=== PATIENT | female | born 1980 | race Two or more races ===

== ENCOUNTER 2020-05-06 14:38 | Outpatient (REF) | payer BC, SELFPAY ==
[2020-05-07 02:16] LABS: CT PCR NOT DETECTED (Not Detect.); NG PCR NOT DETECTED (Not Detect.)
[2020-05-07 09:32] LABS: BV Int Neg Control Negative (Negative); BV Int Pos Control Positive (Positive)
== END 2020-05-06 14:39 | disposition home or self-care (01) ==
LOC: HO.LAB 14:38
PROVIDERS: PCP Internal Medicine Medical Oncology; Visit Provider Obstetrics & Gynecology
DX: B37.3 Candidiasis of vulva and vagina (principal)
CPT/HCPCS: 87480; 87491; 87510; 87591; 87660

== ENCOUNTER 2020-08-22 09:22 | Outpatient (REF) | payer BC, SELFPAY ==
[2020-08-22 10:30] LABS: MANUAL DIFF FLAG NO
[2020-08-22 10:39] LABS: Basophils Percent Auto 0.5 % (0-2); Eosinophils Absolute Auto 0.1 X10*3/uL (0.0-0.4); Eosinophils Percent Auto 0.9 % (0-4); Hematocrit 36.7 % (37-47); Hemoglobin 11.6 g/dl (12.0-16.0); Imm Gran Abs Auto 0.02 X10*3/uL (0.00-0.03); Imm Gran Pct Auto 0.3 % (0.0-0.4); Lymphocytes Absolute Auto 1.8 X10*3/uL (1.2-4.9); Lymphocytes Percent Auto 23.2 % (20-40); Mean Corpuscular HGB Conc 31.6 g/dl (31.0-35.0); Mean Corpuscular Hemoglobin 24.4 pg (27.0-33.0); Mean Corpuscular Volume 77.1 fL (80-98); Mean Platelet Volume 9.9 fL (9.4-12.3); Monocytes Absolute Auto 0.3 X10*3/uL (0.1-1.2); Monocytes Percent Auto 4.3 % (2-11); Neutrophils Absolute Auto 5.4 X10*3/uL (2.0-8.3); Neutrophils Percent Auto 70.8 % (45-73); Platelet Count 376 X10*3/uL (160-400); Red Blood Count 4.76 X10*6/uL (4.20-5.50); Red Cell Distribution Width 14.9 % (11.0-16.0); White Blood Count 7.7 X10*3/uL (4.8-10.8)
[2020-08-22 11:03] LABS: Alanine Aminotransferase 16 U/L (0-31); Albumin Level 4.4 g/dL (3.5-5.0); Alkaline Phosphatase 92 U/L (39-117); Aspartate Amino Transferase 13 U/L (5-31); Bilirubin Direct < 0.2 mg/dL (0.0-0.5); Bilirubin Total 0.5 mg/dL (0.0-1.0); Total Protein 7.3 g/dL (6.5-8.0)
[2020-08-22 11:16] LABS: Ferritin 11 ng/mL (10-122)
== END 2020-08-22 09:23 | disposition home or self-care (01) ==
LOC: HO.LAB 09:22
PROVIDERS: PCP Internal Medicine Medical Oncology; Visit Provider Obstetrics & Gynecology
DX: G44.029 Chronic cluster headache, not intractable (principal); E66.9 Obesity, unspecified
CPT/HCPCS: 36415; 80076; 82728; 85025

== ENCOUNTER 2020-08-28 11:09 | Outpatient (REF) | payer BC, SELFPAY ==
[2020-08-28 13:48] LABS: Alanine Aminotransferase 15 U/L (0-31); Albumin Level 4.5 g/dL (3.5-5.0); Alkaline Phosphatase 92 U/L (39-117); Aspartate Amino Transferase 14 U/L (5-31); Bilirubin Direct < 0.2 mg/dL (0.0-0.5); Bilirubin Total 0.4 mg/dL (0.0-1.0); Total Protein 7.3 g/dL (6.5-8.0)
[2020-08-28 14:11] LABS: HCG Quantitative < 2 mIU/mL; Thyroid Stimulating Hormone 5.89 uIU/mL (0.32-4.0)
[2020-08-29 15:36] LABS: C. trachomatis RNA TMA NOT DETECTED (NOT DETECTED); N. gonorrhoeae RNA TMA NOT DETECTED (NOT DETECTED)
== END 2020-08-28 11:10 | disposition home or self-care (01) ==
LOC: HO.LAB 11:09
PROVIDERS: PCP Internal Medicine Medical Oncology; Visit Provider Obstetrics & Gynecology
DX: N92.0 Excessive and frequent menstruation with regular cycle (principal); B37.3 Candidiasis of vulva and vagina
CPT/HCPCS: 36415; 80076; 84443; 84702; 87491; 87591

== ENCOUNTER 2020-08-29 15:38 | Outpatient (REF) | payer BC, SELFPAY ==
--- NOTE | ~2020-08-29 | US_ITS ---
EXAMINATION: US PELVIS COMPLETE US TRANSVAGINAL CLINICAL INFORMATION: Frequent menstruation with regular cycle. COMPARISON: None TECHNIQUE: Transabdominal and transvaginal ultrasound of the pelvis was performed. FINDINGS: The uterus is anteverted and anteflexed measuring 12.3 cm in length, 4.1 cm in AP and 4.4 cm in transverse dimension. Endometrial thickness is 0.78 cm. The uterus is homogeneous in echotexture. There are small nabothian cysts seen in the cervix. Some of the cysts have central echogenicity and are complex. The right ovary measures 2.0 x 1.8 x 2.1 cm and a volume of 4.0 mL. It appears unremarkable. The left ovary measures 2.6 x 2.2 x 1.9 cm and a volume of 5.7 mL. It appears unremarkable. There is no free fluid in the cul-de-sac. US/US pelvic complete IMPRESSION: Unremarkable uterus. Small nabothian cysts, some of which are complex. The ovaries are unremarkable.
--- NOTE | ~2020-08-29 | US_ITS ---
EXAMINATION: US PELVIS COMPLETE US TRANSVAGINAL CLINICAL INFORMATION: Frequent menstruation with regular cycle. COMPARISON: None TECHNIQUE: Transabdominal and transvaginal ultrasound of the pelvis was performed. FINDINGS: The uterus is anteverted and anteflexed measuring 12.3 cm in length, 4.1 cm in AP and 4.4 cm in transverse dimension. Endometrial thickness is 0.78 cm. The uterus is homogeneous in echotexture. There are small nabothian cysts seen in the cervix. Some of the cysts have central echogenicity and are complex. The right ovary measures 2.0 x 1.8 x 2.1 cm and a volume of 4.0 mL. It appears unremarkable. The left ovary measures 2.6 x 2.2 x 1.9 cm and a volume of 5.7 mL. It appears unremarkable. There is no free fluid in the cul-de-sac. US/US transvaginal IMPRESSION: Unremarkable uterus. Small nabothian cysts, some of which are complex. The ovaries are unremarkable.
== END 2020-08-29 15:39 | disposition home or self-care (01) ==
LOC: HO.US 15:38
PROVIDERS: PCP Internal Medicine Medical Oncology; Visit Provider Obstetrics & Gynecology
DX: N92.0 Excessive and frequent menstruation with regular cycle (principal)
CPT/HCPCS: 76830; 76856

== ENCOUNTER 2020-08-30 10:43 | Outpatient (REF) | payer BC, SELFPAY ==
[2020-08-30 12:38] LABS: Free T4 (Free Thyroxine) 0.68 ng/dL (0.71-1.85)
== END 2020-08-30 10:44 | disposition home or self-care (01) ==
LOC: HO.LAB 10:43
PROVIDERS: Visit Provider Obstetrics & Gynecology
DX: R79.89 Other specified abnormal findings of blood chemistry (principal)
CPT/HCPCS: 84439; 84481

== ENCOUNTER 2020-09-06 09:19 | Outpatient (REF) | payer BC, SELFPAY ==
[2020-09-06 10:03] LABS: MANUAL DIFF FLAG NO
[2020-09-06 10:13] LABS: Basophils Percent Auto 0.3 % (0-2); Eosinophils Absolute Auto 0.1 X10*3/uL (0.0-0.4); Eosinophils Percent Auto 0.8 % (0-4); Hematocrit 38.1 % (37-47); Hemoglobin 11.9 g/dl (12.0-16.0); Imm Gran Abs Auto 0.03 X10*3/uL (0.00-0.03); Imm Gran Pct Auto 0.3 % (0.0-0.4); Lymphocytes Absolute Auto 1.6 X10*3/uL (1.2-4.9); Lymphocytes Percent Auto 17.8 % (20-40); Mean Corpuscular HGB Conc 31.2 g/dl (31.0-35.0); Mean Corpuscular Hemoglobin 23.8 pg (27.0-33.0); Mean Platelet Volume 9.5 fL (9.4-12.3); Monocytes Absolute Auto 0.4 X10*3/uL (0.1-1.2); Monocytes Percent Auto 4.2 % (2-11); Neutrophils Absolute Auto 6.7 X10*3/uL (2.0-8.3); Neutrophils Percent Auto 76.6 % (45-73); Platelet Count 424 X10*3/uL (160-400); Red Blood Count 5.01 X10*6/uL (4.20-5.50); White Blood Count 8.7 X10*3/uL (4.8-10.8)
[2020-09-06 10:23] LABS: Alanine Aminotransferase 14 U/L (0-31); Albumin Level 4.5 g/dL (3.5-5.0); Alkaline Phosphatase 91 U/L (39-117); Anion Gap 12 (12-20); Aspartate Amino Transferase 14 U/L (5-31); Bilirubin Total 0.6 mg/dL (0.0-1.0); Blood Urea Nitrogen 12 mg/dL (9-16); Calcium 8.9 mg/dL (8.4-10.2); Carbon Dioxide 26 mmol/L (22-29); Chloride 105 mmol/L (96-108); Cholesterol 180 mg/dL; Estimated Glomerular Filt Rate > 60; Glucose Fasting 109 mg/dL (60-99); HDL Cholesterol 39 mg/dL; LDL Cholesterol Calculated 125 mg/dl; Potassium 4.2 mmol/L (3.3-5.1); Sodium 139 mmol/L (135-145); Total Protein 7.6 g/dL (6.5-8.0); Triglycerides 80 mg/dL
[2020-09-06 10:31] LABS: Estimated Average Glucose 117 mg/dL; Hemoglobin A1c % 5.7 %
[2020-09-06 10:43] LABS: Ferritin 14 ng/mL (10-122)
== END 2020-09-06 09:20 | disposition home or self-care (01) ==
LOC: HO.LAB 09:19
PROVIDERS: PCP Internal Medicine Medical Oncology; Visit Provider Internal Medicine Medical Oncology
DX: R73.9 Hyperglycemia, unspecified (principal); E66.9 Obesity, unspecified; D50.9 Iron deficiency anemia, unspecified
CPT/HCPCS: 36415; 80053; 80061; 82728; 83036; 85025

== ENCOUNTER 2020-09-18 12:06 | Outpatient (REF) | payer BC, SELFPAY | END 2020-09-18 12:07 | disposition home or self-care (01) | LOC: HO.LAB 12:06 | PROVIDERS: PCP Internal Medicine Medical Oncology; Visit Provider Internal Medicine | DX: Z20.822 Contact with and (suspected) exposure to COVID-19 (principal) | CPT/HCPCS: 36415; C9803; U0003; U0005 ==

== ENCOUNTER 2020-09-24 13:45 | Outpatient (REF) | payer BC, SELFPAY | END 2020-09-24 13:46 | disposition home or self-care (01) | LOC: HO.LAB 13:45 | PROVIDERS: Visit Provider Obstetrics & Gynecology | DX: N92.0 Excessive and frequent menstruation with regular cycle (principal) | CPT/HCPCS: 58100; 88305 ==

== ENCOUNTER → 2020-10-15 14:36 | Outpatient (BNVA) | payer BC, SELFPAY | PROVIDERS: Visit Provider Obstetrics & Gynecology ==

== ENCOUNTER 2020-11-08 14:17 | Outpatient (REF) | payer BC, SELFPAY ==
[2020-11-08 17:09] LABS: Free T4 (Free Thyroxine) 0.87 ng/dL (0.71-1.85); Thyroid Stimulating Hormone 2.95 uIU/mL (0.32-4.0)
[2020-11-09 10:07] LABS: Thyroglobulin Antibodies 1 IU/mL (< or = 1); Thyroid Peroxidase Antibodies >900 IU/mL (<9)
== END 2020-11-08 14:18 | disposition home or self-care (01) ==
LOC: HO.LAB 14:17
PROVIDERS: Visit Provider Nurse Practitioner Gerontology
DX: R79.89 Other specified abnormal findings of blood chemistry (principal); E66.09 Other obesity due to excess calories; R73.03 Prediabetes
CPT/HCPCS: 36415; 84439; 84443; 86376; 86800

== ENCOUNTER → 2020-11-12 09:29 | Outpatient (BNVA) | payer BC, SELFPAY | PROVIDERS: Visit Provider Obstetrics & Gynecology ==

== ENCOUNTER 2020-11-15 08:02 | Day surgery (SDC) | payer BC, SELFPAY ==
--- NOTE | 2020-11-13 12:22 | HO.ANESPROP2 ---
HPI - Anesthesia Eval Consult details Narrative: 40yo F for D&C Hysteroscopy, Poss Polypectomy, Poss Myomectomy PMFSH Active Problems Active Problems: All Active Problems (Updated 11/11/20 @ 11:45 by EMILY Lin) Barb's disease (Acute) Prediabetes (Acute) Elevated TSH (Acute) Obesity due to excess calories (Acute) Menorrhagia (Acute) Recurrent candidiasis of vagina (Acute) Past Medical History Medical History Barb's disease Obesity due to excess calories Prediabetes Surgical History Surgical History H/O tubal ligation Social History Social History Household Members: Spouse and Children Alcohol intake: never Smoking Status: Never smoker Second Hand Smoke Exposure: No Sexual 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/Heterosexual Gender identity: female Meds Allergies Allergy/AdvReac Type Severity Reaction Status Date / Time No Known Allergies Allergy Verified 11/12/20 09:55 Home Medications Medication Instructions Recorded Confirmed Last Taken Type clotrimazole-betamethasone 1 1 applic TOPICAL BID 05/06/20 11/08/20 Unknown History %-0.05 % topical cream Exam Exam Date and Time: November 13, 2020 1222 Pertinent Lab Results Pertinent Lab Results: Laboratory Tests 09/06/20 09/06/20 09:38 09:38 WBC 8.7 Hgb 11.9 L Hct 38.1 Plt Count 424 H Sodium 139 Potassium 4.2 Chloride 105 Carbon Dioxide 26 BUN 12 Creatinine 0.77 Assessment and Plan Assessment Anesthesia Assessment: Chart Reviewed
[2020-11-15] VITALS (7 sets, daily range): BP systolic 103–119; BP diastolic 63–77; PULSE 66–90; RESP 16–20; TEMP 36.1–36.7; O2SAT 96–100; BMI 31.2
[2020-11-15 08:32] LABS: UPreg QC Valid YES; Urine Pregnancy NEGATIVE (NEGATIVE)
[2020-11-15] MEDS: Lactated Ringers 1,000 ML 100 ML IVCONT (09:18)
--- NOTE | 2020-11-15 09:44 | MHC.SHP ---
Pre-Procedural Eval Section A The patient is an INPATIENT: No Changes since office visit: No Cold of Flu in the past 2 weeks, No New Medical Problems, No Changes in Medication and No Patient answered all questions The History & Physical has been completed within 30 days and I have reviewed it.: Yes Section B Chief Complaint: Menorrhagia Allergies: Allergies Allergy/AdvReac Type Severity Reaction Status Date / Time No Known Allergies Allergy Verified 11/12/20 09:55 Plan Diagnosis/Plan: Unchanged I have reviewed the history and physical and performed a pertinent physical examination on my patient. No changes have occurred unless specified.
--- NOTE | 2020-11-15 10:27 | P.BOP_ITS ---
Brief Operative Note Date of Service: 11/15/20 Pre-op diagnosis: Menorrhagia Post-op diagnosis: same (Normal endometrial/endocervical cavity) Procedure: Hysteroscopy D&C Surgeon: Baldemar Pineda MD Anesthesia: MAC Was an Retail Pricing Coordinator used for this Procedure?: No Estimated blood loss (mL): 0 Pathology: other (Endometrial Scrapping.) Condition: stable Disposition: PACU
--- NOTE | 2020-11-15 10:29 | P.OP_ITS ---
Operative Note Operative Note Date of Service: 11/15/20 Narrative: Preop Diagnosis: Menorrhagia Operation: Diagnostic Hysteroscopy, Dilataion & Curettage Post Op Diagnosis: Normal endometrial /endocervical cavity QBL: Minimal Anesthesia: MAC Surgeon: Baldemar Pineda MD Investigative Research Specialist: None Complication: None Pathology: Endometrial Scrapings Complication: None Pathology: Endometrial Scrapings Procedure: The patient was put in the dorsal lithotomy position, scrubbed, and draped in the usual manner. A sterile speculum was inserted in the patient's vagina. The anterior lip of the cervix was grasped with a single tooth tenaculum. The cervix was dilated up to 5 mm, then the scope was inserted in the patient's uterus. Inspection revealed normal endometrial/endocervical cavity. Sharp curetting was carried on and moderate amount of endometrial tissues were retrieved. At the end of the procedure, all instruments were taken out of the patient uterine and vaginal cavity. The single tooth tenaculum was removed and homeostasis was assured using pressure,. The patient tolerated the procedure well and was transferred to the PACU in a stable condition.
[2020-11-15] MEDS: Acetaminophen 325 MG TABLET 650 MG PO (11:03)
[2020-11-15] MEDS: oxyCODONE HCl Immed Release 5 MG TABLET PO (11:04)
--- NOTE | 2020-11-15 11:10 | HO.POSTANES ---
Post Anesthesia Evaluation Post Anesthesia Evaluation Vital Signs: Vital Signs Temp Pulse Resp BP Pulse Ox 11/15/20 10:55 79 20 109/63 98 11/15/20 10:50 86 16 113/69 97 11/15/20 10:45 84 18 109/64 96 11/15/20 10:40 97.0 F 90 16 110/64 96 11/15/20 08:46 97.5 F 86 16 103/63 100 Anesthesia: General Endotracheal-GETA Mental Status: Awake Pain Control: Satisfactory Nausea/Vomiting: None Hydration: Adequate Anesthesia-Related Issues: No Anes. Related Issues
--- NOTE | 2020-11-15 11:33 | HO.POSTANES ---
Post Anesthesia Evaluation Post Anesthesia Evaluation Vital Signs: Vital Signs Temp Pulse Resp BP Pulse Ox 11/15/20 11:25 98.0 F 66 17 119/74 98 11/15/20 11:10 70 18 115/77 98 11/15/20 10:55 79 20 109/63 98 11/15/20 10:50 86 16 113/69 97 11/15/20 10:45 84 18 109/64 96 11/15/20 10:40 97.0 F 90 16 110/64 96 11/15/20 08:46 97.5 F 86 16 103/63 100 Anesthesia: General Mental Status: Awake Pain Control: Satisfactory Nausea/Vomiting: None Hydration: Adequate Anesthesia-Related Issues: No Anes. Related Issues
== END 2020-11-15 12:17 | disposition home or self-care (01) ==
LOC: HO.SSS 08:03
PROVIDERS: Nurse Practitioner; Visit Provider Obstetrics & Gynecology
PROC: 0UDB8ZZ Extraction of Endometrium, Via Natural or Artificial Opening Endoscopic (ICD-10-PCS; CPT 58558; principal; 2020-11-15 09:00)
DX: N92.0 Excessive and frequent menstruation with regular cycle (principal); E06.3 Autoimmune thyroiditis; R73.03 Prediabetes; E66.09 Other obesity due to excess calories; Z68.31 Body mass index [BMI] 31.0-31.9, adult; Z79.84 Long term (current) use of oral hypoglycemic drugs
CPT/HCPCS: 58558; 81025; 88305; J1100; J2250; J2405; J3010

== ENCOUNTER 2020-11-21 10:10 | Outpatient (REF) | payer BC, SELFPAY ==
--- NOTE | ~2020-11-21 | US_ITS ---
EXAMINATION: US THYROID CLINICAL INFORMATION: Autoimmune thyroiditis. COMPARISON: None TECHNIQUE: Linear transducer grayscale and color Doppler examination with attention to the region of the thyroid. FINDINGS: SIZE: Measurements of the thyroid lobes and nodules are given in sagittal, anteroposterior and transverse dimensions respectively. Right Thyroid Lobe: 5.4 x 1.1 x 1.9 cm, volume 5.7 mL. Parenchyma: The gland echotexture is heterogeneous. Thyroid vascularity is normal. Left Thyroid Lobe: 4.2 x 1.1 x 1.6 cm, volume 3.8 mL. Parenchyma: The gland echotexture is heterogeneous. Thyroid vascularity is normal. Isthmus: 0.2 cm in maximum AP dimension. No focal thyroid nodule is seen. NODES: No lymphadenopathy is seen in the tissue surrounding the thyroid gland. US/US thyroid IMPRESSION: Normal-size slightly heterogeneous thyroid gland. No nodule seen.
== END 2020-11-21 10:11 | disposition home or self-care (01) ==
LOC: HO.US 10:10
PROVIDERS: Visit Provider Nurse Practitioner Gerontology
DX: E06.3 Autoimmune thyroiditis (principal)
CPT/HCPCS: 76536

== ENCOUNTER → 2020-11-28 11:36 | Outpatient (BNVA) | payer BC, SELFPAY | PROVIDERS: Visit Provider Obstetrics & Gynecology ==

== ENCOUNTER 2020-12-09 09:28 | Outpatient (REF) | payer BC, SELFPAY ==
[2020-12-09 09:57] LABS: MANUAL DIFF FLAG NO
[2020-12-09 10:00] LABS: Basophils Percent Auto 0.3 % (0-2); Eosinophils Absolute Auto 0.1 X10*3/uL (0.0-0.4); Eosinophils Percent Auto 1.5 % (0-4); Hematocrit 35.8 % (37-47); Hemoglobin 10.9 g/dl (12.0-16.0); Imm Gran Abs Auto 0.03 X10*3/uL (0.00-0.03); Imm Gran Pct Auto 0.4 % (0.0-0.4); Lymphocytes Absolute Auto 1.9 X10*3/uL (1.2-4.9); Lymphocytes Percent Auto 25.8 % (20-40); Mean Corpuscular HGB Conc 30.4 g/dl (31.0-35.0); Mean Corpuscular Hemoglobin 23.4 pg (27.0-33.0); Mean Platelet Volume 9.2 fL (9.4-12.3); Monocytes Absolute Auto 0.3 X10*3/uL (0.1-1.2); Monocytes Percent Auto 4.7 % (2-11); Neutrophils Absolute Auto 4.8 X10*3/uL (2.0-8.3); Neutrophils Percent Auto 67.3 % (45-73); Platelet Count 384 X10*3/uL (160-400); Red Blood Count 4.65 X10*6/uL (4.20-5.50); Red Cell Distribution Width 15.1 % (11.0-16.0); White Blood Count 7.2 X10*3/uL (4.8-10.8)
[2020-12-09 10:25] LABS: Alanine Aminotransferase 13 U/L (0-31); Albumin Level 4.2 g/dL (3.5-5.0); Alkaline Phosphatase 81 U/L (39-117); Anion Gap 11 (12-20); Aspartate Amino Transferase 12 U/L (5-31); Bilirubin Total 0.3 mg/dL (0.0-1.0); Blood Urea Nitrogen 9 mg/dL (9-16); Carbon Dioxide 25 mmol/L (22-29); Chloride 108 mmol/L (96-108); Cholesterol 164 mg/dL; Estimated Glomerular Filt Rate > 60; Glucose Fasting 107 mg/dL (60-99); HDL Cholesterol 37 mg/dL; LDL Cholesterol Calculated 105 mg/dl; Potassium 4.4 mmol/L (3.3-5.1); Sodium 140 mmol/L (135-145); Total Protein 6.8 g/dL (6.5-8.0); Triglycerides 112 mg/dL
[2020-12-09 10:46] LABS: Free T4 (Free Thyroxine) 0.83 ng/dL (0.71-1.85); Thyroid Stimulating Hormone 1.42 uIU/mL (0.32-4.0)
== END 2020-12-09 09:29 | disposition home or self-care (01) ==
LOC: HO.LAB 09:28
PROVIDERS: PCP Internal Medicine Medical Oncology; Visit Provider Internal Medicine Medical Oncology
DX: E66.9 Obesity, unspecified (principal); D50.9 Iron deficiency anemia, unspecified; E03.9 Hypothyroidism, unspecified
CPT/HCPCS: 36415; 80053; 80061; 84439; 84443; 85025

== ENCOUNTER → 2020-12-16 10:01 | Outpatient (BNVA) | payer BC, SELFPAY | PROVIDERS: PCP Internal Medicine Medical Oncology; Visit Provider Dietitian, Registered | DX: E66.09 Other obesity due to excess calories (principal); R73.03 Prediabetes | CPT/HCPCS: 97802 ==

== ENCOUNTER 2021-03-07 10:22 | Outpatient (REF) | payer BC, SELFPAY ==
[2021-03-07 13:26] LABS: Estimated Average Glucose 111 mg/dL; Hemoglobin A1c % 5.5 %
[2021-03-07 13:27] LABS: Free T4 (Free Thyroxine) 0.89 ng/dL (0.71-1.85); Thyroid Stimulating Hormone 1.31 uIU/mL (0.32-4.0)
== END 2021-03-07 10:23 | disposition home or self-care (01) ==
LOC: HO.LAB 10:22
PROVIDERS: PCP Internal Medicine Medical Oncology; Visit Provider Nurse Practitioner Gerontology
DX: E06.3 Autoimmune thyroiditis (principal); R73.03 Prediabetes; E66.09 Other obesity due to excess calories
CPT/HCPCS: 36415; 83036; 84439; 84443

== ENCOUNTER 2021-03-17 08:59 | Outpatient (REF) | payer BC, SELFPAY ==
[2021-03-17 10:34] LABS: MANUAL DIFF FLAG NO
[2021-03-17 10:40] LABS: Basophils Percent Auto 0.3 % (0-2); Eosinophils Absolute Auto 0.1 X10*3/uL (0.0-0.4); Hematocrit 37.4 % (37-47); Hemoglobin 11.6 g/dl (12.0-16.0); Imm Gran Abs Auto 0.03 X10*3/uL (0.00-0.03); Imm Gran Pct Auto 0.3 % (0.0-0.4); Lymphocytes Percent Auto 22.3 % (20-40); Mean Corpuscular Hemoglobin 23.6 pg (27.0-33.0); Mean Corpuscular Volume 76.2 fL (80-98); Mean Platelet Volume 9.6 fL (9.4-12.3); Monocytes Absolute Auto 0.5 X10*3/uL (0.1-1.2); Monocytes Percent Auto 5.2 % (2-11); Neutrophils Absolute Auto 6.2 X10*3/uL (2.0-8.3); Neutrophils Percent Auto 70.9 % (45-73); Platelet Count 363 X10*3/uL (160-400); Red Blood Count 4.91 X10*6/uL (4.20-5.50); Red Cell Distribution Width 15.1 % (11.0-16.0); White Blood Count 8.8 X10*3/uL (4.8-10.8)
[2021-03-17 11:00] LABS: Estimated Average Glucose 111 mg/dL; Hemoglobin A1c % 5.5 %
[2021-03-17 11:17] LABS: Alanine Aminotransferase 20 U/L (0-31); Albumin Level 4.2 g/dL (3.5-5.0); Alkaline Phosphatase 81 U/L (39-117); Anion Gap 12 (12-20); Aspartate Amino Transferase 14 U/L (5-31); Bilirubin Total 0.4 mg/dL (0.0-1.0); Blood Urea Nitrogen 8 mg/dL (9-16); Calcium 8.9 mg/dL (8.4-10.2); Carbon Dioxide 25 mmol/L (22-29); Chloride 105 mmol/L (96-108); Cholesterol 157 mg/dL; Estimated Glomerular Filt Rate > 60; Glucose Fasting 100 mg/dL (60-99); HDL Cholesterol 36 mg/dL; LDL Cholesterol Calculated 89 mg/dl; Potassium 3.8 mmol/L (3.3-5.1); Sodium 138 mmol/L (135-145); Total Protein 6.7 g/dL (6.5-8.0); Triglycerides 163 mg/dL
[2021-03-17 11:21] LABS: Thyroid Stimulating Hormone 1.31 uIU/mL (0.32-4.0)
== END 2021-03-17 09:00 | disposition home or self-care (01) ==
LOC: HO.LAB 08:59
PROVIDERS: PCP Internal Medicine Medical Oncology; Visit Provider Obstetrics & Gynecology
DX: Z01.419 Encounter for gynecological examination (general) (routine) without abnormal findings (principal); E03.9 Hypothyroidism, unspecified; D50.9 Iron deficiency anemia, unspecified; E66.9 Obesity, unspecified; R87.610 Atypical squamous cells of undetermined significance on cytologic smear of cervix (ASC-US); R87.811 Vaginal high risk human papillomavirus (HPV) DNA test positive
CPT/HCPCS: 36415; 80053; 80061; 83036; 84439; 84443; 85025

== ENCOUNTER → 2021-03-24 11:38 | Outpatient (BNVA) | payer BC, SELFPAY | PROVIDERS: PCP Internal Medicine Medical Oncology; Visit Provider Dietitian, Registered | DX: R73.03 Prediabetes (principal); E66.09 Other obesity due to excess calories | CPT/HCPCS: 97803 ==

== ENCOUNTER 2021-07-17 08:33 | Outpatient (REF) | payer BC, SELFPAY ==
[2021-07-17 08:58] LABS: MANUAL DIFF FLAG NO
[2021-07-17 09:12] LABS: Basophils Percent Auto 0.2 % (0-2); Eosinophils Absolute Auto 0.1 X10*3/uL (0.0-0.4); Hematocrit 36.5 % (37.0-47.0); Hemoglobin 11.3 g/dl (12.0-16.0); Imm Gran Abs Auto 0.02 X10*3/uL (0.00-0.03); Imm Gran Pct Auto 0.2 % (0.0-0.4); Lymphocytes Absolute Auto 1.9 X10*3/uL (1.2-4.9); Lymphocytes Percent Auto 21.8 % (20-40); Mean Corpuscular Hemoglobin 23.5 pg (27.0-33.0); Mean Corpuscular Volume 75.9 fL (80.0-98.0); Mean Platelet Volume 9.2 fL (9.4-12.3); Monocytes Absolute Auto 0.5 X10*3/uL (0.1-1.2); Monocytes Percent Auto 5.3 % (2-11); Neutrophils Absolute Auto 6.3 x10*3/uL (2.0-8.3); Neutrophils Percent Auto 71.5 % (45-73); Platelet Count 380 X10*3/uL (160-400); Red Blood Count 4.81 X10*6/uL (4.20-5.50); Red Cell Distribution Width 14.8 % (11.0-16.0); White Blood Count 8.9 X10*3/uL (4.8-10.8)
[2021-07-17 09:33] LABS: Estimated Average Glucose 114 mg/dL; Hemoglobin A1c % 5.6 %
[2021-07-17 09:35] LABS: Alanine Aminotransferase 15 U/L (0-31); Albumin Level 4.1 g/dL (3.5-5.0); Alkaline Phosphatase 79 U/L (39-117); Anion Gap 10 (12-20); Aspartate Amino Transferase 13 U/L (5-31); Bilirubin Total 0.6 mg/dL (0.0-1.0); Blood Urea Nitrogen 10 mg/dL (9-16); Calcium 9.1 mg/dL (8.4-10.2); Carbon Dioxide 28 mmol/L (22-29); Chloride 106 mmol/L (96-108); Cholesterol 151 mg/dL; Estimated Glomerular Filt Rate > 60; Glucose Fasting 107 mg/dL (60-99); HDL Cholesterol 37 mg/dL; LDL Cholesterol Calculated 92 mg/dl; Potassium 3.9 mmol/L (3.3-5.1); Sodium 140 mmol/L (135-145); Triglycerides 112 mg/dL
[2021-07-17 10:32] LABS: Creatinine Urine 267.03 mg/dL; Microalbum/Creatinine Ratio Ur 23.2 ug/mg cr
== END 2021-07-17 08:34 | disposition home or self-care (01) ==
LOC: HO.LAB 08:33
PROVIDERS: PCP Internal Medicine Medical Oncology; Visit Provider Internal Medicine Medical Oncology
DX: E03.9 Hypothyroidism, unspecified (principal); E66.9 Obesity, unspecified; D50.9 Iron deficiency anemia, unspecified
CPT/HCPCS: 36415; 80053; 80061; 82043; 83036; 85025

== ENCOUNTER 2021-07-23 14:04 | Outpatient (REF) | payer BC, SELFPAY ==
--- NOTE | ~2021-07-23 | MM_ITS ---
EXAMINATION: MM SCREENING DIGITAL BREAST TOMOSYNTHESIS, BILATERAL CLINICAL INFORMATION: Screening. Asymptomatic. Age 41. No prior breast imaging. No known family history breast cancer. The lifetime risk of breast cancer based on the Tyrer-Cuzick Model is 10%. COMPARISON: None (current study represents initial baseline exam). TECHNIQUE: Digital breast tomosynthesis is performed in both the craniocaudal and mediolateral oblique views along with computer-aided detection (CAD). Synthesized 2D images are generated from the tomosynthesis. FINDINGS: There are scattered areas of fibroglandular density (ACR BI-RADS breast composition Category b). There are no significant masses, abnormal calcifications, or other abnormalities. The axilla and skin contours are unremarkable. MM/MM tomosynthesis screening BI IMPRESSION: No mammographic evidence of malignancy. ASSESSMENT: BI-RADS 1: Negative RECOMMENDATION: Routine annual mammography screening. This patient's information was entered into a reminder system with a target due date for their next mammogram.
== END 2021-07-23 14:05 | disposition home or self-care (01) ==
LOC: HO.MAMMO 14:04
PROVIDERS: Absent Provider Internal Medicine Medical Oncology; Visit Provider Obstetrics & Gynecology
DX: Z12.31 Encounter for screening mammogram for malignant neoplasm of breast (principal)
CPT/HCPCS: 77063; 77067

== ENCOUNTER 2021-09-18 08:58 | Outpatient (REF) | payer BC, SELFPAY ==
[2021-09-18 09:21] LABS: MANUAL DIFF FLAG NO
[2021-09-18 10:03] LABS: Basophils Percent Auto 0.3 % (0-2); Eosinophils Absolute Auto 0.1 X10*3/uL (0.0-0.4); Eosinophils Percent Auto 1.5 % (0-4); Hemoglobin 11.5 g/dl (12.0-16.0); Imm Gran Abs Auto 0.03 X10*3/uL (0.00-0.03); Imm Gran Pct Auto 0.3 % (0.0-0.4); Lymphocytes Percent Auto 22.2 % (20-40); Mean Corpuscular HGB Conc 31.1 g/dl (31.0-35.0); Mean Corpuscular Hemoglobin 23.3 pg (27.0-33.0); Mean Corpuscular Volume 74.9 fL (80.0-98.0); Mean Platelet Volume 9.1 fL (9.4-12.3); Monocytes Absolute Auto 0.4 X10*3/uL (0.1-1.2); Neutrophils Absolute Auto 6.2 x10*3/uL (2.0-8.3); Neutrophils Percent Auto 70.7 % (45-73); Platelet Count 451 X10*3/uL (160-400); Red Blood Count 4.94 X10*6/uL (4.20-5.50); Red Cell Distribution Width 14.4 % (11.0-16.0); White Blood Count 8.8 X10*3/uL (4.8-10.8)
[2021-09-18 10:44] LABS: Estimated Average Glucose 120 mg/dL; Hemoglobin A1c % 5.8 %
[2021-09-18 10:54] LABS: Ferritin 15 ng/mL (10-250)
[2021-09-18 10:59] LABS: Alanine Aminotransferase 14 U/L (0-31); Albumin Level 4.2 g/dL (3.5-5.0); Alkaline Phosphatase 88 U/L (39-117); Anion Gap 12 (12-20); Aspartate Amino Transferase 12 U/L (5-31); Bilirubin Total 0.5 mg/dL (0.0-1.0); Blood Urea Nitrogen 8 mg/dL (9-16); Calcium 9.4 mg/dL (8.4-10.2); Carbon Dioxide 27 mmol/L (22-29); Chloride 104 mmol/L (96-108); Cholesterol 162 mg/dL; Estimated Glomerular Filt Rate > 60; Glucose Random 104 mg/dL (60-115); HDL Cholesterol 35 mg/dL; LDL Cholesterol Calculated 95 mg/dl; Potassium 4.4 mmol/L (3.3-5.1); Sodium 139 mmol/L (135-145); Total Protein 7.2 g/dL (6.5-8.0); Triglycerides 160 mg/dL
== END 2021-09-18 08:59 | disposition home or self-care (01) ==
LOC: HO.LAB 08:58
PROVIDERS: PCP Internal Medicine Medical Oncology; Visit Provider Internal Medicine Medical Oncology
DX: E66.9 Obesity, unspecified (principal); D50.9 Iron deficiency anemia, unspecified; R73.03 Prediabetes
CPT/HCPCS: 36415; 80053; 80061; 82728; 83036; 85025

== ENCOUNTER 2022-02-17 09:06 | Outpatient (REF) | payer BC, SELFPAY ==
[2022-02-17 09:22] LABS: MANUAL DIFF FLAG NO
[2022-02-17 09:42] LABS: Basophils Percent Auto 0.3 % (0-2); Eosinophils Absolute Auto 0.1 X10*3/uL (0.0-0.4); Eosinophils Percent Auto 1.3 % (0-4); Hematocrit 37.4 % (37.0-47.0); Hemoglobin 11.7 g/dl (12.0-16.0); Imm Gran Abs Auto 0.05 X10*3/uL (0.00-0.03); Imm Gran Pct Auto 0.5 % (0.0-0.4); Lymphocytes Percent Auto 21.1 % (20-40); Mean Corpuscular HGB Conc 31.3 g/dl (31.0-35.0); Mean Corpuscular Hemoglobin 23.3 pg (27.0-33.0); Mean Corpuscular Volume 74.4 fL (80.0-98.0); Mean Platelet Volume 9.4 fL (9.4-12.3); Monocytes Absolute Auto 0.5 X10*3/uL (0.1-1.2); Monocytes Percent Auto 5.1 % (2-11); Neutrophils Absolute Auto 6.7 x10*3/uL (2.0-8.3); Neutrophils Percent Auto 71.7 % (45-73); Platelet Count 409 X10*3/uL (160-400); Red Blood Count 5.03 X10*6/uL (4.20-5.50); Red Cell Distribution Width 16.4 % (11.0-16.0); White Blood Count 9.4 X10*3/uL (4.8-10.8)
[2022-02-17 10:10] LABS: Iron 52 mcg/dL (30-160); Percent Iron Saturation 12 % (15-50); Total Iron Binding Capacity 444 mcg/dL (228-428); Unsaturated Iron Binding 392 ug/dL
[2022-02-17 10:23] LABS: Ferritin 12 ng/mL (10-250)
[2022-02-19 13:51] LABS: Hematocrit 36.1 % (35.0-45.0); Hemoglobin 11.7 g/dL (11.7-15.5); MCH 23.5 pg (27.0-33.0); MCV 72.6 fL (80.0-100.0); RBC 4.97 Million/uL (3.80-5.10); RDW 15.9 % (11.0-15.0)
== END 2022-02-17 09:07 | disposition home or self-care (01) ==
LOC: HO.LAB 09:06
PROVIDERS: PCP Internal Medicine Medical Oncology; Visit Provider Internal Medicine Medical Oncology
DX: E03.9 Hypothyroidism, unspecified (principal); E66.9 Obesity, unspecified; D50.9 Iron deficiency anemia, unspecified; R73.03 Prediabetes
CPT/HCPCS: 36415; 82728; 83020; 83540; 85014; 85018; 85025; 85041

== ENCOUNTER 2022-07-03 10:34 | Outpatient (REF) | payer BC, SELFPAY ==
[2022-07-03 10:44] LABS: MANUAL DIFF FLAG NO
[2022-07-03 10:58] LABS: Basophils Percent Auto 0.5 % (0-2); Eosinophils Absolute Auto 0.1 X10*3/uL (0.0-0.4); Eosinophils Percent Auto 1.2 % (0-4); Hematocrit 35.8 % (37.0-47.0); Hemoglobin 11.2 g/dl (12.0-16.0); Imm Gran Abs Auto 0.02 X10*3/uL (0.00-0.03); Imm Gran Pct Auto 0.2 % (0.0-0.4); Immature Retic Fraction 17.3 % (3.0-15.9); Lymphocytes Absolute Auto 1.9 X10*3/uL (1.2-4.9); Lymphocytes Percent Auto 22.8 % (20-40); Mean Corpuscular HGB Conc 31.3 g/dl (31.0-35.0); Mean Corpuscular Hemoglobin 23.5 pg (27.0-33.0); Mean Corpuscular Volume 75.1 fL (80.0-98.0); Mean Platelet Volume 9.4 fL (9.4-12.3); Monocytes Absolute Auto 0.4 X10*3/uL (0.1-1.2); Monocytes Percent Auto 4.5 % (2-11); Neutrophils Percent Auto 70.8 % (45-73); Platelet Count 434 X10*3/uL (160-400); Red Blood Count 4.77 X10*6/uL (4.20-5.50); Red Cell Distribution Width 14.7 % (11.0-16.0); Retic HGB Equivalent 28.2 pg (30.0-35.0); Reticulocyte Percent 1.6 % (0.5-1.8); Reticulocytes Absolute 0.077 X10*6/uL (0.026-0.095); White Blood Count 8.4 X10*3/uL (4.8-10.8)
[2022-07-03 11:40] LABS: Alanine Aminotransferase 12 U/L (0-31); Albumin Level 4.3 g/dL (3.5-5.0); Alkaline Phosphatase 82 U/L (39-117); Anion Gap 13 (12-20); Aspartate Amino Transferase 12 U/L (5-31); Bilirubin Total 0.6 mg/dL (0.0-1.0); Blood Urea Nitrogen 12 mg/dL (9-16); Carbon Dioxide 24 mmol/L (22-29); Chloride 107 mmol/L (96-108); Cholesterol 157 mg/dL; Estimated Glomerular Filt Rate > 60; Glucose Fasting 108 mg/dL (60-99); HDL Cholesterol 35 mg/dL; LDL Cholesterol Calculated 103 mg/dl; Potassium 4.1 mmol/L (3.3-5.1); Sodium 140 mmol/L (135-145); Triglycerides 96 mg/dL
[2022-07-03 12:01] LABS: Ferritin 16 ng/mL (10-250)
[2022-07-03 12:02] LABS: Estimated Average Glucose 120 mg/dL; Hemoglobin A1c % 5.8 %
== END 2022-07-03 10:35 | disposition home or self-care (01) ==
LOC: HO.LAB 10:34
PROVIDERS: PCP Internal Medicine Medical Oncology; Visit Provider Internal Medicine Medical Oncology
DX: E03.9 Hypothyroidism, unspecified (principal); E66.9 Obesity, unspecified; D50.9 Iron deficiency anemia, unspecified
CPT/HCPCS: 36415; 80053; 80061; 82728; 83036; 85025; 85045

== ENCOUNTER 2022-07-27 15:51 | Outpatient (REF) | payer BC, SELFPAY ==
--- NOTE | ~2022-07-27 | MM_ITS ---
EXAMINATION: MM SCREENING DIGITAL BREAST TOMOSYNTHESIS, BILATERAL CLINICAL INFORMATION: Screening. Asymptomatic. The lifetime risk of breast cancer based on the Tyrer-Cuzick Model is 10%. COMPARISON: Mammography: 07/23/2021 (baseline) TECHNIQUE: Digital breast tomosynthesis is performed in both the craniocaudal and mediolateral oblique views along with computer-aided detection (CAD). Synthesized 2D images are generated from the tomosynthesis. FINDINGS: There are scattered areas of fibroglandular density (ACR BI-RADS breast composition Category b). Breast tissue composition borders on heterogeneously dense. There are no significant masses, abnormal calcifications, or other abnormalities. No architectural abnormality or developing density or significant change from prior baseline exam. The axilla and skin contours are unremarkable. No significant changes. MM/MM tomosynthesis screening BI IMPRESSION: No mammographic evidence of malignancy. ASSESSMENT: BI-RADS 1: Negative RECOMMENDATION: Routine annual mammography screening. This patient's information was entered into a reminder system with a target due date for their next mammogram.
== END 2022-07-27 15:52 | disposition home or self-care (01) ==
LOC: HO.MAMMO 15:51
PROVIDERS: PCP Internal Medicine Medical Oncology; Visit Provider Obstetrics & Gynecology
DX: Z12.31 Encounter for screening mammogram for malignant neoplasm of breast (principal)
CPT/HCPCS: 77063; 77067

== ENCOUNTER 2022-10-15 09:03 | Outpatient (REF) | payer BC, SELFPAY ==
[2022-10-15 09:15] LABS: MANUAL DIFF FLAG NO
[2022-10-15 09:27] LABS: Basophils Percent Auto 0.3 % (0-2); Eosinophils Absolute Auto 0.1 X10*3/uL (0.0-0.4); Eosinophils Percent Auto 0.7 % (0-4); Hematocrit 36.7 % (37.0-47.0); Hemoglobin 11.5 g/dl (12.0-16.0); Imm Gran Abs Auto 0.04 X10*3/uL (0.00-0.03); Imm Gran Pct Auto 0.4 % (0.0-0.4); Lymphocytes Absolute Auto 1.7 X10*3/uL (1.2-4.9); Lymphocytes Percent Auto 15.6 % (20-40); Mean Corpuscular HGB Conc 31.3 g/dl (31.0-35.0); Mean Corpuscular Hemoglobin 23.3 pg (27.0-33.0); Mean Corpuscular Volume 74.4 fL (80.0-98.0); Mean Platelet Volume 9.4 fL (9.4-12.3); Monocytes Absolute Auto 0.5 X10*3/uL (0.1-1.2); Monocytes Percent Auto 4.9 % (2-11); Neutrophils Absolute Auto 8.6 x10*3/uL (2.0-8.3); Neutrophils Percent Auto 78.1 % (45-73); Platelet Count 398 X10*3/uL (160-400); Red Blood Count 4.93 X10*6/uL (4.20-5.50); Red Cell Distribution Width 15.2 % (11.0-16.0)
[2022-10-15 09:38] LABS: Estimated Average Glucose 123 mg/dL; Hemoglobin A1c % 5.9 %
[2022-10-15 10:00] LABS: Alanine Aminotransferase 14 U/L (0-31); Albumin Level 4.2 g/dL (3.5-5.0); Alkaline Phosphatase 89 U/L (39-117); Anion Gap 11 (12-20); Aspartate Amino Transferase 14 U/L (5-31); Bilirubin Total 0.6 mg/dL (0.0-1.0); Blood Urea Nitrogen 8 mg/dL (9-16); Carbon Dioxide 27 mmol/L (22-29); Chloride 105 mmol/L (96-108); Cholesterol 176 mg/dL; Estimated Glomerular Filt Rate > 60; Glucose Fasting 109 mg/dL (60-99); HDL Cholesterol 35 mg/dL; LDL Cholesterol Calculated 117 mg/dl; Potassium 3.9 mmol/L (3.3-5.1); Sodium 139 mmol/L (135-145); Total Protein 6.7 g/dL (6.5-8.0); Triglycerides 120 mg/dL
[2022-10-15 11:27] LABS: Creatinine Urine 317.75 mg/dL; Microalbum/Creatinine Ratio Ur 27.3 ug/mg cr
== END 2022-10-15 09:04 | disposition home or self-care (01) ==
LOC: HO.LAB 09:03
PROVIDERS: PCP Internal Medicine Medical Oncology; Visit Provider Internal Medicine Medical Oncology
DX: E66.9 Obesity, unspecified (principal); D50.9 Iron deficiency anemia, unspecified; E08.9 Diabetes mellitus due to underlying condition without complications
CPT/HCPCS: 36415; 80053; 80061; 82043; 83036; 85025

== ENCOUNTER 2022-11-09 09:19 | Outpatient (REF) | payer BC, SELFPAY ==
--- NOTE | ~2022-11-09 | US_ITS ---
EXAMINATION: US ABDOMEN COMPLETE CLINICAL INFORMATION: Epigastric pain. COMPARISON: None available. TECHNIQUE: Real-time imaging of the abdominal viscera. Today's examination is limited secondary to overlying bowel gas. FINDINGS: PANCREAS: Visualized portions of the pancreas are normal in appearance. ABDOMINAL AORTA: The proximal, mid, and distal segments are normal in caliber. INFERIOR VENA CAVA: Visualized portions are normal. LIVER: The liver is normal in size. The liver contour is normal. Parenchymal echogenicity is normal. No focal hepatic lesion. There is no intrahepatic biliary duct dilatation seen. GALLBLADDER: Not clearly visualized. COMMON BILE DUCT: Normal in caliber measuring 0.4 cm in diameter. RIGHT KIDNEY: Normal. No hydronephrosis. No renal calculi or focal parenchymal lesions. The kidney measures 8.6 cm in maximum dimension. LEFT KIDNEY: Normal. No hydronephrosis. No renal calculi or focal parenchymal lesions. The kidney measures 11.4 cm in maximum dimension. SPLEEN: Normal. The spleen measures 11.6 cm in maximum dimension. FREE FLUID: None. US/US abdomen complete IMPRESSION: Unremarkable sonographic imaging of the abdomen, however, the gallbladder is not clearly visualized. Patient reports no history of cholecystectomy and therefore the gallbladder may be completely decompressed. Further evaluation can be obtained with CT imaging if clinically indicated.
== END 2022-11-09 09:20 | disposition home or self-care (01) ==
LOC: HO.US 09:19
PROVIDERS: PCP Internal Medicine Medical Oncology; Visit Provider Internal Medicine Medical Oncology
DX: R10.13 Epigastric pain (principal)
CPT/HCPCS: 76700

== ENCOUNTER 2023-05-04 10:08 | Outpatient (REF) | payer BC, SELFPAY ==
[2023-05-04 10:40] LABS: MANUAL DIFF FLAG NO
[2023-05-04 11:33] LABS: Basophils Percent Auto 0.4 % (0-2); Eosinophils Absolute Auto 0.1 X10*3/uL (0.0-0.4); Eosinophils Percent Auto 1.5 % (0-4); Hematocrit 36.5 % (37.0-47.0); Hemoglobin 11.2 g/dl (12.0-16.0); Imm Gran Abs Auto 0.03 X10*3/uL (0.00-0.03); Imm Gran Pct Auto 0.4 % (0.0-0.4); Lymphocytes Absolute Auto 1.7 X10*3/uL (1.2-4.9); Lymphocytes Percent Auto 23.3 % (20-40); Mean Corpuscular HGB Conc 30.7 g/dl (31.0-35.0); Mean Corpuscular Hemoglobin 22.5 pg (27.0-33.0); Mean Corpuscular Volume 73.3 fL (80.0-98.0); Mean Platelet Volume 9.3 fL (9.4-12.3); Monocytes Absolute Auto 0.3 X10*3/uL (0.1-1.2); Monocytes Percent Auto 4.5 % (2-11); Neutrophils Absolute Auto 5.1 x10*3/uL (2.0-8.3); Neutrophils Percent Auto 69.9 % (45-73); Platelet Count 414 X10*3/uL (160-400); Red Blood Count 4.98 X10*6/uL (4.20-5.50); Red Cell Distribution Width 15.9 % (11.0-16.0); White Blood Count 7.3 X10*3/uL (4.8-10.8)
[2023-05-04 12:17] LABS: Alanine Aminotransferase 11 U/L (0-31); Albumin Level 4.2 g/dL (3.5-5.0); Alkaline Phosphatase 81 U/L (39-117); Anion Gap 12 (12-20); Aspartate Amino Transferase 13 U/L (5-31); Bilirubin Total 0.4 mg/dL (0.0-1.0); Blood Urea Nitrogen 8 mg/dL (9-16); Carbon Dioxide 26 mmol/L (22-29); Chloride 108 mmol/L (96-108); Cholesterol 160 mg/dL (<200); Estimated Glomerular Filt Rate > 60; Glucose Fasting 108 mg/dL (60-99); HDL Cholesterol 33 mg/dL (>40); LDL Cholesterol Calculated 102 mg/dL (<100); Potassium 3.7 mmol/L (3.3-5.1); Sodium 142 mmol/L (135-145); Total Protein 7.3 g/dL (6.5-8.0); Triglycerides 127 mg/dL (<150)
[2023-05-04 12:19] LABS: Erythrocyte Sedimentation Rate 22 MM/HR (0-20)
[2023-05-04 12:43] LABS: Thyroid Stimulating Hormone 0.94 uIU/mL (0.32-4.0)
[2023-05-06 01:04] LABS: Follicle Stimulating Hormone 7.2 mIU/mL
== END 2023-05-04 10:09 | disposition home or self-care (01) ==
LOC: HO.LAB 10:08
PROVIDERS: PCP Internal Medicine Medical Oncology; Visit Provider Internal Medicine Medical Oncology
DX: D50.9 Iron deficiency anemia, unspecified (principal); E66.9 Obesity, unspecified; E03.9 Hypothyroidism, unspecified; N94.3 Premenstrual tension syndrome
CPT/HCPCS: 36415; 80053; 80061; 83001; 83002; 84443; 85025; 85652

== ENCOUNTER 2023-06-07 07:45 | Outpatient (REF) | payer BC, SELFPAY ==
[2023-06-10 21:38] LABS: HPV mRNA E6/E7 rflx Not Detected (Not Detected)
== END 2023-06-07 07:46 | disposition home or self-care (01) ==
LOC: HO.LNP 07:45
PROVIDERS: PCP Internal Medicine Medical Oncology; Visit Provider Obstetrics & Gynecology
DX: Z01.419 Encounter for gynecological examination (general) (routine) without abnormal findings (principal); Z11.51 Encounter for screening for human papillomavirus (HPV)
CPT/HCPCS: 87624; 88142

== ENCOUNTER 2023-06-07 07:45 | Outpatient (AMB) | payer BC, SELFPAY ==
--- NOTE | 2023-06-07 07:47 | A.OFFVIS_ITS ---
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 No complaints. 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 Sexually active: Yes Sexual 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/Heterosexual Gender identity: Female Female Reproductive History Menstrual Age of Menarche: 13 Date of last menstrual period: 05/31/23 control method: permanent sterilization Total pregnancies: 2 Full term: 2 Number of Living Children: 2 Date of last pap smear: 02/02/20 Date of Mammogram: 07/27/22 Review of Systems Const All systems reviewed & are unremarkable except as noted in HPI and below Card Reports as per HPI Resp Reports as per HPI GI Reports as per HPI and Reports no additional complaints Reports as per HPI Physical Exam Vital Signs: Last Vital Signs BP 122/86 06/07/23 07:52 BMI result Body Mass Index 31.9 Const General: cooperative, healthy appearing and comfortable Chest Chest palpation & inspection: normal inspection of the chest and normal palpation of entire chest wall Breast/axilla inspection: normal inspection of the breasts and normal inspection of the axillae Breast/axilla palpation: normal palpation of the breasts, normal palpation of the axillae and no axillary lymphadenopathy Resp Effort & Inspection: normal respiratory effort Auscultation: clear to auscultation bilaterally Percussion: percussion normal Cardio Palpation: normal PMI Rate: regular rate Rhythm: regular rhythm Heart sounds: no murmurs and no rubs Peripheral pulses: Peripheral pulses 2+ throughout GI Inspection: Yes normal to inspection Palpation (GI): Soft to palpation, nontender, no guarding, not rigid and No hep atosplenomegaly present Percussion: Yes normal to percussion Auscultation: normal bowel sounds Rectal Exam - Female: deferred General: Yes bladder normal to palpation External Female Exam: No lesion Speculum Exam - Vagina: normal appearance of the vagina, normal palpation, normal vaginal discharge and not erythematous Speculum Exam - Cervix: normal appearance of the cervix and normal palpation Bimanual exam- vagina & uterus: normal bimanual exam, normal palpation, uterine size normal, bladder normal to palpation, consistency normal and normal palpation Bimanual Exam- Adnexa, other: normal adnexae, no masses and no tenderness Assessment & Plan Assessment & Plan (1) Well woman exam: Comment: ASCUS /HPV neg in 02/14 Code(s): Z01.419 - Encounter for gynecological examination (general) (routine) without abnormal findings Plan: Cotesting done. Mammogram ordered. Counseled the patient about the recommended dietary allowance of 1000 mg of Calcium & 600 IU of vitamin D. The patient was instructed to perform monthly self-breast exams and to schedule an annual exam in a year; All questions answered and the patient verbalized understanding. Instructed the patient to schedule annual exam in a year Orders: Orders MM screening mammo BI Today Z12.31 - Encounter for screening mammogram for malignant neoplasm of breast Coding Level of Care Code Est Pt Prev Care 40-64y(33701) Diagnoses Well woman exam Z01.419
[2023-06-07 07:52] VITALS: BP 122/86; BMI 31.9
== END 2023-06-07 08:14 | disposition home or self-care (01) ==
LOC: HO.HWS 07:45
PROVIDERS: PCP Internal Medicine Medical Oncology; Visit Provider Obstetrics & Gynecology
DX: Z01.419 Encounter for gynecological examination (general) (routine) without abnormal findings (principal)
CPT/HCPCS: 99396

== ENCOUNTER 2023-06-23 08:57 | Outpatient (AMB) | payer BC, SELFPAY ==
--- NOTE | 2023-06-23 09:15 | MHC.OFFVIS ---
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 Patient reports ongoing pain for a month and half. She describes her pain as sharp in nature. Most of the pain is located along the anterior aspect of her knee. She denies any locking or giving way. She has taken Tylenol which gives only mild relief. Allergies No Known Allergies Allergy (Verified 06/23/23 09:16) Medication List - Last Reconciled 06/23/23 by Jabier Perdue MD [id number] mg 2 caps PO BID metformin 500 mg PO BID topiramate 50 mg PO BID PFSH Medical History 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 Obesity due to excess calories Prediabetes Surgical History H/O tubal ligation Family History Mother Diabetes Maternal Grandfather Diabetes Father Diabetes Social History Household Members: Spouse and Children Alcohol intake: never Patient Tobacco Use Status: Never used Tobacco Second Hand Smoke Exposure: No Current occupational status: employed 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 Sexual 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/Heterosexual Gender identity: Female Female Reproductive History Menstrual Age of Menarche: 13 Physical Exam Const Other: Well-nourished well-developed very friendly female awake alert and oriented x3 in no acute distress Extrem Other: Bilateral lower extremity examination shows good capillary refill, no skin lesions noted, normal sensation light touch Left knee examination shows a minimal effusion, minimal crepitus with range of motion, tenderness along her patella tendon, no overlying skin lesions, negative Mary Ellen test Results Reviewed Results Reviewed: X-rays of the patient's left knee show minimal degenerative changes, no acute bony abnormalities Assessment & Plan Assessment & Plan (1) Left knee pain: Code(s): M25.562 - Pain in left knee Plan Ms. Yeison Robert presents with left knee pain most likely due to patellar tendinitis. I had a lengthy discussion with the patient regarding the treatment options. She does not wish to go to formal physical therapy. I did give her a prescription for Celebrex to help with her discomfort. Activity modifications were discussed at length with the patient. She will follow up with me on an as-needed basis should her symptoms not plateau at an unacceptable level over the next few months. Feel free to call me at any time should questions regarding her orthopedic management arise. I spent 22 minutes in reviewing the patient's records and imaging studies, seeing the patient and documenting in the medical record. Orders: Orders XR knee LT 3V Today M25.562 - Pain in left knee Medications: New celecoxib (Celebrex) 200 mg PO DAILY 30 caps 0RF Coding Level of Care Code New Pt Level 2 (79198) Diagnoses Left knee pain M25.562
== END 2023-06-23 09:28 | disposition home or self-care (01) ==
PROVIDERS: PCP Internal Medicine Medical Oncology; Visit Provider Orthopaedic Surgery
DX: M25.562 Pain in left knee (principal)
CPT/HCPCS: 99202

== ENCOUNTER 2023-06-23 08:58 | Outpatient (REF) | payer BC, SELFPAY | END 2023-06-23 08:59 | disposition home or self-care (01) | LOC: HO.HOSX 08:58 | PROVIDERS: Visit Provider Orthopaedic Surgery | DX: M25.562 Pain in left knee (principal); Z79.899 Other long term (current) drug therapy | CPT/HCPCS: 73562 ==

== ENCOUNTER 2023-07-29 15:42 | Outpatient (REF) | payer BC, SELFPAY ==
--- NOTE | ~2023-07-29 | MM_ITS ---
EXAMINATION: MM SCREENING DIGITAL BREAST TOMOSYNTHESIS, BILATERAL CLINICAL INFORMATION: Screening. Asymptomatic. COMPARISON: Mammography: This study is compared with prior exams dating back to 2021. TECHNIQUE: Digital breast tomosynthesis is performed in both the craniocaudal and mediolateral oblique views along with computer-aided detection (CAD). Synthesized 2D images are generated from the tomosynthesis. FINDINGS: The breasts are heterogeneously dense, which may obscure small masses (ACR BI-RADS breast composition Category c). There are no significant masses, abnormal calcifications, or other abnormalities. MM/MM tomosynthesis screening BI IMPRESSION: No mammographic evidence of malignancy. ASSESSMENT: BI-RADS BI-RADS 1 - Negative RECOMMENDATION: Routine annual mammography screening. 1 year F/U This examination should not preclude the clinical evaluation of a suspicious palpable abnormality. This patient's information was entered into a reminder system with a target due date for their next mammogram.
== END 2023-07-29 15:43 | disposition home or self-care (01) ==
LOC: HO.MAMMO 15:42
PROVIDERS: Absent Provider Obstetrics & Gynecology; PCP Internal Medicine Medical Oncology; Visit Provider Internal Medicine Medical Oncology
DX: Z12.31 Encounter for screening mammogram for malignant neoplasm of breast (principal)
CPT/HCPCS: 77063; 77067

== ENCOUNTER → 2023-07-29 15:45 | Outpatient (BNV) | payer BC, SELFPAY | PROVIDERS: Absent Provider Obstetrics & Gynecology; PCP Internal Medicine Medical Oncology; Visit Provider Radiology Diagnostic Radiology | DX: Z12.31 Encounter for screening mammogram for malignant neoplasm of breast (principal) | CPT/HCPCS: 77063; 77067 ==

== ENCOUNTER 2023-11-09 07:13 | Outpatient (REF) | payer BC, SELFPAY ==
[2023-11-09 07:35] LABS: MANUAL DIFF FLAG NO
[2023-11-09 08:00] LABS: Basophils Percent Auto 0.4 % (0-2); Eosinophils Absolute Auto 0.1 X10*3/uL (0.0-0.4); Eosinophils Percent Auto 0.9 % (0-4); Hematocrit 36.9 % (37.0-47.0); Hemoglobin 11.5 g/dl (12.0-16.0); Imm Gran Abs Auto 0.04 X10*3/uL (0.00-0.03); Imm Gran Pct Auto 0.4 % (0.0-0.4); Lymphocytes Absolute Auto 2.2 X10*3/uL (1.2-4.9); Mean Corpuscular HGB Conc 31.2 g/dl (31.0-35.0); Mean Corpuscular Hemoglobin 22.6 pg (27.0-33.0); Mean Corpuscular Volume 72.5 fL (80.0-98.0); Mean Platelet Volume 9.3 fL (9.4-12.3); Monocytes Absolute Auto 0.5 X10*3/uL (0.1-1.2); Monocytes Percent Auto 5.3 % (2-11); Neutrophils Absolute Auto 6.4 x10*3/uL (2.0-8.3); Platelet Count 374 X10*3/uL (160-400); Red Blood Count 5.09 X10*6/uL (4.20-5.50); Red Cell Distribution Width 16.1 % (11.0-16.0); White Blood Count 9.2 X10*3/uL (4.8-10.8)
[2023-11-09 08:09] LABS: Estimated Average Glucose 126 mg/dL
[2023-11-09 08:37] LABS: Alanine Aminotransferase 15 U/L (0-31); Albumin Level 4.2 g/dL (3.5-5.0); Alkaline Phosphatase 90 U/L (39-117); Anion Gap 12 (12-20); Aspartate Amino Transferase 13 U/L (5-31); Bilirubin Total 0.2 mg/dL (0.0-1.0); Blood Urea Nitrogen 10 mg/dL (9-16); Carbon Dioxide 26 mmol/L (22-29); Chloride 105 mmol/L (96-108); Cholesterol 172 mg/dL (<200); Estimated Glomerular Filt Rate > 60; Glucose Fasting 107 mg/dL (60-99); HDL Cholesterol 43 mg/dL (>40); LDL Cholesterol Calculated 106 mg/dL (<100); Potassium 3.7 mmol/L (3.3-5.1); Sodium 139 mmol/L (135-145); Total Protein 7.2 g/dL (6.5-8.0); Triglycerides 119 mg/dL (<150)
[2023-11-09 08:51] LABS: Ferritin 6 ng/mL (10-250)
[2023-11-09 13:28] LABS: Reflex LDLD? No
== END 2023-11-09 07:14 | disposition home or self-care (01) ==
LOC: HO.LAB 07:13
PROVIDERS: PCP Internal Medicine Medical Oncology; Visit Provider Internal Medicine Medical Oncology
DX: D50.9 Iron deficiency anemia, unspecified (principal); E66.9 Obesity, unspecified; E08.9 Diabetes mellitus due to underlying condition without complications
CPT/HCPCS: 36415; 80053; 80061; 82728; 83036; 85025

== ENCOUNTER 2024-03-04 08:14 | Outpatient (REF) | payer BC, SELFPAY ==
[2024-03-04 08:44] LABS: MANUAL DIFF FLAG NO
[2024-03-04 08:58] LABS: Basophils Absolute Auto 0.1 X10*3/uL (0.0-0.2); Basophils Percent Auto 0.6 % (0-2); Eosinophils Absolute Auto 0.1 X10*3/uL (0.0-0.4); Eosinophils Percent Auto 1.3 % (0-4); Hematocrit 39.1 % (37.0-47.0); Hemoglobin 12.3 g/dl (12.0-16.0); Imm Gran Abs Auto 0.02 X10*3/uL (0.00-0.03); Imm Gran Pct Auto 0.2 % (0.0-0.4); Immature Retic Fraction 16.7 % (3.0-15.9); Lymphocytes Absolute Auto 1.8 X10*3/uL (1.2-4.9); Lymphocytes Percent Auto 22.5 % (20-40); Mean Corpuscular HGB Conc 31.5 g/dl (31.0-35.0); Mean Corpuscular Volume 76.4 fL (80.0-98.0); Mean Platelet Volume 9.1 fL (9.4-12.3); Monocytes Absolute Auto 0.4 X10*3/uL (0.1-1.2); Monocytes Percent Auto 5.4 % (2-11); Neutrophils Absolute Auto 5.7 x10*3/uL (2.0-8.3); Platelet Count 385 X10*3/uL (160-400); Red Blood Count 5.12 X10*6/uL (4.20-5.50); Red Cell Distribution Width 15.4 % (11.0-16.0); Retic HGB Equivalent 27.8 pg (30.0-35.0); Reticulocyte Percent 1.4 % (0.5-1.8); Reticulocytes Absolute 0.074 X10*6/uL (0.026-0.095); White Blood Count 8.2 X10*3/uL (4.8-10.8)
[2024-03-04 09:36] LABS: Estimated Average Glucose 120 mg/dL; Hemoglobin A1c % 5.8 % (<6.0)
[2024-03-04 09:53] LABS: Alanine Aminotransferase 18 U/L (0-31); Albumin Level 4.2 g/dL (3.5-5.0); Alkaline Phosphatase 89 U/L (39-117); Anion Gap 10 (12-20); Aspartate Amino Transferase 13 U/L (5-31); Bilirubin Total 0.4 mg/dL (0.0-1.0); Blood Urea Nitrogen 10 mg/dL (9-16); Calcium 9.2 mg/dL (8.4-10.2); Carbon Dioxide 26 mmol/L (22-29); Chloride 106 mmol/L (96-108); Estimated Glomerular Filt Rate > 60; Glucose Fasting 110 mg/dL (60-99); Potassium 3.9 mmol/L (3.3-5.1); Sodium 138 mmol/L (135-145); Total Protein 7.2 g/dL (6.5-8.0)
[2024-03-04 10:01] LABS: Ferritin 15 ng/mL (10-250)
== END 2024-03-04 08:15 | disposition home or self-care (01) ==
LOC: HO.LAB 08:14
PROVIDERS: PCP Internal Medicine Medical Oncology; Visit Provider Internal Medicine Medical Oncology
DX: D50.9 Iron deficiency anemia, unspecified (principal); E66.9 Obesity, unspecified; E08.9 Diabetes mellitus due to underlying condition without complications; E03.9 Hypothyroidism, unspecified
CPT/HCPCS: 36415; 80053; 82728; 83036; 85025; 85045

== ENCOUNTER 2024-03-15 10:45 | Outpatient (AMB) | payer BC, SELFPAY ==
--- NOTE | 2024-03-15 10:53 | MHC.OFFVIS ---
Vital Signs 03/15/24 10:56 Height 5 ft 4 in Weight 189 lb BMI 32.4 BP 118/68 Intake Visit Reasons: anal HPV /anal lesion Superintendent Container Terminal Required: Yes Superintendent Container Terminal Language: Forest Patrolman Services: Superintendent Container Terminal Present (in person) Superintendent Container Terminal Name: Carolyn OLIVEIRA Information Interpreted: non-clinical & clinical Accompanied by: Self / Same As Patient Allergies No Known Allergies Allergy (Verified 03/15/24 10:57) Is last menstrual period known: Yes HPI Comments Details: The patient is presenting c/o irregular bleeding associated with passage of blood clots and abdominal cramping. it started few months ago and is getting worse no other associated symptoms. In addition the patient is complaining of perianal lesions that have appeared few months ago and increased in numbers and sizes recently. 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/Heterosexual Gender identity: Female Female Reproductive History Menstrual Age of Menarche: 13 Review of Systems Const All systems reviewed & are unremarkable except as noted in HPI and below Physical Exam Vital Signs: BMI result Body Mass Index 32.4 General: Yes no CVA tenderness External Female Exam: normal external appearance and normal appearance of the urethra Speculum Exam - Vagina: normal appearance of the vagina, normal palpation, no lesions, no masses and other (Multiple bilateral perirectal lesions) Speculum Exam - Cervix: normal appearance of the cervix, normal palpation, no lesions, no masses and nontender Bimanual exam- vagina & uterus: normal bimanual exam, normal palpation, uterine size normal, normal palpation, uterine shape normal, No Cervical tenderness present and non-tender Bimanual Exam- Adnexa, other: normal adnexae Back/Spine/Pelvis Back: no CVA tenderness Assessment & Plan Assessment & Plan (1) Abnormal uterine bleeding (AUB): Code(s): N93.9 - Abnormal uterine and vaginal bleeding, unspecified Category: Medical Plan: GC and chlamydia taken CBC, TSH, prolactin, HCG, and pelvic ultrasound ordered. Discussed with the patient the different causes of abnormal bleeding including thyroid disorders, uterine and ovarian pathology, endometrial hyperplasia, carcinoma and other potential causes. Discussed with the patient the work up including CBC (to r/o anemia), TSH, prolactin, pelvic Ultrasound, endometrial biopsy to r/o endometrial pathology. All questions answered and the patient verbalized understanding. Instructed the patient to schedule an appointment for an endometrial biopsy in 2 weeks. (2) Perianal lesion: Comment: Multiple bilateral Code(s): K62.9 - Disease of anus and rectum, unspecified Category: Medical Plan: Discussed with the patient the finding on exam showing multiple bilateral perirectal lesion, recommended excisional biopsy to rule out CARLTON. Instructions given the patient to schedule a biopsy appointment. All questions answered, the patient verbalized understanding Orders: Orders Prolactin Today N93.9 - Abnormal uterine and vaginal bleeding, unspecified TSH reflex Free T4 Today N93.9 - Abnormal uterine and vaginal bleeding, unspecified HCG Quantitative Today N93.9 - Abnormal uterine and vaginal bleeding, unspecified Complete Blood Count no Diff Today N93.9 - Abnormal uterine and vaginal bleeding, unspecified US pelvic and transvaginal Today N93.9 - Abnormal uterine and vaginal bleeding, unspecified Coding Level of Care Code Est Pt Level 3 (01904) Diagnoses Abnormal uterine bleeding (AUB) N93.9 Perianal lesion K62.9
[2024-03-15 10:56] VITALS: BP 118/68; BMI 32.4
== END 2024-03-15 11:37 | disposition home or self-care (01) ==
LOC: HO.HWS 10:45
PROVIDERS: PCP Internal Medicine Medical Oncology; Visit Provider Obstetrics & Gynecology
DX: N93.9 Abnormal uterine and vaginal bleeding, unspecified (principal); K62.9 Disease of anus and rectum, unspecified
CPT/HCPCS: 99213

== ENCOUNTER 2024-03-15 10:45 | Outpatient (REF) | payer BC, SELFPAY ==
[2024-03-15 16:55] LABS: CT PCR NOT DETECTED (Not Detect.); NG PCR NOT DETECTED (Not Detect.)
== END 2024-03-15 10:46 | disposition home or self-care (01) ==
LOC: HO.LNP 10:45
PROVIDERS: PCP Internal Medicine Medical Oncology; Visit Provider Obstetrics & Gynecology
DX: N93.9 Abnormal uterine and vaginal bleeding, unspecified (principal)
CPT/HCPCS: 87491; 87591

== ENCOUNTER 2024-03-16 08:18 | Outpatient (REF) | payer BC, SELFPAY ==
[2024-03-16 09:23] LABS: Hematocrit 36.7 % (37.0-47.0); Hemoglobin 11.6 g/dl (12.0-16.0); Mean Corpuscular HGB Conc 31.6 g/dl (31.0-35.0); Mean Corpuscular Hemoglobin 23.9 pg (27.0-33.0); Mean Corpuscular Volume 75.5 fL (80.0-98.0); Platelet Count 377 X10*3/uL (160-400); Red Blood Count 4.86 X10*6/uL (4.20-5.50); Red Cell Distribution Width 15.1 % (11.0-16.0); White Blood Count 7.8 X10*3/uL (4.8-10.8)
[2024-03-16 10:43] LABS: HCG Quantitative < 2 mIU/mL; TSH reflex Free T4 1.27 uIU/mL (0.32-4.0)
[2024-03-17 17:28] LABS: Prolactin 8.2 ng/mL
== END 2024-03-16 08:19 | disposition home or self-care (01) ==
LOC: HO.LAB 08:18
PROVIDERS: PCP Internal Medicine Medical Oncology; Visit Provider Obstetrics & Gynecology
DX: N93.9 Abnormal uterine and vaginal bleeding, unspecified (principal)
CPT/HCPCS: 36415; 84146; 84443; 84702; 85027

== ENCOUNTER 2024-03-20 15:50 | Outpatient (REF) | payer BC, SELFPAY ==
--- NOTE | ~2024-03-20 | US_ITS ---
EXAMINATION: US PELVIS CLINICAL INFORMATION: Abnormal uterine and vaginal bleeding. COMPARISON: Pelvic ultrasound 08/29/2020. TECHNIQUE: Ultrasound of the pelvis is performed using both transabdominal and transvaginal transducers along with Doppler. Transvaginal imaging is performed due to inadequate visualization transabdominally. FINDINGS: UTERUS: The uterus is anteverted and retroflexed measuring 9.3 x 4.0 x 4.2 cm. The double wall endometrial thickness is 8 mm. The uterus is smooth in contour and has normal myometrial echogenicity. No visible fibroid. Nabothian cysts are present in the cervix. In the lower uterine segment/cervix a cystic area is seen which may communicate with the endometrial cavity. ADNEXA: Both ovaries are visualized. There is normal color flow to the adnexa. There is no ovarian torsion. There is no pelvic ascites or fluid collection. Right ovary measures 2.3 x 1.5 x 1.6 cm for a volume of 2.8 mL. Left ovary measures 1.8 x 0.9 x 1.3 cm from by 1.1 mL. US/US pelvic and transvaginal IMPRESSION: Cystic area in the lower uterine segment. Given the history of abnormal uterine bleeding, short-term interval follow-up is recommended if hysteroscopy is not performed. Electronically signed by: Yo Rai MD 05/01/2024 12:32 AM [facility]
== END 2024-03-20 15:51 | disposition home or self-care (01) ==
LOC: HO.US 15:50
PROVIDERS: PCP Internal Medicine Medical Oncology; Visit Provider Obstetrics & Gynecology
DX: N93.9 Abnormal uterine and vaginal bleeding, unspecified (principal)
CPT/HCPCS: 76830; 76856

== ENCOUNTER 2024-03-24 08:00 | Outpatient (REF) | payer BC, SELFPAY ==
--- NOTE | ~2024-03-24 | US_ITS ---
EXAMINATION: US ABDOMEN COMPLETE CLINICAL INFORMATION: Abdominal pain. COMPARISON: Abdominal ultrasound dated 11/09/2022. TECHNIQUE: Real-time imaging of the abdominal viscera. FINDINGS: PANCREAS: Normal. ABDOMINAL AORTA: The proximal, mid, and distal segments are normal in caliber. INFERIOR VENA CAVA: Visualized portions are normal. LIVER: The liver is normal in size. The liver contour is normal. Parenchymal echogenicity is generally increased. No focal hepatic lesion. There is no intrahepatic biliary duct dilatation seen. GALLBLADDER: There is marked cholelithiasis, with a wtda-pqfa-nqglts complex. Gallbladder wall thickness is normal at 2 mm, and no pericholecystic fluid is seen. There is a positive sonographic Dale's sign. COMMON BILE DUCT: Normal in caliber measuring 0.4 cm in diameter. RIGHT KIDNEY: At the interpolar aspect, an 8 mm nonobstructing calculus is seen. No hydronephrosis. No focal parenchymal lesions. The kidney measures 10.4 cm in maximum dimension. LEFT KIDNEY: Normal. No hydronephrosis. No renal calculi or focal parenchymal lesions. The kidney measures 12.3 cm in maximum dimension. SPLEEN: Normal. The spleen measures 13.2 cm in maximum dimension. FREE FLUID: None. US/US abdomen complete IMPRESSION: 1. There is marked cholelithiasis, with a iklc-auhw-nqrwzk complex. No cholecystitis or choledocholithiasis seen. 2. There is generalized increase in hepatic echotexture, consistent with fatty infiltration or hepatocellular disease. Please correlate clinically. No focal hepatic mass or intrahepatic biliary dilatation is seen. 3. There is mild splenomegaly. 4. An 8 mm nonobstructing mid right renal calculus is seen. Electronically signed by: Vishal Parham MD 04/08/2024 09:33 PM EDT
== END 2024-03-24 08:01 | disposition home or self-care (01) ==
LOC: HO.US 08:00
PROVIDERS: PCP Internal Medicine Medical Oncology; Visit Provider Internal Medicine Medical Oncology
DX: R10.12 Left upper quadrant pain (principal)
CPT/HCPCS: 76700

== ENCOUNTER 2024-03-30 14:52 | Outpatient (AMB) | payer BC, SELFPAY ==
[2024-03-30 15:07] VITALS: BP 106/70
--- NOTE | 2024-03-30 15:07 | MHC.OFFVIS ---
Vital Signs 03/30/24 15:07 BP 106/70 Intake Visit Reasons: EMB/ perianal lesion Merchandise Planner Required: Yes Merchandise Planner Language: Supervisor Tank Storage Name: Carolyn Information Interpreted: non-clinical & clinical Windows Server Architect: Windows Server Architect Present (Carolyn) Allergies No Known Allergies Allergy (Verified 03/30/24 15:09) Is last menstrual period known: Yes Last menstrual period: 04/25/20 Post menopausal: No Patient : No Do you need a note to return to daycare/school/sports/work: Yes (for surgery on wednesday) HPI Comments Details: Presenting for follow-up after pelvic ultrasound and for repair any lesion biopsy. 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 Sexual 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/Heterosexual Gender identity: Female Female Reproductive History Menstrual Age of Menarche: 13 Date of last menstrual period: 04/25/20 Total pregnancies: 2 Full term: 2 Review of Systems Card Reports as per HPI and Reports no additional complaints Resp Reports as per HPI and Reports no additional complaints GI Reports as per HPI and Reports no additional complaints Reports as per HPI Physical Exam Vital Signs: Last Vital Signs BP 106/70 03/30/24 15:07 Const General: cooperative, healthy appearing and comfortable Resp Effort & Inspection: normal respiratory effort Auscultation: clear to auscultation bilaterally Percussion: percussion normal Cardio Palpation: normal PMI Rate: regular rate Rhythm: regular rhythm Heart sounds: no murmurs and no rubs Peripheral pulses: Peripheral pulses 2+ throughout GI Inspection: Yes normal to inspection Palpation (GI): Soft to palpation, nontender, no guarding, not rigid and No hepatosplenomegaly present Percussion: Yes normal to percussion Auscultation: normal bowel sounds Rectal Exam - Female: deferred 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 Preop dx: Left perianal lesion Op: Left perianal lesion biopsy Post op: Same Anesthesia: Lidocaine 1% 3cc used Procedure: Using betadine the area was scrubbed and draped in the usual manner. 3 cc of lidocaine was used for anesthesia at the Left perianal lesion area ; using scissors and pickup the Left perianal lesion was biopsied, Vicryl was used to approximate the edges. Pressure was used for hemostasis. The patient tolerated the procedure well. Discharge Instructions: The patient was instructed to schedule an appointment in 2 weeks for follow-up and to call if temp>100.4, area of the biopsy redness or pain, nausea/vomiting. This note was generated with a voice recognition program. Some errors may have been overlooked during the review of this note. Sometimes these errors may affect the content or meaning of a given sentence. 54425-Vgddlk of Vulva/Perineum Procedure code (CPT) selection complete Assessment & Plan Assessment & Plan (1) Abnormal uterine bleeding (AUB): Comment: abn FAY endometrium Code(s): N93.9 - Abnormal uterine and vaginal bleeding, unspecified Category: Medical Plan: Discussed with the patient the unofficial finding of the pelvic ultrasound showing a lower uterine segment cystic structure, recommended hysteroscopy D&C possible polypectomy/myomectomy. Discussed with the patient the procedure , all benefits and risks including but not limited to inability to complete the procedure , insufficient endometrial tissue for a complete evaluation of the endometrial cavity , bleeding, infection, possible need for blood transfusion with all its risk ( HIV,syphilis, Hepatitis, anaphylaxis shock, others..), injury to bladder, rectum, possible need for laparoscopy/laparotomy or hysterectomy. The patient verbalized understanding and signed the consent. Instructions given the patient to stay NPO after midnight the day prior to the procedure and to take only the specific medication (s) discussed the morning of the surgical procedure and to schedule a 2 week postoperative appointment (2) Perianal lesion: Comment: Multiple bilateral Code(s): K62.9 - Disease of anus and rectum, unspecified Category: Medical Plan: Perianal lesion biopsies done, see procedure note Orders: Orders AMB AIRCRAFT POWER PLANT ASSEMBLER Biopsy Today K62.9 - Disease of anus and rectum, unspecified Coding Level of Care Code Est Pt Level 3 (66254) Procedure Only Diagnoses Abnormal uterine bleeding (AUB) N93.9 Perianal lesion K62.9 CPT Codes AIRCRAFT POWER PLANT ASSEMBLER Biopsy - CPT: 08588-Vmmmgv of Vulva/Perineum ([id number])
== END 2024-03-30 15:48 | disposition home or self-care (01) ==
LOC: HO.HWS 14:52
PROVIDERS: PCP Internal Medicine Medical Oncology; Visit Provider Obstetrics & Gynecology
DX: N93.9 Abnormal uterine and vaginal bleeding, unspecified (principal); N90.89 Other specified noninflammatory disorders of vulva and perineum
CPT/HCPCS: 56605; 99213

== ENCOUNTER 2024-03-30 14:52 | Outpatient (REF) | payer BC, SELFPAY | END 2024-03-30 14:53 | disposition home or self-care (01) | LOC: HO.LNP 14:52 | PROVIDERS: PCP Internal Medicine Medical Oncology; Visit Provider Obstetrics & Gynecology | DX: A63.0 Anogenital (venereal) warts (principal); K62.82 Dysplasia of anus; K62.9 Disease of anus and rectum, unspecified; N93.9 Abnormal uterine and vaginal bleeding, unspecified | CPT/HCPCS: 56605; 88304; 88305 ==

== ENCOUNTER 2024-04-06 14:55 | Outpatient (AMB) | payer BC, SELFPAY ==
--- NOTE | 2024-04-06 14:58 | MHC.OFFVIS ---
Intake Visit Reasons: biopsy results Hadoop Java Developer Required: Yes Hadoop Java Developer Language: Juvenile Probation Officer Services: Hadoop Java Developer Present (in person) Hadoop Java Developer Name: Carolyn OLIVEIRA Information Interpreted: non-clinical & clinical Allergies No Known Allergies Allergy (Verified 03/30/24 15:09) HPI Comments Details: The patient scheduled tele health visit to discuss the results of the in lesion biopsy. The pathology showed the following: Soft tissue, ?perianal lesion,? 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 Sexual 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/Heterosexual Gender identity: Female Female Reproductive History Menstrual Age of Menarche: 13 Review of Systems Const All systems reviewed & are unremarkable except as noted in HPI and below Reports as per HPI and Reports no additional complaints GI Reports no additional complaints Reports no additional complaints Telehealth Telehealth Telehealth Platform: Telephone Location of provider rendering services: practice address Location of patient: address on file Patient Identification confirmed using: Name, : Yes Telehealth method: video Patient verbally consented to treatment: Yes Patient verbally consented to billing insurance company: Yes Patient informed of any privacy concerns related to visit: Yes Assessment & Plan Assessment & Plan (1) 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 Instructions given the patient to schedule an appointment for multiple perianal lesions biopsy. All questions answered, the patient verbalized understanding I spent a total of 20 minutes reviewing the chart, talking to the patient via video and documenting in the medical record. Coding Level of Care Code Tele Est Pt Level 1 (64408) Diagnoses AIN grade I K62.82
== END 2024-04-06 15:18 | disposition home or self-care (01) ==
LOC: HO.HWS 14:55
PROVIDERS: PCP Internal Medicine Medical Oncology; Visit Provider Obstetrics & Gynecology
DX: K62.82 Dysplasia of anus (principal)
CPT/HCPCS: 99211

== ENCOUNTER → 2024-04-06 14:55 | Outpatient (BNVA) | payer BC, SELFPAY | PROVIDERS: PCP Internal Medicine Medical Oncology; Visit Provider Obstetrics & Gynecology ==

== ENCOUNTER 2024-04-13 15:53 | Outpatient (REF) | payer BC, SELFPAY | END 2024-04-13 15:54 | disposition home or self-care (01) | LOC: HO.LNP 15:53 | PROVIDERS: PCP Internal Medicine Medical Oncology; Visit Provider Obstetrics & Gynecology | DX: K62.9 Disease of anus and rectum, unspecified (principal) | CPT/HCPCS: 56605; 56606; 88305 ==

== ENCOUNTER 2024-04-13 15:53 | Outpatient (AMB) | payer BC, SELFPAY ==
--- NOTE | 2024-04-13 16:04 | A.OFFVIS_ITS ---
Vital Signs 04/13/24 16:10 Height 5 ft 4 in Weight 187 lb 6.287 oz BMI 32.2 Intake Visit Reasons: Biopsy per Head Turbine Operator Required: Yes Head Turbine Operator Language: Foundry Technician Services: Head Turbine Operator Present (in person) Head Turbine Operator Name: Carolyn OLIVEIRA Information Interpreted: non-clinical & clinical Private Branch Exchange Operator: Private Branch Exchange Operator Present (Carolyn OLIVEIRA) Accompanied by: Self / Same As Patient Allergies No Known Allergies Allergy (Verified 04/13/24 16:11) HPI Comments Details: Presenting for additional perianal lesions biopsy, last visit left perianal lesion showed AIN 1 PFSH Medical History 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 Obesity due to excess calories Prediabetes Surgical History H/O tubal ligation Family History Mother Diabetes Maternal Grandfather Diabetes Father Diabetes Social History Household Members: Spouse and Children Alcohol intake: never Patient Tobacco Use Status: Never used Tobacco Second Hand Smoke Exposure: No Current occupational status: employed 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 Sexual 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/Heterosexual Gender identity: Female Female Reproductive History Menstrual Age of Menarche: 13 Review of Systems Const All systems reviewed & are unremarkable except as noted in HPI and below Physical Exam Vital Signs: BMI result Body Mass Index 32.2 General: Yes no CVA tenderness External Female Exam: normal external appearance and normal appearance of the urethra Speculum Exam - Vagina: normal appearance of the vagina, normal palpation, no lesions and no masses Speculum Exam - Cervix: normal appearance of the cervix, normal palpation, no lesions, no masses and nontender Bimanual exam- vagina & uterus: normal bimanual exam, normal palpation, uterine size normal, normal palpation, uterine shape normal, No Cervical tenderness present and non-tender Bimanual Exam- Adnexa, other: normal adnexae Back/Spine/Pelvis Back: no CVA tenderness Skin Other: Multiple perineal lesions: 7 lesions on the left side, and 10 lesions on the right side 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 Preop dx: 7 lesions on the left side, and 10 lesions on right side Op: Biopsy of a right largest perianal lesion and of the left largest perianal lesion Post op: Same Anesthesia: Lidocaine 1% 3cc used Procedure: Using betadine the area was scrubbed and draped in the usual manner. 3 cc of lidocaine was used for anesthesia at the right largest perianal lesion and of the left largest perianal lesion area ; using scissors and pickup the right largest perianal lesion and of the left largest perianal lesion were biopsied. Pressure was used for hemostasis. The patient tolerated the procedure well. Discharge Instructions: The patient was instructed to schedule an appointment in 2 weeks for follow-up and to call if temp>100.4, area of the biopsy redness or pain, nausea/vomiting and to clean with soap and water after each bowel movement This note was generated with a voice recognition program. Some errors may have been overlooked during the review of this note. Sometimes these errors may affect the content or meaning of a given sentence. 04962-Vgxugn of Vulva/Perineum 98915-Jrceph of Vulva/Perineum, additional site Procedure code (CPT) selection complete Assessment & Plan Assessment & Plan (1) Perianal lesion: Comment: Multiple bilateral 7 lesions on the left side, and 10 lesions on right side Code(s): K62.9 - Disease of anus and rectum, unspecified Category: Medical Plan: Biopsy of the largest right perianal lesion and the largest left perianal lesion done, see procedure note Orders: Orders AMB MANUFACTURING PROJECT MANAGER Biopsy Today K62.9 - Disease of anus and rectum, unspecified Coding Level of Care Code Procedure Only Diagnoses Perianal lesion K62.9 CPT Codes MANUFACTURING PROJECT MANAGER Biopsy - CPT: 13906-Eszwuh of Vulva/Perineum ([id number]) MANUFACTURING PROJECT MANAGER Biopsy - CPT: 17062-Fsodvc of Vulva/Perineum, additional site ([id number])
[2024-04-13 16:10] VITALS: BMI 32.2
== END 2024-04-13 16:37 | disposition home or self-care (01) ==
LOC: HO.HWS 15:53
PROVIDERS: PCP Internal Medicine Medical Oncology; Visit Provider Obstetrics & Gynecology
DX: K62.9 Disease of anus and rectum, unspecified (principal)
CPT/HCPCS: 56605; 56606

== ENCOUNTER 2024-04-20 13:05 | Outpatient (AMB) | payer BC, SELFPAY ==
--- NOTE | 2024-04-20 13:05 | MHC.OFFVIS ---
Intake Visit Reasons: Biopsy results Allergies No Known Allergies Allergy (Verified 04/13/24 16:11) HPI Comments Details: The patient is scheduled tele health visit to discuss the results all of the perianal lesions. The pathology showed the following: A. Perianal, right, large lesion, biopsy: Condyloma acuminatum. B. Perianal, left, large lesion, biopsy: Condyloma acuminatum 03/30 perianal lesion biopsy pathology showed the following: Soft tissue, ?perianal lesion,? 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/Heterosexual Gender identity: Female Female Reproductive History Menstrual Age of Menarche: 13 Review of Systems Const All systems reviewed & are unremarkable except as noted in HPI and below Reports as per HPI and Reports no additional complaints GI Reports no additional complaints Reports no additional complaints Telehealth Telehealth Telehealth Platform: Telephone Location of provider rendering services: practice address Location of patient: address on file Patient Identification confirmed using: Name, : Yes Telehealth method: video Patient verbally consented to treatment: Yes Patient verbally consented to billing insurance company: Yes Patient informed of any privacy concerns related to visit: Yes Assessment & Plan Assessment & Plan (1) AIN grade I: Comment: Condyloma Code(s): K62.82 - Dysplasia of anus Category: Medical Plan: Discussed with the patient the pathology, risk of high-grade an anal cancer recommendation for future screening. Options of treatment discussed with the patient including laser treatment, there are cream, excision being the least favorable given the number of perianal lesions. Discussed with the patient the treatment options including cream application to the affected area, excision, cryotherapy or laser, will start with Breanna arreaga . Insructions given to the pt to call if not improved, any irrtations, apply x3/week at bed time and rinse very well in am. Instructions given the patient to call in case symptoms do not improve, irritation or recurrence of lesions after disappearance. Explained to the patient the risk for high recurrence an evolving to anal squamous intraepithelial lesion or cancer and indication for biopsy of any lesion or suspicious hard areas or nonhealing ulcer following initial treatment. Instructions given the patient to schedule a 4 months follow-up appointment including repeat biopsy in case of persistence of any lesions. All questions answered, the patient verbalized understanding I spent a total of 20 minutes reviewing the chart, talking to the patient via video and documenting in the medical record. Medications: New imiquimod 5% Do not use for more than 16 weeks 1 appl topical 3XW 12 ea 1RF Coding Level of Care Code Tele Est Pt Level 1 (65844) Diagnoses AIN grade I K62.82
== END 2024-04-20 14:01 | disposition home or self-care (01) ==
LOC: HO.HWS 13:05
PROVIDERS: PCP Internal Medicine Medical Oncology; Visit Provider Obstetrics & Gynecology
DX: K62.82 Dysplasia of anus (principal)
CPT/HCPCS: 99211

== ENCOUNTER → 2024-04-20 13:05 | Outpatient (BNVA) | payer BC, SELFPAY | PROVIDERS: PCP Internal Medicine Medical Oncology; Visit Provider Obstetrics & Gynecology ==

== ENCOUNTER 2024-05-03 07:32 | Outpatient (REF) | payer BC, SELFPAY ==
--- NOTE | ~2024-05-03 | US_ITS ---
EXAMINATION: MM DIAGNOSTIC DIGITAL BREAST TOMOSYNTHESIS, BILATERAL US BREAST LIMITED, RIGHT MAMMOGRAPHY: CLINICAL INFORMATION: Diagnostic exam; Patient complaining of tender palpable lump 11:00 right breast, essentially low axillary region . Patient also due for routine annual screening. No prior surgeries. No family history. COMPARISON: Mammography: 07/29/2023, 07/27/2022, 07/23/2021 (baseline exam). TECHNIQUE: Digital breast tomosynthesis is performed in both the craniocaudal and mediolateral oblique views along with computer-aided detection (CAD). Synthesized 2D images are generated from the tomosynthesis. In addition to standard views, a right 3-D spot compression exaggerated lateral CC view was obtained, as well as a 3-D compression right MLO and right CC view. This was followed by targeted right breast ultrasound. FINDINGS: There are scattered areas of fibroglandular density (ACR BI-RADS breast composition Category b). There is a new circumscribed oval mass in the approximate 9:00 axis, middle depth of the right breast, measuring 8 mm in diameter. This was not definitely present on last years exam and will be evaluated with ultrasound. It persists on spot compression views. There is no mammographic abnormality in the right axillary region in the region of palpable concern and pain as marked by the BB marker. Only normal right low axillary fat is evident. We will evaluate this with ultrasound. Otherwise, there are no suspicious masses, suspicious grouped calcifications, or areas of architectural distortion in either breast. The parenchymal pattern is stable from prior exams. There is no skin or axillary abnormality. ULTRASOUND: CLINICAL INFORMATION: Evaluate 9:00 axis circumscribed 8mm mass right breast, middle to posterior one third. Evaluate region of palpable concern in the low right axilla. COMPARISON: No prior. TECHNIQUE: Targeted sonographic evaluation was performed using a high frequency linear transducer. Attention was given to the 9:00 axis right breast, as well as the right low axilla in the region of palpable concern and tenderness. Selected archived documentation. FINDINGS: RIGHT BREAST: -There is an 8 mm simple cyst in the right breast 8:00 axis, 5 cm from the nipple, corresponding with the mammographic finding. This is benign. -Imaging of the low right axilla demonstrates no suspicious mass, abnormal lymph nodes, abnormal shadowing, cystic abnormality, or architectural distortion. No correlate to the region of palpable concern is evident. Recommend clinical management follow-up. US/US breast RT limited mamm only IMPRESSION: -There are no findings suspicious for malignancy in the right breast. -Benign cyst right breast 8:00 axis, 5 cm from the nipple. -No abnormalities evident in the right low axilla in the region of palpable concern and tenderness. Only normal lymph nodes are imaged. Recommend clinical management of follow-up of patient's symptomatology. -Otherwise, recommend the patient resume routine annual screening mammography in one year. OVERALL ASSESSMENT: Mammography: BI-RADS 2 - Benign Findings Ultrasound: BI-RADS 2 - Benign Findings RECOMMENDATION: 1. Patient should be managed based on the clinical impression. 2. Otherwise, routine annual screening mammography. This patient's information was entered into a reminder system with a target due date for their next mammogram. Electronically signed by: Romeo Crump MD 05/03/2024 08:59 AM [facility] Workstation: [id number]
== END 2024-05-03 07:33 | disposition home or self-care (01) ==
LOC: HO.MAMMO 07:32
PROVIDERS: PCP Internal Medicine Medical Oncology; Visit Provider Internal Medicine Medical Oncology
DX: N63.10 Unspecified lump in the right breast, unspecified quadrant (principal); N60.01 Solitary cyst of right breast
CPT/HCPCS: 76642; 77062; 77066

== ENCOUNTER → 2024-05-03 08:00 | Outpatient (BNV) | payer BC, SELFPAY | PROVIDERS: PCP Internal Medicine Medical Oncology; Visit Provider Radiology Diagnostic Radiology | DX: N63.11 Unspecified lump in the right breast, upper outer quadrant (principal) | CPT/HCPCS: 76642; 77062; 77066 ==

== ENCOUNTER 2024-05-05 06:58 | Day surgery (SDC) | payer BC, SELFPAY ==
[2024-05-03 13:59] VITALS: BMI 32.2
--- NOTE | 2024-05-03 14:00 | P.CONAN_ITS ---
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 Obesity due to excess calories Prediabetes Family History Family History Mother Diabetes Maternal Grandfather Diabetes Father Diabetes Surgical History Surgical History Hx of dilation and curettage (~2020) H/O tubal ligation Social History Social History Household Members: Spouse and Children Are you a primary respiratory care technician to a significant other at home: No Do you presently have visiting nurse or other home services: No Alcohol intake: never Patient Tobacco Use Status: Never used Tobacco Second Hand Smoke Exposure: No Use of substances other than those prescribed or required for medical reasons: No Have you been hit, kicked, punched, or otherwise hurt by someone within the past year? 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 Gender identity: Female Meds Allergies Allergy/AdvReac Type Severity Reaction Status Date / Time No Known Allergies Allergy Verified 04/13/24 16:11 Home Medications ?Medication ?Instructions ?Recorded ?Confirmed ?Last Taken ?Type topiramate 50 mg tablet 50 mg PO BID 06/07/23 05/05/24 Unknown History Exam Height,Weight and Vital Signs: Height 5 ft 4 in Weight 84.992 kg Assessment and Plan Assessment Anesthesia Assessment: Chart Reviewed Documented by User: Jacob Alejandro MD 05/05/24 08:15 [facility] Past Medical History Medical History 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 Obesity due to excess calories Prediabetes Family History Family History Mother Diabetes Maternal Grandfather Diabetes Father Diabetes Family history of problems with anesthesia: No Surgical History Surgical History Hx of dilation and curettage (~2020) H/O tubal ligation History of Problems with Anesthesia: No Social History Social History Household Members: Spouse and Children Are you a primary respiratory care technician to a significant other at home: No Do you presently have visiting nurse or other home services: No Alcohol intake: never Patient Tobacco Use Status: Never used Tobacco Second Hand Smoke Exposure: No Use of substances other than those prescribed or required for medical reasons: No Have you been hit, kicked, punched, or otherwise hurt by someone within the past year? 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 Gender identity: Female Meds Allergies Allergy/AdvReac Type Severity Reaction Status Date / Time No Known Allergies Allergy Verified 04/13/24 16:11 Home Medications ?Medication ?Instructions ?Recorded ?Confirmed ?Last Taken ?Type topiramate 50 mg tablet 50 mg PO BID 06/07/23 05/05/24 Unknown History Exam Airway Mallampati Class: II TM Dist: <=3cm Neck ROM: Full Loose/Missing/Broken Teeth: No Heart: ok Lungs: ok Assessment and Plan Assessment Anesthesia Assessment: Anesthesia Plan Discussed Final Anesthetic Review Family History of Problems with Anesthesia: No History of Problems with Anesthesia: No NPO: Yes ASA Class: II Final Preanesthetic Review: No Changes in Pt Med Stat, Meds/Allgs Chart Reviewed, Consent Obtained/Reviewed and Anes Risks/Benef Reviewed Patient Risk: Intermediate Procedure Risk: Low Anesthetic Plan Anesthetic Plan: GA and Agree w/ Assess. and Plan Disposition: Standard PACU
[2024-05-03 14:08] VITALS: BMI 33.0
[2024-05-05 07:21] LABS: UPreg QC Valid YES
[2024-05-05 07:22] LABS: Urine Pregnancy NEGATIVE (NEGATIVE)
--- NOTE | 2024-05-05 07:29 | MHC.SHP ---
Pre-Procedural Eval Section A - 24 Hr Update-Section A only Date of Service: 05/05/24 The patient is an INPATIENT: No Changes since office visit: No Cold of Flu in the past 2 weeks, No New Medical Problems, No Changes in Medication and No Patient answered all questions The patient has been examined within 24 hours of the surgical procedure. The History & Physical has been completed within 30 days and I have reviewed it.: Yes Section B - Complete if H&P > 30 days Chief Complaint: Abnormal uterine and vaginal bleeding, unspecified Allergies: Allergies Allergy/AdvReac Type Severity Reaction Status Date / Time No Known Allergies Allergy Verified 04/13/24 16:11 Plan Diagnosis/Plan: Unchanged I have reviewed the history and physical and performed a pertinent physical examination on my patient. No changes have occurred unless specified. Time Spent With Patient Time: Total time managing care of this patient today ____ minutes.
[2024-05-05 07:47] VITALS: BP 110/70; PULSE 81; RESP 14; TEMP 36.5; O2SAT 98; BMI 33.3
[2024-05-05] MEDS: Lactated Ringers 1,000 ML 100 ML IVCONT (07:54)
[2024-05-05 08:01] LABS: Glucose, Whole Blood 113 mg/dL (60-115)
--- NOTE | 2024-05-05 09:06 | P.OP_ITS ---
Operative Note Operative Note Date of Service: 05/05/24 Narrative: Preop Diagnosis: Abnormal uterine bleeding, abnormal lower uterine segment endometrium by ultrasound Operation: Diagnostic Hysteroscopy, Dilataion & Curettage Post Op Diagnosis: Normal endometrial and endocervical cavity, no evidence of pathology QBL: Minimal Anesthesia: GLMA Surgeon: Baldemar Pineda MD Commercial Development Manager: None Complication: None Pathology: Endometrial Scrapings Procedure: The patient was put in the dorsal lithotomy position, scrubbed, and draped in the usual manner. A sterile speculum was inserted in the patient's vagina. The anterior lip of the cervix was grasped with a single tooth tenaculum. The cervix was dilated up to 5 mm, then the scope was inserted in the patient's uterus. Inspection revealed normal endocervical & endometrial cavity with no evidence of pathology. The scope was taken out of the uterine cavity , then sharp curetting was carried on with no complications. At the end of the procedure, all instruments were taken out of the patient uterine and vaginal cavity. The single tooth tenaculum was removed and homeostasis was assured using pressure. The patient tolerated the procedure well and was transferred to the PACU in a stable condition.
--- NOTE | 2024-05-05 09:06 | P.BOP_ITS ---
Brief Operative Note Date of Service: 05/05/24 Pre-op diagnosis: Abnormal uterine bleeding, abnormal lower uterine segment endometrium by ultrasound Post-op diagnosis: same (Normal endometrial cavity) Procedure: Hysteroscopy D&C Surgeon: Baldemar Pineda MD Anesthesia: GLMA Was an Commercial Analyst used for this Procedure?: No Estimated blood loss (mL): 0 Pathology: other (Endometrial Scrapping. ) Condition: stable Disposition: PACU
[2024-05-05 09:11] VITALS: BP 111/55; PULSE 71; RESP 12; TEMP 36.6; O2SAT 94
[2024-05-05 09:16] VITALS: BP 105/55; PULSE 67; RESP 12; TEMP 36.6; O2SAT 96
[2024-05-05 09:21] VITALS: BP 101/61; PULSE 71; RESP 12; O2SAT 97
[2024-05-05 09:26] VITALS: BP 114/71; PULSE 68; RESP 16; O2SAT 99
[2024-05-05 09:41] VITALS: BP 114/71; PULSE 68; RESP 16; TEMP 36.6; O2SAT 100
== END 2024-05-05 10:11 | disposition home or self-care (01) ==
PROVIDERS: PCP Internal Medicine Medical Oncology; Visit Provider Obstetrics & Gynecology
PROC: 0UDB8ZZ Extraction of Endometrium, Via Natural or Artificial Opening Endoscopic (ICD-10-PCS; CPT 58558; principal; 2024-05-05 08:30)
DX: N93.9 Abnormal uterine and vaginal bleeding, unspecified (principal); E06.3 Autoimmune thyroiditis; R73.03 Prediabetes; K62.9 Disease of anus and rectum, unspecified; Z98.51 Tubal ligation status
CPT/HCPCS: 58558; 81025; 82947; 88305; J1885; J2003; J2405; J2704; J3010

== ENCOUNTER → 2024-05-05 06:58 | Outpatient (BNV) | payer BC, SELFPAY | PROVIDERS: PCP Internal Medicine Medical Oncology; Visit Provider Obstetrics & Gynecology | DX: N93.9 Abnormal uterine and vaginal bleeding, unspecified (principal) | CPT/HCPCS: 58558 ==

== ENCOUNTER 2024-05-22 15:58 | Outpatient (AMB) | payer BC, SELFPAY ==
[2024-05-22 15:58] VITALS: BMI 32.1
--- NOTE | 2024-05-22 15:58 | MHC.OFFVIS ---
Vital Signs 05/22/24 15:58 Height 5 ft 4 in Weight 187 lb BMI 32.1 Intake Visit Reasons: post op Clinical Documentation Spec Required: Yes Clinical Documentation Spec Language: Net Solutions Architect Services: Clinical Documentation Spec Present (in person) Clinical Documentation Spec Name: Carolyn OLIVEIRA Information Interpreted: non-clinical & clinical Accompanied by: Self / Same As Patient Allergies No Known Allergies Allergy (Verified 05/22/24 15:59) HPI Comments Details: The patient is presenting post hysteroscopy D&C no complaints minimal vaginal bleeding no feverishness chills or abdominal pain. Intraoperative findings showed normal endometrial cavity with no evidence of any abnormalities The pathology showed the following: Endometrium, curettage: Benign endometrium with proliferative and inactive glands, and glandular and stromal breakdown, and benign endocervical glandular mucosa; no atypia or carcinoma The following workup was done.: H&H= 11.6/36.7 TSH, prolactin, hCG, GC and chlamydia were negative. Co testing was done in 06/19 was negative. Mammogram was BI-RADS 2 Pelvic ultrasound showed the following: UTERUS: The uterus is anteverted and retroflexed measuring 9.3 x 4.0 x 4.2 cm. The double wall endometrial thickness is 8 mm. The uterus is smooth in contour and has normal myometrial echogenicity. No visible fibroid. Nabothian cysts are present in the cervix. In the lower uterine segment/cervix a cystic area is seen which may communicate with the endometrial cavity. ADNEXA: Both ovaries are visualized. There is normal color flow to the adnexa. There is no ovarian torsion. There is no pelvic ascites or fluid collection. Right ovary measures 2.3 x 1.5 x 1.6 cm for a volume of 2.8 mL. Left ovary measures 1.8 x 0.9 x 1.3 cm from by 1.1 mL. UTERUS: The uterus is anteverted and retroflexed measuring 9.3 x 4.0 x 4.2 cm. The double wall endometrial thickness is 8 mm. The uterus is smooth in contour and has normal myometrial echogenicity. No visible fibroid. Nabothian cysts are present in the cervix. In the lower uterine segment/cervix a cystic area is seen which may communicate with the endometrial cavity. ADNEXA: Both ovaries are visualized. There is normal color flow to the adnexa. There is no ovarian torsion. There is no pelvic ascites or fluid collection. Right ovary measures 2.3 x 1.5 x 1.6 cm for a volume of 2.8 mL. Left ovary measures 1.8 x 0.9 x 1.3 cm from by 1.1 mL. 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 Obesity due to excess calories Prediabetes Surgical History Hx of dilation and curettage (~2020) H/O tubal ligation Family History Mother Diabetes Maternal Grandfather Diabetes Father Diabetes Social History Household Members: Spouse and Children Are you a primary skin care instructor to a significant other at home: No Do you presently have visiting nurse or other home services: No Alcohol intake: never Patient Tobacco Use Status: Never used Tobacco Second Hand Smoke Exposure: No Current occupational status: employed 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 Sexual 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/Heterosexual Gender identity: Female Female Reproductive History Menstrual Age of Menarche: 13 Review of Systems Const All systems reviewed & are unremarkable except as noted in HPI and below Reports as per HPI and Reports no additional complaints GI Reports no additional complaints Reports no additional complaints Assessment & Plan Assessment & Plan (1) Abnormal uterine bleeding (AUB): Code(s): N93.9 - Abnormal uterine and vaginal bleeding, unspecified Category: Medical Plan: Discussed with the patient the results of the work up done and options of treatment including Lysteda, control pills, Mirena IUD, endometrial ablation and hysterectomy. All pros, cons, risks and benefits if each option was discussed with the patient and the patient decided to go ahead with Mirena IUD so a more detailed discussion about it was conducted including mechanism of action, risks (uterine perforation, infection, injury to bladder, bowel, displacement, and others) benefits (hypo menorrhea, amenorrhea, ...). GC/CT were taken and were negative and the patient was instructed to schedule Mirena IUD insertion on day 1-5 of next cycle . All questions answered, the patient verbalized understanding Coding Level of Care Code Est Pt Level 3 (72638) Diagnoses Abnormal uterine bleeding (AUB) N93.9
== END 2024-05-22 16:08 | disposition home or self-care (01) ==
LOC: HO.HWS 15:58
PROVIDERS: PCP Internal Medicine Medical Oncology; Visit Provider Obstetrics & Gynecology
DX: N93.9 Abnormal uterine and vaginal bleeding, unspecified (principal)
CPT/HCPCS: 99213

== ENCOUNTER 2024-07-21 07:01 | Outpatient (REF) | payer BC, SELFPAY ==
[2024-07-21 07:22] LABS: MANUAL DIFF FLAG NO
[2024-07-21 08:21] LABS: Basophils Percent Auto 0.3 % (0-2); Eosinophils Absolute Auto 0.2 X10*3/uL (0.0-0.4); Eosinophils Percent Auto 2.2 % (0-4); Hematocrit 37.2 % (37.0-47.0); Hemoglobin 11.5 g/dl (12.0-16.0); Imm Gran Abs Auto 0.03 X10*3/uL (0.00-0.03); Imm Gran Pct Auto 0.3 % (0.0-0.4); Lymphocytes Absolute Auto 2.1 X10*3/uL (1.2-4.9); Lymphocytes Percent Auto 22.8 % (20-40); Mean Corpuscular HGB Conc 30.9 g/dl (31.0-35.0); Mean Corpuscular Hemoglobin 22.7 pg (27.0-33.0); Mean Corpuscular Volume 73.4 fL (80.0-98.0); Mean Platelet Volume 9.2 fL (9.4-12.3); Monocytes Absolute Auto 0.5 X10*3/uL (0.1-1.2); Neutrophils Absolute Auto 6.4 x10*3/uL (2.0-8.3); Neutrophils Percent Auto 69.4 % (45-73); Platelet Count 413 X10*3/uL (160-400); Red Blood Count 5.07 X10*6/uL (4.20-5.50); Red Cell Distribution Width 15.6 % (11.0-16.0); White Blood Count 9.3 X10*3/uL (4.8-10.8)
[2024-07-21 08:28] LABS: Estimated Average Glucose 126 mg/dL; Hemoglobin A1C 127.6677 umol/L; Total Hemoglobin (HGBA1C) 3023.5831 umol/L
[2024-07-21 08:52] LABS: Albumin Level 4.3 g/dL (3.5-5.0); Anion Gap 11 (12-20); Aspartate Amino Transferase 24 U/L (5-31); Bilirubin Total 0.3 mg/dL (0.0-1.0); Blood Urea Nitrogen 11 mg/dL (9-16); Calcium 9.1 mg/dL (8.4-10.2); Carbon Dioxide 27 mmol/L (22-29); Chloride 106 mmol/L (96-108); Cholesterol 158 mg/dL (<200); Estimated Glomerular Filt Rate > 60; Glucose Fasting 115 mg/dL (60-99); HDL Cholesterol 38 mg/dL (>40); LDL Cholesterol Calculated 100 mg/dL (<100); Potassium 3.9 mmol/L (3.3-5.1); Sodium 140 mmol/L (135-145); Total Protein 7.7 g/dL (6.5-8.0); Triglycerides 101 mg/dL (<150)
[2024-07-21 09:15] LABS: Ferritin 10 ng/mL (10-250); Free T4 (Free Thyroxine) 0.83 ng/dL (0.71-1.85); Thyroid Stimulating Hormone 1.82 uIU/mL (0.32-4.0)
[2024-07-21 10:38] LABS: Creatinine Urine 211.05 mg/dL; Microalbum/Creatinine Ratio Ur 36.9 ug/mg cr (<30)
[2024-07-21 14:23] LABS: Alanine Aminotransferase 21 U/L (0-31); Alkaline Phosphatase 83 U/L (39-117)
== END 2024-07-21 07:02 | disposition home or self-care (01) ==
LOC: HO.LAB 07:01
PROVIDERS: PCP Internal Medicine Medical Oncology; Visit Provider Internal Medicine Medical Oncology
DX: E66.9 Obesity, unspecified (principal); E08.9 Diabetes mellitus due to underlying condition without complications; D50.9 Iron deficiency anemia, unspecified; E03.9 Hypothyroidism, unspecified
CPT/HCPCS: 36415; 80053; 80061; 82043; 82570; 82728; 83036; 84439; 84443; 85025

== ENCOUNTER 2024-07-25 15:59 | Outpatient (REF) | payer BC, SELFPAY ==
--- NOTE | ~2024-07-25 | XR_ITS ---
CLINICAL HISTORY: LOW BACK PAIN Lumbar spine three views Comparison: None Findings: No acute fracture or dislocation is demonstrated. Posterior alignment is normal throughout. No significant degenerative change noted. Surgical clips right upper quadrant. Impression: No acute processes This document has been electronically signed by: Wolf Sheppard MD on 07/26/2024 19:10:39
--- OUTSIDE RECORDS SUMMARY | 2024-07-25 16:32 | XMS_ITS ---
Author Organization Fox Johnston III, MD Address [address] [place] [address] Care Team Providers Care Visitor Services Associate Name Role Phone Fox Johnston Primary Care Provider REASON FOR VISIT Request [facility] Social History Sex Assigned At : Social History Observation Description Sex Assigned At Female Encounters Encounter Location Date Provider Diagnosis Fox Johnston III, MD [address] [place] [address] [place] [phone] 07/19/2024 Fox Johnston Plan Of Treatment Next Appt Details Provider Name:Fox Johnston, 07/31/2024 04:00:00 PM, [address] [place] [address] [place], [phone], Provider Name:Fox Johnston, 11/22/2024 04:00:00 PM, [address] [place] [address] [place], [phone], Progress Notes * [place] UPDOB: (44 yo F)Acc No.[id number]:07/19/2024 Patient:?Kym UP cedric :1980???Age:43 Y???Sex:Female Address:[address] [place] [address], [phone] * * Date:?
--- OUTSIDE RECORDS SUMMARY | 2024-07-25 16:32 | XMS_ITS ---
Author Organization Fox Johnston III, MD Address [address] [address] Care Team Providers Care Park Guard Name Role Phone Fox Johnston Primary Care Provider Allergies Allergen (clinical drug ingredient) Drug/Non Drug Allergy documented on EMR Reaction Allergy Type Onset Date Status No Known Drug Allergy Unknown Drug Allergy Active Reason For Referral Reason Consult and Treat Diagnosis 1 Diabetes mellitus du e to underlying condition without complication, without long-term current use of insulin (E08.9) Referral Organization Fox Johnston III, MD Referring Provider First Name Fox Referring Provider Last Name Preston Referring Provider Speciality Internal M edicine Referred Provider Ita Dias Referred Provider Specialty Endocrinolog y Referral Priority Routine REASON FOR VISIT Follow up, Pain Lower back x 1 month, Pain RUQ x 20 days Medications Medication SIG (Take, Route, Frequency, Duration) Notes Start Date End Date Status Aldara Active Hydrocortisone 1 % 1 application Bias Cutter ally Twice a day 11/19/2023 Active Ketoconazole 2 % 1 application to affected area Externally Twice a day 03/11/2019 Active lamoTRIgine ER 25 MG 1 tablet Orally Onc e a day 07/13/2022 Active metFORMIN HCl 500 MG 1 tablet with a wilda l Orally Once a day Active Ferrous Gluconate 324 (38 Fe) MG orally once a day once a day 11/19/2023 Active Omeprazole 20 MG TAKE 1 CAPSULE BY MO [facility] EVERY DAY FOR 30 DAYS Active Propranolol HCl 10 MG 1 tablet on an emp ty stomach Orally Once a day 03/11/2019 Active Social History Tobacco Use: Social History Observation Description Date Details (start date - stop date) Current Smoker NA - NA Sex Assigned At : Social History Observation Description Sex Assigned At Female Tobacco Use/Smoking Question Answer Notes Patient is a current smoker How often do you smoke cigarettes? every day How many cigarettes a day do you smoke? 5 or les s How soon after you wake up d o you smoke your first cigarette? after 60 minutes Are you interested in quitting? Ready to quit Additional Findings: Tobacco User Light cigarett e smoker ((1-9 cigs/day) Vital Signs Height 63 in 07/25/2024 Weight 197 lbs 07/25/2024 BMI 34.89 kg/m2 07/25/2024 Encounters Encounter Location Date Provider Diagnosis Fox Johnston III, MD [address] [place] [address] [facility] [place] [address] 07/25/2024 Fox Johnston Iron deficiency anemia, unspecified iron deficiency anemia type D50.9 ; UTI symptoms R39.9 and Low back pain, unspecified M54.50 Assessments Encounter Date Diagnosis (ICD Code) Assessment Notes Treatment Notes Treatment Clinical Notes 07/25/2024 Iron deficiency anemia, unspecified iron deficiency anemia type (ICD-10 - D50.9) Her ferritin has returned to her normal level of 15 which is at the low end of normal. The mean cell volume has improved to 76.4. The hematocrit is 39.1%She was continued on the iron. She has had no recent bleeding. 07/25/2024 UTI symptoms (ICD-10 - R39.9) 07/25/2024 Low back pain, unspecified (ICD-10 - M54.50) Plan Of Treatment Medication Medication Name Sig Start Date Stop Date Notes Aldara Hydrocortisone 1 % 1 application Bias Cutter ally Twice a day 11/19/2023 Ketoconazole 2 % 1 application to aff ected area Externally Twice a day 03/11/2019 lamoTRIgine ER 25 MG 1 tablet Orally Once a day 07/13/2022 metFORMIN HCl 500 MG 1 tablet with a wilda l Orally Once a day Ferrous Gluconate 324 (38 Fe ) MG orally once a day once a day 11/19/2023 Omeprazole 20 MG TAKE 1 CAPSULE BY [facility] EVERY DAY FOR 30 DAYS Propranolol HCl 10 MG 1 tablet on an emp ty stomach Orally Once a day 03/11/2019 Pending Test Test Name Order Date URINALYSIS (UA) 07/25/2024 URINE CULTURE 07/25/2024 XR lumbar spine 2-3V 07/25/2024 Referrals Referral Date Details 07/25/2024 07/25/2024, Consult and Treat, Audra Warren Next Appt Details Follow Up: 1 Week, Reason: O V Provider Name:Fox Johnston, 07/31/2024 04:00:00 PM, [address] [place] [address] [address], [place], [address], Provider Name:Fox Johnston, 11/22/2024 04:00:00 PM, [address] [place] [address] [address], [place], [address], Progress Notes * Nekchi UPDOB: (44 yo F)Acc No.[id number]:07/25/2024 Progress Notes Patient:?Kym UP Provider:?Fox Johnston MD :1980???Age:44 Y???Sex:Female D ate:07/25/2024 Address:[address] [place], [place] [id number] Subjective: * Chief Complaints: * ???1. Follow up. 2. Pain Low er back x 1 month. 3. Pain RUQ x 20 days. * HPI: ???COVID-19 Screening:?Questions?Have you had any new onset fever, chills, cough, congestion, sore throat, shortness of breath, muscle aches??No * ROS:?General/Constitutional:?pain?only normal aches and pains.?Chills?denies.?Fatigue?admits.?Fever?denies.?ENT:?Decreased hearing?denies.?Respiratory:?Cough?denies.?Cardiovascular:?Chest pain with exertion?denies.?Dyspnea on exertion?denies.?Shortness of breath?denies.?Gastrointestinal:?Constipation?denies.?Decreased appetite?denies.?Diarrhea?denies.?Heartburn?denies.?Nausea?denies.?Rectal bleeding?denies.?Vomiting?denies.?Hematology:?bruising?denies.?petechiae?denies.?Swollen glands?none have been noted.?Genitourinary:?Frequent urination?denies.?Musculoskeletal:?Muscle aches?denies.?Painful joints?denies.?Sciatica?denies.?Weakness?denies.?Skin:?Itching?denies.?Rash?denies.?Skin lesion(s)?denies.?Neurologic:?Difficulty speaking?denies.?Dizziness?denies.?Headache?denies.?Low back pain?denies.?Psychiatric:?Depressed mood?denies.? * Medical History:?Chronic hea daches for 4 monrths, [id number] 7 mos, Former smoker, Overweight, Hypothyroid, Pre-diabetes, {'Condyloma Acuminatum': 'Diagnosed during current visit', 'Muscle Soreness': 'Identified during current visit', 'Gallstones': 'Identified in previous medical tests'}, Anal condyloma acuminata. * Surgical History:?C- section 2008, 2016, 2 para 2 , No history . * Hospitalization/Major Diagno stic Procedure:?No history . * Family History:?Father: dece ased 50 yrs, Coronary artery disease, history of myocardial infarction, diagnosed with CVD.?Mother: alive 68 yrs, Alive and well with no medical problems.?1 sister(s) - healthy. 2 daughter(s) - healthy. .? Her sister is healthy and well. Her children are healthy and well. There is no family history of which she is aware of cancer of the breast, ovary, pancreas, prostate or colon. * Social History:?Tobacco Use:?Tobacco Use/Smoking?Patient is a?current smoker ?How often do you smoke cigarettes??every day ?How many cigarettes a day do you smoke??5 or less ?How soon after you wake up do you smoke your first cigarette??after 60 minutes ?Are you interested in quitting??Ready to quit ?Additional Findings: Tobacco User?Light cigarette smoker ((1-9 cigs/day) ???She was born in [facility] and came to this country at the age of 36. She speaks Montenegrin and is learning Czech but is not yet fluent. She has 2 children. She is not working. * Medications:?Taking metFORMI N HCl 500 MG Tablet 1 tablet with a meal Orally Once a day , Taking lamoTRIgine ER 25 MG Tablet Extended Release 24 Hour 1 tablet Orally Once a day , Taking Ketoconazole 2 % Cream 1 application to affected area Externally Twice a day , Taking Propranolol HCl 10 MG Tablet 1 tablet on an empty stomach Orally Once a day , Taking Omeprazole 20 MG Capsule Delayed Release TAKE 1 CAPSULE BY MOUTH EVERY DAY FOR 30 DAYS , Taking Ferrous Gluconate 324 (38 Fe) MG Tablet orally once a day once a day , Taking Hydrocortisone 1 % Cream 1 application Externally Twice a day , Taking Aldara , Medication List reviewed and reconciled with the patient * Allergies:?No Known Drug All ergy. Objective: * Vitals:?Ht: 63, Wt: 197, BMI :34.89, Wt-k.36. * ???Past Orders: Lab:Pathology * Collection Date 05/05/2024 04/13/2024 03/30/2024 Collection Time 08:59 AM 04:51 PM 03:44 PM Order Date 05/05/2024 04/13/2024 03/30/2024 ???Lab:Glucose, Whole Blood (Order Date - 05/05/2024) (Collection Date & Time - 05/05/2024 07:57 AM)?ValueReference Range?Glucose, Whole Wkenx313 60-115 - mg/dL ???Lab:Ur Preg Test (Order Date - 05/05/2024) (Collection Date & Time - 05/05/2024 07:10 AM)?ValueReference Range?Urine PregnancyNEGATIVE NEGATIVE - * Lab:Free T4 (Free Thyroxine) * Collection Date 07/21/2024 03/17/2021 03/07/2021 Collection Time 07:20 AM 10:05 AM 11:51 AM Order Date 07/21/2024 03/17/2021 03/07/2021 Free T4 (Free Thyroxine) 0.83 (Ref Range: 0.71-1.85 ng/dL) 0.90 (Ref Range: 0.71-1.85 ng/dL) 0.89 (Ref Range: 0.71-1.85 ng/dL) * Lab:Lipid Panel * Collection Date 07/21/2024 05/04/2023 10/15/2022 Collection Time 07:20 AM 10:38 AM 09:14 AM Order Date 07/21/2024 05/04/2023 10/15/2022 Triglycerides 101 (Ref Range: <150 mg/dL) 127 (Ref Range: <150 mg/dL) 120 (Ref Range: mg/dL) Cholesterol 158 (Ref Range: <200 mg/dL) 160 (Ref Range: <200 mg/dL) 176 (Ref Range: mg/dL) LDL Cholesterol Calculated 100?H (Ref Range: <100 mg/dL) 102?H (Ref Range: <100 mg/dL) 117 (Ref Range: mg/dl) HDL Cholesterol 38?L (Ref Range: >40 mg/dL) 33?L (Ref Range: >40 mg/dL) 35 (Ref Range: mg/dL) * Lab:Ferritin * Collection Date 07/21/2024 03/04/2024 11/09/2023 Collection Time 07:20 AM 08:43 AM 07:34 AM Order Date 07/21/2024 03/04/2024 11/09/2023 Ferritin 10 (Ref Range: 10-250 ng/mL) 15 (Ref Range: 10-250 ng/mL) 6?L (Ref Range: 10-250 ng/mL) * Lab:Hemoglobin A1c * Collection Date 07/21/2024 03/04/2024 11/09/2023 Collection Time 07:20 AM 08:43 AM 07:34 AM Order Date 07/21/2024 03/04/2024 11/09/2023 Hemoglobin A1c % 6.0 (Ref Range: <6.0 %) 5.8 (Ref Range: <6.0 %) 6.0 (Ref Range: <6.0 %) Estimated Average Glucose 126 (Ref Range: mg/dL) 120 (Ref Range: mg/dL) 126 (Ref Range: mg/dL) * Lab:Comprehensive [place]. Pane l Fast * Collection Date 07/21/2024 03/04/2024 11/09/2023 Collection Time 07:20 AM 08:43 AM 07:34 AM Order Date 07/21/2024 03/04/2024 11/09/2023 Sodium 140 (Ref Range: 135-145 mmol/L) 138 (Ref Range: 135-145 mmol/L) 139 (Ref Range: 135-145 mmol/L) Bilirubin Total 0.3 (Ref Range: 0.0-1.0 mg/dL) 0.4 (Ref Range: 0.0-1.0 mg/dL) 0.2 (Ref Range: 0.0-1.0 mg/dL) Aspartate Amino Transferase 24 (Ref Range: 5-31 U/L) 13 (Ref Range: 5-31 U/L) 13 (Ref Range: 5-31 U/L) Alanine Aminotransferase 21 (Ref Range: 0-31 U/L) 18 (Ref Range: 0-31 U/L) 15 (Ref Range: 0-31 U/L) Total Protein 7.7 (Ref Range: 6.5-8.0 g/dL) 7.2 (Ref Range: 6.5-8.0 g/dL) 7.2 (Ref Range: 6.5-8.0 g/dL) Albumin Level 4.3 (Ref Range: 3.5-5.0 g/dL) 4.2 (Ref Range: 3.5-5.0 g/dL) 4.2 (Ref Range: 3.5-5.0 g/dL) Alkaline Phosphatase 83 (Ref Range: 39-117 U/L) 89 (Ref Range: 39-117 U/L) 90 (Ref Range: 39-117 U/L) Potassium 3.9 (Ref Range: 3.3-5.1 mmol/L) 3.9 (Ref Range: 3.3-5.1 mmol/L) 3.7 (Ref Range: 3.3-5.1 mmol/L) Chloride 106 (Ref Range: 96-108 mmol/L) 106 (Ref Range: 96-108 mmol/L) 105 (Ref Range: 96-108 mmol/L) Carbon Dioxide 27 (Ref Range: 22-29 mmol/L) 26 (Ref Range: 22-29 mmol/L) 26 (Ref Range: 22-29 mmol/L) Anion Gap 11?L (Ref Range: 12-20) 10?L (Ref Range: 12-20) 12 (Ref Range: 12-20) Blood Urea Nitrogen 11 (Ref Range: 9-16 mg/dL) 10 (Ref Range: 9-16 mg/dL) 10 (Ref Range: 9-16 mg/dL) Creatinine 0.69 (Ref Range: 0.5-1.4 mg/dL) 0.74 (Ref Range: 0.5-1.4 mg/dL) 0.69 (Ref Range: 0.5-1.4 mg/dL) Estimated Glomerular Filt Rate > 60 > 60 > 60 Glucose Fasting 115?H (Ref Range: 60-99 mg/dL) 110?H (Ref Range: 60-99 mg/dL) 107?H (Ref Range: 60-99 mg/dL) Calcium 9.1 (Ref Range: 8.4-10.2 mg/dL) 9.2 (Ref Range: 8.4-10.2 mg/dL) 9.0 (Ref Range: 8.4-10.2 mg/dL) * Lab:Microalbumin, Random * Collection Date 07/21/2024 10/15/2022 07/17/2021 Collection Time 07:19 AM 09:10 AM 10:00 AM Order Date 07/21/2024 10/15/2022 07/17/2021 Creatinine Urine 211.05 (Ref Range: mg/dL) 317.75 (Ref Range: mg/dL) 267.03 (Ref Range: mg/dL) Microalbumin Urine 78.0 (Ref Range: mg/L) 87.0 (Ref Range: mg/L) 62.0 (Ref Range: mg/L) Microalbum Creatinine Ratio Ur 36.9?H (Ref Range: <30 ug/mg cr) 27.3 (Ref Range: ug/mg cr) 23.2 (Ref Range: ug/mg cr) * Lab:Complete Blood Count Aut o Diff * Collection Date 07/21/2024 03/04/2024 11/09/2023 Collection Time 07:20 AM 08:43 AM 07:34 AM Order Date 07/21/2024 03/04/2024 11/09/2023 White Blood Count 9.3 (Ref Range: 4.8-10.8 X10*3/uL) 8.2 (Ref Range: 4.8-10.8 X10*3/uL) 9.2 (Ref Range: 4.8-10.8 X10*3/uL) Red Blood Count 5.07 (Ref Range: 4.20-5.50 X10*6/uL) 5.12 (Ref Range: 4.20-5.50 X10*6/uL) 5.09 (Ref Range: 4.20-5.50 X10*6/uL) Hemoglobin 11.5?L (Ref Range: 12.0-16.0 g/dl) 12.3 (Ref Range: 12.0-16.0 g/dl) 11.5?L (Ref Range: 12.0-16.0 g/dl) Hematocrit 37.2 (Ref Range: 37.0-47.0 %) 39.1 (Ref Range: 37.0-47.0 %) 36.9?L (Ref Range: 37.0-47.0 %) Mean Corpuscular Volume 73.4?L (Ref Range: 80.0-98.0 fL) 76.4?L (Ref Range: 80.0-98.0 fL) 72.5?L (Ref Range: 80.0-98.0 fL) Mean Corpuscular Hemoglobin 22.7?L (Ref Range: 27.0-33.0 pg) 24.0?L (Ref Range: 27.0-33.0 pg) 22.6?L (Ref Range: 27.0-33.0 pg) Mean Corpuscular HGB Conc 30.9?L (Ref Range: 31.0-35.0 g/dl) 31.5 (Ref Range: 31.0-35.0 g/dl) 31.2 (Ref Range: 31.0-35.0 g/dl) Red Cell Distribution Width 15.6 (Ref Range: 11.0-16.0 %) 15.4 (Ref Range: 11.0-16.0 %) 16.1?H (Ref Range: 11.0-16.0 %) Platelet Count 413?H (Ref Range: 160-400 X10*3/uL) 385 (Ref Range: 160-400 X10*3/uL) 374 (Ref Range: 160-400 X10*3/uL) Mean Platelet Volume 9.2?L (Ref Range: 9.4-12.3 fL) 9.1?L (Ref Range: 9.4-12.3 fL) 9.3?L (Ref Range: 9.4-12.3 fL) Neutrophils Percent Auto 69.4 (Ref Range: 45-73 %) 70.0 (Ref Range: 45-73 %) 69.0 (Ref Range: 45-73 %) Imm Gran Pct Auto 0.3 (Ref Range: 0.0-0.4 %) 0.2 (Ref Range: 0.0-0.4 %) 0.4 (Ref Range: 0.0-0.4 %) Lymphocytes Percent Auto 22.8 (Ref Range: 20-40 %) 22.5 (Ref Range: 20-40 %) 24.0 (Ref Range: 20-40 %) Monocytes Percent Auto 5.0 (Ref Range: 2-11 %) 5.4 (Ref Range: 2-11 %) 5.3 (Ref Range: 2-11 %) Eosinophils Percent Auto 2.2 (Ref Range: 0-4 %) 1.3 (Ref Range: 0-4 %) 0.9 (Ref Range: 0-4 %) Basophils Percent Auto 0.3 (Ref Range: 0-2 %) 0.6 (Ref Range: 0-2 %) 0.4 (Ref Range: 0-2 %) NRBC Pct Auto 0.0 (Ref Range: 0.0-0.2 /100WBC) 0.0 (Ref Range: 0.0-0.2 /100WBC) 0.0 (Ref Range: 0.0-0.2 /100WBC) Neutrophils Absolute Auto 6.4 (Ref Range: 2.0-8.3 x10*3/uL) 5.7 (Ref Range: 2.0-8.3 x10*3/uL) 6.4 (Ref Range: 2.0-8.3 x10*3/uL) Imm Gran Abs Auto 0.03 (Ref Range: 0.00-0.03 X10*3/uL) 0.02 (Ref Range: 0.00-0.03 X10*3/uL) 0.04?H (Ref Range: 0.00-0.03 X10*3/uL) Lymphocytes Absolute Auto 2.1 (Ref Range: 1.2-4.9 X10*3/uL) 1.8 (Ref Range: 1.2-4.9 X10*3/uL) 2.2 (Ref Range: 1.2-4.9 X10*3/uL) Monocytes Absolute Auto 0.5 (Ref Range: 0.1-1.2 X10*3/uL) 0.4 (Ref Range: 0.1-1.2 X10*3/uL) 0.5 (Ref Range: 0.1-1.2 X10*3/uL) Eosinophils Absolute Auto 0.2 (Ref Range: 0.0-0.4 X10*3/uL) 0.1 (Ref Range: 0.0-0.4 X10*3/uL) 0.1 (Ref Range: 0.0-0.4 X10*3/uL) Basophils Absolute Auto 0.0 (Ref Range: 0.0-0.2 X10*3/uL) 0.1 (Ref Range: 0.0-0.2 X10*3/uL) 0.0 (Ref Range: 0.0-0.2 X10*3/uL) NRBC Abs Auto 0.000 (Ref Range: 0.0-0.012 X10*3/uL) 0.000 (Ref Range: 0.0-0.012 X10*3/uL) 0.000 (Ref Range: 0.0-0.012 X10*3/uL) * Lab:Thyroid Stimulating Horm one * Collection Date 07/21/2024 05/04/2023 03/17/2021 Collection Time 07:20 AM 10:38 AM 10:05 AM Order Date 07/21/2024 05/04/2023 03/17/2021 Thyroid Stimulating Hormone 1.82 (Ref Range: 0.32-4.0 uIU/mL) 0.94 (Ref Range: 0.32-4.0 uIU/mL) 1.31 (Ref Range: 0.32-4.0 uIU/mL) ???Imaging:MM tomosynthesis diagnostic BI (Order Date - 05/03/2024) (Performed Date - 05/03/2024) ???Imaging:US breast RT limited mamm only (Order Date - 05/03/2024) (Performed Date - 05/03/2024) * Examination: ???General Examination: ?GENERAL APPEARANCE:?pleasant, well nourished, well developed, in no acute distress, calm and relaxed.?HEAD:?atraumatic, normocephalic.?EYES:?eomi, perrla, anicteric, conjugate.?EARS:?normal.?NOSE:?septum intact.?ORAL CAVITY:?normal, unremarkable.?NECK/THYROID:?no jugular venous distention, no carotid bruit, thyroid normal.?LYMPH NODES:?no enlarged lymph nodes,spleen normal.?SKIN:?no suspicious lesions, anicteric.?HEART:?no clicks, gallops, murmurs, or rubs, regular rhythm, S1, S2 normal, no s3, or vascular bruits.?LUNGS:?clear to auscultation .?BREASTS:??no masses palpable bilaterally.?ABDOMEN:?bowel sounds normal, no ascites, no organomegaly, no mass.?RECTAL EXAM:?not examined.?MUSCULOSKELETAL:?extremities unremarkable, no clubbing, cyanosis or edema.?PERIPHERAL PULSES:?normal.?NEUROLOGIC:?alert and oriented, cranial nerves 2-12 grossly intact, deep tendon reflexes 2+ symmetrical, motor strength normal upper and lower extremities, sensory exam intact.?PSYCH:?alert, oriented.? Assessment: * Assessment: 1.?Iron deficiency anemia, u nspecified iron deficiency anemia type - D50.9???Notes :Her ferritin has returned to her normal level of 15 which is at the low end of normal. The mean cell volume has improved to 76.4. The hematocrit is 39.1%She was continued on the iron. She has had no recent bleeding.???2.?UTI symptoms - R39.9???3.?Low back pain, unspecified - M54.50??? Plan: * Treatment: 2.?UTI symptoms?LAB: URINALYSIS (UA) ?LAB: URINE CULTURE 3.?Low back pain, unspecifie d?Imaging: XR lumbar spine 2-3V 4.?Others? Continue Omeprazole Capsule Delayed Release, 20 MG, TAKE 1 CAPSULE BY MOUTH EVERY DAY FOR 30 DAYS;?Continue Aldara.? Referral To:Audra Warren??Endocrinology ?Reason:Consult and Treat * Follow Up:?1 Week (Reason: O V) * Images: * The named appointment provid er may or may not be the originator of this progress note, and it is not deemed complete until electronically signed by the appointment provider. Sign off status: Pending * Provider:?Fox Johnston MD Date:?06/29 Generated for Susannei mireya/Grabiel/eTransmitting on:?07/25/2024 04:31 PM EST History and Physical Notes * HPI (History of Present Illness) Category Sub-Category Detail Notes COVID-19 Screening Questions Have you had any new onset fever, chills, cough, congestion, sore throat, shortness of breath, muscle aches?: No Examination Category Sub-Category Detail Notes General Examination GENERAL APPEARANCE: pleasant , well nourished, well developed, in no acute distress, calm and relaxed HEAD: atraumatic, normocep halic EYES: eomi, perrla, anicte fabricio, conjugate EARS: normal NOSE: septum intact NECK/THYROID: no jugular venous di stention, no carotid bruit, thyroid normal HEART: no clicks, gallops, murmurs, or rubs, regular rhythm, S1, S2 normal, no s3, or vascular bruits LUNGS: clear to auscultatio n ABDOMEN: bowel sounds normal, no ascites, no organomegaly, no mass NEUROLOGIC: alert and oriented, cranial nerves 2-12 grossly intact, deep tendon reflexes 2+ symmetrical, motor strength normal upper and lower extremities, sensory exam intact SKIN: no suspicious lesion s, anicteric PERIPHERAL PULSES: normal BREASTS: no masses palpable b ilaterally MUSCULOSKELETAL: extremities unremark able, no clubbing, cyanosis or edema LYMPH NODES: no enlarged lymph no samantha,spleen normal RECTAL EXAM: not examined PSYCH: alert, oriented ORAL CAVITY: normal, unremarkable Consultation Request Notes Referral Date Referring Provider Referred Provider Not joel 07/25/2024 Fox Johnston Kimberly [facility] nsult and Treat
--- OUTSIDE RECORDS SUMMARY | 2024-07-25 16:32 | XMS_ITS | Patient Health Record ---
Author Organization Fox Johnston III, MD Address [address] [place] [address] Care Team Providers Care Master Fisher Name Role Phone Fox Johnston Primary Care Provider [phone] Allergies Allergen (clinical drug ingredient) Drug/Non Drug Allergy documented on EMR Reaction Allergy Type Onset Date Status No Known Drug Allergy Unknown Drug Allergy Active Results Component Value Reference Range Notes MM tomosynthesis screening B I Reviewed date:10/31/2023 02:41:36 PM Interpretation: Performing Lab: Notes/Report: [address] [place] [address] Mammography Report Signed Patient: Nkechi Up MR#: [id number] : 1980 Acct:[id number] Age/Sex: 43 / F ADM Date: 07/29/23 Loc: [facility] Attending Dr: Fox Johnston MD Ordering Physician: Baldemar Pineda MD Results: 1Negativ e Date of Service: 07/29/23 Follow Up: 1 Year From Orig inal Mammogram Procedure(s): MM tomosynthesis screening BI Accession Number(s): [id number] cc: Fox Johnston MD; Baldemar Pineda MD EXAMINATION: MM SCREENING DIGITAL BREAST TOMOSYNTHESIS, BILATERAL CLINICAL INFORMATION: Screening. Asymptomatic. COMPARISON: Mammography: This study is compared with prior exams dating back to 2021. TECHNIQUE: Digital breast tomosynthesis is performed in both the craniocaudal and mediolateral oblique views along with computer-aided detection (CAD). Synthesized 2D images are generated from the tomosynthesis. FINDINGS: The breasts are heterogeneously dense, which may obscure small masses (ACR BI-RADS breast composition Category c). There are no significant masses, abnormal calcifications, or other abnormalities. MM/MM tomosynthesis screening BI IMPRESSION: No mammographic evidence of malignancy. ASSESSMENT: BI-RADS BI-RADS 1 - Negative RECOMMENDATION: Routine annual mammography screening. 1 year F/U This examination should not preclude the clinical evaluation of a suspicious palpable abnormality. This patient's information was entered into a reminder system with a target due date for their next mammogram. Dictated By: Kaylene Elam MD Signed By: <Electronically signed by Kaylene Elam MD in OV> 08/21/23 1130 DD/ 1559 TD/TT: Clinical Immunologist: [place] [address] [place] [address] Mammography Report Signed Patient: Nkechi Up MR#: [id number] : 1980 Acct:[id number] Age/Sex: 43 / F ADM Date: 07/29/23 Loc: [facility] Attending Dr: Fox Johnston MD Ordering Physician: Baldemar Pineda MD Results: 1Negativ e Date of Service: 07/21 Follow Up: 1 Year From Orig inal Mammogram Procedure(s): MM tomosynthesis screening BI Accession Number(s): [id number] cc: Fox Johnston MD; Baldemar Pineda MD EXAMINATION: MM SCREENING DIGITAL BREAST TOMOSYNTHESIS, BILATERAL CLINICAL INFORMATION: Screening. Asymptomatic. COMPARISON: Mammography: This st udy is compared with prior exams dating back to 2021. TECHNIQUE: Digital breast tomosynthesis is performed in both the craniocaudal and mediolateral oblique views along with computer-aided detection (CAD). Synthesized 2D image s are generated from the tomosynthesis. FINDINGS: The breasts are heterogeneously dense, which may obscure small masses (ACR BI-RADS breast composition Category c). There are no signifi cant masses, abnormal calcifications, or other abnormalities. M M/MM tomosynthesis screening BI IMPRESSION: No mammographic evid ence of malignancy. ASSESSMENT: BI-RADS BI-RADS 1 - Negative RECOMMENDATION: Routine annual mammography screening. 1 year F/U This examination parish uld not preclude the clinical evaluation of a suspicious palpable abnormality. This patient's information was entered into a reminder system with a target due date for their next mammogram. Dictated By: Kaylene Elam MD Signed By: <Electronically signed by Kaylene Elam MD in OV> 08/21/23 1130 DD/ 1559 TD/TT: Clinical Immunologist: MAMMOGRAM DIGITAL BILATERAL SCREEN Reviewed date:11/19/2023 04:14:02 PM Interpretation:undefined Performing Lab: Notes/Report: undefined Complete Blood Count Auto Di ff Reviewed date:11/19/2023 04:11:12 PM Interpretation: Performing Lab:[facility], [address] [place] [phone] Notes/Report: White Blood Count 9.2 4.8-10.8 X10*3/uL Red Blood Count 5.09 4.20-5.50 X10*6/uL Hemoglobin 11.5 12.0-16.0 g/dl Hematocrit 36.9 37.0-47.0 % Mean Corpuscular Volume 72.5 80.0-98.0 fL Mean Corpuscular Hemoglobin 22.6 27.0-33.0 pg Mean Corpuscular HGB Conc 31.2 31.0-35.0 g/dl Red Cell Distribution Width 16.1 11.0-16.0 % Platelet Count 374 160-400 X10*3/uL Mean Platelet Volume 9.3 9.4-12.3 fL Neutrophils Percent Auto 69.0 45-73 % Imm Gran Pct Auto 0.4 0.0-0.4 % Lymphocytes Percent Auto 24.0 20-40 % Monocytes Percent Auto 5.3 2-11 % Eosinophils Percent Auto 0.9 0-4 % Basophils Percent Auto 0.4 0-2 % NRBC Pct Auto 0.0 0.0-0.2 /100WBC Neutrophils Absolute Auto 6.4 2.0-8. 3 x10*3/uL Imm Gran Abs Auto 0.04 0.00-0.03 X10*3/uL Lymphocytes Absolute Auto 2.2 1.2-4. 9 X10*3/uL Monocytes Absolute Auto 0.5 0.1-1.2 X10*3/uL Eosinophils Absolute Auto 0.1 0.0-0. 4 X10*3/uL Basophils Absolute Auto 0.0 0.0-0.2 X10*3/uL NRBC Abs Auto 0.000 0.0-0.012 X10*3/uL Comprehensive [place]. Panel Fa st Reviewed date:11/19/2023 04:11:12 PM Interpretation: Performing Lab:[address] [phone] Notes/Report: Sodium 139 135-145 mmol/L Potassium 3.7 3.3-5.1 mmol/L Chloride 105 96-108 mmol/L Carbon Dioxide 26 22-29 mmol/L Anion Gap 12 12-20 Blood Urea Nitrogen 10 9-16 mg/dL Creatinine 0.69 0.5-1.4 mg/dL Estimated Glomerular Filt Rate > 60 NOTE: For -Greek individuals, multiply the result by 1.210. Chronic Kidney Disease: Estimated GFR < 60 mL/min/1.73m2 Severe Kidney Disease: Estimated GFR < 15 mL/min/1.73m2 Glucose Fasting 107 60-99 mg/dL A fasting glucose from 100-125 mg/dl is considered impaired (pre-diabetes). Calcium 9.0 8.4-10.2 mg/dL Bilirubin Total 0.2 0.0-1.0 mg/dL Aspartate Amino Transferase 13 5-31 U/L Alanine Aminotransferase 15 0-31 U/L Total Protein 7.2 6.5-8.0 g/dL Albumin Level 4.2 3.5-5.0 g/dL Alkaline Phosphatase 90 39-117 U/L Ferritin Reviewed date:11/19/2023 04:11:12 PM Interpretation: Performing Lab:[address] [phone] Notes/Report: Ferritin 6 10-250 ng/mL Lipid Panel with Reflex Reviewed date:11/19/2023 04:11:12 PM Interpretation: Performing Lab:[facility], [address] [place] [phone] Notes/Report: Triglycerides 119 <150 mg/dL Desirable Triglyceride: less than 150 mg/dL Borderline High Triglyceride 150-199 mg/dL High Triglyceride: 200-499 mg/dL Very High Triglyceride: greater than or equal to 5OO mg/dL Cholesterol 172 <200 mg/dL Desirable Cholesterol: less than 200 mg/dL Borderline High Cholesterol: 200-239 mg/dL High Cholesterol: greater than 239 mg/dL LDL Cholesterol Calculated 106 <100 mg/dL Desirable LDL: less than 100 mg/dL Near Optimal/Above Optimal LDL: 110-129 mg/dL Borderline High LDL: 130-159 mg/dL High LDL: 160-189 mg/dL Very High LDL: greater than or equal to 190 mg/dL HDL Cholesterol 43 >40 mg/dL Desirable HDL: greater than 40 mg/dL Note: This HDL assay may give artificially low results in patients with liver disease. Hemoglobin A1c Reviewed date:11/19/2023 04:11:12 PM Interpretation: Performing Lab:[facility], [address] [place] [phone] Notes/Report: Hemoglobin A1c % 6.0 <6.0 % Hemoglobin A1C Reference Range Adults: 4.8 - 6.0 % Non diabetic: < 6.0 % Goal: < 7.0 % Additional Action Suggested: > 8.0 % Note: Hemoglobin A1c results are invalid for patients with abnormal amounts of HbF. Blood transfusions may impact the HbA1c concentration in the patient sample. Estimated Average Glucose 126 eAG = Estimated average glucose which is %A1C expressed as average glucose, using the formula of the Z2Q-Sdohkjc Average Glucose study (ADAG), Diabetes Care, Vol.31,#8, Jan. 2007 Complete Blood Count Auto Di ff Reviewed date:03/08/2024 04:10:07 PM Interpretation: Performing Lab:[facility], [address] [place] [phone] Notes/Report: White Blood Count 8.2 4.8-10.8 X10*3/uL Red Blood Count 5.12 4.20-5.50 X10*6/uL Hemoglobin 12.3 12.0-16.0 g/dl Hematocrit 39.1 37.0-47.0 % Mean Corpuscular Volume 76.4 80.0-98.0 fL Mean Corpuscular Hemoglobin 24.0 27.0-33.0 pg Mean Corpuscular HGB Conc 31.5 31.0-35.0 g/dl Red Cell Distribution Width 15.4 11.0-16.0 % Platelet Count 385 160-400 X10*3/uL Mean Platelet Volume 9.1 9.4-12.3 fL Neutrophils Percent Auto 70.0 45-73 % Imm Gran Pct Auto 0.2 0.0-0.4 % Lymphocytes Percent Auto 22.5 20-40 % Monocytes Percent Auto 5.4 2-11 % Eosinophils Percent Auto 1.3 0-4 % Basophils Percent Auto 0.6 0-2 % NRBC Pct Auto 0.0 0.0-0.2 /100WBC Neutrophils Absolute Auto 5.7 2.0-8. 3 x10*3/uL Imm Gran Abs Auto 0.02 0.00-0.03 X10*3/uL Lymphocytes Absolute Auto 1.8 1.2-4. 9 X10*3/uL Monocytes Absolute Auto 0.4 0.1-1.2 X10*3/uL Eosinophils Absolute Auto 0.1 0.0-0. 4 X10*3/uL Basophils Absolute Auto 0.1 0.0-0.2 X10*3/uL NRBC Abs Auto 0.000 0.0-0.012 X10*3/uL RETIC Reviewed date:03/08/2024 04:10:07 PM Interpretation: Performing Lab:[facility], [address] [place] [phone] Notes/Report: Reticulocytes Absolute 0.074 0.026-0.0 95 X10*6/uL Immature Retic Fraction 16.7 3.0-15.9 % Retic HGB Equivalent 27.8 30.0-35.0 pg Reticulocyte Percent 1.4 0.5-1.8 % Comprehensive [place]. Panel Fa st Reviewed date:03/08/2024 04:10:07 PM Interpretation: Performing Lab:[facility], [address] [place] [phone] Notes/Report: Sodium 138 135-145 mmol/L Potassium 3.9 3.3-5.1 mmol/L Chloride 106 96-108 mmol/L Carbon Dioxide 26 22-29 mmol/L Anion Gap 10 12-20 Blood Urea Nitrogen 10 9-16 mg/dL Creatinine 0.74 0.5-1.4 mg/dL Estimated Glomerular Filt Rate > 60 NOTE: For -Greek individuals, multiply the result by 1.210. Chronic Kidney Disease: Estimated GFR < 60 mL/min/1.73m2 Severe Kidney Disease: Estimated GFR < 15 mL/min/1.73m2 Glucose Fasting 110 60-99 mg/dL A fasting glucose from 100-125 mg/dl is considered impaired (pre-diabetes). Calcium 9.2 8.4-10.2 mg/dL Bilirubin Total 0.4 0.0-1.0 mg/dL Aspartate Amino Transferase 13 5-31 U/L Alanine Aminotransferase 18 0-31 U/L Total Protein 7.2 6.5-8.0 g/dL Albumin Level 4.2 3.5-5.0 g/dL Alkaline Phosphatase 89 39-117 U/L Ferritin Reviewed date:03/08/2024 04:10:07 PM Interpretation: Performing Lab:[address] [phone] Notes/Report: Ferritin 15 10-250 ng/mL Hemoglobin A1c Reviewed date:03/08/2024 04:10:07 PM Interpretation: Performing Lab:[address] [phone] Notes/Report: Hemoglobin A1c % 5.8 <6.0 % Hemoglobin A1C Reference Range Adults: 4.8 - 6.0 % Non diabetic: < 6.0 % Goal: < 7.0 % Additional Action Suggested: > 8.0 % Note: Hemoglobin A1c results are invalid for patients with abnormal amounts of HbF. Blood transfusions may impact the HbA1c concentration in the patient sample. Estimated Average Glucose 120 eAG = Estimated average glucose which is %A1C expressed as average glucose, using the formula of the H5C-Ywctfcz Average Glucose study (ADAG), Diabetes Care, Vol.31,#8, Jan. 2007 CT NG by PCR Reviewed date:03/27/2024 08:14:41 AM Interpretation: Performing Lab:[facility], [address] [place] [phone] Notes/Report: Vaginal CT PCR NOT DETECTED Not Detect. A not detected test result does not exclude the possibility of infection because test results can be affected by improper specimen collection, concurrent antibiotic therapy, or the number of organisms in the specimen which may be below the sensitivity of the test. As with many diagnostic tests, results from the Xpert CT/NG assay should be interpreted in conjunction with other laboratory and clinical data available to the clinician. Xpert CT/NG performance has not been evaluated in patients less than 14 years of age. The assay should not be used for the evaluation of suspected sexual abuse or for other medico-legal indications. Additional testing is recommended in any circumstance when false positive or false negative results could lead to adverse medical, social or psychological consequences. NG PCR NOT DETECTED Not Detect. A not detected test result does not exclude the possibility of infection because test results can be affected by improper specimen collection, concurrent antibiotic therapy, or the number of organisms in the specimen which may be below the sensitivity of the test. As with many diagnostic tests, results from the Xpert CT/NG assay should be interpreted in conjunction with other laboratory and clinical data available to the clinician. Xpert CT/NG performance has not been evaluated in patients less than 14 years of age. The assay should not be used for the evaluation of suspected sexual abuse or for other medico-legal indications. Additional testing is recommended in any circumstance when false positive or false negative results could lead to adverse medical, social or psychological consequences. Complete Blood Count no Diff Reviewed date:03/27/2024 08:14:41 AM Interpretation: Performing Lab:[facility], [address] [place] [phone] Notes/Report: White Blood Count 7.8 4.8-10.8 X10*3/uL Red Blood Count 4.86 4.20-5.50 X10*6/uL Hemoglobin 11.6 12.0-16.0 g/dl Hematocrit 36.7 37.0-47.0 % Mean Corpuscular Volume 75.5 80.0-98.0 fL Mean Corpuscular Hemoglobin 23.9 27.0-33.0 pg Mean Corpuscular HGB Conc 31.6 31.0-35.0 g/dl Red Cell Distribution Width 15.1 11.0-16.0 % Platelet Count 377 160-400 X10*3/uL Mean Platelet Volume 9.0 9.4-12.3 fL NRBC Pct Auto 0.0 0.0-0.2 /100WBC NRBC Abs Auto 0.000 0.0-0.012 X10*3/uL TSH reflex Free T4 Reviewed date:03/27/2024 08:14:41 AM Interpretation: Performing Lab:[address] [phone] Notes/Report: TSH reflex Free T4 1.27 0.32-4.0 uIU/mL Prolactin Reviewed date:03/27/2024 08:14:41 AM Interpretation: Performing Lab:[address] [phone] Notes/Report: Prolactin 8.2 Reference Range Females Non- 3.0-30.0 10.0-209.0 Postmenopausal 2.0-20.0 THIS TEST WAS PERFORMED AT: [facility] [address] [place] [phone] ROSALINDA CUEVA MD HCG Quantitative Reviewed date:03/27/2024 08:14:41 AM Interpretation: Performing Lab:[address] [phone] Notes/Report: HCG Quantitative < 2 Weeks post LMP Approximate hCG (Last Menstrual Period) Range (mIU/ml) 3 - 4 weeks 9 - 130 4 - 5 weeks 75 - 2,600 5 - 6 weeks 850 - 20,800 6 - 7 weeks 4000 - 100,200 7 - 12 weeks 11,500 - 289,000 12 - 16 weeks 18,300 - 137,000 16 - 29 weeks (2nd trimester) 1,400 - 53,000 29 - 41 weeks (3rd trimester) 940 - 60,000 The Caban B-hCG assay is used for the early detection of ; it cannot be used to diagnose any condition unrelated to . If a B-hCG level is not supported by the clinical evidence, results should be confirmed by an alternative method (qualitative urine hCG, for example). US pelvic and transvaginal Reviewed date:05/01/2024 05:51:17 AM Interpretation: Performing Lab: Notes/Report: [address] [address] Ultrasound Report Signed Patient: Nkechi Up MR#: [id number] : 1980 Acct:[id number] Age/Sex: 43 / F ADM Date: 03/20/24 Loc: HO.US Attending Dr: Baldemar Pineda MD Ordering Physician: Baldemar Pineda MD Date of Service: 03/20/24 Procedure(s): US pelvic and transvaginal Accession Number(s): [id number] cc: Fox Johnston MD; Baldemar Pineda MD EXAMINATION: US PELVIS CLINICAL INFORMATION: Abnormal uterine and vaginal bleeding. COMPARISON: Pelvic ultrasound 08/29/2020. TECHNIQUE: Ultrasound of the pelvis is performed using both transabdominal and transvaginal transducers along with Doppler. Transvaginal imaging is performed due to inadequate visualization transabdominally. FINDINGS: UTERUS: The uterus is anteverted and retroflexed measuring 9.3 x 4.0 x 4.2 cm. The double wall endometrial thickness is 8 mm. The uterus is smooth in contour and has normal myometrial echogenicity. No visible fibroid. Nabothian cysts are present in the cervix. In the lower uterine segment/cervix a cystic area is seen which may communicate with the endometrial cavity. ADNEXA: Both ovaries are visualized. There is normal color flow to the adnexa. There is no ovarian torsion. There is no pelvic ascites or fluid collection. Right ovary measures 2.3 x 1.5 x 1.6 cm for a volume of 2.8 mL. Left ovary measures 1.8 x 0.9 x 1.3 cm from by 1.1 mL. US/US pelvic and transvaginal IMPRESSION: Cystic area in the lower uterine segment. Given the history of abnormal uterine bleeding, short-term interval follow-up is recommended if hysteroscopy is not performed. Electronically signed by: Yo Rai MD 05/01/2024 12:32 AM [facility] Dictated By: Yo Rai MD Signed By: <Electronically signed by Yo Rai MD in OV> 05/01/24 0032 DD/ 1607 TD/TT: 03/20/24 1629 Clinical Immunologist: [address] [address] Ultrasound Report Signed Patient: Nkechi Up MR#: [id number] : 1980 Acct:[id number] Age/Sex: 43 / F ADM Date: 03/20/24 Loc: HO.US Attending Dr: Baldemar Pineda MD Ordering Physician: Baldemar Pineda MD Date of Service: 03/20/24 Procedure(s): US pel mic and transvaginal Accession Number(s): [id number] cc: Fox Johnston MD; Baldemar Pineda MD EXAMINATION: US PELVIS CLINICAL INFORMATION: Abnormal uterine and vaginal bleeding. COMPARISON: Pelvic ultrasound 08/29/2020. TECHNIQUE: Ultrasound of the pe lvis is performed using both transabdominal and transvaginal transdu cers along with Doppler. Transvaginal imaging is performed due to inadequate visualization transabdominally. FINDINGS: UTERUS: The uterus is anteve rted and retroflexed measuring 9.3 x 4.0 x 4.2 cm. The double wall endometrial thickness is 8 mm. The uterus is smooth in contour and has normal myometrial echogenicity. No visible fibroid. Nabothian cysts are present in the cervix. In the lower uterine segment/cervix a cystic area is seen which may communicate with the endometrial cavity. ADNEXA: Both ovaries are visualized. There is normal color flow to the adnexa. There is no ovarian torsion. There is no pelvic ascites or fluid collection. Right ovary measures 2.3 x 1.5 x 1.6 cm for a volume of 2.8 mL. Left ovary measures 1.8 x 0.9 x 1.3 cm from by 1.1 mL. U S/US pelvic and transvaginal IMPRESSION: Cystic area in the l ower uterine segment. Given the history of abnormal uterine bleeding, short-term interval follow-up is recommended if hysteroscopy is not performed. Electronically jonh d by: Yo Rai MD 05/01/2024 12:32 AM [facility] Dictated By: Yo Rai MD Signed By: <Electronically signed by Yo Rai MD in OV> 05/01/24 0032 DD/ 1607 TD/TT: 03/20/24 1629 Clinical Immunologist: BRENT US abdomen complete Reviewed date:06/09/2024 08:45:14 AM Interpretation: Performing Lab: Notes/Report: [address] [address] Ultrasound Report Signed with Addenda Patient: Nkechi Up MR#: [id number] : 1980 Acct:[id number] Age/Sex: 43 / F ADM Date: 03/24/24 Loc: HO.US Attending Dr: Fox Johnston MD Ordering Physician: Fox Johnston MD Date of Service: 03/24/24 Procedure(s): US abdomen complete Accession Number(s): [id number] cc: Fox Johnston MD ADDENDUM ADDENDUM #1 ADDENDUM: The patient provides a history of prior cholecystectomy. It is possible that the shadowing area in the gallbladder fossa interpreted as a nyum-qvgz-cltomm complex represents postoperative scarring and surgical clips. This cannot be said with certainty based upon imaging alone, and correlation with the patient's Operative Report is recommended. Note is made that the gallbladder was not clearly visualized as well on the ultrasound examination 11/12/2022. If of continued clinical concern following review of the patient's Operative Report, this can be further evaluated with CT. Electronically signed by: Vishal Parham MD 05/22/2024 12:47 PM [facility] Addendum Dictated By: Vishal Parham MD Addendum Signed By: <Electronically signed by Vishal Parham MD in OV> 05/22/24 1247 Addendum Cosigned By: DD/ TD/TT: 03/24/24 EXAMINATION: US ABDOMEN COMPLETE CLINICAL INFORMATION: Abdominal pain. COMPARISON: Abdominal ultrasound dated 11/09/2022. TECHNIQUE: Real-time imaging of the abdominal viscera. FINDINGS: PANCREAS: Normal. ABDOMINAL AORTA: The proximal, mid, and distal segments are normal in caliber. INFERIOR VENA CAVA: Visualized portions are normal. LIVER: The liver is normal in size. The liver contour is normal. Parenchymal echogenicity is generally increased. No focal hepatic lesion. There is no intrahepatic biliary duct dilatation seen. GALLBLADDER: There is marked cholelithiasis, with a gwsh-vlog-ikboua complex. Gallbladder wall thickness is normal at 2 mm, and no pericholecystic fluid is seen. There is a positive sonographic Dale's sign. COMMON BILE DUCT: Normal in caliber measuring 0.4 cm in diameter. RIGHT KIDNEY: At the interpolar aspect, an 8 mm nonobstructing calculus is seen. No hydronephrosis. No focal parenchymal lesions. The kidney measures 10.4 cm in maximum dimension. LEFT KIDNEY: Normal. No hydronephrosis. No renal calculi or focal parenchymal lesions. The kidney measures 12.3 cm in maximum dimension. SPLEEN: Normal. The spleen measures 13.2 cm in maximum dimension. FREE FLUID: None. US/US abdomen complete IMPRESSION: 1. There is marked cholelithiasis, with a fnky-kwqx-lrqcwl complex. No cholecystitis or choledocholithiasis seen. 2. There is generalized increase in hepatic echotexture, consistent with fatty infiltration or hepatocellular disease. Please correlate clinically. No focal hepatic mass or intrahepatic biliary dilatation is seen. 3. There is mild splenomegaly. 4. An 8 mm nonobstructing mid right renal calculus is seen. Electronically signed by: Vishal Parham MD 04/08/2024 09:33 PM EDT Dictated By: Vishal Parham MD Signed By: <Electronically signed by Vishal Parham MD in OV> 04/08/243 DD/ 0830 TD/TT: 03/24/24 0900 Clinical Immunologist: [address] [address] Ultrasound Report Signed with Addenda Patient: Nkechi Up MR#: [id number] : 1980 Acct:[id number] Age/Sex: 43 / F ADM Date: 03/24/24 Loc: HO.US Attending Dr: Fox Johnston MD Ordering Physician: Fox Johnston MD Date of Service: 03/24/24 Procedure(s): US abd omen complete Accession Number(s): [id number] cc: Fox Johnston MD ADDENDUM ADDENDUM #1 ADDENDUM: The patien t provides a history of prior cholecystectomy. It is possible that the shadowing area in the gallbladder fossa interpreted as a paiv-zgcb-ftomqu complex represents postoperative scarring and surgica l clips. This cannot be said with certainty based upon imaging alone, and correlation with the patient's Operative Report is recommended. Note is made that the gallbladder was not clearly visualized as well o n the ultrasound examination 11/12/2022. If of continued clinical concern following review of the patient's Operative Report, this can be further evaluated with CT. Electronically jonh d by: Vishal Parham MD 05/22/2024 12:47 PM [facility] Addendum Dictated By : Vishal Parham MD Addendum Signed By: <Electronically signed by Vishal Parham MD in OV> 05/22/24 1247 Addendum Cosigned By: DD/ TD/TT: 03/24/24 EXAMINATION: US ABDOMEN COMPLETE CLINICAL INFORMATION: Abdominal pain. COMPARISON: Abdominal ultrasound dated 11/09/2022. TECHNIQUE: Real-time imaging of the abdominal viscera. FINDINGS: PANCREAS: Normal. ABDOMINAL AORTA: The proximal, mid, and distal segments are normal in caliber. INFERIOR VENA CAVA: Visualized portions are normal. LIVER: The liver is normal in size. The liver contour is normal. Parenchymal echogeni city is generally increased. No focal hepatic lesion. There is no intrahepatic biliary duct dilatation seen. GALLBLADDER: There i s marked cholelithiasis, with a igmz-wbzt-mxjwcp complex. Gallbladder wall thickness is normal at 2 mm, and no pericholecystic flui d is seen. There is a positive sonographic Dale's sign. COMMON BILE DUCT: No rmal in caliber measuring 0.4 cm in diameter. RIGHT KIDNEY: At the interpolar aspect, an 8 mm nonobstructing calculus is seen. No hydronephrosis. No focal parenchymal lesions. The kidney measures 10.4 cm in maximum dimension. LEFT KIDNEY: Normal. No hydronephrosis. No renal calculi or focal parenchymal lesions. The kidney measures 12.3 cm in maximum dimension. SPLEEN: Normal. The spleen measures 13.2 cm in maximum dimension. FREE FLUID: None. U S/US abdomen complete IMPRESSION: 1. There is marked cholelithiasis, with a oxup-bsjx-befcfn complex. No cholecystitis or choledocholithiasis seen. 2. There is generali zed increase in hepatic echotexture, consistent with fatty infiltrat ion or hepatocellular disease. Please correlate clinically. No focal hepatic mass or intrahepatic biliary dilatation is seen. 3. There is mild splenomegaly. 4. An 8 mm nonobstru cting mid right renal calculus is seen. Electronically jonh d by: Vishal Parham MD 04/08/2024 09:33 PM EDT Dictated By: aCssie Parham MD Signed By: <Electronically signed by Vishal Parham MD in OV> 04/08/242132 DD/ 9 TD/TT: 03/24/24 09 Clinical Immunologist: TEMI Pathology Reviewed date:04/10/2024 07:30:46 AM Interpretation: Performing Lab:[facility], [address] [place] [phone] Notes/Report: ----- Name: Nkechi Up Age/Sex: 43/F : 1980 Unit#: [id number] Attend Dr: Baldemar Pineda MD Re03/30/24 Status : DEP REF Location: [facility] Disch: ----- SPEC : [id number] RECD : 04/03/24 STATUS: VINOD OZUNA NUM: [id number] RADHA: 03/30/[address] [facility] [address]: Baldemar Pineda MD ENTERED: 04/03/24 SP TYPE: Surgical OTHR DR: Fox Johnston MD ORDERED: Gross Micro L4 Diagnosis Soft tissue, ?perian al lesion,? excision: Condyloma acuminatum (AIN 1). Clinical History Perianal lesion Microscopic Description Microscopic sections reviewed. Material Received Perianal lesion Gross Description Received in formalin labeled ?left perianal lesion? are 3 irregular fragments and papules of keratotic rubbery buchanan-white skin versus squamous mucosa ranging from 0.1-0.4 cm, submitted in toto in a cassett e labeled A. CEDS Copies To: Fox Johnston MD [address] [facility] [place] [address] Baldemar Pineda MD [facility] Women[facility] [address] [place] [address] ----- Signed (signature on file) Yosvany Martinez MD 04/04/24 1234 ----- END OF REPORT Pathology Reviewed date:04/23/2024 06:38:25 AM Interpretation: Performing Lab:[facility], [address] [place] [phone] Notes/Report: ----- Name: Nkechi Up Age/Sex: 43/F : 1980 Unit#: [id number] Attend Dr: Baldemar Pineda MD Re04/13/24 Status : DEP REF Location: HO.LNP Disch: ----- SPEC : [id number] RECD : 04/14/24 STATUS: PHILIPSheela SULMA NUM: [id number] RADHA: 04/13/[address] [facility] [address]: Baldemar Pineda MD ENTERED: 04/14/24 SP TYPE: Surgical OTHR DR: Fox Johnston MD ORDERED: Gross Micro L4/2 Diagnosis A. Perianal, right, large lesion, biopsy: Condyloma acuminatum. B. Perianal, left, l arge lesion, biopsy: Condyloma acuminatum. Clinical History Pre-Op Dx: Pending Post-Op Dx: Perianal lesion Microscopic Description Microscopic sections reviewed. Material Received A. Right large peria nal lesion B. Left large perian al lesion Gross Description Received in two parts. Part A: Received in formalin labeled ?r. perianal lesion? is a 0.5 x 0.15 x 0.1 cm wrinkled, rubbery, buchanan-brown irregular fragment of skin versus squamous mucosa, submitted in toto in a cassett e labeled A. Part B: Received in formalin labeled ?l. perianal lesion? is a 0.35 cm granular and keratotic, rubbery, buchanan-pina and pina-brown papule of skin versus squamous mucosa, submitted in toto in a cassett e labeled B. CEDS Copies To: Fox Johnston MD [address] [place], [place] [id number] Baldemar Pineda MD [facility] Women[facility] Services [address] [place] [address] CONTINUED ON NEXT PAGE ----- Name: Nkechi Up Age/Sex: 43/F : 1980 Unit#: [id number] Attend Dr: Baldemar Pineda MD Re04/13/24 Status : DEP REF Location: [facility] Disch: ----- SPEC : [id number] REC STATUS: VINOD OZUNA NUM: [id number] RADHA: 04/13/[address] [facility] [address]: Baldemar Pineda MD ENTERED: 04/14/24 SP TYPE: Surgical OTHR DR: Fox Johnston MD ORDERED: Raven Garcia L4/2 Copies To: (Continued) [phone] ----- Signed (signature on file) Heydi Ricki 04/17/24 1423 ----- END OF REPORT MM tomosynthesis diagnostic BI Reviewed date:05/22/2024 07:51:57 AM Interpretation: Performing Lab: Notes/Report: [facility]'s [address] [place] [address] Mammography Report Signed Patient: Nkechi Up MR#: [id number] : 1980 Acct:[id number] Age/Sex: 43 / F ADM Date: 05/03/24 Loc: ISABELLAO Attending Dr: Fox Johnston MD Ordering Physician: Fox Johnston MD Results: 2Benign Findings Date of Service: 05/03/24 Follow Up: 1 Year From Orig inal Mammogram Procedure(s): MM tomosynthesis diagnostic BI Accession Number(s): [id number] cc: oFx Johnston MD EXAMINATION: MM DIAGNOSTIC DIGITAL BREAST TOMOSYNTHESIS, BILATERAL US BREAST LIMITED, RIGHT MAMMOGRAPHY: CLINICAL INFORMATION: Diagnostic exam; Patient complaining of tender palpable lump 11:00 right breast, essentially low axillary region . Patient also due for routine annual screening. No prior surgeries. No family history. COMPARISON: Mammography: 07/29/2023, 07/27/2022, 07/23/2021 (baseline exam). TECHNIQUE: Digital breast tomosynthesis is performed in both the craniocaudal and mediolateral oblique views along with computer-aided detection (CAD). Synthesized 2D images are generated from the tomosynthesis. In addition to standard views, a right 3-D spot compression exaggerated lateral CC view was obtained, as well as a 3-D compression right MLO and right CC view. This was followed by targeted right breast ultrasound. FINDINGS: There are scattered areas of fibroglandular density (ACR BI-RADS breast composition Category b). There is a new circumscribed oval mass in the approximate 9:00 axis, middle depth of the right breast, measuring 8 mm in diameter. This was not definitely present on last years exam and will be evaluated with ultrasound. It persists on spot compression views. There is no mammographic abnormality in the right axillary region in the region of palpable concern and pain as marked by the BB marker. Only normal right low axillary fat is evident. We will evaluate this with ultrasound. Otherwise, there are no suspicious masses, suspicious grouped calcifications, or areas of architectural distortion in either breast. The parenchymal pattern is stable from prior exams. There is no skin or axillary abnormality. ULTRASOUND: CLINICAL INFORMATION: Evaluate 9:00 axis circumscribed 8mm mass right breast, middle to posterior one third. Evaluate region of palpable concern in the low right axilla. COMPARISON: No prior. TECHNIQUE: Targeted sonographic evaluation was performed using a high frequency linear transducer. Attention was given to the 9:00 axis right breast, as well as the right low axilla in the region of palpable concern and tenderness. Selected archived documentation. FINDINGS: RIGHT BREAST: -There is an 8 mm simple cyst in the right breast 8:00 axis, 5 cm from the nipple, corresponding with the mammographic finding. This is benign. -Imaging of the low right axilla demonstrates no suspicious mass, abnormal lymph nodes, abnormal shadowing, cystic abnormality, or architectural distortion. No correlate to the region of palpable concern is evident. Recommend clinical management follow-up. MM/MM tomosynthesis diagnostic BI IMPRESSION: -There are no findings suspicious for malignancy in the right breast. -Benign cyst right breast 8:00 axis, 5 cm from the nipple. -No abnormalities evident in the right low axilla in the region of palpable concern and tenderness. Only normal lymph nodes are imaged. Recommend clinical management of follow-up of patient's symptomatology. -Otherwise, recommend the patient resume routine annual screening mammography in one year. OVERALL ASSESSMENT: Mammography: BI-RADS 2 - Benign Findings Ultrasound: BI-RADS 2 - Benign Findings RECOMMENDATION: 1. Patient should be managed based on the clinical impression. 2. Otherwise, routine annual screening mammography. This patient's information was entered into a reminder system with a target due date for their next mammogram. Electronically signed by: Romeo Crump MD 05/03/2024 08:59 AM EST Dictated By: Romeo Crump MD Signed By: <Electronically signed by Romeo Crump MD in OV> 05/03/24 0859 DD/ 9 TD/TT: 05/03/24 08 Clinical Immunologist: [place] [facility]'s [address] [place] [address] Mammography Report Signed Patient: Nkechi Up MR#: [id number] : 1980 Acct:[id number] Age/Sex: 43 / F ADM Date: 05/03/24 Loc: HO.MAMMO Attending Dr: Fox Johnston MD Ordering Physician: Fox Johnston MD Results: 2Benign Findings Date of Service: 12/19 Follow Up: 1 Year From [facility] Mammogram Procedure(s): MM tomosynthesis diagnostic BI Accession Number(s): [id number] cc: Fox Johnston MD EXAMINATION: MM DIAGNOSTIC DIGITA L BREAST TOMOSYNTHESIS, BILATERAL US BREAST LIMITED, RIGHT MAMMOGRAPHY: CLINICAL INFORMATION: Diagnostic exam; Pat ient complaining of tender palpable lump 11:00 right breast, essent ially low axillary region . Patient also due for routine annual scree sylwia. No prior surgeries. No family history. COMPARISON: Mammography: 4, 07/27/2022, 07/23/2021 (baseline exam). TECHNIQUE: Digital breast tomosynthesis is performed in both the craniocaudal and mediolateral oblique views along with computer-aided detection (CAD). Synthesized 2D image s are generated from the tomosynthesis. In addition to standard views, a right 3-D spot compression exaggerated lateral CC view was obtained, a s well as a 3-D compression right MLO and right CC view. This was follo wed by targeted right breast ultrasound. FINDINGS: There are scattered areas of fibroglandular density (ACR BI-RADS breast composition Category b). There is a new circumscribed oval mass in the approximate 9:00 axis, middle depth of the right breast, measuring 8 mm in diameter. This was not definitely prese nt on last years exam and will be evaluated with ultrasound. It persi sts on spot compression views. There is no mammogra phic abnormality in the right axillary region in the region of palpab le concern and pain as marked by the BB marker. Only normal right lo w axillary fat is evident. We will evaluate this with ultrasound. Otherwise, there are no suspicious masses, suspicious grouped calcifications, or a reas of architectural distortion in either breast. The parenchymal jose miky is stable from prior exams. There is no skin or axillary abnormality. ULTRASOUND: CLINICAL INFORMATION: Evaluate 9:00 axis circumscribed 8mm mass right breast, middle to posterior one third. Evaluate region of palpable concern in the low right axilla. COMPARISON: No prior. TECHNIQUE: Targeted sonographic evaluation was performed using a high frequency linear transducer. Attention was given to the 9:00 axis right breast, as well as the right low axilla in the region of palpable concern and tenderness. Selected archived documentation. FINDINGS: RIGHT BREAST: -There is an 8 mm si mple cyst in the right breast 8:00 axis, 5 cm from the nipple, correspo nding with the mammographic finding. This is benign. -Imaging of the low right axilla demonstrates no suspicious mass, abnormal lymph nodes , abnormal shadowing, cystic abnormality, or architectural distor tion. No correlate to the region of palpable concern is evident. Recommend clinical management follow-up. M M/MM tomosynthesis diagnostic BI IMPRESSION: -There are no findin gs suspicious for malignancy in the right breast. -Benign cyst right b reast 8:00 axis, 5 cm from the nipple. -No abnormalities ev ident in the right low axilla in the region of palpable concern and tenderness. Only normal lymph nodes are imaged. Recommend clinical management of follow-up of patient's symptomatology. -Otherwise, recommen d the patient resume routine annual screening mammography in one year. OVERALL ASSESSMENT: Mammography: BI-RADS 2 - Benign Findings Ultrasound: BI-RADS 2 - Benign Findings RECOMMENDATION: 1. Patient should be managed based on the clinical impression. 2. Otherwise, routine a nnual screening mammography. This patient's information was entered into a reminder system with a target due date for their next mammogram. Electronically jonh d by: Romeo Crump MD 05/03/2024 08:59 AM EST Dictated By: Romeo Crump MD Signed By: <Electronically signed by Romeo Crump MD in OV> 05/03/2459 DD/ 9 TD/TT: 05/03/24811 Clinical Immunologist: US breast RT limited mamm on ly Reviewed date:05/22/2024 07:51:57 AM Interpretation: Performing Lab: Notes/Report: [facility] [address] [place] [address] Ultrasound Report Signed Patient: Nkechi Up MR#: [id number] : 1980 Acct:[id number] Age/Sex: 43 / F ADM Date: 05/03/24 Loc: HO.MAMMO Attending Dr: Fox Johnston MD Ordering Physician: Fox Johnston MD Date of Service: 05/03/24 Procedure(s): US breast RT limited mamm only Accession Number(s): [id number] cc: Fox Johnston MD EXAMINATION: MM DIAGNOSTIC DIGITAL BREAST TOMOSYNTHESIS, BILATERAL US BREAST LIMITED, RIGHT MAMMOGRAPHY: CLINICAL INFORMATION: Diagnostic exam; Patient complaining of tender palpable lump 11:00 right breast, essentially low axillary region . Patient also due for routine annual screening. No prior surgeries. No family history. COMPARISON: Mammography: 07/29/2023, 07/27/2022, 07/23/2021 (baseline exam). TECHNIQUE: Digital breast tomosynthesis is performed in both the craniocaudal and mediolateral oblique views along with computer-aided detection (CAD). Synthesized 2D images are generated from the tomosynthesis. In addition to standard views, a right 3-D spot compression exaggerated lateral CC view was obtained, as well as a 3-D compression right MLO and right CC view. This was followed by targeted right breast ultrasound. FINDINGS: There are scattered areas of fibroglandular density (ACR BI-RADS breast composition Category b). There is a new circumscribed oval mass in the approximate 9:00 axis, middle depth of the right breast, measuring 8 mm in diameter. This was not definitely present on last years exam and will be evaluated with ultrasound. It persists on spot compression views. There is no mammographic abnormality in the right axillary region in the region of palpable concern and pain as marked by the BB marker. Only normal right low axillary fat is evident. We will evaluate this with ultrasound. Otherwise, there are no suspicious masses, suspicious grouped calcifications, or areas of architectural distortion in either breast. The parenchymal pattern is stable from prior exams. There is no skin or axillary abnormality. ULTRASOUND: CLINICAL INFORMATION: Evaluate 9:00 axis circumscribed 8mm mass right breast, middle to posterior one third. Evaluate region of palpable concern in the low right axilla. COMPARISON: No prior. TECHNIQUE: Targeted sonographic evaluation was performed using a high frequency linear transducer. Attention was given to the 9:00 axis right breast, as well as the right low axilla in the region of palpable concern and tenderness. Selected archived documentation. FINDINGS: RIGHT BREAST: -There is an 8 mm simple cyst in the right breast 8:00 axis, 5 cm from the nipple, corresponding with the mammographic finding. This is benign. -Imaging of the low right axilla demonstrates no suspicious mass, abnormal lymph nodes, abnormal shadowing, cystic abnormality, or architectural distortion. No correlate to the region of palpable concern is evident. Recommend clinical management follow-up. US/US breast RT limited mamm only IMPRESSION: -There are no findings suspicious for malignancy in the right breast. -Benign cyst right breast 8:00 axis, 5 cm from the nipple. -No abnormalities evident in the right low axilla in the region of palpable concern and tenderness. Only normal lymph nodes are imaged. Recommend clinical management of follow-up of patient's symptomatology. -Otherwise, recommend the patient resume routine annual screening mammography in one year. OVERALL ASSESSMENT: Mammography: BI-RADS 2 - Benign Findings Ultrasound: BI-RADS 2 - Benign Findings RECOMMENDATION: 1. Patient should be managed based on the clinical impression. 2. Otherwise, routine annual screening mammography. This patient's information was entered into a reminder system with a target due date for their next mammogram. Electronically signed by: Romeo Crump MD 05/03/2024 08:59 AM EST Dictated By: Romeo Crump MD Signed By: <Electronically signed by Romeo Crump MD in OV> 05/03/24858 DD/ 9 TD/TT: Clinical Immunologist: [place] [facility] [address] [place] [address] Ultrasound Report Signed Patient: Nkechi Up MR#: [id number] : 1980 Acct:[id number] Age/Sex: 43 / F ADM Date: 05/03/24 Loc: HO.MAMMO Attending Dr: Fox Johnston MD Ordering Physician: Fox Johnston MD Date of Service: 05/03/24 Procedure(s): US spencer ast RT limited mamm only Accession Number(s): [id number] cc: Fox Johnston MD EXAMINATION: MM DIAGNOSTIC DIGITA L BREAST TOMOSYNTHESIS, BILATERAL US BREAST LIMITED, RIGHT MAMMOGRAPHY: CLINICAL INFORMATION: Diagnostic exam; Pat ient complaining of tender palpable lump 11:00 right breast, essent ially low axillary region . Patient also due for routine annual scree sylwia. No prior surgeries. No family history. COMPARISON: Mammography: 4, 07/27/2022, 07/23/2021 (baseline exam). TECHNIQUE: Digital breast tomosynthesis is performed in both the craniocaudal and mediolateral oblique views along with computer-aided detection (CAD). Synthesized 2D image s are generated from the tomosynthesis. In addition to standard views, a right 3-D spot compression exaggerated lateral CC view was obtained, a s well as a 3-D compression right MLO and right CC view. This was follo wed by targeted right breast ultrasound. FINDINGS: There are scattered areas of fibroglandular density (ACR BI-RADS breast composition Category b). There is a new circumscribed oval mass in the approximate 9:00 axis, middle depth of the right breast, measuring 8 mm in diameter. This was not definitely prese nt on last years exam and will be evaluated with ultrasound. It persi sts on spot compression views. There is no mammogra phic abnormality in the right axillary region in the region of palpab le concern and pain as marked by the BB marker. Only normal right lo w axillary fat is evident. We will evaluate this with ultrasound. Otherwise, there are no suspicious masses, suspicious grouped calcifications, or a reas of architectural distortion in either breast. The parenchymal jose miky is stable from prior exams. There is no skin or axillary abnormality. ULTRASOUND: CLINICAL INFORMATION: Evaluate 9:00 axis circumscribed 8mm mass right breast, middle to posterior one third. Evaluate region of palpable concern in the low right axilla. COMPARISON: No prior. TECHNIQUE: Targeted sonographic evaluation was performed using a high frequency linear transducer. Attention was given to the 9:00 axis right breast, as well as the right low axilla in the region of palpable concern and tenderness. Selected archived documentation. FINDINGS: RIGHT BREAST: -There is an 8 mm si mple cyst in the right breast 8:00 axis, 5 cm from the nipple, correspo nding with the mammographic finding. This is benign. -Imaging of the low right axilla demonstrates no suspicious mass, abnormal lymph nodes , abnormal shadowing, cystic abnormality, or architectural distor tion. No correlate to the region of palpable concern is evident. Recommend clinical management follow-up. U S/US breast RT limited mamm only IMPRESSION: -There are no findin gs suspicious for malignancy in the right breast. -Benign cyst right b reast 8:00 axis, 5 cm from the nipple. -No abnormalities ev ident in the right low axilla in the region of palpable concern and tenderness. Only normal lymph nodes are imaged. Recommend clinical management of follow-up of patient's symptomatology. -Otherwise, recommen d the patient resume routine annual screening mammography in one year. OVERALL ASSESSMENT: Mammography: BI-RADS 2 - Benign Findings Ultrasound: BI-RADS 2 - Benign Findings RECOMMENDATION: 1. Patient should be managed based on the clinical impression. 2. Otherwise, routine a nnual screening mammography. This patient's information was entered into a reminder system with a target due date for their next mammogram. Electronically jonh d by: Romeo Crump MD 05/03/2024 08:59 AM EST Dictated By: Romeo Crump MD Signed By: <Electronically signed by Romeo Crump MD in OV> 05/03/24858 DD/ 9 TD/TT: Clinical Immunologist: Pepe Diaz Test Reviewed date:05/09/2024 08:35:14 AM Interpretation: Performing Lab:[facility], [address] [place] [phone] Notes/Report: Urine NEGATIVE NEGATIVE This test was developed to detect early . False negative results may occur after the 5th - 7th week of when using this test method. If clinically indicated, consider a serum hCG. Glucose, Whole Blood Reviewed date:05/09/2024 08:35:14 AM Interpretation: Performing Lab:[facility], [address] [place] [phone] Notes/Report: Glucose, Whole Blood 113 60-115 mg/dL METER # : [id number] Pathology Reviewed date:05/09/2024 08:35:14 AM Interpretation: Performing Lab:[facility], [address] [place] [phone] Notes/Report: ----- Name: Latham Nkechi Robert Age/Sex: 43/F : 1980 Unit#: [id number] Attend Dr: Baldemar Pineda MD Re05/05/24 Status : [facility] Location: [facility] Disch: ----- SPEC : [id number] RECD : 05/05/24 STATUS: VINOD OZUNA NUM: [id number] RADHA: 05/05/[address] [facility] [address]: Baldemar Pineda MD ENTERED: 05/05/24 TYPE: Surgical OTHR DR: Fox Johnston MD ORDERED: HE Stain/2, Gross Micro L4 Diagnosis Endometrium, curetta ge: Benign endometrium with proliferative and inactive glands, and glandular and stroma l breakdown, and benign endocervical glandular mucosa; no atypia or carcinoma. Clinical History Pre-Op Dx: Abnormal uterine and vaginal bleeding Post-Op Dx: Normal endometrial cavity Microscopic Description Microscopic sections reviewed. Material Received [facility] Gross Description Received in formalin labeled ?EMC? on blood-stained Telfa are multiple congested and hemorrhagic pina-pink and red-maroon irregular tissue fragments with scant mucus and blood aggregating 1.5 x 1. 5 x 0.45 cm, submitted in toto in a cassette labeled A. CEDS Copies To: Fox Johnston MD [address] [facility] [place] [address] Baldemar Pineda MD [facility] [address] [place] [address] ----- Signed (signature on file) Heydi Robison 05/08/24 1314 ----- END OF REPORT Complete Blood Count Auto Di ff Reviewed date:07/23/2024 04:46:48 PM Interpretation: Performing Lab:[facility], [address] [place] [phone] Notes/Report: White Blood Count 9.3 4.8-10.8 X10*3/uL Red Blood Count 5.07 4.20-5.50 X10*6/uL Hemoglobin 11.5 12.0-16.0 g/dl Hematocrit 37.2 37.0-47.0 % Mean Corpuscular Volume 73.4 80.0-98.0 fL Mean Corpuscular Hemoglobin 22.7 27.0-33.0 pg Mean Corpuscular HGB Conc 30.9 31.0-35.0 g/dl Red Cell Distribution Width 15.6 11.0-16.0 % Platelet Count 413 160-400 X10*3/uL Mean Platelet Volume 9.2 9.4-12.3 fL Neutrophils Percent Auto 69.4 45-73 % Imm Gran Pct Auto 0.3 0.0-0.4 % Lymphocytes Percent Auto 22.8 20-40 % Monocytes Percent Auto 5.0 2-11 % Eosinophils Percent Auto 2.2 0-4 % Basophils Percent Auto 0.3 0-2 % NRBC Pct Auto 0.0 0.0-0.2 /100WBC Neutrophils Absolute Auto 6.4 2.0-8. 3 x10*3/uL Imm Gran Abs Auto 0.03 0.00-0.03 X10*3/uL Lymphocytes Absolute Auto 2.1 1.2-4. 9 X10*3/uL Monocytes Absolute Auto 0.5 0.1-1.2 X10*3/uL Eosinophils Absolute Auto 0.2 0.0-0. 4 X10*3/uL Basophils Absolute Auto 0.0 0.0-0.2 X10*3/uL NRBC Abs Auto 0.000 0.0-0.012 X10*3/uL Comprehensive [place]. Panel Fa st Reviewed date:07/23/2024 04:46:48 PM Interpretation: Performing Lab:[facility], [address] [place] [phone] Notes/Report: Sodium 140 135-145 mmol/L Potassium 3.9 3.3-5.1 mmol/L Chloride 106 96-108 mmol/L Carbon Dioxide 27 22-29 mmol/L Anion Gap 11 12-20 Blood Urea Nitrogen 11 9-16 mg/dL Creatinine 0.69 0.5-1.4 mg/dL Estimated Glomerular Filt Rate > 60 Chronic Kidney Disease: Estimated GFR < 60 mL/min/1.73m2 Severe Kidney Disease: Estimated GFR < 15 mL/min/1.73m2 Glucose Fasting 115 60-99 mg/dL A fasting glucose from 100-125 mg/dl is considered impaired (pre-diabetes). Calcium 9.1 8.4-10.2 mg/dL Bilirubin Total 0.3 0.0-1.0 mg/dL Aspartate Amino Transferase 24 5-31 U/L Alanine Aminotransferase 21 0-31 U/L Total Protein 7.7 6.5-8.0 g/dL Albumin Level 4.3 3.5-5.0 g/dL Alkaline Phosphatase 83 39-117 U/L Ferritin Reviewed date:07/23/2024 04:46:48 PM Interpretation: Performing Lab:[address] [phone] Notes/Report: Ferritin 10 10-250 ng/mL Lipid Panel Reviewed date:07/23/2024 04:46:48 PM Interpretation: Performing Lab:[facility], [address] [place] [phone] Notes/Report: Triglycerides 101 <150 mg/dL Desirable Triglyceride: less than 150 mg/dL Borderline High Triglyceride 150-199 mg/dL High Triglyceride: 200-499 mg/dL Very High Triglyceride: greater than or equal to 5OO mg/dL Cholesterol 158 <200 mg/dL Desirable Cholesterol: less than 200 mg/dL Borderline High Cholesterol: 200-239 mg/dL High Cholesterol: greater than 239 mg/dL LDL Cholesterol Calculated 100 <100 mg/dL Desirable LDL: less than 100 mg/dL Near Optimal/Above Optimal LDL: 110-129 mg/dL Borderline High LDL: 130-159 mg/dL High LDL: 160-189 mg/dL Very High LDL: greater than or equal to 190 mg/dL HDL Cholesterol 38 >40 mg/dL Desirable HDL: greater than 40 mg/dL Note: This HDL assay may give artificially low results in patients with liver disease. Free T4 (Free Thyroxine) Reviewed date:07/23/2024 04:46:48 PM Interpretation: Performing Lab:[address] [phone] Notes/Report: Free T4 (Free Thyroxine) 0.83 0.71-1.85 ng/dL Thyroid Stimulating Hormone Reviewed date:07/23/2024 04:46:48 PM Interpretation: Performing Lab:[facility], [address] [place] [phone] Notes/Report: Thyroid Stimulating Hormone 1.82 0.32-4.0 uIU/mL TSH 3rd Generation ([facility]) Microalbumin, Random Reviewed date:07/23/2024 04:46:48 PM Interpretation: Performing Lab:[address] [phone] Notes/Report: Creatinine Urine 211.05 Microalbumin Urine 78.0 Microalbum/Creatinine Ratio Ur 36.9 <30 ug/mg cr Albumin/Creatinine Ratio Reference Ranges: Normal: < 30 ug/mg creatinine Microalbuminuria: 30 - 300 ug/mg creatinine Clinical Albuminuria: > 300 ug/mg creatinine Hemoglobin A1c Reviewed date:07/23/2024 04:46:48 PM Interpretation: Performing Lab:[address] [phone] Notes/Report: Hemoglobin A1c % 6.0 <6.0 % Hemoglobin A1C Reference Range Adults: 4.8 - 6.0 % Non diabetic: < 6.0 % Goal: < 7.0 % Additional Action Suggested: > 8.0 % Note: Hemoglobin A1c results are invalid for patients with abnormal amounts of HbF. Blood transfusions may impact the HbA1c concentration in the patient sample. Estimated Average Glucose 126 eAG = Estimated average glucose which is %A1C expressed as average glucose, using the formula of the [id number] Average Glucose study (ADAG), Diabetes Care, Vol.31,#8, Jan. 2007 Reason For Referral Reason Consult and Treat Diagnosis 1 Diabetes mellitus du e to underlying condition without complication, without long-term current use of insulin (E08.9) Referral Organization Fox Johnston III, MD Referring Provider First Name Fox Referring Provider Last Name Johnston Referring Provider Speciality Internal M edicine Referred Provider Ita Dias Referred Provider Specialty Endocrinolog y Referral Priority Routine Medications Medication SIG (Take, Route, Frequency, Duration) Notes Start Date End Date Status Aldara Active Hydrocortisone 1 % 1 application Onion Farmer ally Twice a day 11/19/2023 Active Ferrous Gluconate 324 (38 Fe) MG orally once a day once a day 11/19/2023 Active Omeprazole 20 MG TAKE 1 CAPSULE BY [facility] EVERY DAY FOR 30 DAYS Active Propranolol HCl 10 MG 1 tablet on an emp ty stomach Orally Once a day 03/11/2019 Active Ketoconazole 2 % 1 application to affected area Externally Twice a day 03/11/2019 Active lamoTRIgine ER 25 MG 1 tablet Orally Onc e a day 07/13/2022 Active metFORMIN HCl 500 MG 1 tablet with a wilda l Orally Once a day Active Immunizations Vaccine Route Administration Date Status Comme nts COVID- 19 Vaccine Unknown 09/11/2020 Administered COVID- 19 Vaccine Unknown 10/09/2020 Administered COVID- 19 Vaccine Unknown 04/18/2021 Administered Influenza, quad Unknown 05/10/2020 Administered Social History Tobacco Use: Social History Observation [...] User Light cigarett e smoker ((1-9 cigs/day) Alcohol Screen Question Answer Notes Did you have a drink containing alcohol in the p ast year? No Points 0 Interpretation Negative Problems Problem Type SNOMED Code ICD Code Onset Dates Problem Status W/U Status Risk Notes Problem 3701613 Former smoker (Z87.891) Active confirmed She has stopped smoking. Her weight has not increased. We discussed a strategy to relapse in times of stress and illness. Problem Hypothyroidism (97855247) Hypothyroidism (E03.9) Active confirmed , Negative thyroid functions will be done prior to her next visit. She appears to be euthyroid. Problem 035456698434386 Obesity (BMI 30.0-34.9) (E66.9) Active confirmed Has lost 2 pounds and now weighs 192. Her body mass index is 34.01. We have discussed nutrition and diet. We reviewed her weight loss strategy and plan to lose weight at a rate of one half of a pound per week. Problem 031260513 Chronic cluster headache, not intractable (G44.029) Active confirmed Headaches have worsened in one daily. I have added Fioricet. Problem 79040938 Tobacco dependence (F17.200) Active confirmed We discussed smoking cessation at length today. Problem 08941902 Iron deficiency anemia, unspecified iron deficiency anemia type (D50.9) Active confirmed Her ferritin has returned to her normal level of 15 which is at the low end of normal. The mean cell volume has improved to 76.4. The hematocrit is 39.1%She was continued on the iron. She has had no recent bleeding. Problem 7660167 Diabetes mellitus due to underlying condition without complication, without long-term current use of insulin (E08.9) Active confirmed Her fasting glucose is 110. Her A1c is 5.8. She has been compliant with her medications. No change in her regimen was made. I encouraged weight loss. Problem 625655891 Abdominal pain, left upper quadrant (R10.12) Active confirmed The examination was unremarkable and she seems stable. The spleen was not palpable. Further investigation was ordered. 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 2 larger ones were biopsied and were proven to be condylomata. Treatment has been begun with Aldara cream. Vital Signs Heart Rate 85 /min 04/19/2024 Temperature 97.5 degrees Fahrenheit 04/19/2024 Blood pressure diastolic 75 mm Hg 04/19/2024 Height 63 in 07/25/2024 Blood pressure systolic 114 mm Hg 04/19/2024 Weight 197 lbs 07/25/2024 BMI 34.89 kg/m2 07/25/2024 Encounters Encounter Location Date Provider Diagnosis Fox Johnston III, MD [address] [place] [address] [address] [place], [place] [phone] 07/25/2024 Fox Johnston Iron deficiency anem ia, unspecified iron deficiency anemia type D50.9 ; UTI symptoms R39.9 and Low back pain, unspecified M54.50 Fox Johnston III, MD [address] [place] [address] [place] [phone] 11/19/2023 Fox Johnston Iron deficiency anem ia, unspecified iron deficiency anemia type D50.9 ; Obesity (BMI 30.0-34.9) E66.9 ; Diabetes mellitus due to underlying condition without complication, without long-term current use of insulin E08.9 ; Hypothyroidism E03.9 ; Chronic cluster headache, not intractable G44.029 and Former smoker Z87.891 Fox Johnston III, MD [address] [place] [address] [place] [phone] 03/08/2024 Fox Johnston Iron deficiency anem ia, unspecified iron deficiency anemia type D50.9 ; Abdominal pain, left upper quadrant R10.12 ; Chronic cluster headache, not intractable G44.029 ; Former smoker Z87.891 ; Obesity (BMI 30.0-34.9) E66.9 ; Diabetes mellitus due to underlying condition without complication, without long-term current use of insulin E08.9 ; Hypothyroidism E03.9 and Tobacco dependence F17.200 Fox Johnston III, MD [address] [place] [address] [place] [phone] 04/19/2024 Fox Johnston Iron deficiency anem ia, unspecified iron deficiency anemia type D50.9 ; Diabetes mellitus due to underlying condition without complication, without long-term current use of insulin E08.9 ; Obesity (BMI 30.0-34.9) E66.9 ; Hypothyroidism E03.9 ; Mass of chest wall, right R22.2 ; Chronic cluster headache, not intractable G44.029 ; Former smoker Z87.891 ; Tobacco dependence F17.200 ; AIN grade I K62.82 and 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 Fox Johnston III, MD [address] [place] [address] [place] [phone] 07/19/2024 Fox Johnston III, MD [address] [place] [address] [place] [phone] 10/13/2023 Fox Johnston Iron deficiency anem ia, unspecified iron deficiency anemia type D50.9 Fox Johnston III, MD [address] [place] [address] [address] [place] [address] 05/19/2024 Fox Johnston III, MD [address] [place] [address] [address] [place] [address] 05/31/2024 Fox Johnston Assessments Encounter Date Diagnosis (ICD Code) Assessment Notes Treat ment Notes Treatment Clinical Notes 07/25/2024 Iron deficiency anemia, unspecified iron deficiency anemia type (ICD-10 - D50.9) Her ferritin has returned to her normal level of 15 which is at the low end of normal. The mean cell volume has improved to 76.4. The hematocrit is 39.1%She was continued on the iron. She has had no recent bleeding. 11/19/2023 Obesity (BMI 30.0-34.9) (ICD-10 - E66.9) She has gained 6 pounds. Her weight is in the obese range. We reviewed the elements of weight loss diabetic diet. We made a plan to lose weight at a rate of one half of a pound per week. 11/19/2023 Iron deficiency anemia, unspecified iron deficiency anemia type (ICD-10 - D50.9) She continues to have a mild microcytic anemia. She will resume taking the iron. The current ferritin level is 6. 03/08/2024 Iron deficiency anemia, unspecified iron deficiency anemia type (ICD-10 - D50.9) Her ferritin has returned to her normal level of 15 which is at the low end of normal. She was continued on the iron. She has had no recent bleeding. 03/08/2024 Abdominal pain, left upper quadrant (ICD-10 - R10.12) The examination was unremarkable and she seems stable. The spleen was not palpable. Further investigation was ordered. 04/19/2024 Iron deficiency anemia, unspecified iron deficiency anemia type (ICD-10 - D50.9) Her ferritin has returned to her normal level of 15 which is at the low end of normal. The mean cell volume has improved to 76.4. The hematocrit is 39.1%She was continued on the iron. She has had no recent bleeding. 04/19/2024 Diabetes mellitus du e to underlying condition without complication, without long-term current use of insulin (ICD-10 - E08.9) Her fasting glucose is 110. Her A1c is 5.8. She has been compliant with her medications. No change in her regimen was made. I encouraged weight loss. 10/13/2023 Iron deficiency anemia, unspecified iron deficiency anemia type (ICD-10 - D50.9) She continues to have a mild microcytic anemia. She will resume taking the iron. Blood work with iron studies and a fair have been ordered. 07/25/2024 UTI symptoms (ICD-10 - R39.9) 11/19/2023 Diabetes mellitus du e to underlying condition without complication, without long-term current use of insulin (ICD-10 - E08.9) Her fasting glucose was 107. Her hemoglobin A1c is 6.0. No change in her medication is necessary. I recommended aggressive weight loss. 03/08/2024 Chronic cluster headache, not intractable (ICD-10 - G44.029) Headaches have worsened in one daily. I have added Fioricet. 04/19/2024 Obesity (BMI 30.0-34.9) (ICD-10 - E66.9) Has lost 2 pounds and now weighs 192. Her body mass index is 34.01. We have discussed nutrition and diet. We reviewed her weight loss strategy and plan to lose weight at a rate of one half of a pound per week. 07/25/2024 Low back pain, unspecified (ICD-10 - M54.50) 11/19/2023 Hypothyroidism (ICD-10 - E03.9) Thyroid function tests have been ordered prior to her next visit. No change in her regimen was made. 03/08/2024 Former smoker (ICD-1 0 - Z87.891) She has stopped smoking. Her weight has not increased. We discussed a strategy to relapse in times of stress and illness. 04/19/2024 Hypothyroidism (ICD-10 - E03.9) , Negative thyroid functions will be done prior to her next visit. She appears to be euthyroid. 11/19/2023 Chronic cluster headache, not intractable (ICD-10 - G44.029) Headaches have worsened in one daily. I have added Fioricet. 03/08/2024 Obesity (BMI 30.0-34.9) (ICD-10 - E66.9) She has gained 6 pounds. Her weight is in the obese range. We reviewed the elements of weight loss diabetic diet. We made a plan to lose weight at a rate of one half of a pound per week. 04/19/2024 Mass of chest wall, right (ICD-10 - R22.2) She compllains of a painful lump in her breast. He was on the right. Physical examination showed a tender area in the pectoral muscle possibly within the upper portion of the right breast. Mammogram and ultrasound of the right breast( has been ordered. 11/19/2023 Former smoker (ICD-1 0 - Z87.891) She has stopped smoking. Her weight has not increased. We discussed a strategy to relapse in times of stress and illness. 03/08/2024 Diabetes mellitus du e to underlying condition without complication, without long-term current use of insulin (ICD-10 - E08.9) Her hemoglobin A1c is 5.8.. No change in her medication is necessary. I recommended aggressive weight loss. 04/19/2024 Chronic cluster headache, not intractable (ICD-10 - G44.029) Headaches have worsened in one daily. I have added Fioricet. 03/08/2024 Hypothyroidism (ICD-10 - E03.9) Thyroid function tests have been ordered prior to her next visit. No change in her regimen was made. She is clinically euthyroid. 04/19/2024 Former smoker (ICD-1 0 - Z87.891) She has stopped smoking. Her weight has not increased. We discussed a strategy to relapse in times of stress and illness. 03/08/2024 Tobacco dependence (ICD-10 - F17.200) We discussed smoking cessation at length today. 04/19/2024 Tobacco dependence (ICD-10 - F17.200) We discussed smoking cessation at length today. 04/19/2024 AIN grade I (ICD-10 - K62.82) She will remain under the care and supervision of her clipper counters. 04/19/2024 Anal condylomata (ICD-10 - A63.0) The recent SHAREPOINT ARCHITECT note indicates she has 7 lesions on the left side of the anus and and on the right. 2 larger ones were biopsied and were proven to be condylomata. Treatment has been begun with Aldara cream. Plan Of Treatment Pending Test Test Name Order Date PROFILE, FASTING (COMPREHENSIVE METABOLI C) 08/30/2020 PROFILE, FASTING (COMPREHENSIVE METABOLI C) 06/04/2023 PROFILE, FASTING (COMPREHENSIVE METABOLI C) 12/13/2020 PROFILE, FASTING (COMPREHENSIVE METABOLI C) 09/13/2020 PROFILE, FASTING (COMPREHENSIVE METABOLI C) 03/21/2021 PROFILE, FASTING (COMPREHENSIVE METABOLI C) 10/21/2018 PROFILE, FASTING (COMPREHENSIVE METABOLI C) 10/31/2018 PROFILE, FASTING (COMPREHENSIVE METABOLI C) 02/23/2022 PROFILE, FASTING (COMPREHENSIVE METABOLI C) 04/12/2023 PROFILE, FASTING (COMPREHENSIVE METABOLI C) 11/15/2017 PROFILE, FASTING (COMPREHENSIVE METABOLI C) 04/19/2024 PROFILE, FASTING (COMPREHENSIVE METABOLI C) 07/13/2022 PROFILE, FASTING (COMPREHENSIVE METABOLI C) 07/14/2019 PROFILE, FASTING (COMPREHENSIVE METABOLI C) 11/01/2017 PROFILE, RANDOM (COMPREHENSIVE METABOLIC ) 07/21/2021 HEMOGLOBIN A1C (GLYCOHEMOGLOBIN) 021 HEMOGLOBIN A1C (GLYCOHEMOGLOBIN) 022 HEMOGLOBIN A1C (GLYCOHEMOGLOBIN) 020 HEMOGLOBIN A1C (GLYCOHEMOGLOBIN) 021 HEMOGLOBIN A1C (GLYCOHEMOGLOBIN) 019 HEMOGLOBIN A1C (GLYCOHEMOGLOBIN) 019 HEMOGLOBIN A1C (GLYCOHEMOGLOBIN) 021 LIPID PANEL 07/14/2019 LIPID PANEL 11/01/2017 LIPID PANEL 09/13/2020 LIPID PANEL 12/13/2020 LIPID PANEL 07/21/2021 LIPID PANEL 03/21/2021 LIPID PANEL 10/21/2018 LIPID PANEL 08/30/2020 LIPID PANEL 04/12/2023 LIPID PANEL 11/15/2017 FREE T4 (FT4) 09/13/2020 FREE T4 (FT4) 12/13/2020 TSH (THYROID STIMULATING HORMONE) 2022 TSH (THYROID STIMULATING HORMONE) 2020 TSH (THYROID STIMULATING HORMONE) 2020 TSH (THYROID STIMULATING HORMONE) 2023 IRON + IBC (FE) 09/22/2021 FERRITIN 09/22/2021 FERRITIN 02/02/2020 FERRITIN 07/21/2021 FERRITIN 02/16/2020 FERRITIN 08/30/2020 CBC w DIFF 12/13/2020 CBC w DIFF 08/30/2020 CBC w DIFF 11/15/2017 CBC w DIFF 07/14/2019 CBC w DIFF 11/01/2017 CBC w DIFF 09/22/2021 CBC w DIFF 10/31/2018 CBC w DIFF 03/21/2021 CBC w DIFF 10/21/2018 CBC w DIFF 02/23/2022 CBC w DIFF 09/13/2020 CBC w DIFF 07/21/2021 CBC w DIFF 02/16/2020 CBC w DIFF 07/13/2022 SED RATE (ESR) 04/12/2023 SED RATE (ESR) 11/01/2017 URINALYSIS (UA) 07/25/2024 FOLLICLE STIMULATING HORMONE (FSH) 04/12 LUTEINIZING HORMONE (LH) 04/12/2023 URINE CULTURE 07/25/2024 CBC WITH AUTO DIFF 04/19/2024 CBC WITH AUTO DIFF 06/04/2023 CBC WITH AUTO DIFF 04/12/2023 RETIC 02/23/2022 Ferritin 02/23/2022 Ferritin 04/19/2024 Lipid Panel 07/13/2022 Lipid Panel 02/23/2022 Lipid Panel 04/19/2024 Lipid Panel with Reflex 06/04/2023 Free T4 (Free Thyroxine) 04/19/2024 Microalbumin, Random 07/13/2022 Microalbumin, Random 04/19/2024 Microalbumin, Random 03/21/2021 XR lumbar spine 2-3V 07/25/2024 Hemoglobin A1c 04/19/2024 Hemoglobin A1c 07/13/2022 Hemoglobin A1c 06/04/2023 Hemoglobin A1c 02/23/2022 Next Appt Details Provider Name:Fox Johnston, 07/31/2024 04:00:00 PM, [address] [facility] [address], [place], [address], Provider Name:Fox Johnston, 11/22/2024 04:00:00 PM, [address] [facility] [address], [place], [address], Insurance Providers Payer Name Payer Address Payer Phone Subscriber Number Group Number Insured Name Patient Relationship to Insured Coverage Start Date Coverage End Date [facility] [address] [place], [place] [id number] [phone] [id number] [employer] - patient is the insured 6 Medical (General) History Medical History History ICD Code chronic headaches for 4 monrths [id number] 7 mos former smoker overweight hypothyroid Pre-diabetes {'Condyloma Acuminatum': 'Di agnosed during current visit', 'Muscle Soreness': 'Identified during current visit', 'Gallstones': 'Identified in previous medical tests'} Anal condyloma acuminata Surgical History Surgery Date(Month/Year) No history 2 para 2 2015 C- section 2009 Hospitalization History Reason Date(Month/Year) No history
--- OUTSIDE RECORDS SUMMARY | 2024-07-25 16:32 | XMS_ITS ---
Author Organization Fox Johnston III, MD Address [address] [address] Care Team Providers Care Abrasive Coating Machine Operator Name Role Phone Fox Johnston Primary Care Provider Allergies Allergen (clinical drug ingredient) Drug/Non Drug Allergy documented on EMR Reaction Allergy Type Onset Date Status No Known Drug Allergy Unknown Drug Allergy Active REASON FOR VISIT Follow up Medications Medication SIG (Take, Route, Frequency, Duration) Notes Start Date End Date Status Omeprazole 20 MG TAKE 1 CAPSULE BY [facility] EVERY DAY FOR 30 DAYS Active Propranolol HCl 10 MG 1 tablet on an emp ty stomach Orally Once a day 03/11/2019 Active Aldara Active Hydrocortisone 1 % 1 application Automobile Tester ally Twice a day 11/19/2023 Active Ferrous Gluconate 324 (38 Fe) MG orally once a day once a day 11/19/2023 Active Ketoconazole 2 % 1 application to affected area Externally Twice a day 03/11/2019 Active lamoTRIgine ER 25 MG 1 tablet Orally Onc e a day 07/13/2022 Active metFORMIN HCl 500 MG 1 tablet with a wilda l Orally Once a day Active Social History Tobacco Use: Social History [...] User Light cigarett e smoker ((1-9 cigs/day) Encounters Encounter Location Date Provider Diagnosis Fox Johnston III, MD [address] [place] [address] [place] [address] 07/19/2024 Fox Johnston Iron deficiency anemia, unspecified iron deficiency anemia type D50.9 Assessments Encounter Date Diagnosis (ICD Code) Assessment Notes Treatment Notes Treatment Clinical Notes 07/19/2024 Iron deficiency anemia, unspecified iron deficiency anemia type (ICD-10 - D50.9) Her ferritin has returned to her normal level of 15 which is at the low end of normal. The mean cell volume has improved to 76.4. The hematocrit is 39.1%She was continued on the iron. She has had no recent bleeding. Plan Of Treatment Medication Medication Name Sig Start Date Stop Date Notes Omeprazole 20 MG TAKE 1 CAPSULE BY [facility] EVERY DAY FOR 30 DAYS Propranolol HCl 10 MG 1 tablet on an emp ty stomach Orally Once a day 03/11/2019 Aldara Hydrocortisone 1 % 1 application Automobile Tester ally Twice a day 11/19/2023 Ferrous Gluconate 324 (38 Fe ) MG orally once a day once a day 11/19/2023 Ketoconazole 2 % 1 application to aff ected area Externally Twice a day 03/11/2019 lamoTRIgine ER 25 MG 1 tablet Orally Once a day 07/13/2022 metFORMIN HCl 500 MG 1 tablet with a wilda l Orally Once a day Next Appt Details Provider Name:Fox Johnston, 07/31/2024 04:00:00 PM, [address] [place] [address] [address], [place], [id number], Provider Name:Fox Johnston, 11/22/2024 04:00:00 PM, [address] [place] [address] [place], [id number], Progress Notes * Nkechi UPDOB: (44 yo F)Acc No.[id number]:07/19/2024 Progress Notes Patient:?Kym UP Provider:?Fox Johnston MD :1980???Age:43 Y???Sex:Female D ate:07/19/2024 Address:[address] [place], [place] [id number] Subjective: * Chief Complaints: * ???1. Follow up. * HPI: ???COVID-19 Screening:?Questions?Have you had any new onset fever, chills, cough, congestion, sore throat, shortness of breath, muscle aches??No * ROS:?General/Constitutional:?pain?only normal aches and pains.?Chills?denies.?Fatigue?admits.?Fever?denies.?ENT:?Decreased hearing?denies.?Respiratory:?Cough?denies.?Cardiovascular:?Chest pain with exertion?denies.?Dyspnea on exertion?denies.?Shortness of breath?denies.?Gastrointestinal:?Constipation?denies.?Decreased appetite?denies.?Diarrhea?denies.?Heartburn?denies.?Nausea?denies.?Rectal bleeding?denies.?Vomiting?denies.?Hematology:?bruising?denies.?petechiae?denies.?Swollen glands?none have been noted.?Genitourinary:?Frequent urination?denies.?Musculoskeletal:?Muscle aches?denies.?Painful joints?denies.?Sciatica?denies.?Weakness?denies.?Skin:?Itching?denies.?Rash?denies.?Skin lesion(s)?denies.?Neurologic:?Difficulty speaking?denies.?Dizziness?denies.?Headache?denies.?Low back pain?denies.?Psychiatric:?Depressed mood?denies.? * Medical History:?Chronic hea daches for 4 monrths, C2T3Oj8 7 mos, Former smoker, Overweight, Hypothyroid, Pre-diabetes, {'Condyloma Acuminatum': 'Diagnosed during current visit', 'Muscle Soreness': 'Identified during current visit', 'Gallstones': 'Identified in previous medical tests'}, Anal condyloma acuminata. * Surgical History:?C- section 2008, 2015, 2 para 2 , No history . [...] smoker ((1-9 cigs/day) ???She was born in [place] and came to this country at the age of 36. She speaks Telugu and is learning Turkmen but is not yet fluent. She has [...] Allergies:?No Known Drug All ergy. Objective: * Vitals:? * Examination: ???General Examination: ?GENERAL APPEARANCE:?pleasant, well [...] the iron. She has had no recent bleeding.??? Plan: * Treatment: 2.?Others? Continue Omeprazole Capsule Delayed Release, 20 MG, TAKE 1 CAPSULE BY MOUTH EVERY DAY FOR 30 DAYS;?Continue Aldara.?? * Images: * The named appointment provid er may or may not be the originator of this progress note, and it is not deemed complete until electronically signed by the appointment provider. Sign off status: Pending * Provider:?Fox Johnston MD Date:?06/29 Generated for Dexter gomes/Grabiel/eTransmitting on:?07/25/2024 04:31 PM EST History and Physical [...]
[2024-07-25 17:21] LABS: Color Urine Yellow; Glucose Urine UA Negative (Negative); Leukocyte Esterase Urine Negative (Negative); Nitrite Urine Negative (Negative); PH 7.5 (5.0-9.0); UMIC TRIGGER UA YES; Urine Blood Trace (Negative); Urine Ketones Negative (Negative); Urine Protein Trace mg/dL (Neg-Trace)
[2024-07-25 17:26] LABS: Appearance Urine Cloudy
[2024-07-25 19:00] LABS: Bacteria Urine Trace (None Seen); Hyaline Casts Urine 0-2 /LPF (0-2); Squamous Epithelial Cell Urine 0-2 /HPF (0-2); WBC Urine 0-5 /HPF (0-5)
== END 2024-07-25 16:00 | disposition home or self-care (01) ==
LOC: HO.XRAY 15:59
PROVIDERS: PCP Internal Medicine Medical Oncology; Visit Provider Internal Medicine Medical Oncology
DX: R39.9 Unspecified symptoms and signs involving the genitourinary system (principal)
CPT/HCPCS: 72100; 81001; 87086

== ENCOUNTER → 2024-07-25 16:15 | Outpatient (BNV) | payer BC, SELFPAY | PROVIDERS: PCP Internal Medicine Medical Oncology; Visit Provider Radiology Diagnostic Radiology | DX: M54.50 Low back pain, unspecified (principal) | CPT/HCPCS: 72100 ==

== ENCOUNTER → 2024-07-26 15:55 | Outpatient (BNVA) | payer BC, SELFPAY | PROVIDERS: PCP Internal Medicine Medical Oncology; Visit Provider Obstetrics & Gynecology ==

== ENCOUNTER 2024-09-01 15:56 | Outpatient (AMB) | payer BC, SELFPAY ==
[2024-09-01 16:16] VITALS: BMI 33.0
--- NOTE | 2024-09-01 16:16 | MHC.OFFVIS ---
Vital Signs 09/01/24 16:16 Height 5 ft 4 in Weight 192 lb BMI 33.0 Intake Visit Reasons: TCA Treatment Printed Circuit Board Reworker Required: Yes Printed Circuit Board Reworker Language: Supervisor Laundry Services: Printed Circuit Board Reworker Present (in person) Printed Circuit Board Reworker Name: Carolyn OLIVEIRA Information Interpreted: non-clinical & clinical Oil Field Tester: Oil Field Tester Present (Carolyn OLIVEIRA) Accompanied by: Self / Same As Patient Allergies No Known Allergies Allergy (Verified 09/01/24 16:16) HPI Comments Details: Presenting for trichloroacetic acid application for perirectal warts PFSH Medical History 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 Obesity due to excess calories Prediabetes Surgical History Hx of dilation and curettage (~2020) H/O tubal ligation Family History Mother Diabetes Maternal Grandfather Diabetes Father Diabetes Social History Household Members: Spouse and Children Are you a primary animal care giver to a significant other at home: No Do you presently have visiting nurse or other home services: No Alcohol intake: never Patient Tobacco Use Status: Never used Tobacco Second Hand Smoke Exposure: No Current occupational status: employed 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 Instructions given the patient to keep area clean, and call in case of irritation or redness or increase pain will reschedule another application in a week Coding Level of Care Code Est Pt Level 3 (08557) Diagnoses AIN grade I K62.82
--- OUTSIDE RECORDS SUMMARY | 2024-09-01 17:20 | XMS_ITS | Patient Health Record ---
Author Organization Fox Johnston III, MD Address [address] [place] [address] Care Team Providers Care Head Of Partner Development Name Role Phone Fox Johnston Primary Care Provider Allergies Allergen (clinical drug ingredient) Drug/Non Drug Allergy documented on EMR Reaction Allergy Type Onset Date Status No Known Drug Allergy Unknown Drug Allergy Active Results Component Value Reference Range Notes XR lumbar spine 2-3V Reviewed date:07/31/2024 06:14:30 PM Interpretation: Performing Lab: Notes/Report: [facility] [address] [place] [address] XRay Report Signed Patient: Nkechi Up MR#: [id number] : 1980 Acct:[id number] Age/Sex: 44 / F ADM Date: 07/25/24 Loc: HO.XRAY Attending Dr: Fox Johnston MD Ordering Physician: Fox Johnston MD Date of Service: 07/25/24 Procedure(s): XR lumbar spine 2-3V Accession Number(s): [id number] cc: Fox Johnston MD CLINICAL HISTORY: LOW BACK PAIN Lumbar spine three views Comparison: None Findings: No acute fracture or dislocation is demonstrated. Posterior alignment is normal throughout. No significant degenerative change noted. Surgical clips right upper quadrant. Impression: No acute processes This document has been electronically signed by: Wolf Sheppard MD on 07/26/2024 19:10:39 Dictated By: Wolf Sheppard MD Signed By: <Electronically signed by Wolf Sheppard MD in OV> 07/26/241910 DD/ 09 TD/TT: 07/26/241909 Paradi Tender: [address] [address] XRay Report Signed Patient: Nkechi Up MR#: [id number] : 1980 Acct:[id number] Age/Sex: 44 / F ADM Date: 07/25/24 Loc: HO.XRAY Attending Dr: Fox Johnston MD Ordering Physician: Fox Johnston MD Date of Service: 07/25/24 Procedure(s): XR lum bar spine 2-3V Accession Number(s): [id number] cc: Fox Johnston MD CLINICAL HISTORY: LO W BACK PAIN Lumbar spine three views Comparison: None Findings: No acute fracture or dislocation is demonstrated. Posterior alignment is normal throughout. No significant degenerative change noted. Surgical clips right upper quadrant. Impression: No acute processes This document has be en electronically signed by: Wolf Sheppard MD on 07/26/2024 19:10:39 Dictated By: Wolf Sheppard MD Signed By: <Electronically signed by Wolf Sheppard MD in OV> 07/26/241910 DD/ 09 TD/TT: 07/26/241909 Paradi Tender: Complete Blood Count Auto Di ff Reviewed date:11/19/2023 04:11:12 PM Interpretation: Performing Lab:[facility], [address] [place] [phone] Notes/Report: White Blood Count 9.2 4.8-10.8 X10*3/uL [...] NRBC Abs Auto 0.000 0.0-0.012 X10*3/uL Comprehensive Bluebell. Panel Fa st Reviewed date:11/19/2023 04:11:12 PM Interpretation: Performing Lab:[facility], [address] [place] [phone] Notes/Report: Sodium 139 135-145 mmol/L Potassium 3.7 3.3-5.1 mmol/L Chloride 105 96-108 mmol/L Carbon Dioxide 26 22-29 mmol/L Anion Gap 12 12-20 Blood Urea Nitrogen 10 9-16 mg/dL Creatinine 0.69 0.5-1.4 mg/dL Estimated Glomerular Filt Rate > 60 NOTE: For -Vincentian individuals, multiply the result by 1.210. Chronic [...] Ferritin Reviewed date:11/19/2023 04:11:12 PM Interpretation: Performing Lab:[facility], [address] [place] [phone] Notes/Report: Ferritin 6 10-250 ng/mL Lipid Panel with Reflex Reviewed date:11/19/2023 04:11:12 PM Interpretation: Performing Lab:[facility], [address] [place] [phone] Notes/Report: Triglycerides 119 <150 mg/dL Desirable Triglyceride: [...] A1c Reviewed date:11/19/2023 04:11:12 PM Interpretation: Performing Lab:[facility], [address] [place] [phone] Notes/Report: Hemoglobin A1c % 6.0 <6.0 % [...] average glucose, using the formula of the N6W-Tnaxctp Average Glucose study (ADAG), Diabetes Care, Vol.31,#8, Jan. 2007 Complete Blood Count Auto Di ff Reviewed date:03/08/2024 04:10:07 PM Interpretation: Performing Lab:[facility], [address] [place] [phone] Notes/Report: White Blood Count 8.2 4.8-10.8 X10*3/uL [...] RETIC Reviewed date:03/08/2024 04:10:07 PM Interpretation: Performing Lab:[address] [address] Notes/Report: Reticulocytes Absolute 0.074 0.026-0.0 95 X10*6/uL Immature Retic Fraction 16.7 3.0-15.9 % Retic HGB Equivalent 27.8 30.0-35.0 pg Reticulocyte Percent 1.4 0.5-1.8 % Comprehensive Bluebell. Panel Fa st Reviewed date:03/08/2024 04:10:07 PM Interpretation: Performing Lab:[address] [address] Notes/Report: Sodium 138 135-145 mmol/L Potassium 3.9 3.3-5.1 mmol/L Chloride 106 96-108 mmol/L Carbon Dioxide 26 22-29 mmol/L Anion Gap 10 12-20 Blood Urea Nitrogen 10 9-16 mg/dL Creatinine 0.74 0.5-1.4 mg/dL Estimated Glomerular Filt Rate > 60 NOTE: For -Vincentian individuals, multiply the result by 1.210. Chronic [...] Ferritin Reviewed date:03/08/2024 04:10:07 PM Interpretation: Performing Lab:[address] [address] Notes/Report: Ferritin 15 10-250 ng/mL Hemoglobin A1c Reviewed date:03/08/2024 04:10:07 PM Interpretation: Performing Lab:[facility], [address] [place] [phone] Notes/Report: Hemoglobin A1c % 5.8 <6.0 % [...] average glucose, using the formula of the X4K-Bgtvgzu Average Glucose study (ADAG), Diabetes Care, Vol.31,#8, Jan. 2007 CT NG by PCR Reviewed date:03/27/2024 08:14:41 AM Interpretation: Performing Lab:[facility], [address] [place] [phone] Notes/Report: Vaginal CT PCR NOT DETECTED Not [...] Diff Reviewed date:03/27/2024 08:14:41 AM Interpretation: Performing Lab:[facility], [address] [place] [phone] Notes/Report: White Blood Count 7.8 4.8-10.8 X10*3/uL [...] T4 Reviewed date:03/27/2024 08:14:41 AM Interpretation: Performing Lab:[facility], [address] [place] [phone] Notes/Report: TSH reflex Free T4 1.27 0.32-4.0 uIU/mL Prolactin Reviewed date:03/27/2024 08:14:41 AM Interpretation: Performing Lab:[facility], [address] [place] [phone] Notes/Report: Prolactin 8.2 Reference Range Females Non- 3.0-30.0 10.0-209.0 Postmenopausal 2.0-20.0 THIS TEST WAS PERFORMED AT: [facility] [address] [address] ROSALINDA CUEVA MD HCG Quantitative Reviewed date:03/27/2024 08:14:41 AM Interpretation: Performing Lab:[facility], [address] [place] [phone] Notes/Report: HCG Quantitative < 2 Weeks post [...] date:05/01/2024 05:51:17 AM Interpretation: Performing Lab: Notes/Report: [address] [address] Ultrasound Report Signed Patient: Nkechi Up MR#: [id number] : 1980 Acct:[id number] Age/Sex: 43 / F ADM Date: 03/20/24 Loc: HO.US Attending Dr: Baldemar Pineda MD Ordering Physician: Baldemar Pineda MD Date of Service: 03/20/24 Procedure(s): US pelvic and transvaginal Accession Number(s): [id number] cc: Fox Johnston MD; Baldemar Pineda MD [...] by: Yo Rai MD 05/01/2024 12:32 AM EST Dictated By: Yo Rai MD Signed By: <Electronically signed by Yo Rai MD in OV> 05/01/24 0032 DD/ 1607 TD/TT: 03/20/24 1629 Paradi Tender: [place] [address] Ultrasound Report Signed Patient: Nkechi Up MR#: [id number] : 1980 Acct:[id number] Age/Sex: 43 / F ADM Date: 03/20/24 Loc: HO.US Attending Dr: Baldemar Pineda MD Ordering Physician: Baldemar Pineda MD Date of Service: 03/20/24 Procedure(s): US pel mic and transvaginal Accession Number(s): [id number] cc: Fox Johnston MD; Baldemar Pineda MD [...] by: Yo Rai MD 05/01/2024 12:32 AM [facility] Dictated By: Yo Rai MD Signed By: <Electronically signed by Yo Rai MD in OV> 05/01/24 0032 DD/ 1607 TD/TT: 03/20/24 1629 Paradi Tender: BRENT US abdomen complete Reviewed date:06/09/2024 08:45:14 AM Interpretation: Performing Lab: Notes/Report: [address] [address] Ultrasound Report Signed with Addenda Patient: Nkechi Up MR#: [id number] : 1980 Acct:[id number] Age/Sex: 43 / F ADM Date: 03/24/24 Loc: HO.US Attending Dr: Fox Johnston MD Ordering Physician: Fox Johnston MD Date of Service: 03/24/24 Procedure(s): US abdomen complete Accession Number(s): [id number] cc: Fox Johnston MD ADDENDUM ADDENDUM #1 ADDENDUM: The patient provides a history of prior cholecystectomy. It is possible that the shadowing area in the gallbladder fossa interpreted as a kyzh-rrun-kwxseo complex represents postoperative scarring and surgical clips. [...] by: Vishal Parham MD 05/22/2024 12:47 PM EST RP Addendum Dictated By: Vishal Parham MD Addendum [...] GALLBLADDER: There is marked cholelithiasis, with a ynjn-okvw-mghtzl complex. Gallbladder wall thickness is normal at [...] 1. There is marked cholelithiasis, with a mqvy-trrr-vqapby complex. No cholecystitis or choledocholithiasis seen. 2. There is generalized increase in hepatic echotexture, consistent with fatty infiltration or hepatocellular disease. Please correlate clinically. No focal hepatic mass or intrahepatic biliary dilatation is seen. 3. There is mild splenomegaly. 4. An 8 mm nonobstructing mid right renal calculus is seen. Electronically signed by: Vishal Parham MD 04/08/2024 09:33 PM EDT RP Dictated By: Vishal Parham MD Signed By: <Electronically signed by Vishal Parham MD in OV> 04/08/242132 DD/ 9 TD/TT: 03/24/24899 Paradi Tender: [place] [address] Ultrasound Report Signed with Addenda Patient: Nkechi Up MR#: [id number] : 1980 Acct:[id number] Age/Sex: 43 / F ADM Date: 03/24/24 Loc: HO.US Attending Dr: Fox Johnston MD Ordering Physician: Fox Johnston MD Date of Service: 03/24/24 Procedure(s): US abd omen complete Accession Number(s): [id number] cc: Fox Johnston MD ADDENDUM ADDENDUM #1 ADDENDUM: The patien t provides a history of prior cholecystectomy. It is possible that the shadowing area in the gallbladder fossa interpreted as a irbs-yzvi-pfkdul complex represents postoperative scarring and surgica l [...] by: Vishal Parham MD 05/22/2024 12:47 PM EST Addendum Dictated By : Vishal Parham MD Addendum Signed By: <Electronically signed by Vishal Parham MD in OV> 05/22/241246 Addendum Cosigned By: DD/ TD/TT: 03/24/24 EXAMINATION: [...] There i s marked cholelithiasis, with a jnnp-ducz-osqmzf complex. Gallbladder wall thickness is normal at [...] 1. There is marked cholelithiasis, with a dvnn-itmd-carpzo complex. No cholecystitis or choledocholithiasis seen. 2. [...] MD 04/08/2024 09:33 PM EDT Dictated By: Cassie Parham MD Signed By: <Electronically signed by Vishal Parham MD in OV> 04/08/242132 DD/ 0830 TD/TT: 03/24/24 0900 Paradi Tender: TEMI Avalos Reviewed date:04/10/2024 07:30:46 AM Interpretation: Performing Lab:[facility], [address] [place] [phone] Notes/Report: ----- Name: Nkechi Up Age/Sex: 43/F : 1980 Unit#: [id number] Attend Dr: Baldemar Pineda MD Re03/30/24 Status : DEP REF Location: [facility] Disch: ----- SPEC : [id number] RECD : 04/03/24 STATUS: VINOD SULMA NUM: [id number] RADHA: 03/30/24-[address] [facility] [address]: Baldemar Pineda MD ENTERED: 04/03/24 SP [...] CEDS Copies To: Fox Johnston MD [address] [facility] [place] [address] Baldemar Pineda MD [facility] [address] [place], [place] [phone] ----- Signed (signature on file) Yosvany Martinez MD 04/04/24 1234 ----- END OF REPORT Pathology Reviewed date:04/23/2024 06:38:25 AM Interpretation: Performing Lab:[facility], [address] [place] [phone] Notes/Report: ----- Name: Nkechi Up Age/Sex: 43/F : 1980 Unit#: [id number] Attend Dr: Baldemar Pineda MD Re04/13/24 Status : DEP REF Location: HO.LNP Disch: ----- SPEC : [id number] RECD : 04/14/24 STATUS: VINOD OZUNA NUM: [id number] RADHA: 04/13/[address] [facility] [address]: Baldemar Pineda MD ENTERED: 04/14/24 SP TYPE: Surgical OTHR DR: Fox Johnston MD ORDERED: Gross Micr o L4/2 Diagnosis A. Perianal, right, large lesion, [...] cm granular and keratotic, rubbery, buchanan-pina and pnia-brown papule of skin versus squamous mucosa, submitted in toto in a cassett e labeled B. CEDS Copies To: Fox Johnston MD [address] [facility] [place], [place] [phone] Baldemar Pineda MD [facility] [address] [place] [address] CONTINUED ON NEXT PAGE ----- Name: Yeison RobertNkechi Elyse Age/Sex: 43/F : 1980 Unit#: [id number] Attend Dr: Baldemar Pineda MD Re04/13/24 Status : DEP REF Location: [facility] Disch: ----- SPEC : [id number] RECD : 04/14/24 STATUS: VINOD OZUNA NUM: [id number] RADHA: 04/13/[address] [facility] [address]: Baldemar Pineda MD ENTERED: 04/14/24 SP TYPE: Surgical OTHR DR: Fox Johnston MD ORDERED: Raven Garcia L4/2 Copies To: (Continued) [phone] ----- Signed (signature on file) Heydi [place] 04/17/24 1423 ----- END OF REPORT MM tomosynthesis diagnostic BI Reviewed date:05/22/2024 07:51:57 AM Interpretation: Performing Lab: Notes/Report: [facility] [address] [place] [address] Mammography Report Signed Patient: LathamNkechi Rizo MR#: [id number] : 1980 Acct:[id number] Age/Sex: 43 / F ADM Date: 05/03/24 Loc: HO.MAMMO Attending Dr: Fox Johnston MD Ordering Physician: Fox Johnston MD Results: 2Benign Findings Date of Service: 05/03/24 Follow Up: 1 Year From [facility] Mammogram Procedure(s): MM tomosynthesis diagnostic BI Accession Number(s): [id number] cc: Fox Johnston MD EXAMINATION: MM DIAGNOSTIC [...] by: Romeo Crump MD 05/03/2024 08:59 AM [facility] Dictated By: Romeo Crump MD Signed By: <Electronically signed by Romeo Crump MD in OV> 05/03/24 0859 DD/ 0740 TD/TT: 05/03/24 08 Paradi Tender: [facility] [address] [place] [address] [place] [address] Mammography Report Signed Patient: Nkechi Up MR#: [id number] : 1980 Acct:[id number] Age/Sex: 43 / F ADM Date: 05/03/24 Loc: HO.MAMMO Attending Dr: Fox Johnston MD Ordering Physician: Fox Johnston MD Results: 2Benign Findings Date of Service: 12/19 Follow Up: 1 Year From Orig ina Mammogram Procedure(s): MM tomosynthesis diagnostic BI Accession Number(s): [id number] cc: Fox Johnston MD EXAMINATION: MM DIAGNOSTIC ANAHI L BREAST TOMOSYNTHESIS, BILATERAL US BREAST LIMITED, [...] by: Romeo Crump MD 05/03/2024 08:59 AM [facility] Dictated By: Romeo Crump MD Signed By: <Electronically signed by Romeo Crump MD in OV> 05/03/24 0859 DD/ 0740 TD/TT: 05/03/24 0812 Paradi Tender: US breast RT limited mamm on ly Reviewed date:05/22/2024 07:51:57 AM Interpretation: Performing Lab: Notes/Report: [facility] [address] [place] [address] Ultrasound Report Signed Patient: Nkechi Up MR#: [id number] : 1980 Acct:[id number] Age/Sex: 43 / F ADM Date: 05/03/24 Loc: HO.MAMMO Attending Dr: Fox Johnston MD Ordering Physician: Fox Johnston MD Date of Service: 05/03/24 Procedure(s): US breast RT limited mamm only Accession Number(s): [id number] cc: Fox Johnston MD EXAMINATION: MM DIAGNOSTIC [...] by: Romeo Crump MD 05/03/2024 08:59 AM [facility] Dictated By: Romeo Crump MD Signed By: <Electronically signed by Romeo Crump MD in OV> 05/03/2459 DD/ 0830 TD/TT: Paradi Tender: [place] [facility] [address] [place] [address] Ultrasound Report Signed Patient: Nkechi Up MR#: [id number] : 1980 Acct:[id number] Age/Sex: 43 / F ADM Date: 05/03/24 Loc: HO.MAMMO Attending Dr: Fox Johnston MD Ordering Physician: Fox Johnston MD Date of Service: 05/03/24 Procedure(s): US spencer ast RT limited mamm only Accession Number(s): [id number] cc: Fox Johnston MD EXAMINATION: MM DIAGNOSTIC DIGITA L BREAST TOMOSYNTHESIS, BILATERAL US BREAST LIMITED, RIGHT MAMMOGRAPHY: CLINICAL INFORMATION: Diagnostic exam; Pat ient complaining of tender palpable lump 11:00 right breast, essent ially low axillary region . Patient also due for routine annual scree sylwia. No prior surgeries. No family history. COMPARISON: Mammography: , 07/27/2022, 07/23/2021 (baseline exam). TECHNIQUE: Digital breast [...] by: Romeo Crump MD 05/03/2024 08:59 AM [facility] Dictated By: Romeo Crump MD Signed By: <Electronically signed by Romeo Crump MD in OV> 05/03/24858 DD/ 9 TD/TT: Paradi Tender: Ur Emily Test Reviewed date:05/09/2024 08:35:14 AM Interpretation: Performing Lab:[facility], [address] [place] [phone] Notes/Report: Urine NEGATIVE NEGATIVE This test was developed to detect early . False negative results may occur after the 5th - 7th week of when using this test method. If clinically indicated, consider a serum hCG. Glucose, Whole Blood Reviewed date:05/09/2024 08:35:14 AM Interpretation: Performing Lab:[facility], [address] [place] [phone] Notes/Report: Glucose, Whole Blood 113 60-115 mg/dL METER # : [id number] Pathology Reviewed date:05/09/2024 08:35:14 AM Interpretation: Performing Lab:[facility], [address] [place] [phone] Notes/Report: ----- Name: Nkechi Up Age/Sex: 43/F : 1980 Unit#: [id number] Attend Dr: Baldemar Pineda MD Re05/05/24 Status : [facility] Location: [facility] Disch: ----- SPEC : [id number] RECD : 05/05/24 STATUS: [facility] NUM: [id number] RADHA: 05/05/[address] [facility] [address]: Baldemar Pineda MD ENTERED: 05/05/24-03 28 TYPE: Surgical OTHR DR: Fox Johnston MD ORDERED: HE Stain/2, Gross Micro L4 Diagnosis Endometrium, curetta ge: Benign endometrium with proliferative and inactive glands, and glandular and stroma l breakdown, and benign endocervical glandular mucosa; no atypia or carcinoma. Clinical History Pre-Op Dx: Abnormal uterine and vaginal bleeding Post-Op Dx: Normal endometrial cavity Microscopic Description Microscopic sections reviewed. Material Received [facility] [place] Gross Description Received in formalin labeled ?EMC? on blood-stained Telfa are multiple congested and hemorrhagic pina-pink and red-maroon irregular tissue fragments with scant mucus and blood aggregating 1.5 x 1. 5 x 0.45 cm, submitted in toto in a cassette labeled A. CEDS Copies To: Fox Johnston MD [address] [facility] [place] [address] Baldemar Pineda MD [facility] [address] [place] [address] ----- Signed (signature on file) Heydi [place] 05/08/24 1314 ----- END OF REPORT Complete Blood Count Auto Di ff Reviewed date:07/23/2024 04:46:48 PM Interpretation: Performing Lab:[facility], [address] [place] [phone] Notes/Report: White Blood Count 9.3 4.8-10.8 X10*3/uL [...] NRBC Abs Auto 0.000 0.0-0.012 X10*3/uL Comprehensive Bluebell. Panel Fa Reviewed date:07/23/2024 04:46:48 PM Interpretation: Performing Lab:[address] [address] Notes/Report: Sodium 140 135-145 mmol/L Potassium 3.9 [...] Ferritin Reviewed date:07/23/2024 04:46:48 PM Interpretation: Performing Lab:[address] [address] Notes/Report: Ferritin 10 10-250 ng/mL Lipid Panel Reviewed date:07/23/2024 04:46:48 PM Interpretation: Performing Lab:[facility], [address] [place] [phone] Notes/Report: Triglycerides 101 <150 mg/dL Desirable Triglyceride: [...] Thyroxine) Reviewed date:07/23/2024 04:46:48 PM Interpretation: Performing Lab:[address] [address] Notes/Report: Free T4 (Free Thyroxine) 0.83 0.71-1.85 ng/dL Thyroid Stimulating Hormone Reviewed date:07/23/2024 04:46:48 PM Interpretation: Performing Lab:[facility], [address] [place] [phone] Notes/Report: Thyroid Stimulating Hormone 1.82 0.32-4.0 uIU/mL TSH 3rd Generation ([facility]) Microalbumin, Random Reviewed date:07/23/2024 04:46:48 PM Interpretation: Performing Lab:[facility], [address] [place] [phone] Notes/Report: Creatinine Urine 211.05 Microalbumin Urine 78.0 Microalbum/Creatinine Ratio Ur 36.9 <30 ug/mg cr Albumin/Creatinine Ratio Reference Ranges: Normal: < 30 ug/mg creatinine Microalbuminuria: 30 - 300 ug/mg creatinine Clinical Albuminuria: > 300 ug/mg creatinine Hemoglobin A1c Reviewed date:07/23/2024 04:46:48 PM Interpretation: Performing Lab:[facility], [address] [place] [phone] Notes/Report: Hemoglobin A1c % 6.0 <6.0 % [...] average glucose, using the formula of the I1W-Frxbrsw Average Glucose study (ADAG), Diabetes Care, Vol.31,#8, Jan. 2007 Urinalysis and Microscopic Reviewed date:07/31/2024 06:14:30 PM Interpretation: Performing Lab:[address] [phone] Notes/Report: Color Urine Yellow Appearance Urine Cloudy PH 7.5 5.0-9.0 Glucose Urine UA Negative Negative mg/dL Urine Blood Trace Negative Specific Holcomb - Urine 1.020 1.005-1.025 Urine Protein Trace Neg-Trace mg/dL Urine Ketones Negative Negative mg/dL Nitrite Urine Negative Negative Leukocyte Esterase Urine Negative Negative RBC Urine 11-20 0-2 /HPF WBC Urine 0-5 0-5 /HPF Squamous Epithelial Cell Urine 0-2 0-2 /HPF Bacteria Urine Trace None Seen Hyaline Casts Urine 0-2 0-2 /LPF Urinalysis Reviewed date:07/31/2024 06:14:30 PM Interpretation: Performing Lab:[address] [address] Notes/Report: Color Urine Yellow Appearance Urine Cloudy PH 7.5 5.0-9.0 Glucose Urine UA Negative Negative mg/dL Urine Blood Trace Negative Specific Holcomb - Urine 1.020 1.005-1.025 Urine Protein Trace Neg-Trace mg/dL Urine Ketones Negative Negative mg/dL Nitrite Urine Negative Negative Leukocyte Esterase Urine Negative Negative Urine Culture Reviewed date:07/31/2024 06:14:30 PM Interpretation: Performing Lab:[address] [phone] Notes/Report: Urine Culture Report Result Urine Culture > 100,000 cfu/ml Urine Culture Mixed bacterial daniel a characteristic of Urine Culture urogenital contamination. Reason For Referral Reason Consult and Treat Requesting Audra Long Diagnosis 1 Diabetes mellitus du e to underlying condition without complication, without long-term current use of insulin (E08.9) Referral Organization Fox Johnston III, MD Referring Provider First Name Fox Referring Provider Last Name Preston Referring Provider Speciality Internal M edicine Referred Provider Ita Dias Referred Provider Specialty Endocrinolog y General Notes D Lorie 07/27/2024 03:41:02 PM > Referral and attachments faxed., Lorie Devlin 07/31/2024 09:55:10 AM > Provider is not located at [facility]. Resent referral to correct location. Referral Priority Routine Medications Medication SIG (Take, Route, Frequency, Duration) Notes Start Date End Date Status Omeprazole 20 MG TAKE 1 CAPSULE BY [facility] EVERY DAY FOR 30 DAYS Active Propranolol HCl 10 MG 1 tablet on an emp ty stomach Orally Once a day 03/11/2019 Active Hydrocortisone 1 % 1 application Ornament Stitcher ally Twice a day 11/19/2023 Active Ferrous Gluconate 324 (38 Fe) MG orally once a day once a day 11/19/2023 Active metFORMIN HCl 500 MG 1 tablet with a wilda l Orally Once a day Active Ketoconazole 2 % 1 application to affected area Externally Twice a day 03/11/2019 Active lamoTRIgine ER 25 MG 1 tablet Orally Onc e a day 07/13/2022 Active Aldara Active Immunizations Vaccine Route Administration Date Status [...] Problem Status W/U Status Risk Notes Problem 8902818 Former smoker (Z87.891) Active confirmed She has stopped smoking. Her weight has not increased. We discussed a strategy to relapse in times of stress and illness. Problem Hypothyroidism (24036446) Hypothyroidism (E03.9) Active confirmed , Negative thyroid functions will be done prior to her next visit. She appears to be euthyroid. Problem [id number] Obesity (BMI 30.0-34.9) (E66.9) Active confirmed She has lost 1 pound. Her body mass index is 34.7. Once again, we reviewed her weight loss strategy at length. Problem 458489132 Chronic cluster headache, not intractable (G44.029) Active confirmed Headaches have worsened in one daily. I have added Fioricet. Problem 73609213 Tobacco dependence (F17.200) Active confirmed We discussed smoking cessation at length today. Problem [id number] Iron deficiency anemia, unspecified iron deficiency anemia type (D50.9) Active confirmed Her ferritin level is 10. Her mean cell volume has decreased to 73. Her hematocrit has decreased to 37%. She was instructed to resume her iron and agreed to do so. It is likely the mild increase in platelets is related to iron deficiency. Problem Barb's thyroiditis ([id number]) Barb's thyroiditis (E06.3) Active confirmed Her thyroid disease is stable. She is on thyroid replacement. Her values have been stable. No change in her regimen was necessary today. Problem 8779586 Diabetes mellitus due to underlying condition without complication, without long-term current use of insulin (E08.9) Active confirmed Her fasting glucose is 110. Her A1c is 5.8. She has been compliant with her medications. No change in her regimen was made. I encouraged weight loss. Problem 510088011 Abdominal pain, left upper quadrant (R10.12) Active confirmed The examination was unremarkable and she seems stable. The spleen was not palpable. Further investigation was ordered. 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 There has been marked improvement in her cream has been continued. Vital Signs Heart Rate 96 /min 07/31/2024 Temperature 97.1 degrees Fahrenheit 07/31/2024 Blood pressure diastolic 66 mm Hg 07/31/2024 Height 63 in 07/31/2024 Blood pressure systolic 126 mm Hg 07/31/2024 Weight 196 lbs 07/31/2024 BMI 34.72 kg/m2 07/31/2024 Encounters Encounter Location Date Provider Diagnosis Fox Johnston III, MD [address] [place] [address] [place] [address] 11/19/2023 Fox Johnston Iron deficiency anem ia, unspecified iron deficiency anemia type D50.9 ; Obesity (BMI 30.0-34.9) E66.9 ; Diabetes mellitus due to underlying condition without complication, without long-term current use of insulin E08.9 ; Hypothyroidism E03.9 ; Chronic cluster headache, not intractable G44.029 and Former smoker Z87.891 Fox Johnston III, MD [address] [place] [address] [place] [address] 03/08/2024 Fox Johnston Iron deficiency anem ia, unspecified iron deficiency anemia type D50.9 ; Abdominal pain, left upper quadrant R10.12 ; Chronic cluster headache, not intractable G44.029 ; Former smoker Z87.891 ; Obesity (BMI 30.0-34.9) E66.9 ; Diabetes mellitus due to underlying condition without complication, without long-term current use of insulin E08.9 ; Hypothyroidism E03.9 and Tobacco dependence F17.200 Fox Johnston III, MD [address] [place] [address] [place] [address] 04/19/2024 Fox Johnston Iron deficiency anem ia, [...] 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 Fox Johnston III, MD [address] [place] [address] [place] [address] 07/25/2024 Fox Johnston Iron deficiency anem ia, unspecified iron deficiency anemia type D50.9 ; Diabetes mellitus due to underlying condition without complication, without long-term current use of insulin E08.9 ; UTI symptoms R39.9 ; Low back pain, unspecified M54.50 ; Chronic cluster headache, not intractable G44.029 ; Obesity (BMI 30.0-34.9) E66.9 ; Former smoker Z87.891 ; Hypothyroidism E03.9 and 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 Fox Johnston III, MD [address] [place] [address] [place] [address] 07/31/2024 Fox Johnston Iron deficiency anem ia, unspecified iron deficiency anemia type D50.9 ; Diabetes mellitus due to underlying condition without complication, without long-term current use of insulin E08.9 ; Chronic cluster headache, not intractable G44.029 ; Obesity (BMI 30.0-34.9) E66.9 ; Former smoker Z87.891 ; Hypothyroidism E03.9 ; Tobacco dependence F17.200 ; Low back pain, unspecified M54.50 ; Upper back pain M54.9 ; Barb's thyroiditis E06.3 and 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 Fox Johnston III, MD [address] [place] [address] [place] [address] 10/13/2023 Fox Johnston Iron deficiency anem ia, unspecified iron deficiency anemia type D50.9 Fox Johnston III, MD [address] [place] [address] [place] [address] 05/19/2024 Fox Johnston III, MD [address] [place] [address] [place] [phone] 05/31/2024 Fox Johnston III, MD [address] [place] [address] [place] [address] 07/19/2024 Fox Johnston III, MD [address] [place] [address] [place] [address] 08/24/2024 Fox Johnston Assessments Encounter Date Diagnosis (ICD Code) Assessment Notes Treat ment Notes Treatment Clinical Notes 11/19/2023 Obesity (BMI 30.0-34.9) (ICD-10 - E66.9) [...] had no recent bleeding. 04/19/2024 Diabetes mellitus due to underlying condition without complication, without long-term current use of insulin (ICD-10 - E08.9) Her fasting glucose is 110. Her A1c is 5.8. She has been compliant with her medications. No change in her regimen was made. I encouraged weight loss. 07/25/2024 Iron deficiency anemia, unspecified iron deficiency anemia type (ICD-10 - D50.9) Her ferritin level is 10. Her mean cell volume has decreased to 73. Her hematocrit has decreased to 37%. She was instructed to resume her iron and agreed to do so. It is likely the mild increase in platelets is related to iron deficiency. 07/25/2024 Diabetes mellitus due to underlying condition without complication, without long-term current use of insulin (ICD-10 - E08.9) Her fasting glucose is 110. Her A1c is 5.8. She has been compliant with her medications. No change in her regimen was made. I encouraged weight loss. 07/31/2024 Iron deficiency anemia, unspecified iron deficiency anemia type (ICD-10 - D50.9) Her ferritin level is 10. Her mean cell volume has decreased to 73. Her hematocrit has decreased to 37%. She was instructed to resume her iron and agreed to do so. It is likely the mild increase in platelets is related to iron deficiency. 07/31/2024 Diabetes mellitus due to underlying condition without [...] studies and a fair have been ordered. 11/19/2023 Diabetes mellitus due to underlying condition without [...] half of a pound per week. 07/25/2024 UTI symptoms (ICD-10 - R39.9) Her urine is described as normal in appearance. Her dysuria is mild. A urine analysis and urine culture were obtained. She is quite stable and we will await the results of the culture. 07/31/2024 Chronic cluster headache, not intractable (ICD-10 - G44.029) Headaches have worsened in one daily. I have added Fioricet. 11/19/2023 Hypothyroidism (ICD-10 - E03.9) Thyroid function tests have been ordered prior to her next visit. No change in her regimen was made. 03/08/2024 Former smoker (ICD-10 - Z87.891) She has stopped smoking. Her weight has not increased. We discussed a strategy to relapse in times of stress and illness. 04/19/2024 Hypothyroidism (ICD-10 - E03.9) , Negative thyroid functions will be done prior to her next visit. She appears to be euthyroid. 07/25/2024 Low back pain, unspecified (ICD-10 - M54.50) She has had an intermittent and mild to moderate low back pain for several weeks without an antecedent. X-rays of the spine were ordered. She was encouraged to take Tylenol and use heat and rest as much as possible. 07/31/2024 Obesity (BMI 30.0-34.9) (ICD-10 - E66.9) She has lost 1 pound. Her body mass index is 34.7. Once again, we reviewed her weight loss strategy at length. 11/19/2023 Chronic cluster headache, not intractable (ICD-10 [...] of the right breast( has been ordered. 07/25/2024 Chronic cluster headache, not intractable (ICD-10 - G44.029) Headaches have worsened in one daily. I have added Fioricet. 07/31/2024 Former smoker (ICD-10 - Z87.891) She has stopped smoking. Her weight has not increased. We discussed a strategy to relapse in times of stress and illness. 11/19/2023 Former smoker (ICD-10 - Z87.891) She has stopped smoking. Her weight has not increased. We discussed a strategy to relapse in times of stress and illness. 03/08/2024 Diabetes mellitus due to underlying condition without complication, without long-term current use of insulin (ICD-10 - E08.9) Her hemoglobin A1c is 5.8.. No change in her medication is necessary. I recommended aggressive weight loss. 04/19/2024 Chronic cluster headache, not intractable (ICD-10 - G44.029) Headaches have worsened in one daily. I have added Fioricet. 07/25/2024 Obesity (BMI 30.0-34.9) (ICD-10 - E66.9) Has lost 2 pounds and now weighs 192. Her body mass index is 34.01. We have discussed nutrition and diet. We reviewed her weight loss strategy and plan to lose weight at a rate of one half of a pound per week. 07/31/2024 Hypothyroidism (ICD-10 - E03.9) , Negative thyroid functions will be done prior to her next visit. She appears to be euthyroid. 03/08/2024 Hypothyroidism (ICD-10 - E03.9) Thyroid function tests have been ordered prior to her next visit. No change in her regimen was made. She is clinically euthyroid. 04/19/2024 Former smoker (ICD-10 - Z87.891) She has stopped smoking. Her weight has not increased. We discussed a strategy to relapse in times of stress and illness. 07/25/2024 Former smoker (ICD-10 - Z87.891) She has stopped smoking. Her weight has not increased. We discussed a strategy to relapse in times of stress and illness. 07/31/2024 Tobacco dependence (ICD-10 - F17.200) We discussed smoking cessation at length today. 03/08/2024 Tobacco dependence (ICD-10 - F17.200) We discussed smoking cessation at length today. 04/19/2024 Tobacco dependence (ICD-10 - F17.200) We discussed smoking cessation at length today. 07/25/2024 Hypothyroidism (ICD-10 - E03.9) , Negative thyroid functions will be done prior to her next visit. She appears to be euthyroid. 07/31/2024 Low back pain, unspecified (ICD-10 - M54.50) She has had an intermittent and mild to moderate low back pain for several weeks without an antecedent. X-rays of the spine were ordered. She was encouraged to take Tylenol and use heat and rest as much as possible. 04/19/2024 AIN grade I (ICD-10 - K62.82) She will remain under the care and supervision of her plate conditioner. 07/25/2024 Anal condylomata (ICD-10 - A63.0) These have now resolved. 07/31/2024 Upper back pain (ICD-10 - M54.9) This appears to be entirely muscular. She will continue to use heat and rest and acetaminophen. She was given a prescription for cyclobenzaprine for 7 days. 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 2 larger ones were biopsied and were proven to be condylomata. Treatment has been begun with Aldara cream. 07/31/2024 Barb's thyroiditis (ICD-10 - E06.3) Her thyroid disease is stable. She is on thyroid replacement. Her values have been stable. No change in her regimen was necessary today. 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 There has been marked improvement in her cream has been continued. Plan Of Treatment Pending Test Test Name Order Date PROFILE, FASTING (COMPREHENSIVE METABOLI C) 03/21/2021 PROFILE, FASTING (COMPREHENSIVE METABOLI C) 10/31/2018 PROFILE, FASTING (COMPREHENSIVE METABOLI C) 08/30/2020 PROFILE, FASTING (COMPREHENSIVE METABOLI C) 10/21/2018 PROFILE, FASTING (COMPREHENSIVE METABOLI C) 02/23/2022 PROFILE, FASTING (COMPREHENSIVE METABOLI C) 04/12/2023 PROFILE, FASTING (COMPREHENSIVE METABOLI C) 11/15/2017 PROFILE, FASTING (COMPREHENSIVE METABOLI C) 04/19/2024 PROFILE, FASTING (COMPREHENSIVE METABOLI C) 07/13/2022 PROFILE, FASTING (COMPREHENSIVE METABOLI C) 07/14/2019 PROFILE, FASTING (COMPREHENSIVE METABOLI C) 11/01/2017 PROFILE, FASTING (COMPREHENSIVE METABOLI C) 06/04/2023 PROFILE, FASTING (COMPREHENSIVE METABOLI C) 12/13/2020 PROFILE, FASTING (COMPREHENSIVE METABOLI C) 09/13/2020 PROFILE, RANDOM (COMPREHENSIVE METABOLIC ) 07/21/2021 HEMOGLOBIN A1C (GLYCOHEMOGLOBIN) 021 HEMOGLOBIN A1C (GLYCOHEMOGLOBIN) 022 HEMOGLOBIN A1C (GLYCOHEMOGLOBIN) 020 HEMOGLOBIN A1C (GLYCOHEMOGLOBIN) 021 HEMOGLOBIN A1C (GLYCOHEMOGLOBIN) 019 HEMOGLOBIN A1C (GLYCOHEMOGLOBIN) 021 HEMOGLOBIN A1C (GLYCOHEMOGLOBIN) 019 LIPID PANEL 09/13/2020 LIPID PANEL 08/30/2020 LIPID PANEL 12/13/2020 LIPID PANEL 07/21/2021 LIPID PANEL 03/21/2021 LIPID PANEL 04/12/2023 LIPID PANEL 11/15/2017 LIPID PANEL 07/14/2019 LIPID PANEL 10/21/2018 LIPID PANEL 11/01/2017 FREE T4 (FT4) 09/13/2020 FREE T4 (FT4) 12/13/2020 TSH (THYROID STIMULATING HORMONE) 2020 TSH (THYROID STIMULATING HORMONE) 2020 TSH (THYROID STIMULATING HORMONE) 2023 TSH (THYROID STIMULATING HORMONE) 2022 IRON + IBC (FE) 09/22/2021 FERRITIN 09/22/2021 FERRITIN 02/02/2020 FERRITIN 08/30/2020 FERRITIN 07/21/2021 FERRITIN 02/16/2020 CBC w DIFF 07/14/2019 CBC w DIFF 10/21/2018 CBC w DIFF 11/01/2017 CBC w DIFF 09/22/2021 CBC w DIFF 10/31/2018 CBC w DIFF 03/21/2021 CBC w DIFF 08/30/2020 CBC w DIFF 02/23/2022 CBC w DIFF 09/13/2020 CBC w DIFF 07/21/2021 CBC w DIFF 02/16/2020 CBC w DIFF 07/13/2022 CBC w DIFF 12/13/2020 CBC w DIFF 11/15/2017 SED RATE (ESR) 04/12/2023 SED RATE (ESR) 11/01/2017 URINALYSIS (UA) 07/25/2024 FOLLICLE STIMULATING HORMONE (FSH) 04/12 LUTEINIZING HORMONE (LH) 04/12/2023 URINE CULTURE 07/25/2024 CBC WITH AUTO DIFF 06/04/2023 CBC WITH AUTO DIFF 04/12/2023 CBC WITH AUTO DIFF 04/19/2024 RETIC 02/23/2022 Ferritin 02/23/2022 Ferritin 04/19/2024 Lipid Panel 02/23/2022 Lipid Panel 04/19/2024 Lipid Panel 07/13/2022 Lipid Panel with Reflex 06/04/2023 Free T4 (Free Thyroxine) 04/19/2024 Microalbumin, Random 07/13/2022 Microalbumin, Random 04/19/2024 Microalbumin, Random 03/21/2021 Hemoglobin A1c 07/13/2022 Hemoglobin A1c 06/04/2023 Hemoglobin A1c 02/23/2022 Hemoglobin A1c 04/19/2024 Next Appt Details Provider Name:Fox Johnston, 09/06/2024 04:15:00 PM, [address] [place] [address] [address], [place], [phone], Provider Name:Fox Johnston, 11/22/2024 04:00:00 PM, [address] [place] [address] [address], [place], [address], Insurance Providers Payer Name Payer Address Payer Phone Subscriber Number Group Number Insured Name Patient Relationship to Insured Coverage Start Date Coverage End Date [facility] [address] [place], [place] [id number] Self - patient is the insured 6 Medical (General) History Medical History History ICD Code chronic headaches for 4 monrths [id number] 7 mos former smoker overweight hypothyroid Pre-diabetes {'Condyloma Acuminatum': 'Di agnosed during current visit', 'Muscle Soreness': 'Identified during current visit', 'Gallstones': 'Identified in previous medical tests'} Anal condyloma acuminata Surgical History Surgery Date(Month/Year) No history 2 para 2 2016 C- section 2009 Hospitalization History Reason Date(Month/Year) No history
--- OUTSIDE RECORDS SUMMARY | 2024-09-01 17:20 | XMS_ITS | Continuity of Care Document ---
Author Organization [facility] [address] [facility] [address] [place] [address] Phone [phone] Care Team Providers Care Fretted Instruments Inspector Name Role Phone Fox Johnston M.D. Care Team Information Receive r [phone] Social History Type Date Description Comments Sex Unknown Medical Devices Description No Information Available Encounters Description No Information Available Assessments Description No Information Available Plan of Treatment Future Appointment(s):* 11/01/2024 9:30 am - WOODY Gong at Main Office Functional Status Description No Information Available Mental Status Description No Information Available Referrals Description No Information Available
--- OUTSIDE RECORDS SUMMARY | 2024-09-01 17:20 | XMS_ITS ---
Author Organization Fox Johnston III, MD Address [address] [place] [address] Care Team Providers Care Tongue And Groove Machine Feeder Name Role Phone Fox Johnston Primary Care Provider Allergies Allergen (clinical drug ingredient) Drug/Non Drug Allergy documented on EMR Reaction Allergy Type Onset Date Status No Known Drug Allergy Unknown Drug Allergy Active REASON FOR VISIT Follow up Medications Medication SIG (Take, Route, Frequency, Duration) Notes Start Date End Date Status Omeprazole 20 MG TAKE 1 CAPSULE BY [facility] EVERY DAY FOR 30 DAYS Active Propranolol HCl 10 MG 1 tablet on an emp ty stomach Orally Once a day 03/11/2019 Active Hydrocortisone 1 % 1 application Used [employer] Make Ready Mechanic ally Twice a day 11/19/2023 Active Ferrous Gluconate 324 (38 Fe) MG orally once a day once a day 11/19/2023 Active Aldara Active metFORMIN HCl 500 MG 1 tablet with a wilda l Orally Once a day Active Ketoconazole 2 % 1 application to affected area Externally Twice a day 03/11/2019 Active lamoTRIgine ER 25 MG 1 tablet Orally Onc e a day 07/13/2022 Active Social History Tobacco Use: Social History [...] Date Provider Diagnosis Fox Johnston III, MD [address] [place] [address] [place] [address] 08/28/2024 Fox Johnston Iron deficiency anemia, unspecified iron deficiency anemia type D50.9 Assessments Encounter Date Diagnosis (ICD Code) Assessment Notes Treatment Notes Treatment Clinical Notes 08/28/2024 Iron deficiency anemia, unspecified iron deficiency anemia type (ICD-10 - D50.9) Her ferritin level is 10. Her mean cell volume has decreased to 73. Her hematocrit has decreased to 37%. She was instructed to resume her iron and agreed to do so. It is likely the mild increase in platelets is related to iron deficiency. Plan Of Treatment Medication Medication Name Sig Start Date Stop Date Notes Omeprazole 20 MG TAKE 1 CAPSULE BY [facility] EVERY DAY FOR 30 DAYS Propranolol HCl 10 MG 1 tablet on an emp ty stomach Orally Once a day 03/11/2019 Hydrocortisone 1 % 1 application Used Car Make Ready Mechanic ally Twice a day 11/19/2023 Ferrous Gluconate 324 (38 Fe ) MG orally once a day once a day 11/19/2023 Aldara metFORMIN HCl 500 MG 1 tablet with a wilda l Orally Once a day Ketoconazole 2 % 1 application to aff ected area Externally Twice a day 03/11/2019 lamoTRIgine ER 25 MG 1 tablet Orally Once a day 07/13/2022 Next Appt Details Provider Name:Fox Johnston, 09/06/2024 04:15:00 PM, [address] [place] [address] [address], [place], [phone], Provider Name:Fox Johnston, 11/22/2024 04:00:00 PM, [address] [place] [address] [place], [address], Progress Notes * Nkechi UPDOB: (44 yo F)Acc No.[id number]:08/28/2024 Progress Notes Patient:?Kym UP Provider:?Fox Johnston MD :1980???Age:44 Y???Sex:Female D ate:08/28/2024 Address:[address] [place], [place] [id number] Subjective: * Chief Complaints: * ???1. Follow [...] Medical History:?Chronic hea daches for 4 monrths, [id number] 7 mos, Former smoker, Overweight, Hypothyroid, Pre-diabetes, [...] at the age of 36. She speaks Czech and is learning Amharic but is not yet fluent. She has [...] deficiency anemia type - D50.9???Notes :Her ferritin level is 10. Her mean cell volume has decreased to 73. Her hematocrit has decreased to 37%. She was instructed to resume her iron and agreed to do so. It is likely the mild increase in platelets is related to iron deficiency.??? Plan: * Treatment: 2.?Others? Continue Omeprazole Capsule Delayed Release, 20 MG, TAKE 1 CAPSULE BY MOUTH EVERY DAY FOR 30 DAYS;?Continue Aldara.?? * Images: * The named appointment provid er may or may not be the originator of this progress note, and it is not deemed complete until electronically signed by the appointment provider. Sign off status: Pending * Provider:?Fox Johnston MD Date:?08/2024 Generated for Dexter gomes/Grabiel/eTransmitting on:?09/01/2024 05:19 PM EST History and Physical Notes * [...]
--- OUTSIDE RECORDS SUMMARY | 2024-09-01 17:20 | XMS_ITS ---
Author Organization Fox Johnston III, MD Address [address] [place] [address] Care Team Providers Care Specialty Transformer Assembler Name Role Phone Fox Johnston Primary Care Provider Allergies Allergen (clinical drug ingredient) Drug/Non Drug Allergy documented on EMR Reaction Allergy Type Onset Date Status No Known Drug Allergy Unknown Drug Allergy Active REASON FOR VISIT Upper thoracic, Lumbar spine pain, Headaches, Obesity, Iron deficiency, Diabetes, Left upper quadrant abdominal pain, Tobacco dependence, Barb's thyroiditis, Condylomata Medications Medication SIG (Take, Route, Frequency, Duration) Notes Start Date End Date Status Aldara Active metFORMIN HCl 500 MG 1 tablet with a wilda l Orally Once a day Active lamoTRIgine ER 25 MG 1 tablet Orally Onc e a day 07/13/2022 Active Sulfamethoxazole-Trimethopr im 800-160 MG 1 tablet Orally twice a day for 7 days 07/31/2024 08/07/2024 Active Cyclobenzaprine HCl 10 MG 1 tablet at be dtime as needed Orally three times a day for 7 days 07/31/2024 08/14/2024 Active Hydrocortisone 1 % 1 application Externally Twice a day 11/19/2023 Active Ketoconazole 2 % 1 application to affected area Externally Twice a day 03/11/2019 Active Propranolol HCl 10 MG 1 tablet on an emp ty stomach Orally Once a day 03/11/2019 Active Omeprazole 20 MG TAKE [address] [facility] EVERY DAY FOR 30 DAYS Active Ferrous Gluconate 324 (38 Fe) MG orally once a day once a day 11/19/2023 Active Social History Tobacco Use: Social History [...] cigarett e smoker ((1-9 cigs/day) Vital Signs Temperature 97.1 degrees Fahrenheit 07/31/19 25 Blood pressure systolic 126 mm Hg 07/31/19 25 Blood pressure diastolic 66 mm Hg 025 Heart Rate 96 /min 07/31/2024 Height 63 in 07/31/2024 Weight 196 lbs 07/31/2024 BMI 34.72 kg/m2 07/31/2024 Encounters Encounter Location Date Provider Diagnosis Fox Johnston III, MD [address] [place] [address] [place] [address] 07/31/2024 Fox Johnston Iron deficiency anem ia, [...] Barb's thyroiditis E06.3 and 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 Assessments Encounter Date Diagnosis (ICD Code) Assessment Notes Treat ment Notes Treatment Clinical Notes 07/31/2024 Iron deficiency anemia, unspecified iron deficiency [...] was made. I encouraged weight loss. 07/31/2024 Chronic cluster headache, not intractable (ICD-10 - G44.029) Headaches have worsened in one daily. I have added Fioricet. 07/31/2024 Obesity (BMI 30.0-34.9) (ICD-10 - E66.9) She has lost 1 pound. Her body mass index is 34.7. Once again, we reviewed her weight loss strategy at length. 07/31/2024 Former smoker (ICD-10 - Z87.891) She has stopped smoking. Her weight has not increased. We discussed a strategy to relapse in times of stress and illness. 07/31/2024 Hypothyroidism (ICD-10 - E03.9) , Negative thyroid functions will be done prior to her next visit. She appears to be euthyroid. 07/31/2024 Tobacco dependence (ICD-10 - F17.200) We discussed smoking cessation at length today. 07/31/2024 Low back pain, unspecified (ICD-10 - M54.50) She has had an intermittent and mild to moderate low back pain for several weeks without an antecedent. X-rays of the spine were ordered. She was encouraged to take Tylenol and use heat and rest as much as possible. 07/31/2024 Upper back pain (ICD-10 - M54.9) This appears to be entirely muscular. She will continue to use heat and rest and acetaminophen. She was given a prescription for cyclobenzaprine for 7 days. 07/31/2024 Barb's thyroiditis (ICD-10 - E06.3) Her thyroid disease is stable. She is on thyroid replacement. Her values have been stable. No change in her regimen was necessary today. 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 There has been marked improvement in her cream has been continued. Plan Of Treatment Medication Medication Name Sig Start Date Stop Date Notes Breanna metFORMIN HCl 500 MG 1 tablet with a wilda l Orally Once a day lamoTRIgine ER 25 MG 1 tablet Orally Once a day 07/13/2022 Sulfamethoxazole-Trimethopri m 800-160 MG 1 tablet Orally twice a day for 7 days 07/31/2024 08/07/2024 Cyclobenzaprine HCl 10 MG 1 tablet at be dtime as needed Orally three times a day for 7 days 07/31/2024 08/14/2024 Hydrocortisone 1 % 1 application Beverage Sales Consultant ally Twice a day 11/19/2023 Ketoconazole 2 % 1 application to aff ected area Externally Twice a day 03/11/2019 Propranolol HCl 10 MG 1 tablet on an emp ty stomach Orally Once a day 03/11/2019 Omeprazole 20 MG TAKE [address] [facility] EVERY DAY FOR 30 DAYS Ferrous Gluconate 324 (38 Fe ) MG orally once a day once a day 11/19/2023 Next Appt Details Follow Up: 2 Weeks, Reason: OV Provider Name:Fox Johnston, 09/06/2024 04:15:00 PM, [address] [place] [address] [address], [place], [address], Provider Name:Fox Johnston, 11/22/2024 04:00:00 PM, [address] [place] [address] [address], [place], [address], Progress Notes * Jenny UPB: (44 yo F)Acc No.[id number]:07/31/2024 Progress Notes Patient:?Kym UP Provider:?Fox Johnston MD :1980???Age:44 Y???Sex:Female D ate:07/31/2024 Address:[address] [place], [place] [address] Subjective: * Chief Complaints: * ???Upper thoracicLumbar spin e painHeadachesObesityIron deficiencyDiabetesLeft upper quadrant abdominal painTobacco dependenceHashimoto's thyroiditisCondylomata * HPI: ???COVID-19 Screening:? He returns to the office for management of several issues.? The first? is a pain in the upper back between the scapula and the thoracic spine.? This is muscular in origin.? He has migrated to the back of the axilla.? The muscles are tender to palpation.? She also has pain in her lumbar spine.? X-rays show preserved disc spaces and essentially normal bones.? This is likely a soft tissue inflammation.? She was given a prescription for cyclobenzaprine, and a referral to pain management at [facility].? She will continue with feet and rest.? She will use acetaminophen.Her weight has been stable and has been her headaches.? She has resumed taking her ferrous gluconate after the ferritin returned at 10. ?Questions?Have you had any new onset fever, chills, cough, congestion, sore throat, shortness of breath, muscle aches??No * ROS:?General/Constitutional:?pain?Lumbar spine without radiation, upper right back pain.?Chills?denies.?Fatigue?admits.?Fever?denies.?ENT:?Decreased hearing?denies.?Respiratory:?Cough?denies.?Cardiovascular:?Chest pain with exertion?denies.?Dyspnea on exertion?denies.?Shortness of breath?denies.?Gastrointestinal:?Constipation?occasional.?Decreased appetite?denies.?Diarrhea?denies.?Heartburn?denies.?Nausea?denies.?Rectal bleeding?denies.?Vomiting?denies.?Hematology:?bruising?denies.?petechiae?denies.?Swollen glands?none have been noted.?Genitourinary:?Frequent urination?denies.?Musculoskeletal:?Muscle aches?Low back and upper right back.?Painful joints?denies.?Sciatica?denies.?Weakness?denies.?Skin:?Itching?denies.?Rash?denies.?Skin lesion(s)?denies.?Neurologic:?Difficulty speaking?denies.?Dizziness?denies.?Headache?denies.?Low back pain?denies.?Psychiatric:?Depressed mood?which is mild.? * Medical History:? * Surgical History:?C- section 2009C-section 2016gravida 2 para 2 No history * Hospitalization/Major Diagno stic Procedure:?No history * Family History:?Father: dece ased 50 yrs, [...] smoker ((1-9 cigs/day) ???She was born in [place] and came to this country at the age of 36. She speaks Andorran and is learning Romansh but is not yet fluent. She has 2 children. She is not working. * Medications:?TakingmetFORMIN HCl 500 MG Tablet 1 tablet with a meal Orally Once a day lamoTRIgine ER 25 MG Tablet Extended Release 24 Hour 1 tablet Orally Once a day Ketoconazole 2 % Cream 1 application to affected area Externally Twice a day Propranolol HCl 10 MG Tablet 1 tablet on an empty stomach Orally Once a day Omeprazole 20 MG Capsule Delayed Release TAKE 1 CAPSULE BY MOUTH EVERY DAY FOR 30 DAYS Ferrous Gluconate 324 (38 Fe) MG Tablet orally once a day once a day Hydrocortisone 1 % Cream 1 application Externally Twice a day Aldara Medication List reviewed and reconciled with the patientTaking metFORMIN HCl 500 MG Tablet 1 tablet with a meal Orally Once a day Taking lamoTRIgine ER 25 MG Tablet Extended Release 24 Hour 1 tablet Orally Once a day Taking Ketoconazole 2 % Cream 1 application to affected area Externally Twice a day Taking Propranolol HCl 10 MG Tablet 1 tablet on an empty stomach Orally Once a day Taking Omeprazole 20 MG Capsule Delayed Release TAKE 1 CAPSULE BY MOUTH EVERY DAY FOR 30 DAYS Taking Ferrous Gluconate 324 (38 Fe) MG Tablet orally once a day once a day Taking Hydrocortisone 1 % Cream 1 application Externally Twice a day Taking Aldara Medication List reviewed and reconciled with the patient * Allergies:?No Known Drug All ergyno[Allergies Verified] Objective: * Vitals:?Ht: 63, Wt: 196, BMI :34.72, BP: 126/66, HR: 96, Temp: 97.1, Wt-k.9. * Examination: ???General Examination: ?GENERAL APPEARANCE:?pleasant, well nourished, well developed, in no acute distress, calm and relaxed, obese, woman.?HEAD:?atraumatic, normocephalic.?EYES:?eomi, perrla, anicteric, conjugate.?EARS:?normal.?NOSE:?septum intact.?ORAL CAVITY:?normal, unremarkable.?NECK/THYROID:?no jugular venous distention, no carotid bruit, thyroid normal.?LYMPH NODES:?no enlarged lymph nodes,spleen normal.?SKIN:?no suspicious lesions, anicteric.?HEART:?no clicks, gallops, murmurs, or rubs, regular rhythm, S1, S2 normal, no s3, or vascular bruits.?LUNGS:?clear to auscultation .?BREASTS:?Not examined.?ABDOMEN:?bowel sounds normal, no ascites, no organomegaly, no mass, centripital obesity.?RECTAL EXAM:?not examined.?MUSCULOSKELETAL:?extremities unremarkable, no clubbing, cyanosis or edema, Musculature around the right shoulder is tender to palpation, right shoulder joint normal to rotation without pain, mild decreased range of motion with pain of the lumbar spine.?PERIPHERAL PULSES:?normal.?NEUROLOGIC:?alert and oriented, cranial nerves 2-12 grossly intact, deep tendon reflexes 2+ symmetrical, motor strength normal upper and lower extremities, sensory exam intact.?PSYCH:?alert, oriented.? Assessment: * Assessment: 1.?Diabetes mellitus due to underlying condition without complication, without long-term current use of insulin - E08.9 (Primary)???Notes :Her fasting glucose is 110. Her A1c is 5.8. She has been compliant with her medications. No change in her regimen was made. I encouraged weight loss.???2.?Iron deficiency anemia, unspecified iron deficiency anemia type - D50.9???Notes :Her ferritin level is 10. Her mean cell volume has decreased to 73. Her hematocrit has decreased to 37%. She was instructed to resume her iron and agreed to do so. It is likely the mild increase in platelets is related to iron deficiency.???3.?Chronic cluster headache, not intractable - G44.029???Notes :Headaches have worsened in one daily. I have added Fioricet.???4.?Obesity (BMI 30.0-34.9) - E66.9???Notes :She has lost 1 pound.? Her body mass index is 34.7.? Once again, we reviewed her weight loss strategy at length.???5.?Former smoker - Z87.891???Notes :She has stopped smoking. Her weight has not increased. We discussed a strategy to relapse in times of stress and illness.???6.?Hypothyroidism - E03.9???Notes :, Negative thyroid functions will be done prior to her next visit. She appears to be euthyroid.???7.?Tobacco dependence - F17.200???Notes :We discussed smoking cessation at length today.???8.?Low back pain, unspecified - M54.50???Notes :She has had an intermittent and mild to moderate low back pain for several weeks without an antecedent. X-rays of the spine were ordered. She was encouraged to take Tylenol and use heat and rest as much as possible.???9.?Upper back pain - M54.9???Notes :This appears to be entirely muscular.? She will continue to use heat and rest and acetaminophen.? She was given a prescription for cyclobenzaprine for 7 days.???10.?Barb's thyroiditis - E06.3???Notes :Her thyroid disease is stable.? She is on thyroid replacement.? Her values have been stable.? 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 There has been marked improvement in her cream has been continued.??? Plan: * Treatment: 2.?Others? Continue Omeprazole Capsule Delayed Release, 20 MG, TAKE 1 CAPSULE BY MOUTH EVERY DAY FOR 30 DAYS;?Continue Aldara.?? * Procedure Codes:? * Preventive Medicine:? ??Counseling:?Care goal follow-up plan:?Counseling for abnormal BMI given?Yes ?Above Normal BMI Follow-up?Dietary management education, guidance, and counseling, Dietary needs education, Exercise promotion: strength training, Exercise promotion: stretching, Feeding regime, Giving encouragement to exercise, Lifestyle education regarding diet, Nutrition / feeding management, Nutrition therapy, Prescribed activity/exercise education, Prescribed diet education, Prescribed dietary intake, Special diet education, Weight monitoring , Intervention, Order not done: Medical or Other reason not done ?Smoking/Tobacco Use?Patient counseled on the dangers of tobacco use and urged to quit.?07/31/2024 ??DM Care Plan:?Patient Lifestyle Goals?Patient wants to be able to manage diabetes without too much effort.?Treatment Goals?Blood Sugars less than < 115, HbA1C < 7.0.?Barriers?no barriers.?Self-Managment Goals?Work on weight loss, with a goal of losing 1 lb per week.? * Follow Up:?2 Weeks (Reason: OV) * Images: * Sign off status: Completed true * Provider:?Fox Johnston MD Date:?08/2024 Generated for [...] developed, in no acute distress, calm and relaxed, obese, woman HEAD: atraumatic, normocep halic EYES: eomi, perrla, anicte fabricio, conjugate EARS: normal NOSE: septum intact NECK/THYROID: no jugular venous di stention, no carotid bruit, thyroid normal HEART: no clicks, gallops, murmurs, or rubs, regular rhythm, S1, S2 normal, no s3, or vascular bruits LUNGS: clear to auscultatio n ABDOMEN: bowel sounds normal, no ascites, no organomegaly, no mass, centripital obesity NEUROLOGIC: alert and oriented, cranial nerves 2-12 grossly intact, deep tendon reflexes 2+ symmetrical, motor strength normal upper and lower extremities, sensory exam intact SKIN: no suspicious lesion s, anicteric PERIPHERAL PULSES: normal BREASTS: Not examined MUSCULOSKELETAL: extremities unremark able, no clubbing, cyanosis or edema, Musculature around the right shoulder is tender to palpation, right shoulder joint normal to rotation without pain, mild decreased range of motion with pain of the lumbar spine LYMPH NODES: no enlarged lymph no samantha,spleen normal RECTAL EXAM: not examined PSYCH: alert, oriented ORAL CAVITY: normal, unremarkable
--- OUTSIDE RECORDS SUMMARY | 2024-09-01 17:20 | XMS_ITS ---
Author Organization Fox Johnston III, MD Address [address] [place] [place] [address] Care Team Providers Care Sheet Manufacturing Supervisor Name Role Phone Fox Johnston Primary Care Provider REASON FOR VISIT Out of work Note Social History Sex Assigned At : Social History Observation Description Sex Assigned At Female Encounters Encounter Location Date Provider Diagnosis Fox Johnston III, MD [address] [place] [address] [place] [address] 08/24/2024 Fox Johnston Plan Of Treatment Next Appt Details Provider Name:Fox Johnston, 09/06/2024 04:15:00 PM, [address] [facility] [place], [address], Provider Name:Fxo Johnston, 11/22/2024 04:00:00 PM, [address] [place] [address] [place], [address], Progress Notes * Nkechi UPDOB: (44 yo F)Acc No.[id number]:08/24/2024 Patient:?KATIE Kym BAKER cedric :1980???Age:44 Y???Sex:Female Address:[address] [place] [address], [address] * true * Date:? Generated for Dexter gomes/Grabiel/Justinosmitting on:?09/01/2024 05:19 PM EST
== END 2024-09-01 16:20 | disposition home or self-care (01) ==
LOC: HO.HWS 15:56
PROVIDERS: PCP Internal Medicine Medical Oncology; Visit Provider Obstetrics & Gynecology
DX: K62.82 Dysplasia of anus (principal)
CPT/HCPCS: 99213

== ENCOUNTER → 2024-09-01 15:56 | Outpatient (BNVA) | payer BC, SELFPAY | PROVIDERS: PCP Internal Medicine Medical Oncology; Visit Provider Obstetrics & Gynecology ==

== ENCOUNTER 2024-09-15 15:42 | Outpatient (AMB) | payer BC, SELFPAY ==
--- NOTE | 2024-09-15 15:43 | MHC.OFFVIS ---
Intake Visit Reasons: TCA treatment Latex Spooler Required: Yes Latex Spooler Language: Last Inserter Services: Latex Spooler Present Latex Spooler Name: In person Information Interpreted: non-clinical & clinical Workday Financials Consultant: Workday Financials Consultant Present (TEE Herrera) Accompanied by: Self / Same As Patient Allergies No Known Allergies Allergy (Verified 09/15/24 15:43) HPI Comments Details: Presenting for additional TCA application for perirectal worse. The patient had an application 2 weeks ago on the right buttock feels that the lesions where TCA was applied have resolved, did not have any irritation after the application and no other complaints PFSH Medical History 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 Obesity due to excess calories Prediabetes Surgical History Hx of dilation and curettage (~2020) H/O tubal ligation Family History Mother Diabetes Maternal Grandfather Diabetes Father Diabetes Social History Household Members: Spouse and Children Are you a primary healthcare customer service to a significant other at home: No Do you presently have visiting nurse or other home services: No Alcohol intake: never Patient Tobacco Use Status: Never used Tobacco Second Hand Smoke Exposure: No Current occupational status: employed 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 Instructions given the patient to was very well after each bowel movement call in case of irritation redness or pain and to schedule another 1 week follow-up appointment for an additional cc application Coding Level of Care Code Est Pt Level 3 (96600) Diagnoses AIN grade I K62.82
--- OUTSIDE RECORDS SUMMARY | 2024-09-15 17:24 | XMS_ITS | Continuity of Care Document ---
Author Organization [facility] [address] [place] [address] Phone [phone] Care Team Providers Care Alteration Manager Name Role Phone Fox Johnston M.D. Care Team Information Receive r [phone] Social History Type Date Description Comments Sex Unknown Medical Devices Description No Information Available Encounters Description No Information Available Assessments Description No Information Available Plan of Treatment Future Appointment(s):* 11/01/2024 9:30 am - WOODY Gong at Main Office Functional Status Description No Information Available Mental Status Description No Information Available Referrals Description No Information Available
--- OUTSIDE RECORDS SUMMARY | 2024-09-15 17:24 | XMS_ITS ---
Author Organization Fox Johnston III, MD Address [address] [place] [place] [address] Care Team Providers Care Senior Instructor Name Role Phone Fox Johnston Primary Care Provider REASON FOR VISIT Out of work Note Social History Sex Assigned At : Social History Observation Description Sex Assigned At Female Encounters Encounter Location Date Provider Diagnosis Fox Johnston III, MD [address] [place] [address] [place] [address] 08/24/2024 Fox Johnston Plan Of Treatment Next Appt Details Provider Name:Fox Johnston, 09/27/2024 04:15:00 PM, [address] [place] [address] [place], [address], Provider Name:Fox Johnston, 11/22/2024 04:00:00 PM, [address] [place] [address] [place], [address], Progress Notes * Nkechi UPDOB: (44 yo F)Acc No.[id number]:08/24/2024 Patient:?KATIE Kym BAKER cedric :1980???Age:44 Y???Sex:Female Address:[address] [place] [address], [address] * true * Date:? Generated for Dexter gomes/Grabiel/eTransmitting on:?09/15/2024 05:24 PM EDT
--- OUTSIDE RECORDS SUMMARY | 2024-09-15 17:24 | XMS_ITS ---
Author Organization Fox Johnston III, MD Address [address] [place] [address] Care Team Providers Care Hand Salter Name Role Phone Fox Johnston Primary Care Provider Allergies Allergen (clinical drug ingredient) Drug/Non Drug Allergy documented on EMR Reaction Allergy Type Onset Date Status No Known Drug Allergy Unknown Drug Allergy Active REASON FOR VISIT Follow up Medications Medication SIG (Take, Route, Frequency, Duration) Notes Start Date End Date Status Omeprazole 20 MG TAKE 1 CAPSULE BY [facility] EVERY DAY FOR 30 DAYS Active Propranolol HCl 10 MG 1 tablet on an emp ty stomach Orally Once a day 03/11/2019 Active Hydrocortisone 1 % 1 application Manager Product Support ally Twice a day 11/19/2023 Active Ferrous [...] Date Provider Diagnosis Fox Johnston III, MD [address] [place] [address] [place] [address] 08/28/2024 Fox Johnston Iron deficiency anemia, unspecified [...] Omeprazole 20 MG TAKE 1 CAPSULE BY [facility] EVERY DAY FOR 30 DAYS Propranolol HCl 10 MG 1 tablet on an emp ty stomach Orally Once a day 03/11/2019 Hydrocortisone 1 % 1 application Manager Product Support ally Twice a day 11/19/2023 Ferrous Gluconate [...] 07/13/2022 Next Appt Details Provider Name:Fox Johnston, 09/27/2024 04:15:00 PM, [address] [place] [address] [address], [place], [address], Provider Name:Fox Johnston, 11/22/2024 04:00:00 PM, [address] [place] [address] [place], [address], Progress Notes * Nkechi UPDOB: (44 yo F)Acc No.[id number]:08/28/2024 Progress Notes Patient:?Kym UP Provider:?Fox Johnston MD :1980???Age:44 Y???Sex:Female D ate:08/28/2024 Address:[address] [place], [place] [address] Subjective: * Chief Complaints: * ???1. Follow [...] Medical History:?Chronic hea daches for 4 monrths, [id number] 7 mos, Former smoker, Overweight, Hypothyroid, Pre-diabetes, [...] at the age of 36. She speaks Faroese and is learning Divehi but is not yet fluent. She has [...] Johnston MD Date:?08/2024 Generated for Dexter gomes/Grabiel/eTransmitting on:?09/15/2024 05:24 PM EDT History and Physical Notes * HPI (History [...]
--- OUTSIDE RECORDS SUMMARY | 2024-09-15 17:24 | XMS_ITS ---
Author Organization Fox Johnston III, MD Address [address] [place] [address] Care Team Providers Care Manager Market Name Role Phone Fox Johnston Primary Care Provider [phone] Allergies Allergen (clinical drug ingredient) Drug/Non Drug Allergy documented on EMR Reaction Allergy Type Onset Date Status No Known Drug Allergy Unknown Drug Allergy Active REASON FOR VISIT Follow up Medications Medication SIG (Take, Route, Frequency, Duration) Notes Start Date End Date Status Aldara Active Ferrous Gluconate 324 (38 Fe) MG orally once a day once a day 11/19/2023 Active Hydrocortisone 1 % 1 application Embroidery Patternmaker ally Twice a day 11/19/2023 Active Omeprazole 20 MG TAKE 1 CAPSULE BY [facility] EVERY DAY FOR 30 DAYS Active metFORMIN HCl 500 MG 1 tablet with a wilda l Orally Once a day Active Ketoconazole 2 % 1 application to affected area Externally Twice a day 03/11/2019 Active Propranolol HCl 10 MG 1 tablet on an emp ty stomach Orally Once a day 03/11/2019 Active lamoTRIgine ER 25 [...] Date Provider Diagnosis Fox Johnston III, MD [address] [place] [address] [place] [address] 09/06/2024 Fox Johnston Iron deficiency anemia, unspecified iron deficiency anemia type D50.9 Assessments Encounter Date Diagnosis (ICD Code) Assessment Notes Treatment Notes Treatment Clinical Notes 09/06/2024 Iron deficiency anemia, unspecified iron deficiency anemia [...] Sig Start Date Stop Date Notes Breanna Ferrous Gluconate 324 (38 Fe ) MG orally once a day once a day 11/19/2023 Hydrocortisone 1 % 1 application Embroidery Patternmaker ally Twice a day 11/19/2023 Omeprazole 20 MG TAKE 1 CAPSULE BY [facility] EVERY DAY FOR 30 DAYS metFORMIN HCl 500 MG 1 tablet with a wilda l Orally Once a day Ketoconazole 2 % 1 application to aff ected area Externally Twice a day 03/11/2019 Propranolol HCl 10 MG 1 tablet on an emp ty stomach Orally Once a day 03/11/2019 lamoTRIgine ER 25 MG 1 tablet Orally Once a day 07/13/2022 Next Appt Details Provider Name:Fox Johnston, 09/27/2024 04:15:00 PM, [address] [place] [address] [place], [address], Provider Name:Fox Johnston, 11/22/2024 04:00:00 PM, [address] [place] [address] [place], [address], Progress Notes * Nkechi UPDOB: (44 yo F)Acc No.[id number]:09/06/2024 Progress Notes Patient:?Kym UP Provider:?Fox Johnston MD :1980???Age:44 Y???Sex:Female D ate:09/06/2024 Address:[address] [place], [place] [id number] Subjective: * Chief Complaints: * ???1. Follow [...] Medical History:?Chronic hea daches for 4 monrths, [id number] 7 mos, Former smoker, Overweight, Hypothyroid, Pre-diabetes, [...] at the age of 36. She speaks Thai and is learning Greenlandic but is not yet fluent. She has [...] off status: Pending * Provider:?Fox Johnston MD Date:?08/26 Generated for Dexter gomes/Grabiel/eTransmitting on:?09/15/2024 05:24 PM [...]
== END 2024-09-15 16:04 | disposition home or self-care (01) ==
LOC: HO.HWS 15:42
PROVIDERS: PCP Internal Medicine Medical Oncology; Visit Provider Obstetrics & Gynecology
DX: K62.82 Dysplasia of anus (principal)
CPT/HCPCS: 99213

== ENCOUNTER 2024-09-21 15:13 | Outpatient (AMB) | payer BC, SELFPAY ==
[2024-09-21 15:25] VITALS: BMI 33.0
--- NOTE | 2024-09-21 15:25 | MHC.OFFVIS ---
Vital Signs 09/21/24 15:25 Height 5 ft 4 in Weight 192 lb BMI 33.0 Intake Visit Reasons: wart treatment per Reversing Mill Roller Required: Yes Reversing Mill Roller Language: Electronic Technologist Services: Reversing Mill Roller Present (in person) Reversing Mill Roller Name: Carolyn OLIVEIRA Information Interpreted: non-clinical & clinical Electrotyper Helper: Electrotyper Helper Present (Carolyn OLIVEIRA) Accompanied by: Self / Same As Patient Allergies No Known Allergies Allergy (Verified 09/21/24 15:26) HPI Comments Details: Presenting for additional TCA application for perirectal wart. 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 Obesity due to excess calories Prediabetes Surgical History Hx of dilation and curettage (~2020) H/O tubal ligation Family History Mother Diabetes Maternal Grandfather Diabetes Father Diabetes Social History Household Members: Spouse and Children Are you a primary director of critical care to a significant other at home: No Do you presently have visiting nurse or other home services: No Alcohol intake: never Patient Tobacco Use Status: Never used Tobacco Second Hand Smoke Exposure: No Current occupational status: employed 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 Instructions given the patient to was very well after each bowel movement call in case of irritation redness or pain and to schedule another 1 week follow-up appointment for an additional cc application Coding Level of Care Code Est Pt Level 3 (82508) Diagnoses AIN grade I K62.82
--- OUTSIDE RECORDS SUMMARY | 2024-09-21 18:53 | XMS_ITS ---
Author Organization Fox Johnston III, MD Address [address] [place] [address] Care Team Providers Care Cyber Intelligence Analyst Name Role Phone Fox Johnston Primary Care Provider REASON FOR VISIT Out of work Note Social History Sex Assigned At : Social History Observation Description Sex Assigned At Female Encounters Encounter Location Date Provider Diagnosis Fox Johnston III, MD [address] [place] [address] [place] [address] 08/24/2024 Fox Johnston Plan Of Treatment Next Appt Details Provider Name:Fox Johnston, 09/27/2024 04:15:00 PM, [address] [place] [address] [place], [address], Provider Name:Fox Johnston, 11/22/2024 04:00:00 PM, [address] [place] [address] [place], [address], Progress Notes * Nkechi UPDOB: (44 yo F)Acc No.[id number]:08/24/2024 Patient:?KATIE Kym BAKER cedric :1980???Age:44 Y???Sex:Female Address:[address] [place] [address], [address] * true * Date:? Generated for Dexter gomes/Grabiel/eTransmitting on:?09/21/2024 06:53 PM EDT
--- OUTSIDE RECORDS SUMMARY | 2024-09-21 18:53 | XMS_ITS ---
Author Organization Fox Johnston III, MD Address [address] [place] [address] Care Team Providers Care Medical Program Specialist Name Role Phone Fox Johnston Primary Care [...] 11/19/2023 Active Hydrocortisone 1 % 1 application Billing Customer Service Representative ally Twice a day 11/19/2023 Active Omeprazole 20 MG TAKE 1 CAPSULE BY [facility] EVERY DAY FOR 30 DAYS Active [...] Date Provider Diagnosis Fox Johnston III, MD [address] [place] [address] [place] [address] 09/06/2024 Fox Johnston Iron deficiency anemia, unspecified [...] day 11/19/2023 Hydrocortisone 1 % 1 application Billing Customer Service Representative ally Twice a day 11/19/2023 Omeprazole 20 MG TAKE 1 CAPSULE BY [facility] EVERY DAY FOR 30 DAYS metFORMIN [...] Details Provider Name:Fox Johnston, 09/27/2024 04:15:00 PM, [address] [place] [address] [place], [address], Provider Name:Fox Johnston, 11/22/2024 04:00:00 PM, [address] [place] [address] [place], [address], Progress Notes * Nkechi UPDOB: (44 yo F)Acc No.[id number]:09/06/2024 Progress Notes Patient:?Kym UP Provider:?Fox Johnston MD :1980???Age:44 Y???Sex:Female D ate:09/06/2024 Address:[address] [place], [place] [phone] Subjective: * Chief Complaints: * ???1. Follow [...] Medical History:?Chronic hea daches for 4 monrths, [id number] 7 mos, Former smoker, Overweight, Hypothyroid, Pre-diabetes, [...] at the age of 36. She speaks Kazakh and is learning Irish but is not yet fluent. She has [...] Johnston MD Date:?08/26 Generated for Dexter gomes/Grabiel/eTransmitting on:?09/21/2024 06:53 PM EDT History and Physical Notes * [...]
--- OUTSIDE RECORDS SUMMARY | 2024-09-21 18:54 | XMS_ITS ---
Author Organization Fox Johnston III, MD Address [address] [place] [address] Care Team Providers Care Microsoft Crm Developer Name Role Phone Fox Johnston Primary Care Provider [phone] Allergies Allergen (clinical drug ingredient) Drug/Non Drug Allergy documented on EMR Reaction Allergy Type Onset Date Status No Known Drug Allergy Unknown Drug Allergy Active REASON FOR VISIT Follow up Medications Medication SIG (Take, Route, Frequency, Duration) Notes Start Date End Date Status Omeprazole 20 MG TAKE 1 CAPSULE BY [facility] EVERY DAY FOR 30 DAYS Active Propranolol HCl 10 MG 1 tablet on an emp ty stomach Orally Once a day 03/11/2019 Active Hydrocortisone 1 % 1 application Haz Tech ally Twice a day 11/19/2023 Active Ferrous [...] Date Provider Diagnosis Fox Johnston III, MD [address] [place] [address] [place] [address] 08/28/2024 Fox Johnston Iron deficiency anemia, unspecified [...] Omeprazole 20 MG TAKE 1 CAPSULE BY [facility] EVERY DAY FOR 30 DAYS Propranolol HCl 10 MG 1 tablet on an emp ty stomach Orally Once a day 03/11/2019 Hydrocortisone 1 % 1 application Haz Tech ally Twice a day 11/19/2023 Ferrous Gluconate [...] Details Provider Name:Fox Johnston, 09/27/2024 04:15:00 PM, [address] [place] [address] [address], [place], [address], Provider Name:Fox Johnston, 11/22/2024 04:00:00 PM, [address] [place] [address] [place], [address], Progress Notes * Nkechi UPDOB: (44 yo F)Acc No.[id number]:08/28/2024 Progress Notes Patient:?Kym UP Provider:?Fox Johnston MD :1980???Age:44 Y???Sex:Female D ate:08/28/2024 Address:[address] [place], [place] [id number] Subjective: * Chief Complaints: * ???1. Follow [...] Medical History:?Chronic hea daches for 4 monrths, [id number] 7 mos, Former smoker, Overweight, Hypothyroid, Pre-diabetes, [...] at the age of 36. She speaks French and is learning Kyrgyz but is not yet fluent. She has [...] Johnston MD Date:?08/2024 Generated for Dexter gomes/Grabiel/eTransmitting on:?09/21/2024 06:53 PM [...]
== END 2024-09-21 15:53 | disposition home or self-care (01) ==
PROVIDERS: PCP Internal Medicine Medical Oncology; Visit Provider Obstetrics & Gynecology
DX: K62.82 Dysplasia of anus (principal)
CPT/HCPCS: 99213

== ENCOUNTER 2024-09-29 15:39 | Outpatient (AMB) | payer BC, SELFPAY ==
--- NOTE | 2024-09-29 15:50 | MHC.OFFVIS ---
Intake Visit Reasons: wart treatment Health Care Manager Required: Yes Health Care Manager Language: Modern Languages Professor Services: Health Care Manager Present (in person) Health Care Manager Name: Carolyn BarraganTEE bernal Information Interpreted: non-clinical & clinical Grab Jack Worker: Grab Jack Worker Present (TEE Herrera) Accompanied by: Spouse Allergies No Known Allergies Allergy (Verified 09/29/24 15:51) HPI Comments Details: Presenting for follow-up. Perianal lesions biopsy pathology showed the following: A. Perianal, right, large lesion, biopsy: Condyloma acuminatum. B. Perianal, left, large lesion, biopsy: Condyloma acuminatum The patient was prescribed Aldara cream, did not feel it helped Multiple TCA applications was done but the patient is a feels that the number of her lesion has not decreased significantly and is interested in a different option of treatment. 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 Obesity due to excess calories Prediabetes Surgical History Hx of dilation and curettage (~2020) H/O tubal ligation Family History Mother Diabetes Maternal Grandfather Diabetes Father Diabetes Social History Household Members: Spouse and Children Are you a primary career development coordinator to a significant other at home: No Do you presently have visiting nurse or other home services: No Alcohol intake: never Patient Tobacco Use Status: Never used Tobacco Second Hand Smoke Exposure: No Current occupational status: employed 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 Sexual 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/Heterosexual Gender identity: Female Female Reproductive History Menstrual Age of Menarche: 13 Review of Systems Const All systems reviewed & are unremarkable except as noted in HPI and below Physical Exam General: Yes no CVA tenderness External Female Exam: No normal external appearance, normal appearance of the urethra and other (Multiple bilateral perianal genital warts) Speculum Exam - Vagina: normal appearance of the vagina, normal palpation, no lesions and no masses Speculum Exam - Cervix: normal appearance of the cervix, normal palpation, no lesions, no masses and nontender Bimanual exam- vagina & uterus: normal bimanual exam, normal palpation, uterine size normal, normal palpation, uterine shape normal, No Cervical tenderness present and non-tender Bimanual Exam- Adnexa, other: normal adnexae Back/Spine/Pelvis Back: no CVA tenderness Assessment & Plan Assessment & Plan (1) AIN grade I: Comment: Condyloma Code(s): K62.82 - Dysplasia of anus Category: Medical Plan: Discussed with the patient all other options of treatment including Podophyllotoxin, cryotherapy, electrosurgery or laser therapy. All pros and cons, risks and benefits of each were discussed with the patient, the patient is interested in laser therapy. Explained to the patient that laser is not available at [facility] will refer to [facility] for further management. All questions answered, the patient verbalized understanding. Instructed the patient to call our office back in case a referral appointment is not scheduled, missed or canceled so that we will assist on rescheduling another appointment, the patient verbalized understanding agreed with the plan. Coding Level of Care Code Est Pt Level 3 (31973) Diagnoses AIN grade I K62.82
--- OUTSIDE RECORDS SUMMARY | 2024-09-29 16:48 | XMS_ITS | Patient Health Record ---
Author Organization Fox Johnston III, MD Address [address] [place] [address] Care Team Providers Care Chief Operating Officer Name Role Phone Fox Johnston Primary Care Provider [phone] Allergies Allergen (clinical drug ingredient) Drug/Non Drug Allergy documented on EMR Reaction Allergy Type Onset Date Status No Known Drug Allergy Unknown Drug Allergy Active Results Component Value Reference Range Notes XR lumbar spine 2-3V Reviewed date:07/31/2024 06:14:30 PM Interpretation: Performing Lab: Notes/Report: [facility] [address] [place] [address] XRay Report Signed Patient: Nkechi Up MR#: [id number] : 1980 Acct:[id number] Age/Sex: 44 / F ADM Date: 07/25/24 Loc: HO.XRAY Attending Dr: Fox Johnston MD Ordering Physician: Fox Johnston MD Date of Service: 07/25/24 Procedure(s): XR lumbar spine 2-3V Accession Number(s): [id number] cc: Fox Johnston MD CLINICAL HISTORY: LOW [...] in OV> 07/26/241910 DD/ 09 TD/TT: 07/26/241909 Ophthalmic Medical Assistant: [address] [address] XRay Report Signed Patient: Nkechi Up MR#: [id number] : 1980 Acct:[id number] Age/Sex: 44 / F ADM Date: 07/25/24 Loc: HO.XRAY Attending Dr: Fox Johnston MD Ordering Physician: Fox Johnston MD Date of Service: 07/25/24 Procedure(s): XR lum bar spine 2-3V Accession Number(s): [id number] cc: Fox Johnston MD CLINICAL HISTORY: LO [...] in OV> 07/26/241910 DD/ 09 TD/TT: 07/26/241909 Ophthalmic Medical Assistant: Complete Blood Count Auto Di ff Reviewed date:11/19/2023 04:11:12 PM Interpretation: Performing Lab:[facility], [address] [place] [phone] Notes/Report: White Blood Count 9.2 4.8-10.8 X10*3/uL [...] NRBC Abs Auto 0.000 0.0-0.012 X10*3/uL Comprehensive Prospect. Panel Fa st Reviewed date:11/19/2023 04:11:12 PM Interpretation: Performing Lab:[facility], [address] [place] [phone] Notes/Report: Sodium 139 135-145 mmol/L Potassium 3.7 [...] Ferritin Reviewed date:11/19/2023 04:11:12 PM Interpretation: Performing Lab:[facility], [address] [place] [phone] Notes/Report: Ferritin 6 10-250 ng/mL Lipid Panel with Reflex Reviewed date:11/19/2023 04:11:12 PM Interpretation: Performing Lab:[facility], [address] [place] [phone] Notes/Report: Triglycerides 119 <150 mg/dL Desirable Triglyceride: [...] A1c Reviewed date:11/19/2023 04:11:12 PM Interpretation: Performing Lab:[facility], [address] [place] [address] Notes/Report: Hemoglobin A1c % 6.0 <6.0 % [...] average glucose, using the formula of the S5V-Hlnimdp Average Glucose study (ADAG), Diabetes Care, Vol.31,#8, Jan. 2007 Complete Blood Count Auto Di ff Reviewed date:03/08/2024 04:10:07 PM Interpretation: Performing Lab:[facility], [address] [place] [phone] Notes/Report: White Blood Count 8.2 4.8-10.8 X10*3/uL [...] RETIC Reviewed date:03/08/2024 04:10:07 PM Interpretation: Performing Lab:[address] [address] Notes/Report: Reticulocytes Absolute 0.074 0.026-0.0 95 X10*6/uL Immature Retic Fraction 16.7 3.0-15.9 % Retic HGB Equivalent 27.8 30.0-35.0 pg Reticulocyte Percent 1.4 0.5-1.8 % Comprehensive Prospect. Panel Fa st Reviewed date:03/08/2024 04:10:07 PM Interpretation: Performing Lab:[address] [address] Notes/Report: Sodium 138 135-145 mmol/L Potassium 3.9 [...] Ferritin Reviewed date:03/08/2024 04:10:07 PM Interpretation: Performing Lab:[address] [address] Notes/Report: Ferritin 15 10-250 ng/mL Hemoglobin A1c Reviewed date:03/08/2024 04:10:07 PM Interpretation: Performing Lab:[facility], [address] [place] [address] Notes/Report: Hemoglobin A1c % 5.8 <6.0 % [...] average glucose, using the formula of the S5S-Twoomyr Average Glucose study (ADAG), Diabetes Care, Vol.31,#8, Jan. 2007 CT NG by PCR Reviewed date:03/27/2024 08:14:41 AM Interpretation: Performing Lab:[facility], [address] [place] [phone] Notes/Report: Vaginal CT PCR NOT DETECTED Not [...] Diff Reviewed date:03/27/2024 08:14:41 AM Interpretation: Performing Lab:[facility], [address] [place] [phone] Notes/Report: White Blood Count 7.8 4.8-10.8 X10*3/uL [...] T4 Reviewed date:03/27/2024 08:14:41 AM Interpretation: Performing Lab:[facility], [address] [place] [phone] Notes/Report: TSH reflex Free T4 1.27 0.32-4.0 uIU/mL Prolactin Reviewed date:03/27/2024 08:14:41 AM Interpretation: Performing Lab:[facility], [address] [place] [phone] Notes/Report: Prolactin 8.2 Reference Range Females Non- 3.0-30.0 10.0-209.0 Postmenopausal 2.0-20.0 THIS TEST WAS PERFORMED AT: [facility] [address] [address] ROSALINDA CUEVA MD HCG Quantitative Reviewed date:03/27/2024 08:14:41 AM Interpretation: Performing Lab:[facility], [address] [place] [phone] Notes/Report: HCG Quantitative < 2 Weeks post [...] date:05/01/2024 05:51:17 AM Interpretation: Performing Lab: Notes/Report: [address] [address] Ultrasound Report Signed Patient: Nkechi Up MR#: [id number] : 1980 Acct:[id number] Age/Sex: 43 / F ADM Date: 03/20/24 Loc: HO.US Attending Dr: Baldemar Pineda MD Ordering Physician: Baldemar Pineda MD Date of Service: 03/20/24 Procedure(s): US pelvic and transvaginal Accession Number(s): [id number] cc: Fox Johnston MD; Baldemar Pineda MD [...] 05/01/24 0032 DD/ 1607 TD/TT: 03/20/24 1629 Ophthalmic Medical Assistant: [place] [address] Ultrasound Report Signed Patient: Nkechi Up MR#: [id number] : 1980 Acct:[id number] Age/Sex: 43 / F ADM Date: 03/20/24 Loc: HO.US Attending Dr: Baldemar Pineda MD Ordering Physician: Baldemar Pineda MD Date of Service: 03/20/24 Procedure(s): US pel mic and transvaginal Accession Number(s): [id number] cc: Fox Johnston MD; Baldemar Pineda MD [...] 05/01/24 0032 DD/ 1607 TD/TT: 03/20/24 1629 Ophthalmic Medical Assistant: BRENT US abdomen complete Reviewed date:06/09/2024 08:45:14 AM Interpretation: Performing Lab: Notes/Report: [address] [address] Ultrasound Report Signed with Addenda Patient: Nkechi Up MR#: [id number] : 1980 Acct:[id number] Age/Sex: 43 / F ADM Date: 03/24/24 Loc: HO.US Attending Dr: Fox Johnston MD Ordering Physician: Fox Johnston MD Date of Service: 03/24/24 Procedure(s): US abdomen complete Accession Number(s): [id number] cc: Fox Johnston MD ADDENDUM ADDENDUM #1 ADDENDUM: The patient provides a history of prior cholecystectomy. It is possible that the shadowing area in the gallbladder fossa interpreted as a kibu-vxbl-agkrtr complex represents postoperative scarring and surgical clips. [...] GALLBLADDER: There is marked cholelithiasis, with a hfvg-idzr-tzjevv complex. Gallbladder wall thickness is normal at [...] 1. There is marked cholelithiasis, with a qnox-rved-ttuftp complex. No cholecystitis or choledocholithiasis seen. 2. [...] in OV> 04/08/242132 DD/ 9 TD/TT: 03/24/24899 Ophthalmic Medical Assistant: [place] [address] Ultrasound Report Signed with Addenda Patient: Nkechi Up MR#: [id number] : 1980 Acct:[id number] Age/Sex: 43 / F ADM Date: 03/24/24 Loc: HO.US Attending Dr: Fox Johnston MD Ordering Physician: Fox Johnston MD Date of Service: 03/24/24 Procedure(s): US abd omen complete Accession Number(s): [id number] cc: Fox Johnston MD ADDENDUM ADDENDUM #1 ADDENDUM: The patien t provides a history of prior cholecystectomy. It is possible that the shadowing area in the gallbladder fossa interpreted as a mpej-hlzn-yhpjyn complex represents postoperative scarring and surgica l [...] There i s marked cholelithiasis, with a fiyp-qlxk-esaguz complex. Gallbladder wall thickness is normal at [...] 1. There is marked cholelithiasis, with a lbdw-vwbs-putkjt complex. No cholecystitis or choledocholithiasis seen. 2. [...] OV> 04/08/242132 DD/ 0830 TD/TT: 03/24/24 0900 Ophthalmic Medical Assistant: TEMI Avalos Reviewed date:04/10/2024 07:30:46 AM Interpretation: Performing Lab:[facility], [address] [place] [phone] Notes/Report: ----- Name: Nkechi Up Age/Sex: 43/F : 1980 Unit#: [id number] Attend Dr: Baldemar Pineda MD Re03/30/24 Status : DEP REF Location: [facility] Disch: ----- SPEC : [id number] RECD : 04/03/24 STATUS: VINOD SULMA NUM: [id number] RADHA: 03/30/24-1544 [facility] DR: Baldemar Pineda MD ENTERED: [...] CEDS Copies To: Fox Johnston MD [address] [facility] [place] [address] Baldemar Pineda MD [facility] [address] [place] [place], [place] [phone] ----- Signed (signature on file) Yosvany Martinez MD 04/04/24 1234 ----- END OF REPORT Pathology Reviewed date:04/23/2024 06:38:25 AM Interpretation: Performing Lab:[facility], [address] [place] [phone] Notes/Report: ----- Name: Nkechi Up Age/Sex: 43/F : 1980 Unit#: [id number] Attend Dr: Baldemar Pineda MD Re04/13/24 Status : DEP REF Location: HO.LNP Disch: ----- SPEC : [id number] RECD : 04/14/24 STATUS: VINOD OZUNA NUM: [id number] RADHA: 04/13/24 [facility] DR: Baldemar Pineda MD ENTERED: [...] CEDS Copies To: Fox Johnston MD [address] [facility] [place], [place] [phone] Baldemar Pineda MD [facility] Women[facility] [address] [place] [address] CONTINUED ON NEXT PAGE ----- Name: Yeison RobertNkechi Elyse Age/Sex: 43/F : 1980 Unit#: [id number] Attend Dr: Baldemar Pineda MD Re04/13/24 Status : DEP REF Location: [facility] Disch: ----- SPEC : [id number] RECD : 04/14/24 STATUS: VINOD OZUNA NUM: [id number] RADHA: 04/13/24 [facility] DR: Baldemar Pineda MD ENTERED: 04/14/24 SP TYPE: Surgical OTHR DR: Fox Johnston MD ORDERED: Raven Garcia L4/2 Copies To: (Continued) [phone] ----- Signed (signature on file) Heydi Fairview 04/17/24 1423 ----- END OF REPORT MM tomosynthesis diagnostic BI Reviewed date:05/22/2024 07:51:57 AM Interpretation: Performing Lab: Notes/Report: [facility] [address] [place] [address] Mammography Report Signed Patient: LathamNkechi Rizo MR#: [id number] : 1980 Acct:[id number] Age/Sex: 43 / F ADM Date: 05/03/24 Loc: HO.MAMMO Attending Dr: Fox Johnston MD Ordering Physician: Fox Johnston MD Results: 2Benign Findings Date of Service: 05/03/24 Follow Up: 1 Year From [facility] Mammogram Procedure(s): MM tomosynthesis diagnostic BI Accession Number(s): [id number] cc: Fox Johnston MD EXAMINATION: MM DIAGNOSTIC [...] 05/03/24 0859 DD/ 0740 TD/TT: 05/03/24 08 Ophthalmic Medical Assistant: [facility] [address] [place] [address] [place] [address] Mammography Report Signed Patient: Nkechi Up MR#: [id number] : 1980 Acct:[id number] Age/Sex: 43 / F ADM Date: 05/03/24 Loc: HO.MAMMO Attending Dr: Fox Johnston MD Ordering Physician: Fox Johnston MD Results: 2Benign Findings Date of Service: 12/19 Follow Up: 1 Year From Orig ina Mammogram Procedure(s): MM tomosynthesis diagnostic BI Accession Number(s): [id number] cc: Fox Johnston MD EXAMINATION: MM DIAGNOSTIC [...] 05/03/24 0859 DD/ 0740 TD/TT: 05/03/24 0812 Ophthalmic Medical Assistant: US breast RT limited mamm on ly Reviewed date:05/22/2024 07:51:57 AM Interpretation: Performing Lab: Notes/Report: [facility] [address] [place] [address] Ultrasound Report Signed Patient: Nkechi Up MR#: [id number] : 1980 Acct:[id number] Age/Sex: 43 / F ADM Date: 05/03/24 Loc: HO.MAMMO Attending Dr: Fox Johnston MD Ordering Physician: Fox Johnston MD Date of Service: 05/03/24 Procedure(s): US breast RT limited mamm only Accession Number(s): [id number] cc: Fox Johnston MD EXAMINATION: MM DIAGNOSTIC [...] MD in OV> 05/03/2459 DD/ 0830 TD/TT: Ophthalmic Medical Assistant: [place] [facility] [address] [place] [address] Ultrasound Report Signed Patient: Nkechi Up MR#: [id number] : 1980 Acct:[id number] Age/Sex: 43 / F ADM Date: 05/03/24 Loc: HO.MAMMO Attending Dr: Fox Johnston MD Ordering Physician: Fox Johnston MD Date of Service: 05/03/24 Procedure(s): US spencer ast RT limited mamm only Accession Number(s): [id number] cc: Fox Johnston MD EXAMINATION: MM DIAGNOSTIC [...] MD in OV> 05/03/24858 DD/ 9 TD/TT: Ophthalmic Medical Assistant: Ur Emily Test Reviewed date:05/09/2024 08:35:14 AM Interpretation: Performing Lab:[facility], [address] [place] [phone] Notes/Report: Urine NEGATIVE NEGATIVE This test was developed to detect early . False negative results may occur after the 5th - 7th week of when using this test method. If clinically indicated, consider a serum hCG. Glucose, Whole Blood Reviewed date:05/09/2024 08:35:14 AM Interpretation: Performing Lab:[facility], [address] [place] [phone] Notes/Report: Glucose, Whole Blood 113 60-115 mg/dL METER # : [id number] Pathology Reviewed date:05/09/2024 08:35:14 AM Interpretation: Performing Lab:[facility], [address] [place] [phone] Notes/Report: ----- Name: Nkechi Up Age/Sex: 43/F : 1980 Unit#: [id number] Attend Dr: Baldemar Pineda MD Re05/05/24 Status : [facility] Location: [facility] Disch: ----- SPEC : [id number] RECD : 05/05/24 STATUS: [facility] NUM: [id number] RADHA: 05/05/24 [facility] DR: Baldemar Pineda MD ENTERED: [...] Microscopic Description Microscopic sections reviewed. Material Received [facility] Gross Description Received in formalin labeled ?EMC? on blood-stained Telfa are multiple congested and hemorrhagic pina-pink and red-maroon irregular tissue fragments with scant mucus and blood aggregating 1.5 x 1. 5 x 0.45 cm, submitted in toto in a cassette labeled A. CEDS Copies To: Fox Johnston MD [address] [facility] [place] [address] Baldemar Pineda MD [facility] Women's Services [address] [place] [address] [place] [address] ----- Signed (signature on file) Heydi Fairview 05/08/24 1314 ----- END OF REPORT Complete Blood Count Auto Di ff Reviewed date:07/23/2024 04:46:48 PM Interpretation: Performing Lab:[facility], [address] [place] [phone] Notes/Report: White Blood Count 9.3 4.8-10.8 X10*3/uL [...] NRBC Abs Auto 0.000 0.0-0.012 X10*3/uL Comprehensive Prospect. Panel Fa Reviewed date:07/23/2024 04:46:48 PM Interpretation: Performing Lab:[address] [address] Notes/Report: Sodium 140 135-145 mmol/L Potassium 3.9 [...] Ferritin Reviewed date:07/23/2024 04:46:48 PM Interpretation: Performing Lab:[address] [address] Notes/Report: Ferritin 10 10-250 ng/mL Lipid Panel Reviewed date:07/23/2024 04:46:48 PM Interpretation: Performing Lab:[facility], [address] [place] [phone] Notes/Report: Triglycerides 101 <150 mg/dL Desirable Triglyceride: [...] Thyroxine) Reviewed date:07/23/2024 04:46:48 PM Interpretation: Performing Lab:[address] [address] Notes/Report: Free T4 (Free Thyroxine) 0.83 0.71-1.85 ng/dL Thyroid Stimulating Hormone Reviewed date:07/23/2024 04:46:48 PM Interpretation: Performing Lab:[facility], [address] [place] [phone] Notes/Report: Thyroid Stimulating Hormone 1.82 0.32-4.0 uIU/mL TSH 3rd Generation ([facility]) Microalbumin, Random Reviewed date:07/23/2024 04:46:48 PM Interpretation: Performing Lab:[facility], [address] [place] [phone] Notes/Report: Creatinine Urine 211.05 Microalbumin Urine 78.0 Microalbum/Creatinine Ratio Ur 36.9 <30 ug/mg cr Albumin/Creatinine Ratio Reference Ranges: Normal: < 30 ug/mg creatinine Microalbuminuria: 30 - 300 ug/mg creatinine Clinical Albuminuria: > 300 ug/mg creatinine Hemoglobin A1c Reviewed date:07/23/2024 04:46:48 PM Interpretation: Performing Lab:[facility], [address] [place] [phone] Notes/Report: Hemoglobin A1c % 6.0 <6.0 % [...] average glucose, using the formula of the H4F-Aplcvdi Average Glucose study (ADAG), Diabetes Care, Vol.31,#8, Jan. 2007 Urinalysis and Microscopic Reviewed date:07/31/2024 06:14:30 PM Interpretation: Performing Lab:[address] [address] Notes/Report: Color Urine Yellow Appearance Urine Cloudy PH 7.5 5.0-9.0 Glucose Urine UA Negative Negative mg/dL Urine Blood Trace Negative Specific [place] - Urine 1.020 1.005-1.025 Urine Protein Trace Neg-Trace mg/dL Urine Ketones Negative Negative mg/dL Nitrite Urine Negative Negative Leukocyte Esterase Urine Negative Negative RBC Urine 11-20 0-2 /HPF WBC Urine 0-5 0-5 /HPF Squamous Epithelial Cell Urine 0-2 0-2 /HPF Bacteria Urine Trace None Seen Hyaline Casts Urine 0-2 0-2 /LPF Urinalysis Reviewed date:07/31/2024 06:14:30 PM Interpretation: Performing Lab:[address] [address] Notes/Report: Color Urine Yellow Appearance Urine Cloudy PH 7.5 5.0-9.0 Glucose Urine UA Negative Negative mg/dL Urine Blood Trace Negative Specific [place] - Urine 1.020 1.005-1.025 Urine Protein Trace Neg-Trace mg/dL Urine Ketones Negative Negative mg/dL Nitrite Urine Negative Negative Leukocyte Esterase Urine Negative Negative Urine Culture Reviewed date:07/31/2024 06:14:30 PM Interpretation: Performing Lab:[address] [address] Notes/Report: Urine Culture Report Result Urine Culture [...] AM > Provider is not located at [facility]. Resent referral to correct location. Referral Priority Routine Referral Appointment Date 11/01/2024 Medications Medication SIG (Take, Route, Frequency, Duration) Notes Start Date End Date Status Aldara Active Ferrous Gluconate 324 (38 Fe) MG orally once a day once a day 11/19/2023 Active metFORMIN HCl 500 MG TAKE 1 TABLET BY [facility] EVERY DAY WITH A MEAL FOR 90 DAYS for 90 Active Hydrocortisone 1 % 1 application Laminating Machine Operator Helper ally Twice a day 11/19/2023 Active Omeprazole 20 MG TAKE 1 CAPSULE BY [facility] EVERY DAY FOR 30 DAYS Active Ketoconazole 2 % 1 application to affected area Externally Twice a day 03/11/2019 Active Propranolol HCl 10 MG 1 tablet on an emp ty stomach Orally Once a day 03/11/2019 Active lamoTRIgine ER 25 MG 1 tablet Orally Onc e a day 07/13/2022 Active Immunizations Vaccine Route Administration Date Status [...] Problem Status W/U Status Risk Notes Problem 9782111 Former smoker (Z87.891) Active confirmed She has stopped smoking. Her weight has not increased. We discussed a strategy to relapse in times of stress and illness. Problem Hypothyroidism (10374072) Hypothyroidism (E03.9) Active confirmed , Negative thyroid functions will be done prior to her next visit. She appears to be euthyroid. Problem [id number] Obesity (BMI 30.0-34.9) (E66.9) Active confirmed She has lost 1 pound. Her body mass index is 34.7. Once again, we reviewed her weight loss strategy at length. Problem 075846928 Chronic cluster headache, not intractable (G44.029) Active confirmed Headaches have worsened in one daily. I have added Fioricet. Problem 01339695 Tobacco dependence (F17.200) Active confirmed We discussed smoking cessation at length today. Problem 12707258 Iron deficiency anemia, unspecified iron deficiency anemia type (D50.9) Active confirmed Her ferritin level is 10. Her mean cell volume has decreased to 73. Her hematocrit has decreased to 37%. She was instructed to resume her iron and agreed to do so. It is likely the mild increase in platelets is related to iron deficiency. Problem Barb's thyroiditis (20993509) Barb's thyroiditis (E06.3) Active confirmed Her thyroid disease is stable. She is on thyroid replacement. Her values have been stable. No change in her regimen was necessary today. Problem 2915974 Diabetes mellitus due to underlying condition without complication, without long-term current use of insulin (E08.9) Active confirmed Her fasting glucose is 110. Her A1c is 5.8. She has been compliant with her medications. No change in her regimen was made. I encouraged weight loss. Problem 013879394 Abdominal pain, left upper quadrant (R10.12) Active confirmed The examination was unremarkable and she seems stable. The spleen was not palpable. Further investigation was ordered. 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 There has been marked improvement in her cream has been continued. Vital Signs Heart Rate 96 /min 07/31/2024 Temperature 97.1 degrees Fahrenheit 07/31/2024 Blood pressure diastolic 66 mm Hg 07/31/2024 Height 63 in 07/31/2024 Blood pressure systolic 126 mm Hg 07/31/2024 Weight 196 lbs 07/31/2024 BMI 34.72 kg/m2 07/31/2024 Encounters Encounter Location Date Provider Diagnosis Fox Johnston III, MD [address] [place] [address] [place] [address] 11/19/2023 Fox Johnston Iron deficiency anem ia, unspecified iron deficiency anemia type D50.9 ; Obesity (BMI 30.0-34.9) E66.9 ; Diabetes mellitus due to underlying condition without complication, without long-term current use of insulin E08.9 ; Hypothyroidism E03.9 ; Chronic cluster headache, not intractable G44.029 and Former smoker Z87.891 Fox Johnston III, MD [address] [place] [address] [place] [address] 03/08/2024 Fox Johnston Iron deficiency anem ia, unspecified iron deficiency anemia type D50.9 ; Abdominal pain, left upper quadrant R10.12 ; Chronic cluster headache, not intractable G44.029 ; Former smoker Z87.891 ; Obesity (BMI 30.0-34.9) E66.9 ; Diabetes mellitus due to underlying condition without complication, without long-term current use of insulin E08.9 ; Hypothyroidism E03.9 and Tobacco dependence F17.200 Fox Johnston III, MD [address] [place] [address] [place] [address] 04/19/2024 Fox Johnston Iron deficiency anem ia, [...] 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 Fox Johnston III, MD [address] [place] [address] [place] [address] 07/25/2024 Fox Johnston Iron deficiency anem ia, [...] 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 Fox Johnston III, MD [address] [place] [address] [place] [address] 07/31/2024 Fox Johnston Iron deficiency anem ia, [...] 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 Fox Johnston III, MD [address] [place] [address] [place] [address] 10/13/2023 Fox Johnston Iron deficiency anem ia, unspecified iron deficiency anemia type D50.9 Fox Johnston III, MD [address] [place] [address] [place] [phone] 05/19/2024 Fox Johnston III, MD [address] [place] [address] [place] [phone] 05/31/2024 Fox Johnston III, MD [address] [place] [address] [place] [phone] 07/19/2024 Fox Johnston III, MD [address] [place] [address] [place] [address] 08/24/2024 Fox Johnston Assessments Encounter Date Diagnosis [...] under the care and supervision of her jigger machine operator. 07/25/2024 Anal condylomata (ICD-10 - A63.0) These have now resolved. 07/31/2024 Upper back pain (ICD-10 - M54.9) This appears to be entirely muscular. She will continue to use heat and rest and acetaminophen. She was given a prescription for cyclobenzaprine for 7 days. 04/19/2024 Anal condylomata (ICD-10 - A63.0) The recent INFRASTRUCTURE TECH note indicates she has 7 lesions on [...] (ICD-10 - A63.0) She recently saw her jigger machine operator who is treating this. There has been marked improvement in her cream has been continued. Plan Of Treatment Pending Test Test Name Order Date PROFILE, FASTING (COMPREHENSIVE METABOLI C) 07/13/2022 PROFILE, FASTING (COMPREHENSIVE METABOLI C) 04/19/2024 PROFILE, FASTING (COMPREHENSIVE METABOLI C) 07/14/2019 PROFILE, FASTING (COMPREHENSIVE METABOLI C) 11/01/2017 PROFILE, FASTING (COMPREHENSIVE METABOLI C) 06/04/2023 PROFILE, FASTING (COMPREHENSIVE METABOLI C) 12/13/2020 PROFILE, FASTING (COMPREHENSIVE METABOLI C) 09/13/2020 PROFILE, FASTING (COMPREHENSIVE METABOLI C) 03/21/2021 PROFILE, FASTING (COMPREHENSIVE METABOLI C) 10/31/2018 PROFILE, FASTING (COMPREHENSIVE METABOLI C) 08/30/2020 PROFILE, FASTING (COMPREHENSIVE METABOLI C) 02/23/2022 PROFILE, FASTING (COMPREHENSIVE METABOLI C) 10/21/2018 PROFILE, FASTING (COMPREHENSIVE METABOLI C) 04/12/2023 PROFILE, FASTING (COMPREHENSIVE METABOLI C) 11/15/2017 PROFILE, RANDOM (COMPREHENSIVE METABOLIC ) 07/21/2021 HEMOGLOBIN A1C (GLYCOHEMOGLOBIN) 019 HEMOGLOBIN A1C (GLYCOHEMOGLOBIN) 021 HEMOGLOBIN A1C (GLYCOHEMOGLOBIN) 022 HEMOGLOBIN A1C (GLYCOHEMOGLOBIN) 020 HEMOGLOBIN A1C (GLYCOHEMOGLOBIN) 021 HEMOGLOBIN A1C (GLYCOHEMOGLOBIN) 019 HEMOGLOBIN A1C (GLYCOHEMOGLOBIN) 021 LIPID PANEL 04/12/2023 LIPID PANEL 11/15/2017 LIPID PANEL 07/14/2019 LIPID PANEL 10/21/2018 LIPID PANEL 11/01/2017 LIPID PANEL 09/13/2020 LIPID PANEL 12/13/2020 LIPID PANEL 07/21/2021 LIPID PANEL 08/30/2020 LIPID PANEL 03/21/2021 FREE T4 (FT4) 09/13/2020 FREE T4 (FT4) 12/13/2020 TSH (THYROID STIMULATING HORMONE) 2020 TSH (THYROID STIMULATING HORMONE) 2023 TSH (THYROID STIMULATING HORMONE) 2022 TSH (THYROID STIMULATING HORMONE) 2020 IRON + IBC (FE) 09/22/2021 FERRITIN 02/16/2020 FERRITIN 08/30/2020 FERRITIN 09/22/2021 FERRITIN 02/02/2020 FERRITIN 07/21/2021 CBC w DIFF 03/21/2021 CBC w DIFF 02/23/2022 CBC w DIFF 07/21/2021 CBC w DIFF 09/13/2020 CBC w DIFF 07/13/2022 CBC w DIFF 02/16/2020 CBC w DIFF 08/30/2020 CBC w DIFF 12/13/2020 CBC w DIFF 11/15/2017 CBC w DIFF 07/14/2019 CBC w DIFF 10/21/2018 CBC w DIFF 11/01/2017 CBC w DIFF 09/22/2021 CBC w DIFF 10/31/2018 SED RATE (ESR) 04/12/2023 SED RATE (ESR) 11/01/2017 URINALYSIS (UA) 07/25/2024 FOLLICLE STIMULATING HORMONE (FSH) 04/12 LUTEINIZING HORMONE (LH) 04/12/2023 URINE CULTURE 07/25/2024 CBC WITH AUTO DIFF 04/12/2023 CBC WITH AUTO DIFF 04/19/2024 CBC WITH AUTO DIFF 06/04/2023 RETIC 02/23/2022 Ferritin 02/23/2022 Ferritin 04/19/2024 Lipid Panel 07/13/2022 Lipid Panel 02/23/2022 Lipid Panel 04/19/2024 Lipid Panel with Reflex 06/04/2023 Free T4 (Free Thyroxine) 04/19/2024 Microalbumin, Random 04/19/2024 Microalbumin, Random 03/21/2021 Microalbumin, Random 07/13/2022 Hemoglobin A1c 04/19/2024 Hemoglobin A1c 07/13/2022 Hemoglobin A1c 02/23/2022 Hemoglobin A1c 06/04/2023 Next Appt Details Provider Name:Fox Johnston, 10/03/2024 04:00:00 PM, [address] [place] [address] [address], [place], [address], Provider Name:Fox Johnston, 11/22/2024 04:00:00 PM, [address] [place] [address] [address], [place], [address], Insurance Providers Payer Name Payer Address Payer Phone Subscriber Number Group Number Insured Name Patient Relationship to Insured Coverage Start Date Coverage End Date [facility] [address] [place], [place] [id number] [phone] [id number] Nkechi Up Self - patient is the insured 6 Medical (General) History Medical History History ICD Code chronic headaches for 4 monrths [id number] 7 mos former smoker overweight hypothyroid Pre-diabetes {'Condyloma Acuminatum': 'Di agnosed during current visit', 'Muscle Soreness': 'Identified during current visit', 'Gallstones': 'Identified in previous medical tests'} Anal condyloma acuminata Surgical History Surgery Date(Month/Year) No history 2 para 2 2016 C- section 2009 Hospitalization History Reason Date(Month/Year) No history
--- OUTSIDE RECORDS SUMMARY | 2024-09-29 16:48 | XMS_ITS ---
Author Organization Fox Johnston III, MD Address [address] [place] [address] Care Team Providers Care Wire Harness Assembler Name Role Phone Fox Johnston Primary Care Provider [phone] Allergies Allergen (clinical drug ingredient) Drug/Non Drug Allergy documented on EMR Reaction Allergy Type Onset Date Status No Known Drug Allergy Unknown Drug Allergy Active REASON FOR VISIT Follow up Medications Medication SIG (Take, Route, Frequency, Duration) Notes Start Date End Date Status Omeprazole 20 MG TAKE 1 CAPSULE BY [facility] EVERY DAY FOR 30 DAYS Active Propranolol HCl 10 MG 1 tablet on an emp ty stomach Orally Once a day 03/11/2019 Active Hydrocortisone 1 % 1 application Software Test Automation Engineer ally Twice a day 11/19/2023 Active Ferrous [...] Date Provider Diagnosis Fox Johnston III, MD [address] [place] [address] [place] [address] 08/28/2024 Fox Johnston Iron deficiency anemia, unspecified [...] Omeprazole 20 MG TAKE 1 CAPSULE BY [facility] EVERY DAY FOR 30 DAYS Propranolol HCl 10 MG 1 tablet on an emp ty stomach Orally Once a day 03/11/2019 Hydrocortisone 1 % 1 application Software Test Automation Engineer ally Twice a day 11/19/2023 Ferrous Gluconate [...] 07/13/2022 Next Appt Details Provider Name:Fox Johnston, 10/03/2024 04:00:00 PM, [address] [place] [address] [address], [place], [address], Provider Name:Fox Johnston, 11/22/2024 04:00:00 PM, [address] [place] [address] [place], [address], Progress Notes * Nkechi UPDOB: (44 yo F)Acc No.[id number]:08/28/2024 Progress Notes Patient:?Kym UP Provider:?Fox Johnston MD :1980???Age:44 Y???Sex:Female D ate:08/28/2024 Address:[address] [place], [place] [id number] Subjective: * Chief Complaints: * ???1. Follow [...] Medical History:?Chronic hea daches for 4 monrths, [id number] 7 mos, Former smoker, Overweight, Hypothyroid, Pre-diabetes, [...] at the age of 36. She speaks Congolese and is learning Faroese but is not yet fluent. She has [...] Johnston MD Date:?08/2024 Generated for Dexter gomes/Grabiel/eTransmitting on:?09/29/2024 04:48 PM EDT History and Physical Notes * [...]
--- OUTSIDE RECORDS SUMMARY | 2024-09-29 16:48 | XMS_ITS ---
Author Organization Fox Johnston III, MD Address [address] [place] [address] Care Team Providers Care Reproductive Surgeon Name Role Phone Fox Johnston Primary Care Provider [phone] REASON FOR VISIT Follow up Social History Sex Assigned At : Social History Observation Description Sex Assigned At Female Encounters Encounter Location Date Provider Diagnosis Fox Johnston III, MD [address] [place] [address] [place] [address] 09/27/2024 Fox Johnston Plan Of Treatment Next Appt Details Provider Name:Fox Johnston, 10/03/2024 04:00:00 PM, [address] [place] [address] [place], [address], Provider Name:Fox Johnston, 11/22/2024 04:00:00 PM, [address] [place] [address] [place], [address], Progress Notes * Nkechi UPDOB: (44 yo F)Acc No.[id number]:09/27/2024 Progress Notes Patient:?Kym UP Provider:?Fox Johnston MD :1980???Age:44 Y???Sex:Female D ate:09/27/2024 Address:[address] [place], [place] [id number] Subjective: * Chief Complaints: * ???1. Follow up. * Medical History:? Objective: * Vitals:? Assessment: Plan: * Treatment: * Images: * The named appointment provid er may or may not be the originator of this progress note, and it is not deemed complete until electronically signed by the appointment provider. Sign off status: Pending * Provider:?Fox Johnston MD Date:?07/2024 Generated for Dexter gomes/Grabiel/Leslyitting on:?09/29/2024 04:48 PM EDT
--- OUTSIDE RECORDS SUMMARY | 2024-09-29 16:48 | XMS_ITS | Continuity of Care Document ---
Author Organization [facility] [address] [place] [address] Phone [phone] Care Team Providers Care Pump House Operator Name Role Phone Fox Johnston M.D. Care Team Information Receive r [phone] Social History Type Date Description Comments Sex Unknown Medical Devices Description No Information Available Encounters Description No Information Available Assessments Description No Information Available Plan of Treatment Future Appointment(s):* 11/01/2024 9:30 am - WOODY Gong at Main Office Functional Status Description No Information Available Mental Status Description No Information Available Referrals Description No Information Available
--- OUTSIDE RECORDS SUMMARY | 2024-09-29 16:48 | XMS_ITS ---
Author Organization Fox Johnston III, MD Address [address] [place] [address] Care Team Providers Care Neurological Surgery Teacher Name Role Phone Fox Johnston Primary Care [...] 11/19/2023 Active Hydrocortisone 1 % 1 application Commercial Food Instructor ally Twice a day 11/19/2023 Active Omeprazole 20 MG TAKE 1 CAPSULE BY [facility] EVERY DAY FOR 30 [...] Provider Diagnosis Fox Johnston III, MD [address] [place] [address] [place] [address] 09/06/2024 Fox Johnston Iron deficiency anemia, unspecified [...] day 11/19/2023 Hydrocortisone 1 % 1 application Commercial Food Instructor ally Twice a day 11/19/2023 Omeprazole 20 MG TAKE 1 CAPSULE BY [facility] EVERY DAY FOR 30 DAYS metFORMIN [...] Details Provider Name:Fox Johnston, 10/03/2024 04:00:00 PM, [address] [place] [address] [place], [address], Provider Name:Fox Johnston, 11/22/2024 04:00:00 PM, [address] [place] [address] [place], [address], Progress Notes * Nkechi UPDOB: (44 yo F)Acc No.[id number]:09/06/2024 Progress Notes Patient:?Kym UP Provider:?Fox Johnston MD :1980???Age:44 Y???Sex:Female D ate:09/06/2024 Address:[address] [place], [place] [id number] Subjective: * Chief Complaints: * ???1. Follow [...] Medical History:?Chronic hea daches for 4 monrths, [id number] 7 mos, Former smoker, Overweight, Hypothyroid, Pre-diabetes, [...] at the age of 36. She speaks Guyanese and is learning Setswana but is not yet fluent. She has [...] Johnston MD Date:?08/26 Generated for Dexter gomes/Grabiel/eTransmitting on:?09/29/2024 04:48 PM [...]
== END 2024-09-29 16:05 | disposition home or self-care (01) ==
LOC: HO.HWS 15:40
PROVIDERS: PCP Internal Medicine Medical Oncology; Visit Provider Obstetrics & Gynecology
DX: K62.82 Dysplasia of anus (principal)
CPT/HCPCS: 99213

== ENCOUNTER 2024-11-16 15:03 | Outpatient (AMB) | payer BC, SELFPAY ==
--- NOTE | 2024-11-16 15:06 | A.OFFVIS_ITS ---
Vital Signs 11/16/24 15:10 Height 5 ft 4 in Weight 192 lb BMI 33.0 Intake Visit Reasons: Genital wart Inspector Crystal Required: Yes Inspector Crystal Language: Virtualization Consultant Services: Inspector Crystal Present (in person) Inspector Crystal Name: Carolyn OLIVEIRA Information Interpreted: non-clinical & clinical Medical Insurance Biller: Medical Insurance Biller Present (Carolyn OLIVEIRA) Accompanied by: Self / Same As Patient Allergies No Known Allergies Allergy (Verified 11/16/24 15:11) HPI Comments Details: Presenting concerned about an increase in the number of genital warts in the perirectal area. The patient had multiple perianal warts biopsies which showed AIN 1 condyloma acuminata, was treated with Aldara cream to no avail and attempted TCA application also with no significant clinical improvement end the patient was referred to [facility] for laser treatment, appointment scheduled in 03/22 The patient also is complaining of prolonged Last menstrual cycle, the patient had her menstrual cycle for the last 2 weeks. 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 Obesity due to excess calories Prediabetes Surgical History Hx of dilation and curettage (~2020) H/O tubal ligation Family History Mother Diabetes Maternal Grandfather Diabetes Father Diabetes Social History Household Members: Spouse and Children Are you a primary inspector health care facilities to a significant other at home: No Do you presently have visiting nurse or other home services: No Alcohol intake: never Patient Tobacco Use Status: Never used Tobacco Second Hand Smoke Exposure: No Current occupational status: employed 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 Sexual 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/Heterosexual Gender identity: Female Female Reproductive History Menstrual Age of Menarche: 13 Review of Systems Const All systems reviewed & are unremarkable except as noted in HPI and below Physical Exam Vital Signs: BMI result Body Mass Index 33.0 General: Yes no CVA tenderness External Female Exam: No normal external appearance (Bilateral perianal condylomas) and normal appearance of the urethra Speculum Exam - Vagina: normal appearance of the vagina, normal palpation, no lesions and no masses Speculum Exam - Cervix: normal appearance of the cervix, normal palpation, no lesions, no masses and nontender Bimanual exam- vagina & uterus: normal bimanual exam, normal palpation, uterine size normal, normal palpation, uterine shape normal, No Cervical tenderness present and non-tender Bimanual Exam- Adnexa, other: normal adnexae Back/Spine/Pelvis Back: no CVA tenderness Assessment & Plan Assessment & Plan (1) Abnormal uterine bleeding (AUB): Code(s): N93.9 - Abnormal uterine and vaginal bleeding, unspecified Category: Medical Plan: GC and chlamydia taken CBC, TSH, HCG, and pelvic ultrasound ordered. Discussed with the patient the different causes of abnormal bleeding including thyroid disorders, uterine and ovarian pathology, endometrial hyperplasia, carcinoma and other potential causes. Discussed with the patient the work up including CBC (to r/o anemia), TSH, pelvic Ultrasound, since endometrial biopsy was done in 05/22 will defer repeat endometrial biopsy. All questions answered and the patient verbalized understanding. Instructed the patient to schedule a follow- up appointment in 2 weeks (2) AIN grade I: Comment: Condyloma Code(s): K62.82 - Dysplasia of anus Category: Medical Plan: Discussed with the patient the finding on physical exam , no significant increase in number of condylomas, recommended the patient to wait till next visit since Aldara cream can not be used for more than 6 weeks and the patient did not prolonged TCA application Orders: Orders TSH reflex Free T4 Today N93.9 - Abnormal uterine and vaginal bleeding, unspecified US pelvic and transvaginal Today N93.9 - Abnormal uterine and vaginal bleeding, unspecified Complete Blood Count no Diff Today N93.9 - Abnormal uterine and vaginal bleeding, unspecified HCG Quantitative Today N93.9 - Abnormal uterine and vaginal bleeding, unspecified Coding Level of Care Code Est Pt Level 3 (41369) Diagnoses Abnormal uterine bleeding (AUB) N93.9 AIN grade I K62.82
--- OUTSIDE RECORDS SUMMARY | 2024-11-16 15:07 | XMS_ITS ---
Author Organization Fox Johnston III, MD Address [address] [address] Care Team Providers Care Bean Sprout Grower Name Role Phone Fox Johnston Primary Care Provider [phone] Allergies Allergen (clinical drug ingredient) Drug/Non Drug [...] 11/19/2023 Active Hydrocortisone 1 % 1 application Press Operator ally Twice a day 11/19/2023 Active Omeprazole 20 MG TAKE 1 CAPSULE BY [facility] EVERY DAY FOR 30 DAYS [...] Date Provider Diagnosis Fox Johnston III, MD [address] [place] [address] [address] [place] [phone] 09/06/2024 Fox Johnston Iron deficiency anemia, unspecified [...] Sig Start Date Stop Date Notes Aldara Ferrous Gluconate 324 (38 Fe ) MG orally once a day once a day 11/19/2023 Hydrocortisone 1 % 1 application Press Operator ally Twice a day 11/19/2023 Omeprazole 20 MG TAKE 1 CAPSULE BY [facility] EVERY DAY FOR 30 DAYS metFORMIN HCl [...] 07/13/2022 Next Appt Details Provider Name:Fox Johnston, 11/22/2024 04:00:00 PM, [address] [place] [address] [address], [place], [address], Progress Notes * Manny UP: (44 yo F)Acc No.[id number]:09/06/2024 Progress Notes Patient:?WILSON BAKER, Mar cedric Provider:?Fox Johnston MD :1980???Age:44 Y???Sex:Female D ate:09/06/2024 Address:[address] [place], [place] [id number] Subjective: * Chief Complaints: * ???1. Follow [...] Medical History:?Chronic hea daches for 4 monrths, [id number] 7 mos, Former smoker, Overweight, Hypothyroid, Pre-diabetes, [...] smoker ((1-9 cigs/day) ???She was born in [place] and came to this country at the age of 36. She speaks Canadian and is learning Romansh but is not [...] Provider:?Fox Johnston MD Date:?08/26 Generated for Dexter gomes/Grabiel/Leslyitting on:?11/16/2024 03:07 PM EDT History and Physical Notes * [...]
[2024-11-16 15:10] VITALS: BMI 33.0
== END 2024-11-16 15:29 | disposition home or self-care (01) ==
LOC: HO.HWS 15:03
PROVIDERS: PCP Internal Medicine Medical Oncology; Visit Provider Obstetrics & Gynecology
DX: N93.9 Abnormal uterine and vaginal bleeding, unspecified (principal); K62.82 Dysplasia of anus
CPT/HCPCS: 99213

== ENCOUNTER 2024-11-16 15:03 | Outpatient (REF) | payer BC, SELFPAY ==
[2024-11-16 17:07] LABS: Hematocrit 36.8 % (37.0-47.0); Hemoglobin 11.7 g/dl (12.0-16.0); Mean Corpuscular HGB Conc 31.8 g/dl (31.0-35.0); Mean Corpuscular Hemoglobin 24.1 pg (27.0-33.0); Mean Corpuscular Volume 75.9 fL (80.0-98.0); Mean Platelet Volume 9.4 fL (9.4-12.3); Platelet Count 390 X10*3/uL (160-400); Red Blood Count 4.85 X10*6/uL (4.20-5.50); Red Cell Distribution Width 15.7 % (11.0-16.0); White Blood Count 8.1 X10*3/uL (4.8-10.8)
[2024-11-16 17:58] LABS: HCG Quantitative < 2 mIU/mL; TSH reflex Free T4 1.72 uIU/mL (0.32-4.0)
[2024-11-17 04:06] LABS: CT PCR NOT DETECTED (Not Detect.); NG PCR NOT DETECTED (Not Detect.)
== END 2024-11-16 15:04 | disposition home or self-care (01) ==
LOC: HO.LNP 15:03
PROVIDERS: PCP Internal Medicine Medical Oncology; Visit Provider Obstetrics & Gynecology
DX: N93.9 Abnormal uterine and vaginal bleeding, unspecified (principal); K62.82 Dysplasia of anus
CPT/HCPCS: 84443; 84702; 85027; 87491; 87591

== ENCOUNTER 2024-11-21 15:55 | Outpatient (REF) | payer BC, SELFPAY ==
--- OUTSIDE RECORDS SUMMARY | 2024-11-21 15:58 | XMS_ITS ---
Author Organization Fox Johnston III, MD Address [address] [place] [address] Care Team Providers Care Manager Scientific Name Role Phone Fox Johnston Primary Care Provider [phone] Allergies Allergen (clinical drug ingredient) Drug/Non Drug [...] 11/19/2023 Active Hydrocortisone 1 % 1 application Computer Game Tester ally Twice a day 11/19/2023 Active Omeprazole 20 MG TAKE 1 CAPSULE BY [facility] EVERY DAY FOR 30 DAYS Active [...] Date Provider Diagnosis Fox Johnston III, MD [address] [place] [address] [address] [place] [id number] 09/06/2024 Fox Johnston Iron deficiency anemia, unspecified [...] day 11/19/2023 Hydrocortisone 1 % 1 application Computer Game Tester ally Twice a day 11/19/2023 Omeprazole 20 MG TAKE 1 CAPSULE BY [facility] EVERY DAY FOR 30 DAYS metFORMIN [...] Next Appt Details Provider Name:Fox Johnston, 11/22/2024 04:15:00 PM, [address] [place] [address] [address], [place], [address], Progress Notes * Manny UP: (44 yo F)Acc No.[id number]:09/06/2024 Progress Notes Patient:?WILSON BAKER, Mar cedric Provider:?Fox Johnston MD :1980???Age:44 Y???Sex:Female D ate:09/06/2024 Address:[address] [place], [place] [id number] Subjective: * Chief Complaints: * ???1. Follow [...] Medical History:?Chronic hea daches for 4 monrths, [id number] 7 mos, Former smoker, Overweight, Hypothyroid, Pre-diabetes, [...] smoker ((1-9 cigs/day) ???She was [place] [facility] and came to this country at the age of 36. She speaks Chinese and is learning Mohawk but is not yet fluent. She has [...] Johnston MD Date:?08/26 Generated for Dexter gomes/Grabiel/Leslyitting on:?11/21/2024 03:57 PM EDT History and Physical Notes * [...]
[2024-11-21 17:13] LABS: Hematocrit 36.3 % (37.0-47.0); Hemoglobin 11.5 g/dl (12.0-16.0); Mean Corpuscular HGB Conc 31.7 g/dl (31.0-35.0); Mean Corpuscular Hemoglobin 24.3 pg (27.0-33.0); Mean Corpuscular Volume 76.6 fL (80.0-98.0); Mean Platelet Volume 9.5 fL (9.4-12.3); Platelet Count 428 X10*3/uL (160-400); Red Blood Count 4.74 X10*6/uL (4.20-5.50); Red Cell Distribution Width 15.6 % (11.0-16.0); White Blood Count 10.1 X10*3/uL (4.8-10.8)
== END 2024-11-21 15:56 | disposition home or self-care (01) ==
LOC: HO.LAB 15:55
PROVIDERS: PCP Internal Medicine Medical Oncology; Visit Provider Obstetrics & Gynecology
DX: N93.9 Abnormal uterine and vaginal bleeding, unspecified (principal)
CPT/HCPCS: 36415; 85027

== ENCOUNTER 2024-11-22 14:53 | Outpatient (AMB) | payer BC, SELFPAY ==
--- NOTE | 2024-11-22 15:20 | A.OFFVIS_ITS ---
Intake Visit Reasons: AUB per Perinatal Social Worker Required: Yes Perinatal Social Worker Language: Social Worker Delinquency Prevention Services: Perinatal Social Worker Present (in person) Perinatal Social Worker Name: TEE Herrera Information Interpreted: non-clinical & clinical Wirer Passenger Car: Wirer Passenger Car Present (TEE Herrera ) Accompanied by: Self / Same As Patient Allergies No Known Allergies Allergy (Verified 11/22/24 15:21) HPI Comments Details: Presenting for follow-up . 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 Obesity due to excess calories Prediabetes Surgical History Hx of dilation and curettage (~2020) H/O tubal ligation Family History Mother Diabetes Maternal Grandfather Diabetes Father Diabetes Social History Household Members: Spouse and Children Are you a primary long term care social worker to a significant other at home: No Do you presently have visiting nurse or other home services: No Alcohol intake: never Patient Tobacco Use Status: Never used Tobacco Second Hand Smoke Exposure: No Current occupational status: employed 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 Sexual 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/Heterosexual Gender identity: Female Female Reproductive History Menstrual Age of Menarche: 13 Review of Systems Const All systems reviewed & are unremarkable except as noted in HPI and below Reports as per HPI and Reports no additional complaints GI Reports no additional complaints Reports no additional complaints Assessment & Plan Assessment & Plan (1) Abnormal uterine bleeding (AUB): Code(s): N93.9 - Abnormal uterine and vaginal bleeding, unspecified Category: Medical Plan: Instructions given the patient to schedule a follow-up appointment after the ultrasoun and to call or go to emergency room in case of recurrence of her vaginal bleeding. All questions answered, the patient verbalized understanding. Coding Level of Care Code Est Pt Level 3 (41304) Diagnoses Abnormal uterine bleeding (AUB) N93.9
--- OUTSIDE RECORDS SUMMARY | 2024-11-22 15:40 | XMS_ITS ---
Author Organization Fox Johnston III, MD Address [address] [place] [address] Care Team Providers Care Advertising Account Executive Name Role Phone Fox Johnston Primary Care Provider Allergies Allergen (clinical drug ingredient) Drug/Non Drug Allergy documented on EMR Reaction Allergy Type Onset Date Status No Known Drug Allergy Unknown Drug Allergy Active REASON FOR VISIT Annual Exam Medications Medication SIG (Take, Route, Frequency, Duration) Notes Start Date End Date Status Hydrocortisone 1 % 1 application Deputy District Customs Director ally Twice a day 11/19/2023 Active Ferrous Gluconate 324 (38 Fe) MG orally once a day once a day 11/19/2023 Active Aldara Active lamoTRIgine ER 25 MG 1 tablet Orally Onc e a day 07/13/2022 Active metFORMIN HCl 500 MG TAKE 1 TABLET BY [facility] EVERY DAY WITH A MEAL FOR 90 DAYS Active Propranolol HCl 10 MG 1 tablet on an emp ty stomach Orally Once a day 03/11/2019 Active Ketoconazole 2 % 1 application to affected area Externally Twice a day 03/11/2019 Active Omeprazole 20 MG TAKE 1 CAPSULE BY [facility] EVERY DAY FOR 30 DAYS Active Social [...] Date Provider Diagnosis Fox Johnston III, MD [address] [place] [address] [address] [place] [address] 11/22/2024 Fox Johnston Iron deficiency anemia, unspecified iron deficiency anemia type D50.9 Assessments Encounter Date Diagnosis (ICD Code) Assessment Notes Treat ment Notes Treatment Clinical Notes 11/22/2024 Iron deficiency anemia, unspecified iron deficiency anemia type (ICD-10 - D50.9) Plan Of Treatment Medication Medication Name Sig Start Date Stop Date Notes Hydrocortisone 1 % 1 application Deputy District Customs Director ally Twice a day 11/19/2023 Ferrous Gluconate 324 (38 Fe ) MG orally once a day once a day 11/19/2023 Aldara lamoTRIgine ER 25 MG 1 tablet Orally Once a day 07/13/2022 metFORMIN HCl 500 MG TAKE 1 TABLET BY [facility] EVERY DAY WITH A MEAL FOR 90 DAYS Propranolol HCl 10 MG 1 tablet on an emp ty stomach Orally Once a day 03/11/2019 Ketoconazole 2 % 1 application to aff ected area Externally Twice a day 03/11/2019 Omeprazole 20 MG TAKE 1 CAPSULE BY [facility] EVERY DAY FOR 30 DAYS Next Appt Details Provider Name:Fox Johnston, 11/22/2024 04:15:00 PM, [address] [place] [address] [address], [place], [address], Progress Notes * Jenny UPB: (44 yo F)Acc No.[id number]:11/22/2024 Progress Notes Patient:?KATIE BAKERKym cedric Provider:?Fox Johnston MD :1980???Age:44 Y???Sex:Female D ate:11/22/2024 Address:[address] [place] [address] [place], [id number] Subjective: * Chief Complaints: * ???1. Annual Exam. * HPI: ???COVID-19 Screening:?Questions?Have you had any new onset fever, chills, cough, congestion, sore throat, shortness of breath, muscle aches??No * ROS:?General/Constitutional:?pain?only normal aches and pains.?Chills?denies.?Fatigue?admits.?Fever?denies.?ENT:?Decreased hearing?denies.?Respiratory:?Cough?denies.?Cardiovascular:?Chest pain with exertion?denies.?Dyspnea on exertion?denies.?Shortness of breath?denies.?Gastrointestinal:?Constipation?denies.?Decreased appetite?denies.?Diarrhea?denies.?Heartburn?denies.?Nausea?denies.?Rectal bleeding?denies.?Vomiting?denies.?Hematology:?bruising?denies.?petechiae?denies.?Swollen glands?none have been noted.?Genitourinary:?Frequent urination?denies.?Musculoskeletal:?Muscle aches?denies.?Painful joints?denies.?Sciatica?denies.?Weakness?denies.?Skin:?Itching?denies.?Rash?denies.?Skin lesion(s)?denies.?Neurologic:?Difficulty speaking?denies.?Dizziness?denies.?Headache?denies.?Low back pain?denies.?Psychiatric:?Depressed mood?denies.? * Medical History:?Chronic hea daches for 4 monrths, [id number] 7 mos, Former smoker, Overweight, Hypothyroid, Pre-diabetes, [...] smoker ((1-9 cigs/day) ???She was born in [facility] and came to this country at the age of 36. She speaks Yoruba and is learning Japanese but is not yet fluent. She has 2 children. She is not working. * Medications:?Taking metFORMI N HCl 500 MG Tablet TAKE 1 TABLET BY MOUTH EVERY DAY WITH A MEAL FOR 90 DAYS , Taking lamoTRIgine ER 25 MG Tablet [...] u nspecified iron deficiency anemia type - D50.9??? Plan: * Treatment: 2.?Others? Continue Omeprazole Capsule Delayed Release, 20 MG, TAKE 1 CAPSULE BY MOUTH EVERY DAY FOR 30 DAYS;?Continue Aldara.?? * Images: * The named appointment provid er may or may not be the originator of this progress note, and it is not deemed complete until electronically signed by the appointment provider. Sign off status: Pending * Provider:?Fox Johnston MD Date:?10/27 Generated for Dexter gomes/Grabiel/Leslyitting on:?11/22/2024 03:40 PM EDT History and Physical Notes * [...]
== END 2024-11-22 15:31 | disposition home or self-care (01) ==
LOC: HO.HWS 14:53
PROVIDERS: PCP Internal Medicine Medical Oncology; Visit Provider Obstetrics & Gynecology
DX: N93.9 Abnormal uterine and vaginal bleeding, unspecified (principal)
CPT/HCPCS: 99213

== ENCOUNTER 2024-11-23 11:00 | Outpatient (REF) | payer BC, SELFPAY ==
--- NOTE | ~2024-11-23 | US_ITS ---
CLINICAL HISTORY: N93.9 - Abnormal uterine and vaginal bleeding, unspecified US pelvis transvaginal Comparison: None Findings: Transvaginal scanning performed. Anteverted uterus is 8.6 cm length. Normal myometrium. Endometrium 4.0 mm thickness. Questionable endometrial 0.7 x 0.5 x 0.3 cm lesion. Right ovary 1.8 x 1.4 x 1.3 cm. Left ovary 2.5 x 2.6 x 2.5 cm. Normal color Doppler of both ovaries. No free fluid. IMPRESSION: 1. Questionable endometrial lesion. Recommend gynecological consultation for further evaluation possibly to include direct visualization or sonohysterography. This document has been electronically signed by: Geronimo Mccormack MD on 11/24/2024 09:15:50
--- OUTSIDE RECORDS SUMMARY | 2024-11-23 11:28 | XMS_ITS ---
Author Organization Fox Johnston III, MD Address [address] [place] [address] Care Team Providers Care Aircraft Maintenance Technician Name Role Phone Fox Johnston Primary Care Provider [phone] Allergies Allergen (clinical drug ingredient) Drug/Non Drug [...] Date Status Hydrocortisone 1 % 1 application Hot Patcher ally Twice a day 11/19/2023 Active Ferrous Gluconate 324 (38 Fe) MG orally once a day once a day 11/19/2023 Active Aldara Active lamoTRIgine ER 25 MG 1 tablet Orally Onc e a day 07/13/2022 Active metFORMIN HCl 500 MG TAKE 1 TABLET BY [facility] EVERY DAY WITH A MEAL FOR 90 DAYS Active Propranolol HCl 10 MG 1 tablet on an emp ty stomach Orally Once a day 03/11/2019 Active Ketoconazole 2 % 1 application to affected area Externally Twice a day 03/11/2019 Active Omeprazole 20 MG TAKE 1 CAPSULE BY [facility] EVERY DAY FOR 30 DAYS Active Social [...] Date Provider Diagnosis Fox Johnston III, MD [address] [place] [address] [place] [address] 11/22/2024 Fox Johnston Iron deficiency anemia, unspecified iron deficiency anemia type D50.9 ; Diabetes mellitus due to underlying condition without complication, without long-term current use of insulin E08.9 ; Premenstrual syndrome N94.3 ; Abdominal pain, left upper quadrant R10.12 and Annual physical exam Z00.00 Assessments Encounter Date Diagnosis (ICD Code) Assessment Notes Treat ment Notes Treatment Clinical Notes 11/22/2024 Iron deficiency anemia, unspecified iron deficiency anemia type (ICD-10 - D50.9) 11/22/2024 Diabetes mellitus due to underlying condition without complication, without long-term current use of insulin (ICD-10 - E08.9) 11/22/2024 Premenstrual syndrome (ICD-10 - N94.3) 11/22/2024 Abdominal pain, left upper quadrant (ICD-10 - R10.12) 11/22/2024 Annual physical exam (ICD-10 - Z00.00) Plan Of Treatment Medication Medication Name Sig Start Date Stop Date Notes Hydrocortisone 1 % 1 application Hot Patcher ally Twice a day 11/19/2023 Ferrous Gluconate 324 (38 Fe ) MG orally once a day once a day 11/19/2023 Aldara lamoTRIgine ER 25 MG 1 tablet Orally Once a day 07/13/2022 metFORMIN HCl 500 MG TAKE 1 TABLET BY [facility] EVERY DAY WITH A MEAL FOR 90 DAYS Propranolol HCl 10 MG 1 tablet on an emp ty stomach Orally Once a day 03/11/2019 Ketoconazole 2 % 1 application to aff ected area Externally Twice a day 03/11/2019 Omeprazole 20 MG TAKE 1 CAPSULE BY [facility] EVERY DAY FOR 30 DAYS Pending Test Test Name Order Date PROFILE, FASTING (COMPREHENSIVE METABOLI C) 11/22/2024 CBC w DIFF 11/22/2024 FOLLICLE STIMULATING HORMONE (FSH) 11/22 LUTEINIZING HORMONE (LH) 11/22/2024 US ABD 11/22/2024 Lipid Panel 11/22/2024 Hemoglobin A1c 11/22/2024 Next Appt Details Follow Up: 3 Months, Reason: Follow up Provider Name:Fox Johnston, 02/12/2025 10:30:00 AM, [address] [place] [address] [address], [place], [address], Provider Name:Fox Johnston, 11/26/2025 04:00:00 PM, [address] [place] [address] [address], [place], [address], Progress Notes * Manny UP: (44 yo F)Acc No.[id number]:11/22/2024 Progress Notes Patient:?WILSON BAKERKym Provider:?Fox Johnston MD :1980???Age:44 Y???Sex:Female D ate:11/22/2024 Address:[address] [place], [place] [id number] Subjective: * Chief Complaints: * ???1. Annual Exam. * HPI: ???Depression Screening:?saw brandon recently, she was upset, wanted to see if she was premenopausal, crem did not work, referred out to [facility] for laser for the warts. never been to [facility], [facility] with [facility] to get laser there, counselled re condoms, ;pulsating LUQ ABDOMINAL PAIN. ?PHQ-9?Little interest or pleasure in doing things?More than half the days ?Feeling down, depressed, or hopeless?Several days ?Trouble falling or staying asleep, or sleeping too much?More than half the days ?Feeling tired or having little energy?Several days ?Poor appetite or overeating?Several days ?Feeling bad about yourself or that you are a failure, or have let yourself or your family down?Not at all ?Trouble concentrating on things, such as reading the newspaper or watching television?Not at all ?Moving or speaking so slowly that other people could have noticed; or the opposite, being so fidgety or restless that you have been moving around a lot more than usual?Not at all ?Thoughts that you would be better off or of hurting yourself in some way?Not at all ?Total Score?7 ?Interpretation?Mild Depression ???COVID-19 Screening:?Questions?Have you had any new onset fever, chills, cough, congestion, sore throat, shortness of breath, muscle aches??No ???SDOH Questions:?SDOH Questions?In the past year have you been worried about losing your housing??No ?In the past year have you or any family members you live with been unable to get any of the following when it was really needed? Check all that apply:?None * ROS:?General/Constitutional:?pain?only normal aches and pains.?Chills?denies.?Fatigue?admits.?Fever?denies.?ENT:?Decreased hearing?denies.?Respiratory:?Cough?denies.?Cardiovascular:?Chest pain with exertion?denies.?Dyspnea on exertion?denies.?Shortness of breath?denies.?Gastrointestinal:?Constipation?denies.?Decreased appetite?denies.?Diarrhea?denies.?Heartburn?denies.?Nausea?denies.?Rectal bleeding?denies.?Vomiting?denies.?Hematology:?bruising?denies.?petechiae?denies.?Swollen glands?none have been noted.?Genitourinary:?Frequent urination?denies.?Musculoskeletal:?Muscle aches?denies.?Painful joints?denies.?Sciatica?denies.?Weakness?denies.?Skin:?Itching?denies.?Rash?denies.?Skin lesion(s)?denies.?Neurologic:?Difficulty speaking?denies.?Dizziness?denies.?Headache?denies.?Low back pain?denies.?Psychiatric:?Depressed mood?denies.? * Medical History:?Chronic hea daches for 4 monrths, [id number] 7 mos, Former smoker, Overweight, Hypothyroid, Pre-diabetes, [...] prostate or colon. * Social History:?Tobacco Use:?Tobacco Control (Standard)?Tobacco use:?Current smoker ?How often do you smoke cigarettes??Some days, but not every day ?How many cigarettes a day do you smoke??5 or less ?How soon after you wake up do you smoke your first cigarette??After 60 minutes ?Are you interested in quitting??Ready to quit ?Additional Findings: Tobacco user?Light cigarette smoker (1-9 cigs/day) ???Drugs/Alcohol:?Drugs?Have you used drugs other than those for medical reasons in the past 12 months??No ???Drug/Alcohol:?AUDIT-C (Standard)?Did you have a drink containing alcohol in the past year??No ?Points?0 ?Interpretation?Negative ???She was born in [place] and came to this country at the age of 36. She speaks [place] Citizen and is learning [place] but is not yet fluent. She has [...] the patient * Allergies:?No Known Drug All ergy, No Known Food Allergy. Objective: * Vitals:?Ht: 63, Wt: 190, BMI :33.65, BP: 112/75, HR: 87, Temp: 97.5, Wt-k.18. * ???Past Orders: Lab:HCG Quantitative * Collection Date 11/16/2024 [...] X10*6/uL) 4.86 (Ref Range: 4.20-5.50 X10*6/uL) Hemoglobin 11.5?L (Ref Range: 12.0-16.0 g/dl) 11.7?L (Ref Range: 12.0-16.0 g/dl) 11.6?L (Ref Range: 12.0-16.0 g/dl) Hematocrit 36.3?L (Ref Range: 37.0-47.0 %) 36.8?L (Ref Range: 37.0-47.0 %) 36.7?L (Ref Range: 37.0-47.0 %) Mean Corpuscular Volume 76.6?L (Ref Range: 80.0-98.0 fL) 75.9?L (Ref Range: 80.0-98.0 fL) 75.5?L (Ref Range: 80.0-98.0 fL) Mean Corpuscular Hemoglobin 24.3?L (Ref Range: 27.0-33.0 pg) 24.1?L (Ref Range: 27.0-33.0 pg) 23.9?L (Ref Range: 27.0-33.0 pg) Mean Corpuscular HGB Conc 31.7 (Ref Range: 31.0-35.0 g/dl) 31.8 (Ref Range: 31.0-35.0 g/dl) 31.6 (Ref Range: 31.0-35.0 g/dl) Red Cell Distribution Width 15.6 (Ref Range: 11.0-16.0 %) 15.7 (Ref Range: 11.0-16.0 %) 15.1 (Ref Range: 11.0-16.0 %) Platelet Count 428?H (Ref Range: 160-400 X10*3/uL) 390 (Ref Range: 160-400 X10*3/uL) 377 (Ref Range: 160-400 X10*3/uL) Mean Platelet Volume 9.5 (Ref Range: 9.4-12.3 fL) 9.4 (Ref Range: 9.4-12.3 fL) 9.0?L (Ref Range: 9.4-12.3 fL) NRBC Pct Auto [...] 1.27 (Ref Range: 0.32-4.0 uIU/mL) * Examination: ???General Examination: ?GENERAL APPEARANCE:?pleasant, well [...] sensory exam intact.?PSYCH:?alert, oriented.? Assessment: * Assessment: 1.?Annual physical exam - Z0 0.00 (Primary)???2.?Iron deficiency anemia, unspecified iron deficiency anemia type - D50.9???3.?Diabetes mellitus due to underlying condition without complication, without long-term current use of insulin - E08.9?? 4.?Premenstrual syndrome - N94.3???5.?Abdominal pain, left upper quadrant - R10.12??? Plan: * Treatment: ? Value Reference Range ?SG 1.010 1.005 - 1.025 * ?pH 7.0 5.0 - 9.0 * ?DEEPTI 70+ Negative - * ?NIT Negative Negative - * ?PRO 30+ Negative - Trac e * ?GLU Negative Negative - * ?KET Negative Negative - * ?UBG 0.2 0.1 - 1.8 * ?ADITYA 1+ 0.2 - 1.3 * ?BLD +++ Negative - 2.?Iron deficiency anemia, unspecified iron deficiency anemia type? Continue metFORMIN HCl Tablet, 500 MG, TAKE 1 TABLET BY MOUTH EVERY DAY WITH A MEAL FOR 90 DAYS; Continue lamoTRIgine ER Tablet Extended Release 24 Hour, 25 MG, 1 tablet, Orally, Once a day; Continue Ketoconazole Cream, 2 %, 1 application to affected area, Externally, Twice a day;?Continue Propranolol HCl Tablet, 10 MG, 1 tablet on an empty stomach, Orally, Once a day;?Continue Ferrous Gluconate Tablet, 324 (38 Fe) MG, orally, once a day, once a day;?Continue Hydrocortisone Cream, 1 %, 1 application, Externally, Twice a day.?LAB: PROFILE, FASTING (COMPREHENSIVE METABOLIC) ?LAB: CBC w DIFF ?LAB: FOLLICLE STIMULATING HORMONE (FSH) ?LAB: LUTEINIZING HORMONE (LH) ?LAB: Lipid Panel ?LAB: Hemoglobin A1c3.?Diabetes mellitus due to underlying condition without complication, without long-term current use of insulin?LAB: PROFILE, FASTING (COMPREHENSIVE METABOLIC) ?LAB: CBC w DIFF ?LAB: Lipid Panel ?LAB: Hemoglobin A1c4.?Premenstrual syndrome?LAB: PROFILE, FASTING (COMPREHENSIVE METABOLIC) ?LAB: CBC w DIFF ?LAB: Lipid Panel ?LAB: Hemoglobin A1c5.?Abdominal pain, left upper quadrant?Imaging: US ABD6.?Others? Continue Omeprazole Capsule Delayed Release, 20 MG, TAKE 1 CAPSULE BY MOUTH EVERY DAY FOR 30 DAYS; Continue Aldara.?? * Procedure Codes:?28094 URINE -NO MICRO * Preventive Medicine:? ??Counseling:?Care goal follow-up plan:?Counseling [...] done: Medical or Other reason not done * Follow Up:?3 Months (Reason: Follow up) * Images: * The named appointment provid er may or may not be the originator of this progress note, and it is not deemed complete until electronically signed by the appointment provider. Sign off status: Pending * Provider:?Fox Johnston MD Date:?10/27 Generated for Dexter gomes/Grabiel/eTransmitting on:?11/23/2024 11:28 AM EDT History and Physical Notes * HPI [...]
== END 2024-11-23 11:01 | disposition home or self-care (01) ==
LOC: HO.US 11:00
PROVIDERS: PCP Internal Medicine Medical Oncology; Visit Provider Obstetrics & Gynecology
DX: N93.9 Abnormal uterine and vaginal bleeding, unspecified (principal)
CPT/HCPCS: 76830; 76856

== ENCOUNTER → 2024-11-23 11:03 | Outpatient (BNV) | payer BC, SELFPAY | PROVIDERS: PCP Internal Medicine Medical Oncology; Visit Provider Specialist | DX: N85.00 Endometrial hyperplasia, unspecified (principal) | CPT/HCPCS: 76830; 76856 ==

== ENCOUNTER 2024-11-24 11:42 | Outpatient (REF) | payer BC, SELFPAY ==
--- NOTE | ~2024-11-24 | US_ITS ---
CLINICAL HISTORY: ABDOMINAL PAIN US abdomen complete Comparison: 03/24/2024 Findings: The visualized pancreas is normal. The aorta and inferior vena cava are normal caliber. The appearance of the liver suggests fatty infiltration without focal lesion. There is no intrahepatic bile duct dilatation. The common duct is 5.0 mm in diameter. There are no abnormal findings in the gallbladder fossa The main portal vein is antegrade. The right kidney is 10.1 cm in length. The left kidney is 11.5 cm in length. The spleen is normal. No ascites. IMPRESSION: 1. Hepatic steatosis. This document has been electronically signed by: Geronimo Mccormack MD on 11/25/2024 10:28:50
--- OUTSIDE RECORDS SUMMARY | 2024-11-24 12:35 | XMS_ITS ---
Author Organization Fox Johnston III, MD Address [address] [place] [address] Care Team Providers Care Air Control Electronics Operator Name Role Phone Fox Johnston Primary Care Provider [phone] Allergies Allergen (clinical drug ingredient) Drug/Non Drug [...] Date Status Hydrocortisone 1 % 1 application Rn Telehealth ally Twice a day 11/19/2023 Active Ferrous [...] 20 MG TAKE 1 CAPSULE BY [facility] EVERY DAY FOR 30 DAYS Active Social [...] Date Provider Diagnosis Fox Johnston III, MD [address] [place] [address] [place] [address] 11/22/2024 Fox Johnston Iron deficiency anemia, unspecified [...] Date Notes Hydrocortisone 1 % 1 application Rn Telehealth ally Twice a day 11/19/2023 Ferrous Gluconate 324 (38 Fe ) MG orally once a day once a day 11/19/2023 Aldara lamoTRIgine ER 25 MG 1 tablet Orally Once a day 07/13/2022 metFORMIN HCl 500 MG TAKE 1 TABLET BY [facility] EVERY DAY WITH A MEAL FOR 90 [...] up Provider Name:Fox Johnston, 02/12/2025 10:30:00 AM, [address] [place] [address] [address], [place], [phone], Provider Name:Fox Johnston, 11/26/2025 04:00:00 PM, [address] [place] [address] [address], [place], [address], Progress Notes * Manny UP: (44 yo F)Acc No.[id number]:11/22/2024 Progress Notes Patient:?WILSON BAKERKym Provider:?Fox Johnston MD :1980???Age:44 Y???Sex:Female D ate:11/22/2024 Address:[address] [place], [place] [address] [id number] Subjective: * Chief Complaints: * ???1. Annual Exam. * HPI: ???Depression Screening:?saw brandon recently, she was upset, wanted to see if she was premenopausal, crem did not work, referred out to [facility] for laser for the warts. never been to [place] to [facility] with [facility] to get laser there, counselled [...] Medical History:?Chronic hea daches for 4 monrths, [id number] 7 mos, Former smoker, Overweight, Hypothyroid, Pre-diabetes, [...] at the age of 36. She speaks Egyptian and is learning Lao but is not yet fluent. She has [...] FOR 30 DAYS; Continue Aldara.?? * Procedure Codes:?96991 URINE -NO MICRO * Preventive Medicine:? ??Counseling:?Care [...] Johnston MD Date:?10/27 Generated for Dexter gomes/Grabiel/eTransmitting on:?11/24/2024 12:35 PM EDT History and Physical Notes * [...]
== END 2024-11-24 11:43 | disposition home or self-care (01) ==
LOC: HO.US 11:42
PROVIDERS: PCP Internal Medicine Medical Oncology; Visit Provider Internal Medicine Medical Oncology
DX: R10.12 Left upper quadrant pain (principal)
CPT/HCPCS: 76700

== ENCOUNTER → 2024-11-24 12:07 | Outpatient (BNV) | payer BC, SELFPAY | PROVIDERS: PCP Internal Medicine Medical Oncology; Visit Provider Specialist | DX: K76.0 Fatty (change of) liver, not elsewhere classified (principal) | CPT/HCPCS: 76700 ==

== ENCOUNTER 2024-11-27 15:32 | Outpatient (AMB) | payer BC, SELFPAY ==
--- NOTE | 2024-11-27 15:33 | MHC.OFFVIS ---
Vital Signs 11/27/24 15:36 Height 5 ft 4 in Weight 192 lb BMI 33.0 Intake Visit Reasons: ultrasound results Grommet Worker Required: Yes Grommet Worker Language: Cable Tool Operator Services: Grommet Worker Present (in person) Grommet Worker Name: Carolyn OLIVEIRA Information Interpreted: non-clinical & clinical Accompanied by: Daughter Allergies No Known Allergies Allergy (Verified 11/22/24 15:21) HPI Comments Details: Presenting for follow-up . AUB workup included the following: H&H 11.5/36.3 TSH, hCG within normal GC/CT was negative Pelvic ultrasound done recently showed the following: Transvaginal scanning performed. Anteverted uterus is 8.6 cm length. Normal myometrium. Endometrium 4.0 mm thickness. Questionable endometrial 0.7 x 0.5 x 0.3 cm lesion. Right ovary 1.8 x 1.4 x 1.3 cm. Left ovary 2.5 x 2.6 x 2.5 cm. Normal color Doppler of both ovaries. No free fluid. 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 Obesity due to excess calories Prediabetes Surgical History Hx of dilation and curettage (~2020) H/O tubal ligation Family History Mother Diabetes Maternal Grandfather Diabetes Father Diabetes Social History Household Members: Spouse and Children Are you a primary special needs caregiver to a significant other at home: No Do you presently have visiting nurse or other home services: No Alcohol intake: never Patient Tobacco Use Status: Never used Tobacco Second Hand Smoke Exposure: No Current occupational status: employed 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 Sexual 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/Heterosexual Gender identity: Female Female Reproductive History Menstrual Age of Menarche: 13 Review of Systems Const All systems reviewed & are unremarkable except as noted in HPI and below Reports as per HPI and Reports no additional complaints GI Reports no additional complaints Reports no additional complaints Physical Exam Vital Signs: BMI result Body Mass Index 33.0 Assessment & Plan Assessment & Plan (1) Abnormal uterine bleeding (AUB): Comment: Endometrial lesion by ultrasound Code(s): N93.9 - Abnormal uterine and vaginal bleeding, unspecified Category: Medical Plan: Discussed with the patient the finding on ultrasound showing 0.7 cm possible endometrial lesion, recommended either repeat ultrasound after 1-2 cycles to confirm abnormal endometrial versus hysteroscopy D&C possible polypectomy myomectomy. All pros and cons, risks and benefits of each approach were discussed with the patient, the patient would like to repeat pelvic ultrasound and treat accordingly. Pelvic ultrasound ordered. Instructions given the patient to schedule an pelvic ultrasound a follow-up appointment. All questions answered, the patient verbalized understanding Orders: Orders US pelvic and transvaginal 2 Months N93.9 - Abnormal uterine and vaginal bleeding, unspecified Coding Level of Care Code Est Pt Level 3 (86023) Diagnoses Abnormal uterine bleeding (AUB) N93.9
[2024-11-27 15:36] VITALS: BMI 33.0
--- OUTSIDE RECORDS SUMMARY | 2024-11-27 16:45 | XMS_ITS ---
Author Organization Fox Johnston III, MD Address [address] [place] [address] Care Team Providers Care Executive Steward Name Role Phone Fox Johnston Primary Care Provider [phone] Allergies Allergen (clinical drug ingredient) Drug/Non Drug [...] Date Status Hydrocortisone 1 % 1 application Frame Table Operator ally Twice a day 11/19/2023 Active Ferrous [...] 20 MG TAKE 1 CAPSULE BY [facility] EVERY DAY FOR 30 DAYS Active [...] Date Provider Diagnosis Fox Johnston III, MD [address] [place] [address] [place] [address] 11/22/2024 Fox Johnston Iron deficiency anemia, unspecified [...] (ICD-10 - A63.0) She recently saw her choir member who is treating this. There has been [...] Date Notes Hydrocortisone 1 % 1 application Frame Table Operator ally Twice a day 11/19/2023 Ferrous Gluconate [...] 20 MG TAKE 1 CAPSULE BY [facility] EVERY DAY FOR 30 DAYS Pending Test Test Name Order Date PROFILE, FASTING (COMPREHENSIVE METABOLI C) 11/22/2024 CBC w DIFF 11/22/2024 FOLLICLE STIMULATING HORMONE (FSH) 11/22 LUTEINIZING HORMONE (LH) 11/22/2024 US ABD 11/22/2024 Lipid Panel 11/22/2024 Hemoglobin A1c 11/22/2024 Next Appt Details Follow Up: 3 Months, Reason: Follow up Provider Name:Fox Johnston, 11/28/2024 04:00:00 PM, [address] [place] [address] [address], [place], [phone], Provider Name:Fox Johnston, 02/12/2025 10:30:00 AM, [address] [place] [address] [address], [place], [phone], Provider Name:Fox Johnston, 11/26/2025 04:00:00 PM, [address] [place] [address] [address], [place], [phone], Progress Notes * Ag UPRosalba: (44 yo F)Acc No.[id number]:11/22/2024 Progress Notes Patient:?Kym UP Provider:?Fox Johnston MD :1980???Age:44 Y???Sex:Female D ate:11/22/2024 Address:[address] [place] [address] [place] [id number] Subjective: * Chief Complaints: * ???Annual Exam * HPI: ???Depression Screening:? She returns to the office for a scheduled visit for medical management.? She saw her choir member recently.? She had been given a cream for her pain, no genital warts but she says it did not work.? Several of them were removed but several remain.? She has been referred to another practitioner at [facility] who specializes in this.? He has never been to her bilingual office assistant.? She has decided to have this treated by a specialist in [facility] when she goes back there on vacation in a couple of weeks.? She was counseled at length about the contagious nature of these reports and how to prevent reinfection with the use of condoms and vigilance.? She also complained of a pulsating intermittent left upper quadrant abdominal pain related to meals.? Her examination was normal.? Blood work was unrevealing.? An ultrasound of the abdomen was ordered to be done prior to her trip to [facility].? Blood work with an FSH and an LH was ordered well at her request. ?PHQ-9?Little interest or pleasure in doing things?More [...] really needed? Check all that apply:?None * ROS:?General/Constitutional:?pain?Mild intermittent postprandial left upper quadrant abdominal discomfort for one month.?Chills?denies.?Fatigue?admits.?Fever?denies.?ENT:?Decreased hearing?denies.?Respiratory:?Cough?non-productive.?Cardiovascular:?Chest pain with exertion?denies.?Dyspnea on exertion?denies.?Shortness of breath?denies.?Gastrointestinal:?Constipation?denies.?Decreased appetite?denies.?Diarrhea?denies.?Heartburn?denies.?Nausea?denies.?Rectal bleeding?denies.?Vomiting?denies.?Hematology:?bruising?denies.?petechiae?denies.?Swollen glands?none have been noted.?Genitourinary:?Frequent urination?at night.?Musculoskeletal:?Muscle aches?denies.?Painful joints?denies.?Sciatica?denies.?Weakness?denies.?Skin:?Itching?denies.?Rash?denies.?Skin lesion(s)?denies.?Neurologic:?Difficulty speaking?denies.?Dizziness?denies.?Headache?denies.?Low back pain?denies.?Psychiatric:?Depressed mood?denies.? * Medical History:? * Surgical History:?C- section [...] year??No ?Points?0 ?Interpretation?Negative ???She was born in [place] and came to this country at the age of 36. She speaks Thai and is learning Sinhala but is not yet fluent. She has 2 children. She is not working. * Medications:?TakingmetFORMIN HCl 500 MG Tablet TAKE 1 TABLET [...] the patient * Allergies:?No Known Drug All ergyNo Known Food Allergyno[Allergies Verified] Objective: * Vitals:?Ht: 63, Wt: 190, BMI [...] centripital obesity,, No abnormal findings left upper quadrant.?RECTAL EXAM:?not examined.?MUSCULOSKELETAL:?extremities unremarkable, no clubbing, cyanosis or edema.?PERIPHERAL PULSES:?normal.?NEUROLOGIC:?alert and oriented, cranial nerves 2-12 grossly intact, deep tendon reflexes 2+ symmetrical, motor strength normal upper and lower extremities, sensory exam intact.?PSYCH:?alert, oriented.? Assessment: * Assessment: 1.?Diabetes mellitus due to underlying condition without complication, without long-term current use of insulin - E08.9 (Primary)???Notes :Her diabetes seems stable and she is compliant with her medications.? No change in his therapy was needed.???2.?Iron deficiency anemia, unspecified iron deficiency anemia type - D50.9???Notes :She has a mild anemia and her mean cell volume is slightly low.? Current medications were continued.? A ferritin level will be checked.???3.?Abdominal pain, left upper quadrant - R10.12???Notes :There were no findings on physical examination.? Abdominal ultrasound has been ordered.???4.?Chronic cluster headache, not intractable - G44.029???Notes :Headaches have worsened in one daily. I have added Fioricet.???5.?Former smoker - Z87.891???Notes :She has stopped smoking. Her weight has not increased. We discussed a strategy to relapse in times of stress and illness.???6.?Obesity (BMI 30.0-34.9) - E66.9???Notes :She has lost 1 pound. Her body mass index is 34.7. 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 There has been marked improvement in her cream has been continued.???8.?Tobacco dependence - F17.200???Notes :We discussed smoking cessation at length today.???9.?Barb's thyroiditis - E06.3???Notes :Her thyroid disease is stable. She is on thyroid replacement. Her values have been stable. No change in her regimen was necessary today.??? Plan: * Treatment: 2.?Iron deficiency anemia, u nspecified iron deficiency anemia type? Continue metFORMIN HCl [...] HORMONE (LH) ?LAB: Lipid Panel ?LAB: Hemoglobin A1c 3.?Abdominal pain, left uppe r quadrant?Imaging: US ABD 4.?Others? Continue Omeprazole Capsule Delayed Release, 20 MG, TAKE 1 CAPSULE BY MOUTH EVERY DAY FOR 30 DAYS;?Continue Aldara.?? * Labs:? * ?Lab: URINE DIP STICK (C ollection Date & Time - 11/23/2024) ? Value Reference Range ?SG 1.010 1.005 - 1.025 * ?pH 7.0 5.0 - 9.0 * ?DEEPTI 70+ Negative - * ?NIT Negative Negative - * ?PRO 30+ Negative - Trac e * ?GLU Negative Negative - * ?KET Negative Negative - * ?UBG 0.2 0.1 - 1.8 * ?ADITYA 1+ 0.2 - 1.3 * ?BLD +++ Negative - * Procedure Codes:?50532 URINE -NO MICRO * Preventive Medicine:? ??Counseling:?Care [...] done: Medical or Other reason not done ??DM Care Plan:?Patient Lifestyle Goals?Patient wants to be able to manage diabetes without too much effort.?Treatment Goals?Blood Sugars less than < 115, HbA1C < 7.0.?Barriers?no barriers.?Self-Managment Goals?Work on weight loss, with a goal of losing 1 lb per week.? * Follow Up:?3 Months (Reason: Follow up) * Images: * Sign off status: Completed true * Provider:?Fox Johnston MD Date:?10/27 Generated for Dexter gomes/Grabiel/Leslyitting on:?11/27/2024 04:44 PM EDT History and Physical Notes * [...]
== END 2024-11-27 16:00 | disposition home or self-care (01) ==
LOC: HO.HWS 15:32
PROVIDERS: PCP Internal Medicine Medical Oncology; Visit Provider Obstetrics & Gynecology
DX: N93.9 Abnormal uterine and vaginal bleeding, unspecified (principal)
CPT/HCPCS: 99213

== ENCOUNTER 2024-12-08 10:13 | Outpatient (REF) | payer BC, SELFPAY ==
--- NOTE | ~2024-12-08 | CT_ITS ---
EXAMINATION: CT ABDOMEN WITH IV CONTRAST HISTORY: LUQ PAIN COMPARISON: Correlation is made with an abdominal ultrasound dated 11/24/2024. TECHNIQUE: CT scan of the abdomen was performed following administration of 85 mL Omnipaque 350 using standard departmental protocol. Coronal and sagittal reformatted images were generated and reviewed. The patient received oral contrast material. This CT exam was performed with one or more of the following dose reduction techniques: automated exposure control, adjustment of the mA and/or kV according to patient size, use of iterative reconstruction technique. DLP: 285 mGy-cm FINDINGS: LOWER CHEST: The visualized lung bases are clear. There is no pleural effusion. CARDIOVASCULATURE: The heart is normal in size. There is no pericardial effusion. LIVER: The liver is normal in size and contour. No liver mass is identified. The hepatic and portal veins are patent. GALLBLADDER / BILE DUCTS: The gallbladder is surgically absent. There is no intra or extrahepatic biliary ductal dilatation. SPLEEN: The spleen is normal in size. No focal splenic lesion is identified. PANCREAS: The pancreas is unremarkable in appearance. ADRENAL GLANDS: Within normal limits. KIDNEYS/RETROPERITONEUM: There is a 4 mm nonobstructing calculus in the interpolar region of the left kidney. No right renal calculi are identified. There is no hydronephrosis. No renal masses are identified. LYMPH NODES: No abdominal lymphadenopathy. VASCULATURE: The abdominal aorta is normal in caliber. MESENTERY/PERITONEUM: No free fluid. No masses. There is no free intraperitoneal gas. STOMACH: There is a small hiatal hernia. The remainder of the stomach is unremarkable. SMALL BOWEL: The visualized small bowel is normal in caliber. COLON: The visualized portion of the colon is unremarkable. BONES / SOFT TISSUES: No suspicious bony or soft tissue abnormalities. CT/CT abdomen w IV con IMPRESSION: Small hiatal hernia. 4 mm nonobstructing left renal calculus. Otherwise unremarkable contrast-enhanced CT of the abdomen. Electronically signed by: Fox Barajas MD 12/08/2024 11:55 AM EDT
--- OUTSIDE RECORDS SUMMARY | 2024-12-08 11:07 | XMS_ITS ---
Author Organization Fox Johnston III, MD Address [address] [place] [address] Care Team Providers Care Aircraft Cleaner Name Role Phone Fox Johnston Primary Care Provider [phone] REASON FOR VISIT gastro appt Social History Sex Assigned At : Social History Observation Description Sex Assigned At Female Encounters Encounter Location Date Provider Diagnosis Fox Johnston III, MD [address] [facility] [place] [address] 12/04/2024 Fox Johnston Plan Of Treatment Next Appt Details Provider Name:Fox Johnston, 12/15/2024 01:45:00 PM, [address] [facility], [address], Provider Name:Fox Johnston, 02/12/2025 10:30:00 AM, [address] [facility] [place], [address], Provider Name:Fox Johnston, 11/26/2025 04:00:00 PM, [address] [facility] [place], [address], Progress Notes * Ag UPraeannDOB: (44 yo F)Acc No.[id number]:12/04/2024 Patient:?Kym UP cedric :1980???Age:44 Y???Sex:Female Address:[address] [place] [address] [place], [address] * * Date:?
[2024-12-08] MEDS: iohexoL 350 MG/ML 100 ML INFUS..BTL 85 ML IV (11:45)
[2024-12-08] MEDS: Barium Sulfate Oral (Vanilla) 450 ML ORAL.SUSP PO (11:45)
== END 2024-12-08 10:14 | disposition home or self-care (01) ==
LOC: HO.CT 10:13
PROVIDERS: PCP Internal Medicine Medical Oncology; Visit Provider Internal Medicine Medical Oncology
DX: R10.12 Left upper quadrant pain (principal)
CPT/HCPCS: 74160; Q9967

== ENCOUNTER → 2024-12-08 11:35 | Outpatient (BNV) | payer BC, SELFPAY | PROVIDERS: PCP Internal Medicine Medical Oncology; Visit Provider Radiology Diagnostic Radiology | DX: R10.12 Left upper quadrant pain (principal) | CPT/HCPCS: 74160 ==

== ENCOUNTER 2025-01-31 10:56 | Outpatient (REF) | payer BC, SELFPAY ==
--- OUTSIDE RECORDS SUMMARY | 2024-12-04 10:28 | XMS_ITS ---
Author Organization Fox Johnston III, MD Address [address] [place] [address] Care Team Providers Care Supervisor Paper Testing Name Role Phone Fox Johnston Primary Care Provider REASON FOR VISIT gastro appt Social History Sex Assigned At : Social History Observation Description Sex Assigned At Female Encounters Encounter Location Date Provider Diagnosis Fox Johnston III, MD [address] [place] [address] [place] [address] 12/04/2024 Fox Johnston Plan Of Treatment Next Appt Details Provider Name:Fox Johnston, 02/12/2025 10:30:00 AM, [address] [facility], [address], Provider Name:Fox Johnston, 11/26/2025 04:00:00 PM, [address] [place] [address] [place], [address], Progress Notes * Nkechi UPDOB: (44 yo F)Acc No.[id number]:12/04/2024 Patient: Nkechi BOYER :1980 A ge:44 Y S ex:Female Address:[address] [place] [address], [address] * true * Date: Generated for Dexter gomes/Grabiel/Justinosmitting on: 0 01/31/2025 11:38 AM EDT
--- NOTE | ~2025-01-31 | US_ITS ---
CLINICAL HISTORY: N93.9 - Abnormal uterine and vaginal bleeding, unspecified Ultrasound of female pelvis with Doppler Comparison: US - US PELVIC AND TRANSVAGINAL - 11/23/24 11:06 EDT Technique: Grayscale ultrasound with assistance of color Doppler and spectral analysis. Transabdominal scanning performed for overall anatomy. Transvaginal scanning performed for better anatomic delineation. Findings: Anteverted uterus measures 10.2 x 3.2 x 4.6 cm. Mildly heterogeneous myometrium, stable small 5 mm intramural fibroid in the anterior body. Endometrium at the lower uterine segment is not visualized and this is region where probable lesion was seen previously, the visualized endometrium appears normal and homogeneously hyperechoic, 7 mm in thickness, no focal lesion or abnormal vascular flow is seen. Stable simple and complex nabothian cysts. Small endocervical fluid noted. Normal right ovary, 2.4 x 1.5 x 1.4 cm. Normal color Doppler with arterial and venous spectral tracing. Normal left ovary, 2.5 x 2.6 x 2.5 cm. Normal color Doppler with arterial and venous spectral tracing. No free fluid in the pelvis. Impression: 1. The endometrium of lower uterine segment and previously seen probable lesion at this region are not visualized, the visualized endometrium is normal. 2. Stable subcentimeter uterine fibroid. 3. Stable nabothian cysts. This document has been electronically signed by: Mikaela Davila MD on 01/31/2025 14:14:05
--- OUTSIDE RECORDS SUMMARY | 2025-01-31 11:38 | XMS_ITS | Continuity of Care Document ---
Author Organization [facility] [address] [place] [address] Phone [phone] Care Team Providers Care Cargo Bracer Name Role Phone Fox Johnston M.D. Care Team Information Receive r [phone] Problems Active Problems Provider Date Diabetes mellitus WOODY Gong Onset: 11/2024 Iron deficiency anemia WOODY Gong Onset: 10/31/2024 Hypothyroidism WOODY Gong Onset: 2024 Prediabetes WOODY Gong Onset: 2024 Social History Type Date Description Comments Sex Female Sex Unknown Marital Status Legal Status: Lives With Children Lives With Spouse Tobacco Use Start: Unknown Current Cigarette Smoker ETOH Use Never used alcohol Recreational Drug Use Never Used Drugs Medications Active Medications SIG Qnty Indications Order ing Provider Date Imiquimod5% Cream Apply Topically 3 Times A Week,DO Not Use For More Than 16 Weeks Baldemar Pineda Halobetasol Propionate0.05% Ointment Apply Am And PM Psoriasis Palms For 2 Weeks, Then Stop 1 Week Repeat Cycle as Megan Dean PA Cyclobenzaprine [id number] Tablets Take 1 Tablet By Mouth Three Times A Day AT Bedtime as Needed For 7 Days Fox Johnston M.D. Sulfamethoxazole/Trimeth oprim [id number] Tablets Take 1 Tablet By Mouth Twice A Day For 7 Days Fox Johnston M.D. Ferrous [id number](38Fe) mg Tablets Take 1 Tablet By Mouth Every Day Fox Johnston M.D. Metformin [id number] Tablets Fox Johnston M.D. Vital Signs Date Vital Result Comment 11/01/2024 9:27am BP Systolic 122 mmHg BP Diastolic 80 mmHg Heart Rate 83 /min Height 64 inches 5'4 Weight 192.12 lb BMI (Body Mass Index) 33.0 kg/m2 Results Test Acquired Date Facility Test Result H/L Range N ote Glucose Fingerstick 11/01/2024 Inhouse Glucose Fingerstick 117 Hemoglobin A1c 11/01/2024 Inhouse Hemoglobin A1c 5.9% Medical Devices Description No Information Available Encounters Type Date Location Provider Dx Diagnosis Office Visit 11/01/2024 9:30a Main Office WOODY Gong R73.03 Prediabetes Assessments Date Code Description Provider 11/01/2024 R73.03 Prediabetes WOODY Gong Plan of Treatment Future Appointment(s):* 05/07/2025 3:15 pm - Lilia Smith CNP at Main Office 11/01/2024 - WOODY Gong* R73.03 Prediabetes Functional Status Description No Information Available Mental Status Description No Information Available Referrals Description No Information Available
== END 2025-01-31 10:57 | disposition home or self-care (01) ==
LOC: HO.US 10:56
PROVIDERS: PCP Internal Medicine Medical Oncology; Visit Provider Obstetrics & Gynecology
DX: N93.9 Abnormal uterine and vaginal bleeding, unspecified (principal)
CPT/HCPCS: 76830; 76856

== ENCOUNTER → 2025-01-31 10:59 | Outpatient (BNV) | payer BC, SELFPAY | PROVIDERS: PCP Internal Medicine Medical Oncology; Visit Provider Radiology Diagnostic Radiology | DX: D25.9 Leiomyoma of uterus, unspecified (principal) | CPT/HCPCS: 76830; 76856 ==

== ENCOUNTER 2025-02-05 08:00 | Outpatient (REF) | payer BC, SELFPAY ==
--- OUTSIDE RECORDS SUMMARY | 2024-12-04 10:28 | XMS_ITS ---
Author Organization Fox Johnston III, MD Address [address] [place] [place] [address] Care Team Providers Care Table Machine Operator Name Role Phone Fox Johnston Primary Care Provider REASON FOR VISIT gastro appt Social History Sex Assigned At : Social History Observation Description Sex Assigned At Female Encounters Encounter Location Date Provider Diagnosis Fox Johnston III, MD [address] [place] [address] [place] [address] 12/04/2024 Fox Johnston Plan Of Treatment Next Appt Details Provider Name:Fox Johnston, 02/12/2025 10:30:00 AM, [address] [facility], [address], Provider Name:Fox Johnston, 11/26/2025 04:00:00 PM, [address] [place] [address] [place], [address], Progress Notes * Nkechi UPDOB: (44 yo F)Acc No.[id number]:12/04/2024 Patient: Nkechi BOYER :1980 A ge:44 Y S ex:Female Address:[address] [place] [address], [address] * true * Date: Generated for Dexter gomes/Grabiel/Justinosmitting on: 0 02/05/2025 08:02 AM EDT
[2025-02-05 08:12] LABS: MANUAL DIFF FLAG NO
[2025-02-05 08:41] LABS: Hematocrit 38.2 % (37.0-47.0); Hemoglobin 12.0 g/dl (12.0-16.0); Imm Gran Abs Auto 0.02 X10*3/uL (0.00-0.03); Imm Gran Pct Auto 0.2 % (0.0-0.4); Lymphocytes Absolute Auto 2.0 X10*3/uL (1.2-4.9); Mean Corpuscular HGB Conc 31.4 g/dl (31.0-35.0); Mean Corpuscular Hemoglobin 23.7 pg (27.0-33.0); Mean Corpuscular Volume 75.5 fL (80.0-98.0); NRBC Abs Auto 0.000 X10*3/uL (0.0-0.012); NRBC Pct Auto 0.0 /100WBC (0.0-0.2); Platelet Count 409 X10*3/uL (160-400); Red Blood Count 5.06 X10*6/uL (4.20-5.50); White Blood Count 9.7 X10*3/uL (4.8-10.8)
[2025-02-05 09:12] LABS: Hemoglobin A1C 178.3003 umol/L; Total Hemoglobin (HGBA1C) 4311.3110 umol/L
[2025-02-05 09:15] LABS: Alanine Aminotransferase 17 U/L (0-31); Albumin Level 4.5 g/dL (3.5-5.0); Alkaline Phosphatase 86 U/L (39-117); Anion Gap 9 (12-20); Aspartate Amino Transferase 20 U/L (5-31); Blood Urea Nitrogen 8 mg/dL (9-16); Calcium 8.6 mg/dL (8.4-10.2); Carbon Dioxide 27 mmol/L (22-29); Chloride 107 mmol/L (96-108); Cholesterol 171 mg/dL (<200); Estimated Glomerular Filt Rate > 60; HDL Cholesterol 39 mg/dL (>40); Potassium 3.6 mmol/L (3.3-5.1); Sodium 139 mmol/L (135-145); Total Protein 7.5 g/dL (6.5-8.0); Triglycerides 125 mg/dL (<150)
[2025-02-06 06:43] LABS: Follicle Stimulating Hormone 3.1 mIU/mL
== END 2025-02-05 08:01 | disposition home or self-care (01) ==
LOC: HO.LAB 08:00
PROVIDERS: PCP Internal Medicine Medical Oncology; Visit Provider Internal Medicine Medical Oncology
DX: D50.9 Iron deficiency anemia, unspecified (principal); E08.9 Diabetes mellitus due to underlying condition without complications
CPT/HCPCS: 36415; 80053; 80061; 83001; 83002; 83036; 85025

== ENCOUNTER 2025-02-12 14:49 | Outpatient (AMB) | payer BC, SELFPAY ==
--- OUTSIDE RECORDS SUMMARY | 2024-12-04 10:28 | XMS_ITS ---
Author Organization Fox Johnston III, MD Address [address] [facility] [place] [address] Care Team Providers Care Transit Planner Name Role Phone Fox Johnston Primary Care Provider [phone] REASON FOR VISIT gastro appt Social History Sex Assigned At : Social History Observation Description Sex Assigned At Female Encounters Encounter Location Date Provider Diagnosis Fox Johnston III, MD [address] [place] [address] [place] [address] 12/04/2024 Fox Johnston Plan Of Treatment Next Appt Details Provider Name:Fox Johnston, 05/15/2025 03:45:00 PM, [address] [facility], [address], Provider Name:Fox Johnston, 11/26/2025 04:00:00 PM, [address] [place] [address] [place], [address], Progress Notes * Nkechi UPDOB: (44 yo F)Acc No.[id number]:12/04/2024 Patient: Nkechi BOYER :1980 A ge:44 Y S ex:Female Address:[address] [place] [address], [phone] * true * Date: Generated for Dexter gomes/Grabiel/Leslyitting on: 0 02/12/2025 03:30 PM EDT
--- NOTE | 2025-02-12 14:50 | A.OFFVIS_ITS ---
Vital Signs 02/12/25 14:52 Height 5 ft 4 in Weight 192 lb BMI 33.0 Intake Visit Reasons: ultrasound results Certified Nurse Practitioner Required: Yes Certified Nurse Practitioner Language: Superintendent [employer]: Certified Nurse Practitioner Present (in person) Certified Nurse Practitioner Name: Carolyn OLIVEIRA Information Interpreted: non-clinical & clinical Accompanied by: Self / Same As Patient Allergies No Known Allergies Allergy (Verified 02/12/25 14:53) HPI Comments Details: Presenting for follow-up ultrasound done on 01/31/2025 which showed the following: Anteverted uterus measures 10.2 x 3.2 x 4.6 cm. Mildly heterogeneous myometrium, stable small 5 mm intramural fibroid in the anterior body. Endometrium at the lower uterine segment is not visualized and this is region where probable lesion was seen previously, the visualized endometrium appears normal and homogeneously hyperechoic, 7 mm in thickness, no focal lesion or abnormal vascular flow is seen. Stable simple and complex nabothian cysts. Small endocervical fluid noted. Normal right ovary, 2.4 x 1.5 x 1.4 cm. Normal color Doppler with arterial and venous spectral tracing. Normal left ovary, 2.5 x 2.6 x 2.5 cm. Normal color Doppler with arterial and venous spectral tracing. No free fluid in the pelvis. The patient is doing well with no complaints. 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 Obesity due to excess calories Prediabetes Surgical History Hx of dilation and curettage (~2020) H/O tubal ligation Family History Mother Diabetes Maternal Grandfather Diabetes Father Diabetes Social History Household Members: Spouse and Children Are you a primary wound care coordinator to a significant other at home: No Do you presently have visiting nurse or other home services: No Alcohol intake: never Patient Tobacco Use Status: Never used Tobacco Second Hand Smoke Exposure: No Current occupational status: employed 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 Sexual 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/Heterosexual Gender identity: Female Female Reproductive History Menstrual Age of Menarche: 13 Review of Systems Const All systems reviewed & are unremarkable except as noted in HPI and below Reports as per HPI and Reports no additional complaints GI Reports no additional complaints Reports no additional complaints Physical Exam Vital Signs: BMI result Body Mass Index 33.0 Assessment & Plan Assessment & Plan (1) Abnormal uterine bleeding (AUB): Comment: Endometrial lesion by ultrasound Code(s): N93.9 - Abnormal uterine and vaginal bleeding, unspecified Category: Medical Plan: Discussed with the patient the finding on ultrasound the previous endometrial lesion has resolved, endometrial looks within normal. (2) Uterine myoma: Code(s): D25.9 - Leiomyoma of uterus, unspecified Category: Medical Plan: Discussed with the patient the findings on pelvic ultrasound & the risk of myosarcoma; in addition reviewed with the patient that malignancy and pre malignancy cannot be ruled out without hysterectomy for pathological evaluation ; furthermore, explained to the patient the limitation of pelvic ultrasound and endometrial biopsy in the setting. Discussed with the patient the options of treatment including expectant management versus hysterectomy; the pros and cons, risks benefits of each approach were discussed with the patient including the fact that in cases of myosarcoma, surgical treatment can lead to early diagnosis and positively affects the prognosis; after further discussion, the patient decided to proceed with expectant management. Will repeat pelvic ultrasound periodically. Instructions given to patient to call in case any of the following occurs: pressure symptoms, abnormal uterine bleeding, pelvic pain; All questions answered, the patient verbalized understanding and agreed with the plan . Coding Level of Care Code Est Pt Level 3 (93237) Diagnoses Abnormal uterine bleeding (AUB) N93.9 Uterine myoma D25.9
[2025-02-12 14:52] VITALS: BMI 33.0
== END 2025-02-12 15:41 | disposition home or self-care (01) ==
LOC: HO.HWS 14:50
PROVIDERS: PCP Internal Medicine Medical Oncology; Visit Provider Obstetrics & Gynecology
DX: N93.9 Abnormal uterine and vaginal bleeding, unspecified (principal); D25.9 Leiomyoma of uterus, unspecified
CPT/HCPCS: 99213

== ENCOUNTER 2025-05-09 15:43 | Outpatient (REF) | payer BC, SELFPAY ==
--- OUTSIDE RECORDS SUMMARY | 2024-10-03 11:00 | XMS_ITS ---
Author Organization Fox Johnston III, MD Address [address] [place] [address] Care Team Providers Care Machine Shop Supervisor Name Role Phone Dr. Fox Johnston III Primary Care Provider Allergies Allergen (clinical drug ingredient) Drug/Non Drug Allergy documented on EMR Reaction Allergy Type Onset Date Status No Known Drug Allergy Unknown Drug Allergy Active REASON FOR VISIT Follow up Medications Medication SIG (Take, Route, Frequency, Duration) Notes Start Date End Date Status Ferrous Gluconate 324 (38 Fe) MG orally once a day once a day 11/19/2023 Active Hydrocortisone 1 % 1 application Appeals Officer ally Twice a day 11/19/2023 Active Aldara Active Propranolol HCl 10 MG 1 tablet on an emp ty stomach Orally Once a day 03/11/2019 Active Omeprazole 20 MG TAKE 1 CAPSULE BY [facility] EVERY DAY FOR 30 DAYS Active metFORMIN HCl 500 MG TAKE 1 TABLET BY [facility] EVERY DAY WITH A MEAL FOR 90 DAYS Active lamoTRIgine ER 25 MG 1 tablet Orally Onc e a day 07/13/2022 Active Ketoconazole 2 % 1 application to affected area Externally Twice a day 03/11/2019 Active Social History Tobacco [...] Date Provider Diagnosis Fox Johnston III, MD [address] [place] [address] [place] [address] 10/03/2024 Fox Johnston Iron deficiency anemia, unspecified iron deficiency anemia type D50.9 Assessments Encounter Date Diagnosis (ICD Code) Assessment Notes Treat ment Notes Treatment Clinical Notes 10/03/2024 Iron deficiency anemia, unspecified iron deficiency anemia type (ICD-10 - D50.9) Plan Of Treatment Medication Medication Name Sig Start Date Stop Date Notes Ferrous Gluconate 324 (38 Fe ) MG orally once a day once a day 11/19/2023 Hydrocortisone 1 % 1 application Appeals Officer ally Twice a day 11/19/2023 Aldara Propranolol HCl 10 MG 1 tablet on an emp ty stomach Orally Once a day 03/11/2019 Omeprazole 20 MG TAKE 1 CAPSULE BY [facility] EVERY DAY FOR 30 DAYS metFORMIN HCl 500 MG TAKE 1 TABLET BY [facility] EVERY DAY WITH A MEAL FOR 90 DAYS lamoTRIgine ER 25 MG 1 tablet Orally Once a day 07/13/2022 Ketoconazole 2 % 1 application to aff ected area Externally Twice a day 03/11/2019 Next Appt Details Provider Name:Fox Johnston , 05/15/2025 03:45:00 PM, [address] [place] [address] [address], [place], [address], Provider Name:Fox Johnston , 11/26/2025 04:00:00 PM, [address] [place] [address] [address], [place], [address], Progress Notes * Manny UP: (44 yo F)Acc No.[id number]:10/03/2024 Progress Notes Patient: Nkechi BOYER Provider: Mariusz Johnston MD :1980 A ge:44 Y S ex:Female Date:10/03/2024 Address:[address] [place], [place] [phone] Subjective: * Chief Complaints: * 1 . Follow up. * HPI: C OVID-19 Screening: Questions H ave you had any new onset fever, chills, cough, congestion, sore throat, shortness of breath, muscle aches? N o * ROS: G eneral/Constitutional: pain o nly normal aches and pains. C hills d enies.?Fatigue a dmits. F ever d enies. E NT: Decreased hearing d enies. R espiratory: Cough d enies. C ardiovascular: Chest pain with exertion d enies. D yspnea on exertion?denies. S hortness of breath d enies. G astrointestinal: Constipation d enies. D ecreased appetite d enies.?Diarrhea d enies. H eartburn d enies. N ausea d enies. R ectal bleeding?denies. V omiting d enies. H ematology: bruising d enies. p etechiae d enies. S wollen glands n one have been noted. G enitourinary: Frequent urination d enies. M usculoskeletal: Muscle aches d enies. P ainful joints d enies. S ciatica d enies. W eakness d enies. S kin: Itching d enies. R leona d enies. S kin lesion(s)?denies. N eurologic: Difficulty speaking d enies. D izziness d enies.?Headache d enies. L ow back pain d enies. P sychiatric: Depressed mood d enies. * Medical History: C hronic headaches for 4 monrths, [id number] 7 mos, Former smoker, Overweight, Hypothyroid, Pre-diabetes, {'Condyloma Acuminatum': 'Diagnosed during current visit', 'Muscle Soreness': 'Identified during current visit', 'Gallstones': 'Identified in previous medical tests'}, Anal condyloma acuminata. * Surgical History: C - section 2009, 2016, 2 para 2 , No history . * Hospitalization/Major Diagno stic Procedure: N o history . * Family History: F ather: 50 yrs, Coronary artery disease, history of myocardial infarction, diagnosed with CVD. M other: alive 68 yrs, Alive and well with no medical problems. 1 sister(s) - healthy. 2 daughter(s) - healthy. . Her sister is healthy and well. Her children are healthy and well. There is no family history of which she is aware of cancer of the breast, ovary, pancreas, prostate or colon. * Social History: T obacco Use: T obacco Use/Smoking P atient is a c urrent smoker H ow often do you smoke cigarettes? e very day H ow many cigarettes a day do you smoke? 5 or less H ow soon after you wake up do you smoke your first cigarette? a fter 60 minutes A re you interested in quitting? R nicky to quit A dditional Findings: Tobacco User L ight cigarette smoker ((1-9 cigs/day) S he was born in [facility] and came to this country at the age of 36. She speaks Pashto and is learning German but is not yet fluent. She has 2 children. She is not working. * Medications: T aking lamoTRIgine ER 25 MG Tablet Extended Release [...] Twice a day , Taking Aldara , Taking metFORMIN HCl 500 MG Tablet TAKE 1 TABLET BY MOUTH EVERY DAY WITH A MEAL FOR 90 DAYS , Medication List reviewed and reconciled with the patient * Allergies: N o Known Drug Allergy. Objective: * Vitals: * Examination: G eneral Examination: GENERAL APPEARANCE: p leasant, well nourished, well developed, in no acute distress, calm and relaxed. HEAD: a traumatic, normocephalic. EYES: e shira, perrla, anicteric, conjugate. EARS: n ormal. NOSE: s eptum intact. ORAL CAVITY: n ormal, unremarkable. NECK/THYROID: n o jugular venous distention, no carotid bruit, thyroid normal. LYMPH NODES: n o enlarged lymph nodes,spleen normal. SKIN: n o suspicious lesions, anicteric. HEART: n o clicks, gallops, murmurs, or rubs, regular rhythm, S1, S2 normal, no s3, or vascular bruits. LUNGS: c lear to auscultation . BREASTS: no masses palpable bilaterally. ABDOMEN: b owel sounds normal, no ascites, no organomegaly, no mass. RECTAL EXAM: n ot examined. MUSCULOSKELETAL: e xtremities unremarkable, no clubbing, cyanosis or edema. PERIPHERAL PULSES: n ormal. NEUROLOGIC: a lert and oriented, cranial nerves 2-12 grossly intact, deep tendon reflexes 2+ symmetrical, motor strength normal upper and lower extremities, sensory exam intact. PSYCH: a lert, oriented. Assessment: * Assessment: 1. I tom deficiency anemia, unspecified iron deficiency anemia type - D50.9 Plan: * Treatment: 2. O thers Continue Omeprazole Capsule Delayed Release, 20 MG, TAKE 1 CAPSULE BY MOUTH EVERY DAY FOR 30 DAYS;?Continue Aldara. * Images: * The named appointment provid er may or may not be the originator of this progress note, and it is not deemed complete until electronically signed by the appointment provider. Sign off status: Pending * Provider: Mariusz Johnston MD Date: 0 10/03/2024 Generated for Dexter gomes/Grabiel/Leslyitting on: 07/09/2024 06:45 PM EST History and Physical Notes * [...]
--- OUTSIDE RECORDS SUMMARY | 2024-11-22 11:15 | XMS_ITS ---
Author Organization Fox Johnston III, MD Address [address] [address] Care Team Providers Care Pathology Teacher Name Role Phone Dr. Fox Johnston III Primary Care Provider Allergies Allergen (clinical drug ingredient) Drug/Non Drug Allergy documented on EMR Reaction Allergy Type Onset Date Status No Known Drug Allergy Unknown Drug Allergy Active No Known Food Allergy Unknown Drug Allergy Active Results Component Value Reference Range Notes URINE DIP STICK Reviewed date:11/23/2024 09:30:31 AM Interpretation: Performing Lab: Notes/Report: SG 1.010 1.005 - 1.025 pH 7.0 5.0 - 9.0 DEEPTI 70+ Negative - NIT Negative Negative - PRO 30+ Negative - Trace GLU Negative Negative - KET Negative Negative - UBG 0.2 0.1 - 1.8 ADITYA 1+ 0.2 - 1.3 BLD +++ Negative - REASON FOR VISIT Annual Exam Medications Medication SIG (Take, Route, Frequency, Duration) Notes Start Date End Date Status Hydrocortisone 1 % 1 application Banker Mason ally Twice a day 11/19/2023 Active Ferrous Gluconate 324 (38 Fe) MG orally once a day once a day 11/19/2023 Active Aldara Active lamoTRIgine ER 25 MG 1 tablet Orally Onc e a day 07/13/2022 Active metFORMIN HCl 500 MG TAKE 1 TABLET BY [facility] EVERY DAY WITH A MEAL FOR 90 DAYS Active Propranolol HCl 10 MG 1 tablet on an emp ty stomach Orally Once a day 03/11/2019 Active Ketoconazole 2 % 1 application to affected area Externally Twice a day 03/11/2019 Active Omeprazole 20 MG TAKE 1 CAPSULE BY [facility] EVERY DAY FOR 30 DAYS Active Social History Tobacco Use: Social History Observation Description Date Details (start date - stop date) Current Smoker NA - NA Sex Assigned At : Social History Observation Description Sex Assigned At Female Tobacco Control (Standard) Question Answer Notes Tobacco use: Current smoker How often do you smoke cigarettes? Some days, bu t not every day How many cigarettes a day do you smoke? 5 or les s How soon after you wake up d o you smoke your first cigarette? After 60 minutes Are you interested in quitting? Ready to quit Additional Findings: Tobacco user Light cigarett e smoker (1-9 cigs/day) AUDIT-C (Standard) Question Answer Notes Did you have a drink containing alcohol in the p ast year? No Points 0 Interpretation Negative Vital Signs Temperature 97.5 degrees Fahrenheit 11/23/19 25 Blood pressure systolic 112 mm Hg 11/23/19 25 Blood pressure diastolic 75 mm Hg 025 Heart Rate 87 /min 11/22/2024 Height 63 in 11/22/2024 Weight 190 lbs 11/22/2024 BMI 33.65 kg/m2 11/22/2024 Encounters Encounter Location Date Provider Diagnosis Fox Johnston III, MD [address] [place] [address] [place] [address] 11/22/2024 Fox Johnston Iron deficiency anemia, unspecified iron deficiency anemia type D50.9 ; Diabetes mellitus due to underlying condition without complication, without long-term current use of insulin E08.9 ; Abdominal pain, left upper quadrant R10.12 ; Chronic cluster headache, not intractable G44.029 ; Former smoker Z87.891 ; Obesity (BMI 30.0-34.9) E66.9 ; 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 Current medications were continued. A ferritin level will be checked. 11/22/2024 Diabetes mellitus due to underlying condition without complication, without long-term current use of insulin (ICD-10 - E08.9) Her diabetes seems stable and she is compliant with her medications. No change in his therapy was needed. 11/22/2024 Abdominal pain, left upper quadrant (ICD-10 - R10.12) There were no findings on physical examination. Abdominal ultrasound has been ordered. 11/22/2024 Chronic cluster headache, not intractable (ICD-10 - G44.029) Headaches have worsened in one daily. I have added Fioricet. 11/22/2024 Former smoker (ICD-10 - Z87.891) She has stopped smoking. Her weight has not increased. We discussed a strategy to relapse in times of stress and illness. 11/22/2024 Obesity (BMI 30.0-34.9) (ICD-10 - E66.9) She has lost 1 pound. Her body mass index is 34.7. Once again, we reviewed her weight loss strategy at length. 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 There has been marked improvement in her cream has been continued. 11/22/2024 Tobacco dependence (ICD-10 - F17.200) We discussed smoking cessation at length today. 11/22/2024 Barb's thyroiditis (ICD-10 - E06.3) Her thyroid disease is stable. She is on thyroid replacement. Her values have been stable. No change in her regimen was necessary today. Plan Of Treatment Medication Medication Name Sig Start Date Stop Date Notes Hydrocortisone 1 % 1 application Banker Mason ally Twice a day 11/19/2023 Ferrous Gluconate 324 (38 Fe ) MG orally once a day once a day 11/19/2023 Aldara lamoTRIgine ER 25 MG 1 tablet Orally Once a day 07/13/2022 metFORMIN HCl 500 MG TAKE 1 TABLET BY [facility] EVERY DAY WITH A MEAL FOR 90 DAYS Propranolol HCl 10 MG 1 tablet on an emp ty stomach Orally Once a day 03/11/2019 Ketoconazole 2 % 1 application to aff ected area Externally Twice a day 03/11/2019 Omeprazole 20 MG TAKE 1 CAPSULE BY [facility] EVERY DAY FOR 30 DAYS Pending Test Test Name Order Date PROFILE, FASTING (COMPREHENSIVE METABOLI C) 11/22/2024 CBC w DIFF 11/22/2024 FOLLICLE STIMULATING HORMONE (FSH) 11/22 LUTEINIZING HORMONE (LH) 11/22/2024 Lipid Panel 11/22/2024 Hemoglobin A1c 11/22/2024 Next Appt Details Follow Up: 3 Months, Reason: Follow up Provider Name:Fox Johnston , 05/15/2025 03:45:00 PM, [address] [place] [address] [place], [address], Provider Name:Fox Johnston , 11/26/2025 04:00:00 PM, [address] [place] [address] [place], [address], Progress Notes * Nkechi UPDOB: (44 yo F)Acc No.[id number]:11/22/2024 Progress Notes Patient: Ag BOYERha Provider: Mariusz Johnston MD :1980 A ge:44 Y S ex:Female Date:11/22/2024 Address:[address] [place], [place] [id number] Subjective: * Chief Complaints: * A nnual Exam * HPI: D epression Screening: She returns to the office for a scheduled visit for medical management. She saw her home health occupational therapist recently. She had been given a cream for her pain, no genital warts but she says it did not work. Several of them were removed but several remain. She has been referred to another practitioner at [facility] who specializes in this. He has never been to her laboratory engineer. She has decided to have this treated by a specialist in [facility] when she goes back there on vacation in a couple of weeks. She was counseled at length about the contagious nature of these reports and how to prevent reinfection with the use of condoms and vigilance.? She also complained of a pulsating intermittent left upper quadrant abdominal pain related to meals. Her examination was normal. Blood work was unrevealing. An ultrasound of the abdomen was ordered to be done prior to her trip to [facility]. Blood work with an FSH and an LH was ordered well at her request. PHQ-9 L ittle interest or pleasure in doing things?More than half the days F eeling down, depressed, or hopeless S everal days T rouble falling or staying asleep, or sleeping too much M ore than half the days F eeling tired or having little energy S everal days P oor appetite or overeating S everal days F eeling bad about yourself or that you are a failure, or have let yourself or your family down N ot at all T rouble concentrating on things, such as reading the newspaper or watching television N ot at all M oving or speaking so slowly that other people could have noticed; or the opposite, being so fidgety or restless that you have been moving around a lot more than usual N ot at all T houghts that you would be better off or of hurting yourself in some way N ot at all T otal Score 7 I nterpretation M ild Depression C OVID-19 Screening: Questions H ave you had any new onset fever, chills, cough, congestion, sore throat, shortness of breath, muscle aches? N o S AUSTYN Questions: SDOH Questions I n the past year have you been worried about losing your housing? N o I n the past year have you or any family members you live with been unable to get any of the following when it was really needed? Check all that apply: N one * ROS: G eneral/Constitutional: pain M ild intermittent postprandial left upper quadrant abdominal discomfort for one month. C hills d enies. F atigue a dmits. F ever d enies. E NT: Decreased hearing d enies. R espiratory: Cough n on-productive. C ardiovascular: Chest pain with exertion d [...] have been noted. G enitourinary: Frequent urination a t night. M usculoskeletal: Muscle aches d enies. P ainful joints d enies. S ciatica d enies. W eakness d enies. S kin: Itching d enies. R leona d enies. S kin lesion(s)?denies. N eurologic: Difficulty speaking d enies. D izziness d enies.?Headache d enies. L ow back pain d enies. P sychiatric: Depressed mood d enies. * Medical History: * Surgical History: C - section 2008C-section 2016gravida 2 para 2 No history * Hospitalization/Major Diagno stic Procedure: N o history * Family History: F ather: 50 yrs, [...] Social History: T obacco Use: T obacco Control (Standard) T obacco use: C urrent smoker H ow often do you smoke cigarettes? S ome days, but not every day H ow many cigarettes a day do you smoke? 5 or less H ow soon after you wake up do you smoke your first cigarette? A fter 60 minutes A re you interested in quitting? R nicky to quit A dditional Findings: Tobacco user L ight cigarette smoker (1-9 cigs/day) D rugs/Alcohol: D rugs H ave you used drugs other than those for medical reasons in the past 12 months? N o D rug/Alcohol: A RONALD-C (Standard) D id you have a drink containing alcohol in the past year? N o P oints 0 I nterpretation N egative S he was born in [facility] and came to this country at the age of 36. She speaks Czech and is learning Costa Rican but is not yet fluent. She has 2 children. She is not working. * Medications: T akingmetFORMIN HCl 500 MG Tablet TAKE 1 TABLET BY MOUTH EVERY DAY WITH A MEAL FOR 90 DAYS lamoTRIgine ER 25 MG Tablet Extended Release [...] the patientTaking metFORMIN HCl 500 MG Tablet TAKE 1 TABLET BY MOUTH EVERY DAY WITH A MEAL FOR 90 DAYS Taking lamoTRIgine ER 25 MG Tablet Extended [...] patient * Allergies: N o Known Drug AllergyNo Known Food Allergyno[Allergies Verified] Objective: * Vitals: H t: 63, Wt: 190, BMI:33.65, BP: 112/75, HR: 87, Temp: 97.5, Wt-k.18. * P ast Orders: Lab:HCG Quantitative * Collection Date 11/16/2024 03/16/2024 Collection Time 04:11 PM 08:28 AM Order Date 11/16/2024 03/16/2024 HCG Quantitative < 2 (Ref Range: mIU/mL) < 2 (Ref Range: mIU/mL) * Lab:CT NG by PCR * Collection Date 11/16/2024 03/15/2024 Collection Time 03:03 PM 10:45 AM Order Date 11/16/2024 03/15/2024 CT PCR NOT DETECTED (Ref Range: Not Detect.) NOT DETECTED (Ref Range: Not Detect.) NG PCR NOT DETECTED (Ref Range: Not Detect.) NOT DETECTED (Ref Range: Not Detect.) * Lab:Complete Blood Count no Diff * Collection Date 11/21/2024 11/16/2024 03/16/2024 Collection Time 04:04 PM 04:11 PM 08:28 AM Order Date 11/21/2024 11/16/2024 03/16/2024 White Blood Count 10.1 (Ref Range: 4.8-10.8 X10*3/uL) 8.1 (Ref Range: 4.8-10.8 X10*3/uL) 7.8 (Ref Range: 4.8-10.8 X10*3/uL) Red Blood Count 4.74 (Ref Range: 4.20-5.50 X10*6/uL) 4.85 (Ref Range: 4.20-5.50 X10*6/uL) 4.86 (Ref Range: 4.20-5.50 X10*6/uL) Hemoglobin 11.5 L (Ref Range: 12.0-16.0 g/dl) 11.7 L (Ref Range: 12.0-16.0 g/dl) 11.6 L (Ref Range: 12.0-16.0 g/dl) Hematocrit 36.3 L (Ref Range: 37.0-47.0 %) 36.8 L (Ref Range: 37.0-47.0 %) 36.7 L (Ref Range: 37.0-47.0 %) Mean Corpuscular Volume 76.6 L (Ref Range: 80.0-98.0 fL) 75.9 L (Ref Range: 80.0-98.0 fL) 75.5 L (Ref Range: 80.0-98.0 fL) Mean Corpuscular Hemoglobin 24.3 L (Ref Range: 27.0-33.0 pg) 24.1 L (Ref Range: 27.0-33.0 pg) 23.9 L (Ref Range: 27.0-33.0 pg) Mean Corpuscular HGB Conc 31.7 (Ref Range: 31.0-35.0 g/dl) 31.8 (Ref Range: 31.0-35.0 g/dl) 31.6 (Ref Range: 31.0-35.0 g/dl) Red Cell Distribution Width 15.6 (Ref Range: 11.0-16.0 %) 15.7 (Ref Range: 11.0-16.0 %) 15.1 (Ref Range: 11.0-16.0 %) Platelet Count 428 H (Ref Range: 160-400 X10*3/uL) 390 (Ref Range: 160-400 X10*3/uL) 377 (Ref Range: 160-400 X10*3/uL) Mean Platelet Volume 9.5 (Ref Range: 9.4-12.3 fL) 9.4 (Ref Range: 9.4-12.3 fL) 9.0 L (Ref Range: 9.4-12.3 fL) NRBC Pct Auto 0.0 (Ref Range: 0.0-0.2 /100WBC) 0.0 (Ref Range: 0.0-0.2 /100WBC) 0.0 (Ref Range: 0.0-0.2 /100WBC) NRBC Abs Auto 0.000 (Ref Range: 0.0-0.012 X10*3/uL) 0.000 (Ref Range: 0.0-0.012 X10*3/uL) 0.000 (Ref Range: 0.0-0.012 X10*3/uL) * Lab:TSH reflex Free T4 * Collection Date 11/16/2024 03/16/2024 Collection Time 04:11 PM 08:28 AM Order Date 11/16/2024 03/16/2024 TSH reflex Free T4 1.72 (Ref Range: 0.32-4.0 uIU/mL) 1.27 (Ref Range: 0.32-4.0 uIU/mL) * Examination: G eneral Examination: GENERAL APPEARANCE: p leasant, well nourished, well developed, in no acute distress, calm and relaxed, obese, woman. HEAD: a traumatic, normocephalic. EYES: e shira, [...] LUNGS: c lear to auscultation . BREASTS: N ot examined. ABDOMEN: b owel sounds normal, no ascites, no organomegaly, no mass, centripital obesity,, No abnormal findings left upper quadrant. RECTAL EXAM: n ot examined. MUSCULOSKELETAL: e xtremities unremarkable, no clubbing, cyanosis or edema. PERIPHERAL PULSES: n ormal. NEUROLOGIC: a lert and oriented, cranial nerves 2-12 grossly intact, deep tendon reflexes 2+ symmetrical, motor strength normal upper and lower extremities, sensory exam intact. PSYCH: a lert, oriented. Assessment: * Assessment: 1. D iabetes mellitus due to underlying condition without complication, without long- term current use of insulin - E08.9 (Primary) N otes :Her diabetes seems stable and she is compliant with her medications. No change in his therapy was needed. 2 . I tom deficiency anemia, unspecified iron deficiency anemia type - D50.9? Notes :She has a mild anemia and her mean cell volume is slightly low. Current medications were continued. A ferritin level will be checked. 3 . A bdominal pain, left upper quadrant - R10.12 N otes :There were no findings on physical examination. Abdominal ultrasound has been ordered. 4 . C hronic cluster headache, not intractable - G44.029 N otes :Headaches have worsened in one daily. I have added Fioricet. 5 . F ormer smoker - Z87.891 N otes :She has stopped smoking. Her weight has not increased. We discussed a strategy to relapse in times of stress and illness. 6 . O besity (BMI 30.0-34.9) - E66.9 N otes :She has lost 1 pound. Her body mass index is 34.7. Once again, we reviewed her weight loss strategy at length. 7 . A nal condylomata - A63.0 N otes :She recently saw her home health occupational therapist who is treating this. There has been marked improvement in her cream has been continued. 8 . T obacco dependence - F17.200 N otes :We discussed smoking cessation at length today. 9 . H ashimoto's thyroiditis - E06.3 N otes :Her thyroid disease is stable. She is on thyroid replacement. Her values have been stable. No change in her regimen was necessary today. Plan: * Treatment: 2. I tom deficiency anemia, unspecified iron deficiency anemia type Continue metFORMIN HCl Tablet, 500 MG, TAKE 1 TABLET BY MOUTH EVERY DAY WITH A MEAL FOR 90 DAYS;?Continue lamoTRIgine ER Tablet Extended Release 24 Hour, 25 MG, 1 tablet, Orally, Once a day; Continue Ketoconazole Cream, 2 %, 1 application to affected area, Externally, Twice a day; C ontinue Propranolol HCl Tablet, 10 MG, 1 tablet on an empty stomach, Orally, Once a day; C ontinue Ferrous Gluconate Tablet, 324 (38 Fe) MG, orally, once a day, once a day; C ontinue Hydrocortisone Cream, 1 %, 1 application, Externally, Twice a day. L AB: PROFILE, FASTING (COMPREHENSIVE METABOLIC) L AB: CBC w DIFF L AB: FOLLICLE STIMULATING HORMONE (FSH) L AB: LUTEINIZING HORMONE (LH) L AB: Lipid Panel L AB: Hemoglobin A1c 3. A bdominal pain, left upper quadrant I maging: US ABD 4. O thers Continue Omeprazole Capsule Delayed Release, 20 MG, TAKE 1 CAPSULE BY MOUTH EVERY DAY FOR 30 DAYS;?Continue Aldara. * Labs: * L ab: URINE DIP STICK (Collection Date & Time - 11/23/2024) Value Reference Range S G 1.010 1.005 - 1.025 * p H 7.0 5.0 - 9.0 * L EU 70+ Negative - * N IT Negative Negative - * P RO 30+ Negative - Trace * G NANNETTE Negative Negative - * K ET Negative Negative - * U BG 0.2 0.1 - 1.8 * B IL 1+ 0.2 - 1.3 * B LD +++ Negative - * Procedure Codes: 8 1002 URINE-NO MICRO * Preventive Medicine: Counseling: C are goal follow-up plan: Counseling for abnormal BMI given Y es Above Normal BMI Follow-up D ietary management education, guidance, and counseling, Dietary needs education, Exercise promotion: strength training, Exercise promotion: stretching, Feeding regime, Giving encouragement to exercise, Lifestyle education regarding diet, Nutrition / feeding management, Nutrition therapy, Prescribed activity/exercise education, Prescribed diet education, Prescribed dietary intake, Special diet education, Weight monitoring , Intervention, Order not done: Medical or Other reason not done DM Care Plan: P atient Lifestyle Goals P atient wants to be able to manage diabetes without too much effort. T reatment Goals B lood Sugars less than < 115, HbA1C < 7.0. B arriers n o barriers. S elf-Managment Goals W ork on weight loss, with a goal of losing 1 lb per week. * Follow Up: 3 Months (Reason: Follow up) * Images: * Sign off status: Completed true * Provider: Mariusz Johnston MD Date: 0 11/22/2024 Generated for Dexter gomes/Grabiel/Casey on: 1 07/09/2024 06:44 PM EST History and Physical Notes * HPI (History of Present Illness) Category Sub-Category Detail Notes Depression Screening PHQ-9 Little inte rest or pleasure in doing things: More than half the days Feeling down, depressed, or hopeless: Se veral days Trouble falling or staying a sleep, or sleeping too much: More than half the days Feeling tired or having little energy: S everal days Poor appetite or overeating: Several day s Feeling bad about yourself o r that you are a failure, or have let yourself or your family down: Not at all Trouble concentrating on thi ngs, such as reading the newspaper or watching television: Not at all Moving or speaking so slowly that other people could have noticed; or the opposite, being so fidgety or restless that you have been moving around a lot more than usual: Not at all Thoughts that you would be b sina off or of hurting yourself in some way: Not at all Total Score: 7 Interpretation: Mild Depression COVID-19 Screening Questions Have you had any new onset fever, chills, cough, congestion, sore throat, shortness of breath, muscle aches?: No SDOH Questions SDOH Questions In the past year have you been worried about losing your housing?: No In the past year have you or any family members you live with been unable to get any of the following when it was really needed? Check all that apply:: None Examination Category Sub-Category Detail Notes General Examination [...] no ascites, no organomegaly, no mass, centripital obesity,, No abnormal findings left upper quadrant NEUROLOGIC: alert and oriented, cranial nerves 2-12 [...]
--- OUTSIDE RECORDS SUMMARY | 2024-11-28 11:00 | XMS_ITS ---
Author Organization Fox Johnston III, MD Address [address] [place] [address] Care Team Providers Care Manager Storage Name Role Phone Dr. Fox Johnston III Primary Care Provider [phone] Allergies Allergen (clinical drug ingredient) Drug/Non Drug Allergy documented on EMR Reaction Allergy Type Onset Date Status No Known Drug Allergy Unknown Drug Allergy Active No Known Food Allergy Unknown Drug Allergy Active Reason For Referral Reason intermittent LUQ darius n with food radiation to back evaluate and treatment negative ultrasound Diagnosis 1 Iron deficiency anem ia, unspecified iron deficiency anemia type (D50.9) Diagnosis 2 Left upper quadrant pain (R10.12) Referral Organization Fox Johnston III, MD Referring Provider First Name Fox Referring Provider Last Name Preston Referring Provider Speciality Internal M edicine Referred Provider Keron Ramos Referred Provider Specialty Gastroentero logy General Notes Megan Valentine CMA 12/11 10:17:02 AM >ref/demo/progress note/labs/ct scan faxed to Dr Ramos office Referral Priority Routine Referral Appointment Date 02/27/2025 REASON FOR VISIT Obesity, Diabetes, Hypothyroidism, Left upper quadrant abdominal pain, Barb's thyroiditis, Condylomata Medications Medication SIG (Take, Route, Frequency, Duration) Notes Start Date End Date Status Propranolol HCl 10 MG 1 tablet on an emp ty stomach Orally Once a day 03/11/2019 Active Omeprazole 20 MG TAKE 1 CAPSULE BY [facility] EVERY DAY FOR 30 DAYS Active Ketoconazole 2 % 1 application to affected area Externally Twice a day 03/11/2019 Active metFORMIN HCl 500 MG TAKE 1 TABLET BY [facility] EVERY DAY WITH A MEAL FOR 90 DAYS Active lamoTRIgine ER 25 MG 1 tablet Orally Onc e a day 07/13/2022 Active Aldara Active Ferrous Gluconate 324 (38 Fe) MG orally once a day once a day 11/19/2023 Active Hydrocortisone 1 % 1 application Mint Wafer Depositor ally Twice a day 11/19/2023 Active Social History Tobacco [...] user Light cigarett e smoker (1-9 cigs/day) Problems Problem Type SNOMED Code ICD Code Onset Dates Problem Status W/U Status Risk Notes Problem [id number] Left upper quadrant pain (R10.12) Active confirmed No abnormality has been found. This is likely musculoskeletal discomfort related to inflammation. She will be observed carefully. Vital Signs Temperature 98.1 degrees Fahrenheit 11/29/19 25 Blood pressure systolic 118 mm Hg 11/29/19 25 Blood pressure diastolic 61 mm Hg 025 Heart Rate 96 /min 11/28/2024 Height 63 in 11/28/2024 Weight 190 lbs 11/28/2024 BMI 33.65 kg/m2 11/28/2024 Encounters Encounter Location Date Provider Diagnosis Fox Johnston III, MD [address] [place] [address] [address] [place], [place] [address] 11/28/2024 Fox Johnston Iron deficiency anem ia, unspecified iron deficiency anemia type D50.9 ; Left upper quadrant pain R10.12 ; Chronic cluster headache, not intractable G44.029 ; Obesity (BMI 30.0-34.9) E66.9 ; Diabetes mellitus due to underlying condition without complication, without long-term current use of insulin E08.9 ; Hypothyroidism E03.9 ; Tobacco dependence F17.200 and 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 Assessments Encounter Date Diagnosis (ICD Code) Assessment Notes Treat ment Notes Treatment Clinical Notes 11/28/2024 Iron deficiency anemia, unspecified iron deficiency anemia type (ICD-10 - D50.9) She continues to have a mild microcytic, probably multifactorial anemia. Her iron therapy was continued. 11/28/2024 Left upper quadrant pain (ICD-10 - R10.12) No abnormality has been found. This is likely musculoskeletal discomfort related to inflammation. She will be observed carefully. 11/28/2024 Chronic cluster headache, not intractable (ICD-10 - G44.029) Headaches have worsened in one daily. I have added Fioricet. 11/28/2024 Obesity (BMI 30.0-34.9) (ICD-10 - E66.9) She has lost 1 pound. Her body mass index is 34.7. Once again, we reviewed her weight loss strategy at length. 11/28/2024 Diabetes mellitus due to underlying condition without complication, without long-term current use of insulin (ICD-10 - E08.9) Her diabetes seems stable and she is compliant with her medications. No change in his therapy was needed. 11/28/2024 Hypothyroidism (ICD-10 - E03.9) , Negative thyroid functions will be done prior to her next visit. She appears to be euthyroid. 11/28/2024 Tobacco dependence (ICD-10 - F17.200) We discussed smoking cessation at length today. 11/28/2024 Anal condylomata (ICD-10 - A63.0) She recently saw her furniture assembly supervisor who is treating this. There has been marked improvement in her cream has been continued. Plan Of Treatment Medication Medication Name Sig Start Date Stop Date Notes Propranolol HCl 10 MG 1 tablet on an emp ty stomach Orally Once a day 03/11/2019 Omeprazole 20 MG TAKE 1 CAPSULE BY [facility] EVERY DAY FOR 30 DAYS Ketoconazole 2 % 1 application to aff ected area Externally Twice a day 03/11/2019 metFORMIN HCl 500 MG TAKE 1 TABLET BY [facility] EVERY DAY WITH A MEAL FOR 90 DAYS lamoTRIgine ER 25 MG 1 tablet Orally Once a day 07/13/2022 Aldara Ferrous Gluconate 324 (38 Fe ) MG orally once a day once a day 11/19/2023 Hydrocortisone 1 % 1 application Mint Wafer Depositor ally Twice a day 11/19/2023 Referrals Referral Date Details 11/28/2024 11/28/2024, intermit tent LUQ pain with food radiation to back evaluate and treatment negative ultrasound, Keron Ramos Next Appt Details Follow Up: after testing, Re ason: OV review Ct scan abd with contrast Provider Name:Fox Johnston , 05/15/2025 03:45:00 PM, [address] [place] [address] [address], [place], [address], Provider Name:Fox Johnston , 11/26/2025 04:00:00 PM, [address] [place] [address] [address], [place], [address], Progress Notes * Nkechi UPDOB: (44 yo F)Acc No.[id number]:11/28/2024 Progress Notes Patient: Mariza BAKER Nkechi Provider: Mariusz Johnston MD :1980 A ge:44 Y S ex:Female Date:11/28/2024 Address:[address] [place], [place] [id number] Subjective: * Chief Complaints: * O besityDiabetesHypothyroidismLeft upper quadrant abdominal painHashimoto's thyroiditisCondylomata * HPI: C OVID-19 Screening: She recently complained of left upper quadrant abdominal pain.? Studies have been done.Conference. Her blood work is available and was reviewed with her. An ultrasound of the abdomen and pelvis has been completed including transvaginal views.The abdominal ultrasound showed only hepatic steatosis.The pelvic ultrasound showed a small questionable lesion in the endometrium which is being addressed by gynecology. Her examination today was unremarkable. The blood work was fairly normal. Her diabetes is well-controlled. Questions H ave you had any new onset fever, chills, cough, congestion, sore throat, shortness of breath, muscle aches? N o * ROS: G eneral/Constitutional: pain L eft upper quadrant of abdomen intermittent and related to eating. C hills d enies. F atigue a dmits. F ever d enies. ? E NT: Decreased hearing d enies. R espiratory: Cough d enies. C ardiovascular: Chest pain with exertion d enies. D yspnea on exertion?denies. S hortness of breath d enies. G astrointestinal: Constipation o ccasional. D ecreased appetite d enies. D iarrhea d enies. H eartburn o ccasional. N ausea d enies. R ectal bleeding d enies. V omiting d enies. H ematology: bruising d enies. p etechiae d enies. S wollen glands n one have been noted. G enitourinary: Frequent urination a t night. M usculoskeletal: Muscle aches d enies. P ainful joints d enies. S ciatica d enies. W eakness d enies. S kin: Itching d enies. R leona d enies. S kin lesion(s)?Anal condylomata. N eurologic: Difficulty speaking d enies. D izziness d enies.?Headache d enies. L ow back pain d enies. P sychiatric: Depressed mood d enies. * Medical History: * Surgical History: C - section 2009C-section 2016gravida 2 para 2 No [...] user L ight cigarette smoker (1-9 cigs/day) S he was born in [facility] and came to this country at the age of 36. She speaks Bulgarian and is learning Monegasque but is not yet fluent. She has [...] H t: 63, Wt: 190, BMI:33.65, BP: 118/61, HR: 96, Temp: 98.1, Wt-k.18. * P ast Orders: Lab:Complete Blood Count no Diff * Collection [...] uIU/mL) 1.27 (Ref Range: 0.32-4.0 uIU/mL) * Lab:URINE DIP STICK * Collection Date 11/23/2024 07/13/2022 03/10/2019 Collection Time 02:56 PM Order Date 11/22/2024 07/13/2022 03/10/2019 SG 1.010 (Ref Range: 1.005 - 1.025) 1.015 1.010 pH 7.0 (Ref Range: 5.0 - 9.0) 6.0 5 DEEPTI 70+ (Ref Range: Negative -) Negative neg NIT Negative (Ref Range: Negative -) Negative neg PRO 30+ (Ref Range: Negative - Trace) 15 neg GLU Negative (Ref Range: Negative -) Negative normal KET Negative (Ref Range: Negative -) Negative neg UBG 0.2 (Ref Range: 0.1 - 1.8) 0.2 normal ADITYA 1+ (Ref Range: 0.2 - 1.3) Negative neg BLD +++ (Ref Range: Negative -) ++ +++ Menstrating NR NR no * Lab:CT NG by PCR * Collection Date 11/16/2024 03/15/2024 Collection Time 03:03 PM 10:45 AM Order Date 11/16/2024 03/15/2024 CT PCR NOT DETECTED (Ref Range: Not Detect.) NOT DETECTED (Ref Range: Not Detect.) NG PCR NOT DETECTED (Ref Range: Not Detect.) NOT DETECTED (Ref Range: Not Detect.) * Lab:HCG Quantitative * Collection Date 11/16/2024 03/16/2024 Collection Time 04:11 PM 08:28 AM Order Date 11/16/2024 03/16/2024 HCG Quantitative < 2 (Ref Range: mIU/mL) < 2 (Ref Range: mIU/mL) * Examination: G eneral Examination: GENERAL APPEARANCE: [...] no ascites, no organomegaly, no mass, centripital obesity. RECTAL EXAM: c ondylomata. MUSCULOSKELETAL: e xtremities unremarkable, no clubbing, cyanosis or edema. PERIPHERAL PULSES: n ormal. NEUROLOGIC: a lert and oriented, cranial nerves 2-12 grossly intact, deep tendon reflexes 2+ symmetrical, motor strength normal upper and lower extremities, sensory exam intact. PSYCH: a lert, oriented. Assessment: * Assessment: 1. L eft upper quadrant pain - R10.12 (Primary) N otes :No abnormality has been found. This is likely musculoskeletal discomfort related to inflammation. She will be observed carefully. 2 . I tom deficiency anemia, unspecified iron deficiency anemia type - D50.9? Notes :She continues to have a mild microcytic, probably multifactorial anemia. Her iron therapy was continued. 3 . C hronic cluster headache, not intractable - G44.029 N otes :Headaches have worsened in one daily. I have added Fioricet. 4 . O besity (BMI 30.0-34.9) - E66.9 N otes :She has lost 1 pound. Her body mass index is 34.7. Once again, we reviewed her weight loss strategy at length. 5 . D iabetes mellitus due to underlying condition without complication, without long- term current use of insulin - E08.9 N otes :Her diabetes seems stable and she is compliant with her medications. No change in his therapy was needed. 6 . H ypothyroidism - E03.9 N otes :, Negative thyroid functions will be done prior to her next visit. She appears to be euthyroid. 7 . T obacco dependence - F17.200 N otes :We discussed smoking cessation at length today. 8 . A nal condylomata - A63.0 N otes :She recently saw her furniture assembly supervisor who is treating this. There has been marked improvement in her cream has been continued. Plan: * Treatment: 2. I tom deficiency [...] %, 1 application, Externally, Twice a day. ? Referral To:[facility] Reason:intermittent LUQ pain with food radiation to back evaluate and treatment negative ultrasound 3. O thers Continue Omeprazole Capsule Delayed Release, 20 MG, TAKE 1 CAPSULE BY MOUTH EVERY DAY FOR 30 DAYS;?Continue Aldara. * Procedure Codes: * Preventive Medicine: Counseling: C are goal [...] done: Medical or Other reason not done S moking/Tobacco Use Patient counseled on the dangers of tobacco use and urged to quit. 0 11/28/2024 Patient Lifestyle Goals P atient wants to quit Treatment Goals S et a quit date, Cut down by 1 cigarette a week Barriers S ocial smoker, Stress Self-Management Plan M kaye a plan to cut down number of cigarettes over time and set a date to work towards quitting DM Care Plan: P atient Lifestyle Goals P atient wants to be able to manage diabetes without too much effort. T reatment Goals B lood Sugars less than < 115, HbA1C < 7.0. B arriers n o barriers. S elf-Managment Goals W ork on weight loss, with a goal of losing 1 lb per week, Take blood sugars twice daily and keep a log. Bring log in to next appointment. * Follow Up: a fter testing (Reason: OV review Ct scan abd with contrast) * Images: * Sign off status: Completed true * Provider: Mariusz Johnston MD Date: 0 11/28/2024 Generated for Dexter gomes/Grabiel/eTransmitting on: 1 07/09/2024 06:46 PM EST History and Physical Notes * [...] enlarged lymph no samantha,spleen normal RECTAL EXAM: condylomata PSYCH: alert, oriented ORAL CAVITY: normal, unremarkable Consultation Request Notes Referral Date Referring Provider Referred Provider Not es 11/28/2024 Fox Johnston Bernard intermitt ent LUQ pain with food radiation to back evaluate and treatment negative ultrasound
--- OUTSIDE RECORDS SUMMARY | 2024-12-04 09:28 | XMS_ITS ---
Author Organization Fox Johnston III, MD Address [address] [facility] [place] [address] Care Team Providers Care Bulb Brander Name Role Phone Dr. Fox Johnston III Primary Care Provider REASON FOR VISIT gastro appt Social History Sex Assigned At : Social History Observation Description Sex Assigned At Female Encounters Encounter Location Date Provider Diagnosis Fox Johnston III, MD [address] [place] [address] [place] [address] 12/04/2024 Fox Johnston Plan Of Treatment Next Appt Details Provider Name:Fox Johnston , 05/15/2025 03:45:00 PM, [address] [facility], [address], Provider Name:Fox Johnston , 11/26/2025 04:00:00 PM, [address] [facility], [address], Progress Notes * Nkechi UPDOB: (44 yo F)Acc No.[id number]:12/04/2024 Patient: Nkechi BOYER :1980 A ge:44 Y S ex:Female Address:[address] [place] [address], [address] * true * Date: Generated for Dexter gomes/Grabiel/Justinosmitting on: 07/09/2024 06:44 PM EST
--- OUTSIDE RECORDS SUMMARY | 2024-12-15 08:45 | XMS_ITS ---
Author Organization Fox Johnston III, MD Address [address] [place] [address] Care Team Providers Care Welder Apprentice Gas Name Role Phone Dr. Fox Johnston III Primary Care Provider [phone] Allergies Allergen (clinical drug ingredient) Drug/Non Drug [...] Date Status Hydrocortisone 1 % 1 application Global Chief Experience Officer ally Twice a day 11/19/2023 Active Omeprazole [...] Problem Status W/U Status Risk Notes Problem [id number] Lesion of endometrium (N85.9) Active confirmed Her pelvic ultrasound shows a 7 mm abnormality. Atrium. She has been referred back to QUALITY ASSURANCE ADVISOR to deal with this. Vital Signs Temperature 97.9 degrees Fahrenheit 12/16/19 25 Blood pressure systolic 129 mm Hg 12/16/19 25 Blood pressure diastolic 74 mm Hg 025 Heart Rate 90 /min 12/15/2024 Height 63 in 12/15/2024 Weight 189 lbs 12/15/2024 BMI 33.48 kg/m2 12/15/2024 Encounters Encounter Location Date Provider Diagnosis Fox Johnston III, MD [address] [place] [address] [place] [address] 12/15/2024 Fox Johnston Iron deficiency anem ia, [...] Atrium. She has been referred back to QUALITY ASSURANCE ADVISOR to deal with this. 12/15/2024 Obesity (BMI [...] Date Notes Hydrocortisone 1 % 1 application Global Chief Experience Officer ally Twice a day 11/19/2023 Omeprazole 20 MG TAKE 1 CAPSULE BY [facility] EVERY DAY FOR 30 DAYS Ferrous Gluconate 324 (38 Fe ) MG orally once a day once a day 11/19/2023 metFORMIN HCl 500 MG TAKE 1 TABLET BY [facility] EVERY DAY WITH A MEAL FOR [...] Nilam son: OV Provider Name:Fox Johnston , 05/15/2025 03:45:00 PM, [address] [place] [address] [place] [address], [address], Provider Name:Fox Johnston , 11/26/2025 04:00:00 PM, [address], [address], Progress Notes * WILOSNPEDRO BAKERNkechiDOB: (44 yo F)Acc No.[id number]:12/15/2024 Progress Notes Patient: Nkechi BOYER Provider: Mariusz Johnston MD :1980 A ge:44 Y S ex:Female Date:12/15/2024 Address:[address] [place], [place] [id number] Subjective: * Chief Complaints: * E pigastric [...] pelvic ultrasound which was ordered by the dispatcher service or work showed a questionable 7 mm endometrial lesion. We have referred her back to QUALITY ASSURANCE ADVISOR to do this. At the end of [...] (1-9 cigs/day) S he was born in [facility] and came to this country at the age of 36. She speaks Guinean and is learning Guyanese but is not yet fluent. She has [...] 2024 was 6.0. It is unlikely that [facility] will improve this further but I will [...] Atrium. She has been referred back to QUALITY ASSURANCE ADVISOR to deal with this. 4 . O [...] 12/15/2024 Generated for Dexter gomes/Grabiel/Leslyitting on: 1 07/09/2024 06:46 PM EST History [...]
--- OUTSIDE RECORDS SUMMARY | 2025-02-12 05:30 | XMS_ITS ---
Author Organization Fox Johnston III, MD Address [address] [place] [address] Care Team Providers Care Purchasing Associate Name Role Phone Dr. Fox Johnston III Primary Care Provider Allergies Allergen (clinical drug ingredient) Drug/Non Drug Allergy documented on EMR Reaction Allergy Type Onset Date Status No Known Drug Allergy Unknown Drug Allergy Active No Known Food Allergy Unknown Drug Allergy Active REASON FOR VISIT Condylomata, [facility]. 12/28/2024, [facility] 12/28/[facility]24, Cervical Cytology done in [facility]: Cervical vaginal smear without significant cytological alterations. 12/28/2024, [facility] Dx: Submucous uterine fibroid. 12/27/2024, Uterine fibroid, Cluster headaches, Obesity, Iron deficiency, Hypothyroidism,Diabetes, Tobacco dependence Medications Medication SIG (Take, Route, Frequency, Duration) Notes Start Date End Date Status Omeprazole 20 MG TAKE 1 CAPSULE BY [facility] EVERY DAY FOR 30 DAYS Active Propranolol HCl 10 MG 1 tablet on an emp ty stomach Orally Once a day 03/11/2019 Active Ferrous Gluconate 324 (38 Fe) MG orally once a day once a day 11/19/2023 Active Ketoconazole 2 % 1 application to affected area Externally Twice a day 03/11/2019 Active lamoTRIgine ER 25 MG 1 tablet Orally Onc e a day 07/13/2022 Active Aldara Active Hydrocortisone 1 % 1 application Daycare Provider ally Twice a day 11/19/2023 Active Ozempic (0.25 or 0.5 MG/DOSE) 2 MG/3ML 0.25 mg Subcutaneous weekly for 28 days 02/12/2025 01/14/2026 Active metFORMIN HCl 500 MG TAKE 1 TABLET BY [facility] EVERY DAY WITH A MEAL FOR 90 DAYS Active Social History Tobacco Use: Social History Observation Description Date Details (start date - stop date) Former Smoker NA - NA Sex Assigned At : Social History Observation Description Sex Assigned At Female Tobacco Control (Standard) Question Answer Notes Tobacco use: Former smoker Additional Findings: Tobacco user Light cigarett e smoker (1-9 cigs/day) Problems Problem Type SNOMED Code ICD Code Onset Dates Problem Status W/U Status Risk Notes Problem [id number] Intramural uterine fibroid (D25.1) Active confirmed Vital Signs Temperature 99.0 degrees Fahrenheit 02/13/20 25 Blood pressure systolic 136 mm Hg 02/13/20 25 Blood pressure diastolic 80 mm Hg 025 Heart Rate 94 /min 02/12/2025 Height 63 in 02/12/2025 Weight 191 lbs 02/12/2025 BMI 33.83 kg/m2 02/12/2025 Encounters Encounter Location Date Provider Diagnosis Fox Johnston III, MD [address] [place] [address] [place] [phone] 02/12/2025 Fox Johnston Iron deficiency anemia, unspecified iron deficiency anemia type D50.9 ; Diabetes mellitus due to underlying condition without complication, without long-term current use of insulin E08.9 ; Obesity (BMI 30.0-34.9) E66.9 ; Former smoker Z87.891 ; Chronic cluster headache, not intractable G44.029 ; Barb's thyroiditis E06.3 and 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 Assessments Encounter Date Diagnosis (ICD Code) Assessment Notes Treatment Notes Treatment Clinical Notes 02/12/2025 Iron deficiency anemia, unspecified iron deficiency anemia type (ICD-10 - D50.9) She continues to have a mild microcytic, probably multifactorial anemia. Her iron therapy was continued.She was continued on iron today. In February 2004 of therapy was 15 which is in the normal range 02/12/2025 Diabetes mellitus due to underlying condition without complication, without long-term current use of insulin (ICD-10 - E08.9) Her hemoglobin A1c is 5.9 and her fasting glucose is well-controlled. No change in her regimen was necessary. We have discussed using Ozempic to lose weight. She would like a prescription. I have prescribed that medication. PSA 0.25 mg dose and we are awaiting prior approval. 02/12/2025 Obesity (BMI 30.0-34.9) (ICD-10 - E66.9) Her body mass index is 33.8. She has gained 2 pounds since her last visit. I have given her a prescription for Ozempic and we're awaiting prior approval. 02/12/2025 Former smoker (ICD-10 - Z87.891) She has stopped smoking. Her weight has not increased. We discussed a strategy to relapse in times of stress and illness. 02/12/2025 Chronic cluster headache, not intractable (ICD-10 - G44.029) Headaches have worsened in one daily. I have added Fioricet. 02/12/2025 Barb's thyroiditis (ICD-10 - E06.3) Her thyroid disease is stable. She is on thyroid replacement. Her values have been stable. No change in her regimen was necessary today. 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 Plan Of Treatment Medication Medication Name Sig Start Date Stop Date Notes Omeprazole 20 MG TAKE 1 CAPSULE BY [facility] EVERY DAY FOR 30 DAYS Propranolol HCl 10 MG 1 tablet on an emp ty stomach Orally Once a day 03/11/2019 Ferrous Gluconate 324 (38 Fe ) MG orally once a day once a day 11/19/2023 Ketoconazole 2 % 1 application to aff ected area Externally Twice a day 03/11/2019 lamoTRIgine ER 25 MG 1 tablet Orally Once a day 07/13/2022 Aldara Hydrocortisone 1 % 1 application Daycare Provider ally Twice a day 11/19/2023 Ozempic (0.25 or 0.5 MG/DOSE ) 2 MG/3ML 0.25 mg Subcutaneous weekly for 28 days 02/12/2025 01/14/2026 metFORMIN HCl 500 MG TAKE 1 TABLET BY [facility] EVERY DAY WITH A MEAL FOR 90 DAYS Pending Test Test Name Order Date PROFILE, FASTING (COMPREHENSIVE METABOLI C) 02/12/2025 CBC w DIFF 02/12/2025 Lipid Panel 02/12/2025 Hemoglobin A1c 02/12/2025 Next Appt Details Follow Up: 4 Weeks, Reason: Follow up Anemia Provider Name:Fox Johnston , 05/15/2025 03:45:00 PM, [address] [place] [address] [address], [place], [address], Provider Name:Fox Johnston , 11/26/2025 04:00:00 PM, [address] [place] [address] [address], [place], [phone], Progress Notes * Nkechi UPDOB: (44 yo F)Acc No.[id number]:02/12/2025 Progress Notes Patient: Mariza MUNIZNkechi SPENCER Provider: Mariusz Johnston MD :1980 A ge:44 Y S ex:Female Date:02/12/2025 Address:[address] [place], [place] [id number] Subjective: * Chief Complaints: * C ondylomataPap-[facility]. 12/28[facility] 12[facility]ical Cytology done in [facility]: Cervical vaginal smear without significant cytological alterations. 12/28/2024Pelvic ultrasound done in [facility]: Dx: Submucous uterine fibroid. 12/27/2024Uterine fibroidCluster headachesObesityIron deficiencyHypothyroidismDiabetesTobacco dependence * HPI: C OVID-19 Screening: Questions H ave you had any new onset fever, chills, cough, congestion, sore throat, shortness of breath, muscle aches? N o * ROS: G eneral/Constitutional: pain I ntermittent pain left upper quadrant of abdomen from hiatal hernia. C hills d enies. F atigue a [...] T obacco Control (Standard) T obacco use: F ormer smoker A dditional Findings: Tobacco user L ight cigarette smoker (1-9 cigs/day) S he was born in [facility] and came to this country at the age of 36. She speaks Mohawk and is learning Lao but is not [...] Objective: * Vitals: H t: 63, Wt: 191, BMI:33.83, BP: 136/80, HR: 94, Temp: 99.0, Wt-k.64. * P ast Orders: Lab:Lipid Panel * Collection Date 02/05/2025 07/21/2024 05/04/2023 Collection Time 08:11 AM 07:20 AM 10:38 AM Order Date 02/05/2025 07/21/2024 05/04/2023 Triglycerides 125 (Ref Range: <150 mg/dL) 101 (Ref Range: <150 mg/dL) 127 (Ref Range: <150 mg/dL) Cholesterol 171 (Ref Range: <200 mg/dL) 158 (Ref Range: <200 mg/dL) 160 (Ref Range: <200 mg/dL) LDL Cholesterol Calculated 107 H (Ref Range: <100 mg/dL) 100 H (Ref Range: <100 mg/dL) 102 H (Ref Range: <100 mg/dL) HDL Cholesterol 39 L (Ref Range: >40 mg/dL) 38 L (Ref Range: >40 mg/dL) 33 L (Ref Range: >40 mg/dL) * Lab:Hemoglobin A1c * Collection Date 02/05/2025 07/21/2024 03/04/2024 Collection Time 08:11 AM 07:20 AM 08:43 AM Order Date 02/05/2025 07/21/2024 03/04/2024 Hemoglobin A1c % 5.9 (Ref Range: <6.0 %) 6.0 (Ref Range: <6.0 %) 5.8 (Ref Range: <6.0 %) Estimated Average Glucose 123 (Ref Range: mg/dL) 126 (Ref Range: mg/dL) 120 (Ref Range: mg/dL) * Lab:Complete Blood Count Aut o Diff * Collection Date 02/05/2025 07/21/2024 03/04/2024 Collection Time 08:11 AM 07:20 AM 08:43 AM Order Date 02/05/2025 07/21/2024 03/04/2024 White Blood Count 9.7 (Ref Range: 4.8-10.8 X10*3/uL) 9.3 (Ref Range: 4.8-10.8 X10*3/uL) 8.2 (Ref Range: 4.8-10.8 X10*3/uL) Red Blood Count 5.06 (Ref Range: 4.20-5.50 X10*6/uL) 5.07 (Ref Range: 4.20-5.50 X10*6/uL) 5.12 (Ref Range: 4.20-5.50 X10*6/uL) Hemoglobin 12.0 (Ref Range: 12.0-16.0 g/dl) 11.5 L (Ref Range: 12.0-16.0 g/dl) 12.3 (Ref Range: 12.0-16.0 g/dl) Hematocrit 38.2 (Ref Range: 37.0-47.0 %) 37.2 (Ref Range: 37.0-47.0 %) 39.1 (Ref Range: 37.0-47.0 %) Mean Corpuscular Volume 75.5 L (Ref Range: 80.0-98.0 fL) 73.4 L (Ref Range: 80.0-98.0 fL) 76.4 L (Ref Range: 80.0-98.0 fL) Mean Corpuscular Hemoglobin 23.7 L (Ref Range: 27.0-33.0 pg) 22.7 L (Ref Range: 27.0-33.0 pg) 24.0 L (Ref Range: 27.0-33.0 pg) Mean Corpuscular HGB Conc 31.4 (Ref Range: 31.0-35.0 g/dl) 30.9 L (Ref Range: 31.0-35.0 g/dl) 31.5 (Ref Range: 31.0-35.0 g/dl) Red Cell Distribution Width 14.7 (Ref Range: 11.0-16.0 %) 15.6 (Ref Range: 11.0-16.0 %) 15.4 (Ref Range: 11.0-16.0 %) Platelet Count 409 H (Ref Range: 160-400 X10*3/uL) 413 H (Ref Range: 160-400 X10*3/uL) 385 (Ref Range: 160-400 X10*3/uL) Mean Platelet Volume 9.2 L (Ref Range: 9.4-12.3 fL) 9.2 L (Ref Range: 9.4-12.3 fL) 9.1 L (Ref Range: 9.4-12.3 fL) Neutrophils Percent Auto 72.0 (Ref Range: 45-73 %) 69.4 (Ref Range: 45-73 %) 70.0 (Ref Range: 45-73 %) Imm Gran Pct Auto 0.2 (Ref Range: 0.0-0.4 %) 0.3 (Ref Range: 0.0-0.4 %) 0.2 (Ref Range: 0.0-0.4 %) Lymphocytes Percent Auto 20.5 (Ref Range: 20-40 %) 22.8 (Ref Range: 20-40 %) 22.5 (Ref Range: 20-40 %) Monocytes Percent Auto 5.3 (Ref Range: 2-11 %) 5.0 (Ref Range: 2-11 %) 5.4 (Ref Range: 2-11 %) Eosinophils Percent Auto 1.5 (Ref Range: 0-4 %) 2.2 (Ref Range: 0-4 %) 1.3 (Ref Range: 0-4 %) Basophils Percent Auto 0.5 (Ref Range: 0-2 %) 0.3 (Ref Range: 0-2 %) 0.6 (Ref Range: 0-2 %) NRBC Pct Auto 0.0 (Ref Range: 0.0-0.2 /100WBC) 0.0 (Ref Range: 0.0-0.2 /100WBC) 0.0 (Ref Range: 0.0-0.2 /100WBC) Neutrophils Absolute Auto 7.0 (Ref Range: 2.0-8.3 x10*3/uL) 6.4 (Ref Range: 2.0-8.3 x10*3/uL) 5.7 (Ref Range: 2.0-8.3 x10*3/uL) Imm Gran Abs Auto 0.02 (Ref Range: 0.00-0.03 X10*3/uL) 0.03 (Ref Range: 0.00-0.03 X10*3/uL) 0.02 (Ref Range: 0.00-0.03 X10*3/uL) Lymphocytes Absolute Auto 2.0 (Ref Range: 1.2-4.9 X10*3/uL) 2.1 (Ref Range: 1.2-4.9 X10*3/uL) 1.8 (Ref Range: 1.2-4.9 X10*3/uL) Monocytes Absolute Auto 0.5 (Ref Range: 0.1-1.2 X10*3/uL) 0.5 (Ref Range: 0.1-1.2 X10*3/uL) 0.4 (Ref Range: 0.1-1.2 X10*3/uL) Eosinophils Absolute Auto 0.2 (Ref Range: 0.0-0.4 X10*3/uL) 0.2 (Ref Range: 0.0-0.4 X10*3/uL) 0.1 (Ref Range: 0.0-0.4 X10*3/uL) Basophils Absolute Auto 0.1 (Ref Range: 0.0-0.2 X10*3/uL) 0.0 (Ref Range: 0.0-0.2 X10*3/uL) 0.1 (Ref Range: 0.0-0.2 X10*3/uL) NRBC Abs Auto 0.000 (Ref Range: 0.0-0.012 X10*3/uL) 0.000 (Ref Range: 0.0-0.012 X10*3/uL) 0.000 (Ref Range: 0.0-0.012 X10*3/uL) * Lab:Yasmin Black. Nagae l Fast * Collection Date 02/05/2025 07/21/2024 03/04/2024 Collection Time 08:11 AM 07:20 AM 08:43 AM Order Date 02/05/2025 07/21/2024 03/04/2024 Sodium 139 (Ref Range: 135-145 mmol/L) 140 (Ref Range: 135-145 mmol/L) 138 (Ref Range: 135-145 mmol/L) Bilirubin Total 0.4 (Ref Range: 0.0-1.0 mg/dL) 0.3 (Ref Range: 0.0-1.0 mg/dL) 0.4 (Ref Range: 0.0-1.0 mg/dL) Aspartate Amino Transferase 20 (Ref Range: 5-31 U/L) 24 (Ref Range: 5-31 U/L) 13 (Ref Range: 5-31 U/L) Alanine Aminotransferase 17 (Ref Range: 0-31 U/L) 21 (Ref Range: 0-31 U/L) 18 (Ref Range: 0-31 U/L) Total Protein 7.5 (Ref Range: 6.5-8.0 g/dL) 7.7 (Ref Range: 6.5-8.0 g/dL) 7.2 (Ref Range: 6.5-8.0 g/dL) Albumin Level 4.5 (Ref Range: 3.5-5.0 g/dL) 4.3 (Ref Range: 3.5-5.0 g/dL) 4.2 (Ref Range: 3.5-5.0 g/dL) Alkaline Phosphatase 86 (Ref Range: 39-117 U/L) 83 (Ref Range: 39-117 U/L) 89 (Ref Range: 39-117 U/L) Potassium 3.6 (Ref Range: 3.3-5.1 mmol/L) 3.9 (Ref Range: 3.3-5.1 mmol/L) 3.9 (Ref Range: 3.3-5.1 mmol/L) Chloride 107 (Ref Range: 96-108 mmol/L) 106 (Ref Range: 96-108 mmol/L) 106 (Ref Range: 96-108 mmol/L) Carbon Dioxide 27 (Ref Range: 22-29 mmol/L) 27 (Ref Range: 22-29 mmol/L) 26 (Ref Range: 22-29 mmol/L) Anion Gap 9 L (Ref Range: 12-20) 11 L (Ref Range: 12-20) 10 L (Ref Range: 12-20) Blood Urea Nitrogen 8 L (Ref Range: 9-16 mg/dL) 11 (Ref Range: 9-16 mg/dL) 10 (Ref Range: 9-16 mg/dL) Creatinine 0.64 (Ref Range: 0.5-1.4 mg/dL) 0.69 (Ref Range: 0.5-1.4 mg/dL) 0.74 (Ref Range: 0.5-1.4 mg/dL) Estimated Glomerular Filt Rate > 60 > 60 > 60 Glucose Fasting 117 H (Ref Range: 60-99 mg/dL) 115 H (Ref Range: 60-99 mg/dL) 110 H (Ref Range: 60-99 mg/dL) Calcium 8.6 (Ref Range: 8.4-10.2 mg/dL) 9.1 (Ref Range: 8.4-10.2 mg/dL) 9.2 (Ref Range: 8.4-10.2 mg/dL) * Imaging:US pelvic and transv aginal * Performed Date 01/31/2025 11/24/2024 03/20/2024 02:14 PM 09:15 AM 04:07 PM Order Date 01/31/2025 11/24/2024 03/20/2024 * Imaging:US abdomen complete * Performed Date 11/25/2024 [...] ++ +++ Menstrating NR NR no * Examination: G eneral Examination: GENERAL APPEARANCE: p leasant, well nourished, well developed, in no acute distress, calm and relaxed: obese: woman. HEAD: a traumatic, normocephalic. EYES: e [...] sounds normal, no ascites, no organomegaly, no mass: centripital obesity. RECTAL EXAM: n ot examined. MUSCULOSKELETAL: e [...] insulin - E08.9 (Primary) N otes :Her hemoglobin A1c is 5.9 and her fasting glucose is well-controlled. No change in her regimen was necessary. We have discussed using Ozempic to lose weight. She would like a prescription. I have prescribed that medication. PSA 0.25 mg dose and we are awaiting prior approval. 2 . I tom deficiency anemia, unspecified iron deficiency anemia type - D50.9? Notes :She continues to have a mild microcytic, probably multifactorial anemia. Her iron therapy was continued.She was continued on iron today. In February 2004 of therapy was 15 which is in the normal range 3 . O besity (BMI 30.0-34.9) - E66.9 N otes :Her body mass index is 33.8. She has gained 2 pounds since her last visit. I have given her a prescription for Ozempic and we're awaiting prior approval. 4 . F ormer smoker - Z87.891 N otes :She has stopped smoking. Her weight has not increased. We discussed a strategy to relapse in times of stress and illness. 5 . C hronic cluster headache, not intractable - G44.029 N otes :Headaches have worsened in one daily. I have added Fioricet. 6 . H ashimoto's thyroiditis - E06.3 N otes :Her thyroid disease is stable. She is on thyroid replacement. Her values have been stable. No change in her regimen was necessary today. 7 . A nal condylomata - A63.0 N otes :These were treated and removed during a recent visit to her small animal veterinarian at home and [facility]. Plan: * Treatment: 2. I tom deficiency [...] 1 %, 1 application, Externally, Twice a day; S tart Ozempic (0.25 or 0.5 MG/DOSE) Solution Pen-injector, 2 MG/3ML, 0.25 mg, Subcutaneous, weekly, 28 days, 1 Pre-filled Pen Syringe, Refills 11. L AB: PROFILE, FASTING (COMPREHENSIVE METABOLIC) L AB: CBC w DIFF L AB: Lipid Panel L AB: Hemoglobin A1c 3. O besity (BMI 30.0-34.9) L AB: PROFILE, FASTING (COMPREHENSIVE METABOLIC) L AB: CBC w DIFF L AB: Lipid Panel L AB: Hemoglobin A1c 4. O thers Continue Omeprazole Capsule Delayed [...] tobacco use and urged to quit. 0 02/12/2025 DM Care Plan: P atient Lifestyle Goals P atient wants to be able to manage diabetes without too much effort. T reatment Goals H bA1C < 7.0, Blood Sugars less than < 115. B arriers n o barriers. S elf-Managment Goals W ork on weight loss, with a goal of losing 1 lb per week. * Follow Up: 4 Weeks (Reason: Follow up Anemia) * Images: * Sign off status: Completed true * Provider: Mariusz Johnston MD Date: 0 02/12/2025 Generated for Dexter gomes/Grabiel/eTjohnsmitting on: 07/09/2024 06:46 PM EST History and Physical Notes * HPI (History of Present Illness) Category Sub-Category Detail Notes COVID-19 Screening Questions Have you had any new onset fever, chills, cough, congestion, sore throat, shortness of breath, muscle aches?: No Examination Category Sub-Category Detail Notes General Examination GENERAL APPEARANCE: pleasant , well nourished, well developed, in no acute distress, calm and relaxed: obese: woman HEAD: atraumatic, normocep halic EYES: eomi, perrla, anicte fabricio, conjugate EARS: normal NOSE: septum intact NECK/THYROID: no jugular venous di stention, no carotid bruit, thyroid normal HEART: no clicks, gallops, murmurs, or rubs, regular rhythm, S1, S2 normal, no s3, or vascular bruits LUNGS: clear to auscultatio n ABDOMEN: bowel sounds normal, no ascites, no organomegaly, no mass: centripital obesity NEUROLOGIC: alert and oriented, cranial [...]
--- OUTSIDE RECORDS SUMMARY | 2025-02-15 11:00 | XMS_ITS ---
Author Organization Fox Johnston III, MD Address [address] [facility] [place] [address] Care Team Providers Care Director Inpatient Headache Program Name Role Phone Dr. Fox Johnston III Primary Care Provider [phone] REASON FOR VISIT wants another weight loss injectable med ordered Social History Sex Assigned At : Social History Observation Description Sex Assigned At Female Encounters Encounter Location Date Provider Diagnosis Fox Johnston III, MD [address] [place] [address] [place] [address] 02/15/2025 Fox Johnston Plan Of Treatment Next Appt Details Provider Name:Fox Johnston , 05/15/2025 03:45:00 PM, [address] [facility] [place], [address], Provider Name:Fox Johnston , 11/26/2025 04:00:00 PM, [address] [facility] [place], [address], Progress Notes * Nkechi UPDOB: (44 yo F)Acc No.[id number]:02/15/2025 Patient: Nkechi BOYER :1980 A ge:44 Y S ex:Female Address:[address] [place] [address] * true * Date: Generated for Dexter gomes/Grabiel/Leslyitting on: 07/09/2024 06:45 PM EST
--- OUTSIDE RECORDS SUMMARY | 2025-02-27 09:20 | XMS_ITS ---
Author Organization [facility] Address [address] [place] [address] Care Team Providers Care Track Mechanic Name Role Phone Fox Johnston MD Primary Care Provider Fox [facility] [phone] REASON FOR VISIT Patient presents today for LEFT UPPER QUADRANT PAIN Encounters Encounter Location Date Provider Diagnosis [facility] [address] [facility] [address] [place] [address] 02/27/2025 Fox Singletary Plan Of Treatment Next Appt Details Provider Name:Fox Singletary , 07/12/2025 09:00:00 AM, [address] [facility], [address], [place], [address], Progress Notes * RONAL SALAZARDOB: (44 yo F)Acc No.[id number]:02/27/2025 Progress Notes Patient: RONAL BOYER Provider: Mariusz Singletary MD :1980 A ge:44 Y S ex:Female Date:02/27/2025 Address:[address] [place], [place] [phone] Pcp:Fox Johnston MD Subjective: * Chief Complaints: * 1 . Patient presents today for LEFT UPPER QUADRANT PAIN. * Medical History: Objective: * Vitals: Assessment: Plan: * Treatment: * * The named appointment provid er may or may not be the originator of this progress note, and it is not deemed complete until electronically signed by the appointment provider. Sign off status: Pending * Provider: Mariusz Singletary MD Date: 0 02/27/2025 Generated for Printi ng/Faxing/eTransmitting on: 07/09/2024 06:45 PM EST
--- OUTSIDE RECORDS SUMMARY | 2025-02-28 04:16 | XMS_ITS ---
Author Organization Fox Johnston III, MD Address [address] [place] [address] Care Team Providers Care Second Helper Name Role Phone Dr. Fox Johnston III Primary Care Provider [phone] REASON FOR VISIT FYI Social History Sex Assigned At : Social History Observation Description Sex Assigned At Female Encounters Encounter Location Date Provider Diagnosis Fox Johnston III, MD [address] [place] [address] [place] [address] 02/28/2025 Fox Johnston Plan Of Treatment Next Appt Details Provider Name:Fox Johnston , 05/15/2025 03:45:00 PM, [address] [place] [address] [place], [address], Provider Name:Fox Johnston , 11/26/2025 04:00:00 PM, [address] [place] [address] [place], [address], Progress Notes * Nkechi UPDOB: (44 yo F)Acc No.[id number]:02/28/2025 Patient: Nkechi BOYER :1980 A ge:44 Y S ex:Female Address:[address] [place] [address], [address] * true * Date: Generated for Dexter gomes/Grabiel/Leslyitting on: 07/09/2024 06:45 PM EST
--- OUTSIDE RECORDS SUMMARY | 2025-03-05 08:57 | XMS_ITS ---
Author Organization Fox Johnston III, MD Address [address] [place] [address] Care Team Providers Care Special Procedures Nurse Name Role Phone Dr. Fox Johnston III Primary Care Provider Medications Medication SIG (Take, Route, Fr equency, Duration) Notes Start Date End Date Status Zepbound 2.5 MG/0.5ML 0.5 mL Subcutaneou s weekly for 28 days 03/05/2025 02/04/2026 Active Social History Sex Assigned At : Social History Observation Description Sex Assigned At Female Encounters Encounter Location Date Provider Diagnosis Fox Johnston III, MD [address] [place] [address] [place] [address] 03/05/2025 Fox Johnston Plan Of Treatment Medication Medication Name Sig Start Date Stop Date Notes Zepbound 2.5 MG/0.5ML 0.5 mL Subcutaneou s weekly for 28 days 03/05/2025 02/04/2026 Next Appt Details Provider Name:Fox Johnston , 05/15/2025 03:45:00 PM, [address] [place] [address] [place], [address], Provider Name:Fox Johnston , 11/26/2025 04:00:00 PM, [address] [place] [address] [address], [place], [address], Progress Notes * Nkechi UPDOB: (44 yo F)Acc No.[id number]:03/05/2025 Patient: Mariza Nkechi HILL :1980 A ge:44 Y S ex:Female Address:[address] [place] [address], [address] * Refills Start Zepbound Solution Auto-injector, 2.5 MG/0.5ML, Subcutaneous, 1 Pre-filled Pen Syringe, 0.5 mL, weekly, 28 days, Refills=11 * true * Date: Generated for Dexter gomes/Grabiel/eTransmitting on: 07/09/2024 06:45 PM EST
--- OUTSIDE RECORDS SUMMARY | 2025-03-06 06:21 | XMS_ITS ---
Author Organization Fox Johnston III, MD Address [address] [facility] [address] Care Team Providers Care Linux Programmer Name Role Phone Dr. Fox Johnston III Primary Care Provider REASON FOR VISIT Zepbound changed to Wegovy [...] Date Provider Diagnosis Fox Johnston III, MD [address] [place] [address] [place] [address] 03/06/2025 Fox Johnston Plan Of Treatment Medication Medication Name Sig Start Date Stop Date Notes Wegovy 0.25 MG/0.5ML 0.5 mL Subcutaneous once a week for 30 days 03/06/2025 05/04/2025 cancelled the Zepbound RX would like to process this one instead Next Appt Details Provider Name:Fox Johnston , 05/15/2025 03:45:00 PM, [address] [facility] [address], [place], [address], Provider Name:Fox Johnston , 11/26/2025 04:00:00 PM, [address] [place] [address] [address], [place], [address], Progress Notes * Nkechi UPDOB: (44 yo F)Acc No.[id number]:03/06/2025 Patient: Mariza Nkechi H[place] :1980 A ge:44 Y S ex:Female Address:[address] [place] [address], [address] * Refills Start Wegovy Solution Auto-injector, 0.25 MG/0.5ML, Subcutaneous, 2 Milliliter, 0.5 mL, once a week, 30 days, Refills=1 * true * Date: Generated for Dexter gomes/Solangeg/eTransmitting on: 07/09/2024 06:45 PM EST
--- OUTSIDE RECORDS SUMMARY | 2025-05-09 18:44 | XMS_ITS | Patient Health Record ---
Author Organization [facility] Address [address] [place] [address] Care Team Providers Care Image Editor Name Role Phone Preston [place], Fox Primary Care Provider Fox [place] [phone] Reason For Referral No Information Encounters Encounter Location Date Provider Diagnosis [facility] [address] [facility] [address] [place] [address] 02/27/2025 Fox Singletary Plan Of Treatment Next Appt Details Provider Name:Fox Singletary , 07/12/2025 09:00:00 AM, [address] [facility], [address], [place], [address], Insurance Providers Payer Name Payer Address Payer Phone Subscriber Number Group Number Insured Name Patient Relationship to Insured Coverage Start Date Coverage End Date [facility] [address] [place] [address] [id number] RONAL SALAZAR Self - patient is the insured
--- OUTSIDE RECORDS SUMMARY | 2025-05-09 18:45 | XMS_ITS | Continuity of Care Document ---
Author Organization [facility] [address] [facility] [address] [place] [address] Phone [phone] Care Team Providers Care Public Welfare Worker Name Role Phone Fox Johnston M.D. Care Team Information Receive r [phone] Problems Active Problems Provider Date Diabetes mellitus WOODY Gong Onset: 11/2024 Iron deficiency anemia WODOY Gong Onset: 10/31/2024 Hypothyroidism WOODY Gong Onset: [...] Repeat Cycle as Megan Dean PA Cyclobenzaprine [id number] Tablets Take 1 Tablet By Mouth Three Times A Day AT Bedtime as Needed For 7 Days Fox Johnston M.D. Sulfamethoxazole/Trimeth oprim [id number] Tablets Take 1 Tablet By Mouth Twice A Day For 7 Days Fox Johnston M.D. Ferrous [id number](38Fe) mg Tablets Take 1 Tablet By Mouth Every Day Fox Johnston M.D. Metformin [id number] Tablets Fox Johnston M.D. Vital Signs Date [...] R73.03 Prediabetes WOODY Gong Plan of Treatment No Information Available Functional Status Description No Information Available Mental Status Description No Information Available Referrals Description No Information Available
--- OUTSIDE RECORDS SUMMARY | 2025-05-09 18:45 | XMS_ITS | Patient Health Record ---
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 Fox Johnston III Primary Care Provider Allergies Allergen (clinical drug ingredient) Drug/Non Drug Allergy documented on EMR Reaction Allergy Type Onset Date Status No Known Drug Allergy Unknown Drug Allergy Active No Known Food Allergy Unknown Drug Allergy Active Results Component Value Reference Range Notes XR lumbar spine 2-3V Reviewed date:07/31/2024 06:14:30 PM Interpretation: Performing Lab: Notes/Report: [address] [address] XRay Report Signed Patient: Nkechi Up MR#: [id number] : 1980 Acct:[id number] Age/Sex: 44 / F ADM Date: 07/25/24 Loc: HO.XRAY Attending Dr: Fox Johnston MD Ordering Physician: Fox Johnston MD Date of Service: 07/25/24 Procedure(s): XR lumbar spine 2-3V Accession Number(s): [id number] cc: oFx Johnston MD CLINICAL HISTORY: LOW BACK PAIN [...] in OV> 07/26/241910 DD/ 09 TD/TT: 07/26/241909 Disbursing Officer: [place] [address] XRay Report Signed Patient: Nkechi Up MR#: [id number] : 1980 Acct:[id number] Age/Sex: 44 / F ADM Date: 07/25/24 Loc: HO.XRAY Attending Dr: Fox Johnston MD Ordering Physician: Fox Johnston MD Date of Service: 07/25/24 Procedure(s): XR lum bar spine 2-3V Accession Number(s): [id number] cc: Fox Johnston MD CLINICAL HISTORY: LO [...] in OV> 07/26/241910 DD/ 09 TD/TT: 07/26/241909 Disbursing Officer: URINE DIP STICK Reviewed date:11/23/2024 09:30:31 AM Interpretation: Performing Lab: Notes/Report: SG 1.010 1.005 - 1.025 pH 7.0 5.0 - 9.0 DEEPTI 70+ Negative - NIT Negative Negative - PRO 30+ Negative - Trace GLU Negative Negative - KET Negative Negative - UBG 0.2 0.1 - 1.8 ADITYA 1+ 0.2 - 1.3 BLD +++ Negative - Complete Blood Count Auto Di ff Reviewed date:07/23/2024 04:46:48 PM Interpretation: Performing Lab:[facility], [address] [place] [phone] Notes/Report: White Blood Count 9.3 4.8-10.8 X10*3/uL [...] 0.0 0.0-0.2 /100WBC Neutrophils Absolute Auto 6.4 2.0-8.3 x10*3/uL Imm Gran Abs Auto 0.03 0.00-0.03 X10*3/uL Lymphocytes Absolute Auto 2.1 1.2-4.9 X10*3/uL Monocytes Absolute Auto 0.5 0.1-1.2 X10*3/uL Eosinophils Absolute Auto 0.2 0.0-0.4 X10*3/uL Basophils Absolute Auto 0.0 0.0-0.2 X10*3/uL NRBC Abs Auto 0.000 0.0-0.012 X10*3/uL Comprehensive [place]. Panel Fa st Reviewed date:07/23/2024 04:46:48 PM Interpretation: Performing Lab:[facility], [address] [place] [phone] Notes/Report: Sodium 140 135-145 mmol/L Potassium 3.9 [...] Ferritin Reviewed date:07/23/2024 04:46:48 PM Interpretation: Performing Lab:[facility], [address] [place] [phone] Notes/Report: Ferritin 10 10-250 ng/mL Lipid Panel Reviewed date:07/23/2024 04:46:48 PM Interpretation: Performing Lab:[facility], [address] [place] [phone] Notes/Report: Triglycerides 101 <150 mg/dL Desirable Triglyceride: [...] Thyroxine) Reviewed date:07/23/2024 04:46:48 PM Interpretation: Performing Lab:[address] [address] Notes/Report: Free T4 (Free Thyroxine) 0.83 0.71-1.85 ng/dL Thyroid Stimulating Hormone Reviewed date:07/23/2024 04:46:48 PM Interpretation: Performing Lab:[facility], [address] [place] [phone] Notes/Report: Thyroid Stimulating Hormone 1.82 0.32-4.0 uIU/mL TSH 3rd Generation ([facility]) Microalbumin, Random Reviewed date:07/23/2024 04:46:48 PM Interpretation: Performing Lab:[facility], [address] [place] [phone] Notes/Report: Creatinine Urine 211.05 Microalbumin Urine 78.0 Microalbum/Creatinine Ratio Ur 36.9 <30 ug/mg cr Albumin/Creatinine Ratio Reference Ranges: Normal: < 30 ug/mg creatinine Microalbuminuria: 30 - 300 ug/mg creatinine Clinical Albuminuria: > 300 ug/mg creatinine Hemoglobin A1c Reviewed date:07/23/2024 04:46:48 PM Interpretation: Performing Lab:[address] [address] Notes/Report: Hemoglobin A1c % 6.0 <6.0 % [...] average glucose, using the formula of the C5E-Srgpyky Average Glucose study (ADAG), Diabetes Care, Vol.31,#8, Jan. 2007 Urinalysis and Microscopic Reviewed date:07/31/2024 06:14:30 PM Interpretation: Performing Lab:[facility], [address] [place] [phone] Notes/Report: Color Urine Yellow Appearance Urine Cloudy PH 7.5 5.0-9.0 Glucose Urine UA Negative Negative mg/dL Urine Blood Trace Negative Specific [place] - Urine 1.020 1.005-1.025 Urine Protein Trace Neg-Trace mg/dL Urine Ketones Negative Negative mg/dL Nitrite Urine Negative Negative Leukocyte Esterase Urine Negative Negative RBC Urine 11-20 0-2 /HPF WBC Urine 0-5 0-5 /HPF Squamous Epithelial Cell Urine 0-2 0-2 /HPF Bacteria Urine Trace None Seen Hyaline Casts Urine 0-2 0-2 /LPF Urinalysis Reviewed date:07/31/2024 06:14:30 PM Interpretation: Performing Lab:[facility], [address] [place] [phone] Notes/Report: Color Urine Yellow Appearance Urine Cloudy PH 7.5 5.0-9.0 Glucose Urine UA Negative Negative mg/dL Urine Blood Trace Negative Specific [place] - Urine 1.020 1.005-1.025 Urine Protein Trace Neg-Trace mg/dL Urine Ketones Negative Negative mg/dL Nitrite Urine Negative Negative Leukocyte Esterase Urine Negative Negative Urine Culture Reviewed date:07/31/2024 06:14:30 PM Interpretation: Performing Lab:[facility], [address] [place] [phone] Notes/Report: Urine Culture Report Result Urine Culture > 100,000 cfu/ml Urine Culture Mixed bacterial daniel a characteristic of Urine Culture urogenital contamination. Complete Blood Count no Diff Reviewed date:11/21/2024 01:59:43 PM Interpretation: Performing Lab:[facility], [address] [place] [phone] Notes/Report: White Blood Count 8.1 4.8-10.8 X10*3/uL Red Blood Count 4.85 4.20-5.50 X10*6/uL Hemoglobin 11.7 12.0-16.0 g/dl Hematocrit 36.8 37.0-47.0 % Mean Corpuscular Volume 75.9 80.0-98.0 fL Mean Corpuscular Hemoglobin 24.1 27.0-33.0 pg Mean Corpuscular HGB Conc 31.8 31.0-35.0 g/dl Red Cell Distribution Width 15.7 11.0-16.0 % Platelet Count 390 160-400 X10*3/uL Mean Platelet Volume 9.4 9.4-12.3 fL NRBC Pct Auto 0.0 0.0-0.2 /100WBC NRBC Abs Auto 0.000 0.0-0.012 X10*3/uL TSH reflex Free T4 Reviewed date:11/21/2024 01:59:43 PM Interpretation: Performing Lab:[facility], [address] [place] [phone] Notes/Report: TSH reflex Free T4 1.72 0.32-4.0 uIU/mL HCG Quantitative Reviewed date:11/21/2024 01:59:43 PM Interpretation: Performing Lab:[facility], [address] [place] [phone] Notes/Report: HCG Quantitative < 2 Weeks post [...] alternative method (qualitative urine hCG, for example). CT NG by PCR Reviewed date:11/21/2024 01:59:43 PM Interpretation: Performing Lab:[facility], [address] [place] [phone] Notes/Report: Urine CT PCR NOT DETECTED Not Detect. A [...] consequences. Complete Blood Count no Diff Reviewed date:11/22/2024 12:54:41 PM Interpretation: Performing Lab:[facility], [address] [place] [phone] Notes/Report: White Blood Count 10.1 4.8-10.8 X10*3/uL Red Blood Count 4.74 4.20-5.50 X10*6/uL Hemoglobin 11.5 12.0-16.0 g/dl Hematocrit 36.3 37.0-47.0 % Mean Corpuscular Volume 76.6 80.0-98.0 fL Mean Corpuscular Hemoglobin 24.3 27.0-33.0 pg Mean Corpuscular HGB Conc 31.7 31.0-35.0 g/dl Red Cell Distribution Width 15.6 11.0-16.0 % Platelet Count 428 160-400 X10*3/uL Mean Platelet Volume 9.5 9.4-12.3 fL NRBC Pct Auto 0.0 0.0-0.2 /100WBC NRBC Abs Auto 0.000 0.0-0.012 X10*3/uL US pelvic and transvaginal Reviewed date:12/03/2024 09:33:54 AM Interpretation: Performing Lab: Notes/Report: [address] [address] Ultrasound Report Signed Patient: Nkechi Up MR#: [id number] : 1980 Acct:[id number] Age/Sex: 44 / F ADM Date: 11/23/24 Loc: HO.US Attending Dr: Baldemar Pineda MD Ordering Physician: Baldemar Pineda MD Date of Service: 11/23/24 Procedure(s): US pelvic and transvaginal Accession Number(s): [id number] cc: Fox Johnston MD; Baldemar Pineda MD CLINICAL HISTORY: N93.9 - Abnormal uterine and vaginal bleeding, unspecified US pelvis transvaginal Comparison: None Findings: Transvaginal scanning performed. Anteverted uterus is 8.6 cm length. Normal myometrium. Endometrium 4.0 mm thickness. Questionable endometrial 0.7 x 0.5 x 0.3 cm lesion. Right ovary 1.8 x 1.4 x 1.3 cm. Left ovary 2.5 x 2.6 x 2.5 cm. Normal color Doppler of both ovaries. No free fluid. IMPRESSION: 1. Questionable endometrial lesion. Recommend gynecological consultation for further evaluation possibly to include direct visualization or sonohysterography. This document has been electronically signed by: Geronimo Mccormack MD on 11/24/2024 09:15:50 Dictated By: Geronimo Mccormack MD Signed By: <Electronically signed by Geronimo Mccormack MD in OV> 11/24/24915 DD/ 4 TD/TT: 11/24/24914 Disbursing Officer: [place] [address] Ultrasound Report Signed Patient: Nkechi Up MR#: [id number] : 1980 Acct:[id number] Age/Sex: 44 / F ADM Date: 11/23/24 Loc: .US Attending Dr: Baldemar Pineda MD Ordering Physician: Baldemar Pineda MD Date of Service: 11/23/24 Procedure(s): US pel mic and transvaginal Accession Number(s): [id number] cc: Fox Johnston MD; Baldemar Pineda MD CLINICAL HISTORY: N9 3.9 - Abnormal uterine and vaginal bleeding, unspecified US pelvis transvaginal Comparison: None Findings: Transvaginal scannin g performed. Anteverted uterus is 8.6 cm length. Normal myometrium. Endometrium 4.0 mm thickness. Questionable endometrial 0.7 x 0.5 x 0.3 cm lesion. Right ovary 1.8 x 1. 4 x 1.3 cm. Left ovary 2.5 x 2.6 x 2.5 cm. Normal color Doppler of both ovaries. No free fluid. IMPRESSION: 1. Questionable endometrial lesion. Recommend gynecological consultation for further evaluati on possibly to include direct visualization or sonohysterography. This document has be en electronically signed by: Geronimo Mccormack MD on 11/24/2024 09:15:50 Dictated By: Geronimo Mccormack MD Signed By: <Electronically signed by Geronimo Mccormack MD in OV> 11/24/24915 DD/ 4 TD/TT: 11/24/24914 Disbursing Officer: US abdomen complete Reviewed date:12/03/2024 09:33:54 AM Interpretation: Performing Lab: Notes/Report: [place] [address] Ultrasound Report Signed Patient: Nkechi Up MR#: [id number] : 1980 Acct:[id number] Age/Sex: 44 / F ADM Date: 11/24/24 Loc: HO.US Attending Dr: Fox Johnston MD Ordering Physician: Fox Johnston MD Date of Service: 11/24/24 Procedure(s): US abdomen complete Accession Number(s): [id number] cc: Fox Johnston MD CLINICAL HISTORY: ABDOMINAL PAIN US abdomen complete Comparison: 03/24/2024 Findings: The visualized pancreas is normal. The aorta and inferior vena cava are normal caliber. The appearance of the liver suggests fatty infiltration without focal lesion. There is no intrahepatic bile duct dilatation. The common duct is 5.0 mm in diameter. There are no abnormal findings in the gallbladder fossa The main portal vein is antegrade. The right kidney is 10.1 cm in length. The left kidney is 11.5 cm in length. The spleen is normal. No ascites. IMPRESSION: 1. Hepatic steatosis. This document has been electronically signed by: Geronimo Mccormack MD on 11/25/2024 10:28:50 Dictated By: Geronimo Mccormack MD Signed By: <Electronically signed by Geronimo Mccormack MD in OV> 11/25/24 1029 DD/ 1028 TD/TT: 11/25/24 1028 Disbursing Officer: [address] [address] Ultrasound Report Signed Patient: Nkechi Up MR#: [id number] : 1980 Acct:[id number] Age/Sex: 44 / F ADM Date: 11/24/24 Loc: HO.US Attending Dr: Fox Johnston MD Ordering Physician: Fox Johnston MD Date of Service: 11/24/24 Procedure(s): US abdomen complete Accession Number(s): [id number] cc: Fox Johnston MD CLINICAL HISTORY: ABDOMINAL PAIN US abdomen complete Comparison: 03/24/2024 Findings: The visualized pancr eas is normal. The aorta and inferi or vena cava are normal caliber. The appearance of th e liver suggests fatty infiltration without focal lesion. There is no intrahepatic bile duct dilatation. The common duct is 5 .0 mm in diameter. There are no abnorma l findings in the gallbladder fossa The main portal vein is antegrade. The right kidney is 10.1 cm in length. The left kidney is 1 1.5 cm in length. The spleen is normal. No ascites. IMPRESSION: 1. Hepatic steatosis. This document has be en electronically signed by: Geronimo Mccormack MD on 11/25/2024 10:28:50 Dictated By: Geronimo Mccormack MD Signed By: <Electronically signed by Geronimo Mccormack MD in OV> 11/25/24 1029 DD/ 1028 TD/TT: 11/25/24 1028 Disbursing Officer: CT abdomen w con Reviewed date:12/17/2024 05:38:36 PM Interpretation: Performing Lab: Notes/Report: [address] [address] [address] Scan Report Signed Patient: Nkechi Up MR#: [id number] : 1980 Acct:[id number] Age/Sex: 44 / F ADM Date: 12/08/24 Loc: HO.CT Attending Dr: Fox Johnston MD Ordering Physician: Fox Johnston MD Date of Service: 12/08/24 Procedure(s): CT abdomen w IV con Accession Number(s): [id number] cc: Fox Johnston MD Report Number: [id number]: Total DLP = 285.00 mGy-cm EXAMINATION: CT ABDOMEN WITH IV CONTRAST HISTORY: LUQ PAIN COMPARISON: Correlation is made with an abdominal ultrasound dated 11/24/2024. TECHNIQUE: CT scan of the abdomen was performed following administration of 85 mL Omnipaque 350 using standard departmental protocol. Coronal and sagittal reformatted images were generated and reviewed. The patient received oral contrast material. This CT exam was performed with one or more of the following dose reduction techniques: automated exposure control, adjustment of the mA and/or kV according to patient size, use of iterative reconstruction technique. DLP: 285 mGy-cm FINDINGS: LOWER CHEST: The visualized lung bases are clear. There is no pleural effusion. CARDIOVASCULATURE: The heart is normal in size. There is no pericardial effusion. LIVER: The liver is normal in size and contour. No liver mass is identified. The hepatic and portal veins are patent. GALLBLADDER / BILE DUCTS: The gallbladder is surgically absent. There is no intra or extrahepatic biliary ductal dilatation. SPLEEN: The spleen is normal in size. No focal splenic lesion is identified. PANCREAS: The pancreas is unremarkable in appearance. ADRENAL GLANDS: Within normal limits. KIDNEYS/RETROPERITONEUM: There is a 4 mm nonobstructing calculus in the interpolar region of the left kidney. No right renal calculi are identified. There is no hydronephrosis. No renal masses are identified. LYMPH NODES: No abdominal lymphadenopathy. VASCULATURE: The abdominal aorta is normal in caliber. MESENTERY/PERITONEUM: No free fluid. No masses. There is no free intraperitoneal gas. STOMACH: There is a small hiatal hernia. The remainder of the stomach is unremarkable. SMALL BOWEL: The visualized small bowel is normal in caliber. COLON: The visualized portion of the colon is unremarkable. BONES / SOFT TISSUES: No suspicious bony or soft tissue abnormalities. CT/CT abdomen w IV con IMPRESSION: Small hiatal hernia. 4 mm nonobstructing left renal calculus. Otherwise unremarkable contrast-enhanced CT of the abdomen. Electronically signed by: Fox Barajas MD 12/08/2024 11:55 AM EDT RP Dictated By: Fox Barajas MD Signed By: <Electronically signed by Fox Barajas MD in OV> 12/08/24 1155 DD/ 1135 TD/TT: 12/08/24 1147 Disbursing Officer: [place] [address] CT Scan Report Signed Patient: Nkechi Up MR#: [id number] : 1980 Acct:[id number] Age/Sex: 44 / F ADM Date: 12/08/24 Loc: HO.CT Attending Dr: Fox Johnston MD Ordering Physician: Fox Johnston MD Date of Service: 12/08/24 Procedure(s): CT abdomen w IV con Accession Number(s): [id number] cc: Fox Johnston MD Report Number: [id number]: Total DLP = 285.00 mGy-cm EXAMINATION: CT ABDO MEN WITH IV CONTRAST HISTORY: LUQ PAIN COMPARISON: Correlat ion is made with an abdominal ultrasound dated 11/24/2024. TECHNIQUE: CT scan o f the abdomen was performed following administration of 85 mL Omnipaque 350 using standard departmental protocol. Coronal an d sagittal reformatted images were generated and reviewed. The patien t received oral contrast material. This CT exam was performed with one or more of the following dose reduction techniques : automated exposure control, adjustment of the mA and/or kV according to patient size, use of iterative reconstruction technique. DLP: 285 mGy-cm FINDINGS: LOWER CHEST: The visualized lung bases are clear. There is no pleural effusion. CARDIOVASCULATURE: T he heart is normal in size. There is no pericardial effusion. LIVER: The liver is normal in size and contour. No liver mass is identified. The hepa tic and portal veins are patent. GALLBLADDER / BILE DUCTS: The gallbladder is surgically absent. There is no intra or extrahepatic biliary ductal dilatation. SPLEEN: The spleen i s normal in size. No focal splenic lesion is identified. PANCREAS: The pancre as is unremarkable in appearance. ADRENAL GLANDS: With in normal limits. KIDNEYS/RETROPERITON EUM : There is a 4 mm nonobstructing calculus in the interpolar region of the left kidney. No right renal calculi are identified. There is no hydronephrosis. No renal masses are identified. LYMPH NODES: No abdominal lymphadenopathy. VASCULATURE: The abdominal aorta is normal in caliber. MESENTERY/PERITONEUM : No free fluid. No masses. There is no free intraperitoneal gas. STOMACH: There is a small hiatal hernia. The remainder of the stomach is unremarkable. SMALL BOWEL: The visualized small bowel is normal in caliber. COLON: The visualize d portion of the colon is unremarkable. BONES / SOFT TISSUES : No suspicious bony or soft tissue abnormalities. ___ ____ CT/CT abdomen w IV con IMPRESSION: Small hiatal hernia. 4 mm nonobstructing left renal calculus. Otherwise unremarkable contrast-enhanced CT of the abdomen. Electronically jonh d by: Fox Barajas MD 12/08/2024 11:55 AM EDT Dictated By: Fox Barajas MD Signed By: <Electronically signed by Fox Barajas MD in OV> 12/08/24 1155 DD/ 1135 TD/TT: 12/08/24 1147 Disbursing Officer: US pelvic and transvaginal Reviewed date:01/31/2025 02:50:50 PM Interpretation: Performing Lab: Notes/Report: [address] [address] Ultrasound Report Signed Patient: Nkechi Up MR#: [id number] : 1980 Acct:[id number] Age/Sex: 44 / F ADM Date: 01/31/25 Loc: HO.US Attending Dr: Baldemar Pineda MD Ordering Physician: Baldemar Pineda MD Date of Service: 01/31/25 Procedure(s): US pelvic and transvaginal Accession Number(s): [id number] cc: Fox Johnston MD; Baldemar Pineda MD CLINICAL HISTORY: N93.9 - Abnormal uterine and vaginal bleeding, unspecified Ultrasound of female pelvis with Doppler Comparison: US - US PELVIC AND TRANSVAGINAL - 11/23/24 11:06 EDT Technique: Grayscale ultrasound with assistance of color Doppler and spectral analysis. Transabdominal scanning performed for overall anatomy. Transvaginal scanning performed for better anatomic delineation. Findings: Anteverted uterus measures 10.2 x 3.2 x 4.6 cm. Mildly heterogeneous myometrium, stable small 5 mm intramural fibroid in the anterior body. Endometrium at the lower uterine segment is not visualized and this is region where probable lesion was seen previously, the visualized endometrium appears normal and homogeneously hyperechoic, 7 mm in thickness, no focal lesion or abnormal vascular flow is seen. Stable simple and complex nabothian cysts. Small endocervical fluid noted. Normal right ovary, 2.4 x 1.5 x 1.4 cm. Normal color Doppler with arterial and venous spectral tracing. Normal left ovary, 2.5 x 2.6 x 2.5 cm. Normal color Doppler with arterial and venous spectral tracing. No free fluid in the pelvis. Impression: 1. The endometrium of lower uterine segment and previously seen probable lesion at this region are not visualized, the visualized endometrium is normal. 2. Stable subcentimeter uterine fibroid. 3. Stable nabothian cysts. This document has been electronically signed by: Mikaela Davila MD on 01/31/2025 14:14:05 Dictated By: Mikaela Davila MD Signed By: <Electronically signed by Mikaela Davila MD in OV> 01/31/25 1415 DD/ 1414 TD/TT: 01/31/25 1414 Disbursing Officer: [place] [address] Ultrasound Report Signed Patient: Nkechi Up MR#: [id number] : 1980 Acct:[id number] Age/Sex: 44 / F ADM Date: 01/31/25 Loc: HO.US Attending Dr: Baldemar Pineda MD Ordering Physician: Baldemar Pineda MD Date of Service: 01/31/25 Procedure(s): US pel mic and transvaginal Accession Number(s): [id number] cc: Fox Johnston MD; Baldemar Pineda MD CLINICAL HISTORY: N9 3.9 - Abnormal uterine and vaginal bleeding, unspecified Ultrasound of female pelvis with Doppler Comparison: US - US PELVIC AND TRANSVAGINAL - 11/23/24 11:06 EDT Technique: Grayscale ultrasound with assistance of color Doppler and spectral analysis. Transabdominal scanning performed for overall anatomy. Transvaginal scannin g performed for better anatomic delineation. Findings: Anteverted uterus measures 10.2 x 3.2 x 4.6 cm. Mildly heterogeneous myometrium, stable small 5 mm intramural fibroid in the anterior body. Endometrium at the lower uterine segment is not visualized and this is region where probabl e lesion was seen previously, the visualized endometrium appears normal and homogeneously hyperechoic, 7 mm in thickness, no focal lesion or abnormal vascular flow is seen. Stable simple and complex nabothian cysts. Small endocervical fluid noted. Normal right ovary, 2.4 x 1.5 x 1.4 cm. Normal color Doppler with arterial and venous spectral tracing. Normal left ovary, 2 .5 x 2.6 x 2.5 cm. Normal color Doppler with arterial and venous spectral tracing. No free fluid in the pelvis. Impression: 1. The endometrium o f lower uterine segment and previously seen probable lesion at this regio n are not visualized, the visualized endometrium is normal. 2. Stable subcentime ter uterine fibroid. 3. Stable nabothian cysts. This document has be en electronically signed by: Mikaela Davila MD on 01/31/2025 14:14:05 Dictated By: Mikaela Davila MD Signed By: <Electronically signed by Mikaela Davila MD in OV> 01/31/25 1415 DD/ 1414 TD/TT: 01/31/25 1414 Disbursing Officer: Complete Blood Count Auto Di ff Reviewed date:02/05/2025 03:38:01 PM Interpretation: Performing Lab:[facility], [address] [place] [phone] Notes/Report: White Blood Count 9.7 4.8-10.8 X10*3/uL Red Blood Count 5.06 4.20-5.50 X10*6/uL Hemoglobin 12.0 12.0-16.0 g/dl Hematocrit 38.2 37.0-47.0 % Mean Corpuscular Volume 75.5 80.0-98.0 fL Mean Corpuscular Hemoglobin 23.7 27.0-33.0 pg Mean Corpuscular HGB Conc 31.4 31.0-35.0 g/dl Red Cell Distribution Width 14.7 11.0-16.0 % Platelet Count 409 160-400 X10*3/uL Mean Platelet Volume 9.2 9.4-12.3 fL Neutrophils Percent Auto 72.0 45-73 % Imm Gran Pct Auto 0.2 0.0-0.4 % Lymphocytes Percent Auto 20.5 20-40 % Monocytes Percent Auto 5.3 2-11 % Eosinophils Percent Auto 1.5 0-4 % Basophils Percent Auto 0.5 0-2 % NRBC Pct Auto 0.0 0.0-0.2 /100WBC Neutrophils Absolute Auto 7.0 2.0-8.3 x10*3/uL Imm Gran Abs Auto 0.02 0.00-0.03 X10*3/uL Lymphocytes Absolute Auto 2.0 1.2-4.9 X10*3/uL Monocytes Absolute Auto 0.5 0.1-1.2 X10*3/uL Eosinophils Absolute Auto 0.2 0.0-0.4 X10*3/uL Basophils Absolute Auto 0.1 0.0-0.2 X10*3/uL NRBC Abs Auto 0.000 0.0-0.012 X10*3/uL Comprehensive [place]. Panel Fa st Reviewed date:02/05/2025 03:38:01 PM Interpretation: Performing Lab:[facility], [address] [place] [phone] Notes/Report: Sodium 139 135-145 mmol/L Potassium 3.6 3.3-5.1 mmol/L Chloride 107 96-108 mmol/L Carbon Dioxide 27 22-29 mmol/L Anion Gap 9 12-20 Blood Urea Nitrogen 8 9-16 mg/dL Creatinine 0.64 0.5-1.4 mg/dL Estimated Glomerular Filt Rate > 60 Chronic Kidney Disease: Estimated GFR < 60 mL/min/1.73m2 Severe Kidney Disease: Estimated GFR < 15 mL/min/1.73m2 Glucose Fasting 117 60-99 mg/dL A fasting glucose from 100-125 mg/dl is considered impaired (pre-diabetes). Calcium 8.6 8.4-10.2 mg/dL Bilirubin Total 0.4 0.0-1.0 mg/dL Aspartate Amino Transferase 20 5-31 U/L Alanine Aminotransferase 17 0-31 U/L Total Protein 7.5 6.5-8.0 g/dL Albumin Level 4.5 3.5-5.0 g/dL Alkaline Phosphatase 86 39-117 U/L Lipid Panel Reviewed date:02/05/2025 03:38:01 PM Interpretation: Performing Lab:[address] [address] Notes/Report: Triglycerides 125 <150 mg/dL Desirable Triglyceride: less than 150 mg/dL Borderline High Triglyceride 150-199 mg/dL High Triglyceride: 200-499 mg/dL Very High Triglyceride: greater than or equal to 5OO mg/dL Cholesterol 171 <200 mg/dL Desirable Cholesterol: less than 200 mg/dL Borderline High Cholesterol: 200-239 mg/dL High Cholesterol: greater than 239 mg/dL LDL Cholesterol Calculated 107 <100 mg/dL Desirable LDL: less than 100 mg/dL Near Optimal/Above Optimal LDL: 110-129 mg/dL Borderline High LDL: 130-159 mg/dL High LDL: 160-189 mg/dL Very High LDL: greater than or equal to 190 mg/dL HDL Cholesterol 39 >40 mg/dL Desirable HDL: greater than 40 mg/dL Note: This HDL assay may give artificially low results in patients with liver disease. Follicle Stimulating Hormone Reviewed date:04/16/2025 05:50:20 AM Interpretation: Performing Lab:[facility], [address] [place] [phone] Notes/Report: Follicle Stimulating Hormone 3.1 Reference Range Follicular Phase 2.5-10.2 Mid-cycle Peak 3.1-17.7 Luteal Phase 1.5- 9.1 Postmenopausal 23.0-116.3 THIS TEST WAS PERFORMED AT: [facility] [address] [place] [phone] ROSALINDA CUEVA MD Lutenizing Hormone Reviewed date:04/16/2025 05:50:20 AM Interpretation: Performing Lab:[address] [address] Notes/Report: Lutenizing Hormone 4.6 Reference Range Follicular Phase 1.9-12.5 Mid-Cycle Peak 8.7-76.3 Luteal Phase 0.5-16.9 Postmenopausal 10.0-54.7 THIS TEST WAS PERFORMED AT: [facility] [address] [place] [phone] ROSALINDA CUEVA MD Hemoglobin A1c Reviewed date:02/05/2025 03:38:01 PM Interpretation: Performing Lab:[facility], [address] [place] [address] Notes/Report: Hemoglobin A1c % 5.9 <6.0 % Hemoglobin A1C Reference Range Adults: 4.8 - 6.0 % Non diabetic: < 6.0 % Goal: < 7.0 % Additional Action Suggested: > 8.0 % Note: Hemoglobin A1c results are invalid for patients with abnormal amounts of HbF. Blood transfusions may impact the HbA1c concentration in the patient sample. Estimated Average Glucose 123 eAG = Estimated average glucose which is %A1C expressed as average glucose, using the formula of the Z0E-Pwohgzo Average Glucose study (ADAG), Diabetes Care, Vol.31,#8, Jan. 2007 Reason For Referral Reason Consult and Treat Requesting Audra Long Diagnosis 1 Diabetes mellitus du e to underlying condition without complication, without long-term current use of insulin (E08.9) Referral Organization Fox Johnston III, MD Referring Provider First Name Fox Referring Provider Last Name Preston Referring Provider Speciality Internal edicine Referred Provider Ita Dias Referred Provider Specialty Endocrinolog y General Notes Lorie Devlin 07/27/2024 03:41:02 PM > Referral and attachments faxed.Quita Amber 07/31/2024 09:55:10 AM > Provider is not located at [facility]. Resent referral to correct location. Referral Priority Routine Referral Appointment Date 11/01/2024 Reason intermittent LUQ darius n with food radiation to back evaluate and treatment negative ultrasound Diagnosis 1 Iron deficiency anem ia, unspecified iron deficiency anemia type (D50.9) Diagnosis 2 Left upper quadrant pain (R10.12) Referral Organization Fox Johnston III, MD Referring Provider First Name Fox Referring Provider Last Name Johnston Referring Provider Speciality Internal M edicine Referred Provider Kreon Ramos Referred Provider Specialty Gastroentero logy General Notes Megan Valentine CMA 12/11 10:17:02 AM >ref/demo/progress note/labs/ct scan faxed to Dr Ramos office Referral Priority Routine Referral Appointment Date 02/27/2025 Medications Medication SIG (Take, Route, Frequency, Duration) Notes Start Date End Date Status Aldara Active Omeprazole 20 MG TAKE 1 CAPSULE BY [facility] EVERY DAY FOR 30 DAYS Active Propranolol HCl 10 MG 1 tablet on an emp ty stomach Orally Once a day 03/11/2019 Active Hydrocortisone 1 % 1 application Lumber Loader ally Twice a day 11/19/2023 Active Ferrous Gluconate 324 (38 Fe) MG orally once a day once a day 11/19/2023 Active Ozempic (0.25 or 0.5 MG/DOSE) 2 MG/3ML 0.25 mg Subcutaneous weekly for 28 days 02/12/2025 01/14/2026 Active metFORMIN HCl 500 MG TAKE 1 TABLET BY [facility] EVERY DAY WITH A MEAL FOR 90 DAYS Active Ketoconazole 2 % 1 application [...] Problem Status W/U Status Risk Notes Problem 5154493 Former smoker (Z87.891) Active confirmed She has stopped smoking. Her weight has not increased. We discussed a strategy to relapse in times of stress and illness. Problem Hypothyroidism (18630830) Hypothyroidism (E03.9) Active confirmed , Negative thyroid functions will be done prior to her next visit. She appears to be euthyroid. Problem 330781148112267 Obesity (BMI 30.0-34.9) (E66.9) Active confirmed Her body mass index is 33.8. She has gained 2 pounds since her last visit. I have given her a prescription for Ozempic and we're awaiting prior approval. Problem 032479598 Chronic cluster headache, not intractable (G44.029) Active confirmed Headaches have worsened in one daily. I have added Fioricet. Problem 374789529 Left upper quadrant pain (R10.12) Active confirmed No abnormality has been found. This is likely musculoskeletal discomfort related to inflammation. She will be observed carefully. Problem 51722067 Tobacco dependence (F17.200) Active confirmed We discussed smoking cessation at length today. Problem 13146126 Iron deficiency anemia, unspecified iron deficiency anemia type (D50.9) Active confirmed She continues t o have a mild microcytic, probably multifactorial anemia. Her iron therapy was continued.She was continued on iron today. In February 2004 of therapy was 15 which is in the normal range Problem Barb's thyroiditis (39848327) Barb's thyroiditis (E06.3) Active confirmed Her thyroid disease is stable. She is on thyroid replacement. Her values have been stable. No change in her regimen was necessary today. Problem 0808883 Diabetes mellitus due to underlying condition without complication, without long-term current use of insulin (E08.9) Active confirmed Her hemoglob in A1c is 5.9 and her fasting glucose is well-controlled. No change in her regimen was necessary. We have discussed using Ozempic to lose weight. She would like a prescription. I have prescribed that medication. PSA 0.25 mg dose and we are awaiting prior approval. 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 Problem [id number] Lesion of endometrium (N85.9) Active confirmed Her pelvic ultrasound shows a 7 mm abnormality. Atrium. She has been referred back to [facility] to deal with this. Problem 95936867 Intramural uterine fibroid (D25.1) Active confirmed Vital Signs Heart Rate 94 /min 02/12/2025 Temperature 99.0 degrees Fahrenheit 02/12/2025 Blood pressure diastolic 80 mm Hg 02/12/2025 Height 63 in 02/12/2025 Blood pressure systolic 136 mm Hg 02/12/2025 Weight 191 lbs 02/12/2025 BMI 33.83 kg/m2 02/12/2025 Encounters Encounter Location Date Provider Diagnosis Fox Johnston III, MD [address] [place] [address] [place] [address] 07/25/2024 Fox Johnston Iron deficiency anem ia, [...] 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 Fox Johnston III, MD [address] [place] [address] [place] [address] 07/31/2024 Fox Johnston Iron deficiency anem ia, [...] 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 Fox Johnston III, MD [address] [place] [address] [place] [address] 11/22/2024 Fox Johnston Iron deficiency anem ia, unspecified iron deficiency anemia type D50.9 ; Diabetes mellitus due to underlying condition without complication, without long-term current use of insulin E08.9 ; Abdominal pain, left upper quadrant R10.12 ; Chronic cluster headache, not intractable G44.029 ; Former smoker Z87.891 ; Obesity (BMI 30.0-34.9) E66.9 ; 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 ; Tobacco dependence F17.200 and Barb's thyroiditis E06.3 Fox Johnston III, MD [address] [place] [address] [place] [address] 11/28/2024 Fox Johnston Iron deficiency anem ia, unspecified iron deficiency anemia type D50.9 ; Left upper quadrant pain R10.12 ; Chronic cluster headache, not intractable G44.029 ; Obesity (BMI 30.0-34.9) E66.9 ; Diabetes mellitus due to underlying condition without complication, without long-term current use of insulin E08.9 ; Hypothyroidism E03.9 ; Tobacco dependence F17.200 and 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 Fox Johnston III, MD [address] [place] [address] [place] [address] 12/15/2024 Fox Johnston Iron deficiency anem ia, unspecified iron deficiency anemia type D50.9 ; Diabetes mellitus due to underlying condition without complication, without long-term current use of insulin E08.9 ; Lesion of endometrium N85.9 ; Obesity (BMI 30.0-34.9) E66.9 ; Chronic cluster headache, not intractable G44.029 ; Hypothyroidism E03.9 ; Low back pain, unspecified M54.50 and Tobacco dependence F17.200 Fox Johnston III, MD [address] [place] [address] [place] [address] 02/12/2025 Fox Johnston Iron deficiency anem ia, unspecified iron deficiency anemia type D50.9 ; Diabetes mellitus due to underlying condition without complication, without long-term current use of insulin E08.9 ; Obesity (BMI 30.0-34.9) E66.9 ; Former smoker Z87.891 ; Chronic cluster headache, not intractable G44.029 ; Barb's thyroiditis E06.3 and 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 Fox Johnston III, MD [address] [place] [address] [place] [address] 05/19/2024 Fox Johnston III, MD [address] [place] [address] [place] [address] 05/31/2024 Fox Johnston III, MD [address] [place] [address] [place] [address] 07/19/2024 Fox Johnston III, MD [address] [place] [address] [place] [address] 08/24/2024 Fox Johnston III, MD [address] [place] [address] [place] [address] 12/04/2024 Fox Johnston III, MD [address] [place] [address] [place] [address] 02/15/2025 Fox Johnston III, MD [address] [place] [address] [place] [address] 02/28/2025 Fox Johnston III, MD [address] [place] [address] [place] [address] 03/05/2025 Fox Johnston III, MD [address] [place] [address] [place] [address] 03/06/2025 Fox Johnston Assessments Encounter Date Diagnosis (ICD [...] regimen was made. I encouraged weight loss. 11/22/2024 Iron deficiency anemia, unspecified iron deficiency [...] change in his therapy was needed. 11/28/2024 Left upper quadrant pain (ICD-10 - R10.12) No abnormality has been found. This is likely musculoskeletal discomfort related to inflammation. She will be observed carefully. 11/28/2024 Iron deficiency anemia, unspecified iron deficiency anemia type (ICD-10 - D50.9) She continues to have a mild microcytic, probably multifactorial anemia. Her iron therapy was continued. 12/15/2024 Iron deficiency anemia, unspecified iron deficiency [...] but I will discuss with her ongoing. 02/12/2025 Iron deficiency anemia, unspecified iron deficiency [...] dose and we are awaiting prior approval. 07/25/2024 UTI symptoms (ICD-10 - R39.9) Her urine is described as normal in appearance. Her dysuria is mild. A urine analysis and urine culture were obtained. She is quite stable and we will await the results of the culture. 07/31/2024 Chronic cluster headache, not intractable (ICD-10 - G44.029) Headaches have worsened in one daily. I have added Fioricet. 11/22/2024 Abdominal pain, left upper quadrant (ICD-10 - R10.12) There were no findings on physical examination. Abdominal ultrasound has been ordered. 11/28/2024 Chronic cluster headache, not intractable (ICD-10 - G44.029) Headaches have worsened in one daily. I have added Fioricet. 12/15/2024 Lesion of endometrium (ICD-10 - N85.9) Her pelvic ultrasound shows a 7 mm abnormality. Atrium. She has been referred back to [facility] to deal with this. 02/12/2025 Obesity (BMI 30.0-34.9) (ICD-10 - E66.9) Her body mass index is 33.8. She has gained 2 pounds since her last visit. I have given her a prescription for Ozempic and we're awaiting prior approval. 07/25/2024 Low back pain, unspecified (ICD-10 - [...] her weight loss strategy at length. 11/22/2024 Chronic cluster headache, not intractable (ICD-10 - G44.029) Headaches have worsened in one daily. I have added Fioricet. 11/28/2024 Obesity (BMI 30.0-34.9) (ICD-10 - E66.9) She has lost 1 pound. Her body mass index is 34.7. Once again, we reviewed her weight loss strategy at length. 12/15/2024 Obesity (BMI 30.0-34.9) (ICD-10 - E66.9) She has lost 1 pound. Her body mass index is 34.7. Once again, we reviewed her weight loss strategy at length. 02/12/2025 Former smoker (ICD-10 - Z87.891) She has stopped smoking. Her weight has not increased. We discussed a strategy to relapse in times of stress and illness. 07/25/2024 Chronic cluster headache, not intractable (ICD-10 - G44.029) Headaches have worsened in one daily. I have added Fioricet. 07/31/2024 Former smoker (ICD-10 - Z87.891) She has stopped smoking. Her weight has not increased. We discussed a strategy to relapse in times of stress and illness. 11/22/2024 Former smoker (ICD-10 - Z87.891) She has stopped smoking. Her weight has not increased. We discussed a strategy to relapse in times of stress and illness. 11/28/2024 Diabetes mellitus due to underlying condition without complication, without long-term current use of insulin (ICD-10 - E08.9) Her diabetes seems stable and she is compliant with her medications. No change in his therapy was needed. 12/15/2024 Chronic cluster headache, not intractable (ICD-10 - G44.029) Headaches have worsened in one daily. I have added Fioricet. 02/12/2025 Chronic cluster headache, not intractable (ICD-10 [...] next visit. She appears to be euthyroid. 11/22/2024 Obesity (BMI 30.0-34.9) (ICD-10 - E66.9) She has lost 1 pound. Her body mass index is 34.7. Once again, we reviewed her weight loss strategy at length. 11/28/2024 Hypothyroidism (ICD-10 - E03.9) , Negative thyroid functions will be done prior to her next visit. She appears to be euthyroid. 12/15/2024 Hypothyroidism (ICD-10 - E03.9) , Negative thyroid functions will be done prior to her next visit. She appears to be euthyroid. 02/12/2025 Barb's thyroiditis (ICD-10 - E06.3) Her thyroid disease is stable. She is on thyroid replacement. Her values have been stable. No change in her regimen was necessary today. 07/25/2024 Former smoker (ICD-10 - Z87.891) She has stopped smoking. Her weight has not increased. We discussed a strategy to relapse in times of stress and illness. 07/31/2024 Tobacco dependence (ICD-10 - F17.200) We discussed smoking cessation at length today. 11/22/2024 Anal condylomata (ICD-10 - A63.0) She recently saw her mechanical integrity specialist who is treating this. There has been marked improvement in her cream has been continued. 11/28/2024 Tobacco dependence (ICD-10 - F17.200) We discussed smoking cessation at length today. 12/15/2024 Low back pain, unspecified (ICD-10 - M54.50) She has had an intermittent and mild to moderate low back pain for several weeks without an antecedent. X-rays of the spine were ordered. She was encouraged to take Tylenol and use heat and rest as much as possible. 02/12/2025 Anal condylomata (ICD-10 - A63.0) These were treated and removed during a recent visit to her mechanical integrity specialist at [place]. 07/25/2024 Hypothyroidism (ICD-10 - E03.9) , Negative [...] heat and rest as much as possible. 11/22/2024 Tobacco dependence (ICD-10 - F17.200) We discussed smoking cessation at length today. 11/28/2024 Anal condylomata (ICD-10 - A63.0) She recently saw her mechanical integrity specialist who is treating this. There has been marked improvement in her cream has been continued. 12/15/2024 Tobacco dependence (ICD-10 - F17.200) We discussed smoking cessation at length today. 07/25/2024 Anal condylomata (ICD-10 - A63.0) These have now resolved. 07/31/2024 Upper back pain (ICD-10 - M54.9) This appears to be entirely muscular. She will continue to use heat and rest and acetaminophen. She was given a prescription for cyclobenzaprine for 7 days. 11/22/2024 Barb's thyroiditis (ICD-10 - E06.3) Her thyroid disease is stable. She is on thyroid replacement. Her values have been stable. No change in her regimen was necessary today. 07/31/2024 Barb's thyroiditis (ICD-10 - E06.3) Her thyroid disease is stable. She is on thyroid replacement. Her values have been stable. No change in her regimen was necessary today. 07/31/2024 Anal condylomata (ICD-10 - A63.0) She recently saw her mechanical integrity specialist who is treating this. There has been marked improvement in her cream has been continued. Plan Of Treatment Pending Test Test Name Order Date PROFILE, FASTING (COMPREHENSIVE METABOLI C) 07/13/2022 PROFILE, FASTING (COMPREHENSIVE METABOLI C) 04/19/2024 PROFILE, FASTING (COMPREHENSIVE METABOLI C) 10/21/2018 PROFILE, FASTING (COMPREHENSIVE METABOLI C) 07/14/2019 PROFILE, FASTING (COMPREHENSIVE METABOLI C) 11/01/2017 PROFILE, FASTING (COMPREHENSIVE METABOLI C) 06/04/2023 PROFILE, FASTING (COMPREHENSIVE METABOLI C) 02/12/2025 PROFILE, FASTING (COMPREHENSIVE METABOLI C) 12/13/2020 PROFILE, FASTING (COMPREHENSIVE METABOLI C) 09/13/2020 PROFILE, FASTING (COMPREHENSIVE METABOLI C) 03/21/2021 PROFILE, FASTING (COMPREHENSIVE METABOLI C) 10/31/2018 PROFILE, FASTING (COMPREHENSIVE METABOLI C) 08/30/2020 PROFILE, FASTING (COMPREHENSIVE METABOLI C) 02/23/2022 PROFILE, FASTING (COMPREHENSIVE METABOLI C) 11/22/2024 PROFILE, FASTING (COMPREHENSIVE METABOLI C) 04/12/2023 PROFILE, FASTING (COMPREHENSIVE METABOLI C) 11/15/2017 PROFILE, RANDOM (COMPREHENSIVE METABOLIC ) 07/21/2021 HEMOGLOBIN A1C (GLYCOHEMOGLOBIN) 019 HEMOGLOBIN A1C (GLYCOHEMOGLOBIN) 021 HEMOGLOBIN A1C (GLYCOHEMOGLOBIN) 022 HEMOGLOBIN A1C (GLYCOHEMOGLOBIN) 020 HEMOGLOBIN A1C (GLYCOHEMOGLOBIN) 021 HEMOGLOBIN A1C (GLYCOHEMOGLOBIN) 019 HEMOGLOBIN A1C (GLYCOHEMOGLOBIN) 021 LIPID PANEL 04/12/2023 LIPID PANEL 11/15/2017 LIPID PANEL 08/30/2020 LIPID PANEL 07/14/2019 LIPID PANEL 11/01/2017 LIPID PANEL 10/21/2018 LIPID PANEL 09/13/2020 LIPID PANEL 12/13/2020 LIPID PANEL 07/21/2021 LIPID PANEL 03/21/2021 FREE T4 (FT4) 09/13/2020 FREE T4 (FT4) 12/13/2020 TSH (THYROID STIMULATING HORMONE) 2020 TSH (THYROID STIMULATING HORMONE) 2023 TSH (THYROID STIMULATING HORMONE) 2022 TSH (THYROID STIMULATING HORMONE) 2020 IRON + IBC (FE) 09/22/2021 FERRITIN 02/16/2020 FERRITIN 08/30/2020 FERRITIN 09/22/2021 FERRITIN 02/02/2020 FERRITIN 07/21/2021 CBC w DIFF 03/21/2021 CBC w DIFF 02/23/2022 CBC w DIFF 11/22/2024 CBC w DIFF 07/21/2021 CBC w DIFF 09/13/2020 CBC w DIFF 07/13/2022 CBC w DIFF 02/16/2020 CBC w DIFF 12/13/2020 CBC w DIFF 11/15/2017 CBC w DIFF 02/12/2025 CBC w DIFF 07/14/2019 CBC w DIFF 08/30/2020 CBC w DIFF 11/01/2017 CBC w DIFF 10/21/2018 CBC w DIFF 09/22/2021 CBC w DIFF 10/31/2018 SED RATE (ESR) 04/12/2023 SED RATE (ESR) 11/01/2017 URINALYSIS (UA) 07/25/2024 FOLLICLE STIMULATING HORMONE (FSH) 11/22 FOLLICLE STIMULATING HORMONE (FSH) 04/12 LUTEINIZING HORMONE (LH) 11/22/2024 LUTEINIZING HORMONE (LH) 04/12/2023 URINE CULTURE 07/25/2024 CBC WITH AUTO DIFF 04/12/2023 CBC WITH AUTO DIFF 04/19/2024 CBC WITH AUTO DIFF 06/04/2023 RETIC 02/23/2022 Ferritin 02/23/2022 Ferritin 04/19/2024 Lipid Panel 07/13/2022 Lipid Panel 02/23/2022 Lipid Panel 02/12/2025 Lipid Panel 11/22/2024 Lipid Panel 04/19/2024 Lipid Panel with Reflex 06/04/2023 Free T4 (Free Thyroxine) 04/19/2024 Microalbumin, Random 04/19/2024 Microalbumin, Random 03/21/2021 Microalbumin, Random 07/13/2022 Hemoglobin A1c 04/19/2024 Hemoglobin A1c 07/13/2022 Hemoglobin A1c 02/23/2022 Hemoglobin A1c 06/04/2023 Hemoglobin A1c 02/12/2025 Hemoglobin A1c 11/22/2024 Next Appt Details Provider Name:Fox Johnston , 05/15/2025 03:45:00 PM, [address] [place] [address] [address], [place], [address], Provider Name:Fox Johntson , 11/26/2025 04:00:00 PM, [address] [place] [address] [address], [place], [address], Insurance Providers Payer Name Payer Address Payer Phone Subscriber Number Group Number Insured Name Patient Relationship to Insured Coverage Start Date Coverage End Date [facility] [[email or web address]] [address] [place], [place] [phone] [id number] [employer] - patient is the insured 6 Medical (General) History Medical History History ICD Code chronic headaches for 4 monrths [id number] 7 mos former smoker overweight hypothyroid Pre-diabetes {'Condyloma Acuminatum': 'Di agnosed during current visit', 'Muscle Soreness': 'Identified during current visit', 'Gallstones': 'Identified in previous medical tests'} Anal condyloma acuminata Surgical History Surgery Date(Month/Year) No history 2 para 2 2016 C- section 2009 Hospitalization History Reason Date(Month/Year) No history
== END 2025-05-09 15:44 | disposition home or self-care (01) ==
LOC: HO.MAMMO 15:43
PROVIDERS: PCP Internal Medicine Medical Oncology; Visit Provider Internal Medicine Medical Oncology
DX: Z12.31 Encounter for screening mammogram for malignant neoplasm of breast (principal)
CPT/HCPCS: 77063; 77067

== ENCOUNTER → 2025-05-09 16:00 | Outpatient (BNV) | payer BC, SELFPAY | PROVIDERS: PCP Internal Medicine Medical Oncology; Visit Provider Internal Medicine | DX: Z12.31 Encounter for screening mammogram for malignant neoplasm of breast (principal) | CPT/HCPCS: 77063; 77067 ==

== ENCOUNTER 2025-06-04 06:54 | Outpatient (REF) | payer BC, SELFPAY ==
--- OUTSIDE RECORDS SUMMARY | 2024-11-22 11:15 | XMS_ITS ---
Author Organization Fox Johnston III, MD Address [address] [place] [address] Care Team Providers Care Desktop Manager Name Role Phone Dr. Fox Johnston III Primary Care Provider [phone] Allergies Allergen (clinical drug ingredient) Drug/Non Drug [...] Date Status Hydrocortisone 1 % 1 application Cyber Analyst ally Twice a day 11/19/2023 Active Ferrous Gluconate 324 (38 Fe) MG orally once a day once a day 11/19/2023 Active Aldara Active lamoTRIgine ER 25 MG 1 tablet Orally Onc e a day 07/13/2022 Active metFORMIN HCl 500 MG TAKE 1 TABLET BY [facility] EVERY DAY WITH A MEAL FOR 90 DAYS Active Propranolol HCl 10 MG 1 tablet on an emp ty stomach Orally Once a day 03/11/2019 Active Ketoconazole 2 % 1 application to affected area Externally Twice a day 03/11/2019 Active Omeprazole 20 MG TAKE 1 CAPSULE BY [facility] EVERY DAY FOR 30 DAYS Active Social [...] Date Provider Diagnosis Fox Johnston III, MD [address] [place] [address] [place] [address] 11/22/2024 Fox Johnston Iron deficiency anemia, unspecified [...] (ICD-10 - A63.0) She recently saw her social sciences department chair who is treating this. There has been [...] Date Notes Hydrocortisone 1 % 1 application Cyber Analyst ally Twice a day 11/19/2023 Ferrous Gluconate 324 (38 Fe ) MG orally once a day once a day 11/19/2023 Aldara lamoTRIgine ER 25 MG 1 tablet Orally Once a day 07/13/2022 metFORMIN HCl 500 MG TAKE 1 TABLET BY [facility] EVERY DAY WITH A MEAL FOR 90 DAYS Propranolol HCl 10 MG 1 tablet on an emp ty stomach Orally Once a day 03/11/2019 Ketoconazole 2 % 1 application to aff ected area Externally Twice a day 03/11/2019 Omeprazole 20 MG TAKE 1 CAPSULE BY [facility] EVERY DAY FOR 30 DAYS Pending Test Test Name Order Date PROFILE, FASTING (COMPREHENSIVE METABOLI C) 11/22/2024 CBC w DIFF 11/22/2024 FOLLICLE STIMULATING HORMONE (FSH) 11/22 LUTEINIZING HORMONE (LH) 11/22/2024 Lipid Panel 11/22/2024 Hemoglobin A1c 11/22/2024 Next Appt Details Follow Up: 3 Months, Reason: Follow up Provider Name:Fox Johnston , 06/08/2025 03:45:00 PM, [address] [place] [address] [place], [address], Provider Name:Fox Johnston , 11/26/2025 04:00:00 PM, [address] [place] [address] [place], [address], Progress Notes * Nkechi UPDOB: (44 yo F)Acc No.[id number]:11/22/2024 Progress Notes Patient: Ag BOYERha Provider: Mariusz Johnston MD :1980 A ge:44 Y S ex:Female Date:11/22/2024 Address:[address] [place], [place] [id number] Subjective: * Chief Complaints: * A nnual Exam * HPI: D epression Screening: She returns to the office for a scheduled visit for medical management. She saw her social sciences department chair recently. She had been given a cream for her pain, no genital warts but she says it did not work. Several of them were removed but several remain. She has been referred to another practitioner at [facility] who specializes in this. He has never been to her commis chef. She has decided to have this treated by a specialist in [facility] when she goes back there on [...] be done prior to her trip to [facility]. Blood work with an [facility] and [...] N egative S he was born in [facility] and came to this country at the age of 36. She speaks Cymro and is learning [place] but is not yet fluent. She has [...] A63.0 N otes :She recently saw her social sciences department chair who is treating this. There has been [...] 11/22/2024 Generated for Dexter gomes/Grabiel/Casey on: 1 08/05/2024 06:58 AM EST History and Physical Notes * HPI [...]
--- OUTSIDE RECORDS SUMMARY | 2024-11-28 11:00 | XMS_ITS ---
Author Organization Fox Johnston III, MD Address [address] [address] Care Team Providers Care Shoe Maker Name Role Phone Dr. Fox Johnston III [...] 11/19/2023 Active Hydrocortisone 1 % 1 application Seismographer ally Twice a day 11/19/2023 Active Social [...] Problem Status W/U Status Risk Notes Problem [id number] Left upper quadrant pain (R10.12) Active confirmed [...] Date Provider Diagnosis Fox Johnston III, MD [address] [place] [address] [address] [place], [place] [address] 11/28/2024 Fox Johnston Iron deficiency anem ia, [...] (ICD-10 - A63.0) She recently saw her warehouse checker who is treating this. There has been [...] day 11/19/2023 Hydrocortisone 1 % 1 application Seismographer ally Twice a day 11/19/2023 Referrals Referral Date Details 11/28/2024 11/28/2024, intermit tent LUQ pain with food radiation to back evaluate and treatment negative ultrasound, Keron Ramos Next Appt Details Follow Up: after testing, Re ason: OV review Ct scan abd with contrast Provider Name:Fox Johnston , 06/08/2025 03:45:00 PM, [address] [place] [address] [address], [place], [address], Provider Name:Fox Johnston , 11/26/2025 04:00:00 PM, [address] [place] [address] [place], [address], Progress Notes * Nkechi UPDOB: (44 yo F)Acc No.[id number]:11/28/2024 Progress Notes Patient: Mariza BAKER Nkechi Provider: Mariusz Johnston MD :1980 A ge:44 Y S ex:Female Date:11/28/2024 Address:[address] [place], [place] [phone] Subjective: * Chief Complaints: * O besityDiabetesHypothyroidismLeft [...] (1-9 cigs/day) S he was born in [facility] and came to this country at the age of 36. She speaks English and is learning Bahamian but is not yet fluent. She has [...] A63.0 N otes :She recently saw her warehouse checker who is treating this. There has been [...] 11/28/2024 Generated for Dexter gomes/Grabiel/eTransmitting on: 1 08/05/2024 06:59 AM EST History and Physical Notes * [...]
--- OUTSIDE RECORDS SUMMARY | 2024-12-04 09:28 | XMS_ITS ---
Author Organization Fox Johnston III, MD Address [address] [place] [address] Care Team Providers Care Auto Air Conditioning Mechanic Name Role Phone Dr. Fox Johnston III Primary Care Provider [phone] REASON FOR VISIT gastro appt Social History Sex Assigned At : Social History Observation Description Sex Assigned At Female Encounters Encounter Location Date Provider Diagnosis Fox Johnston III, MD [address] [place] [address] [place] [address] 12/04/2024 Fox Johnston Plan Of Treatment Next Appt Details Provider Name:Fox Johnston , 06/08/2025 03:45:00 PM, [address] [place] [address] [place], [address], Provider Name:Fox Johnston , 11/26/2025 04:00:00 PM, [address] [place] [address] [place], [address], Progress Notes * Nkechi UPDOB: (44 yo F)Acc No.[id number]:12/04/2024 Patient: Nkechi BOYER :1980 A ge:44 Y S ex:Female Address:[address] [place] [address], [phone] * true * Date: Generated for Dexter gomes/Grabiel/Justinosmitting on: 08/05/2024 06:57 AM EST
--- OUTSIDE RECORDS SUMMARY | 2024-12-15 08:45 | XMS_ITS ---
Author Organization Fox Johnston III, MD Address [address] [place] [address] Care Team Providers Care Mail Order Clerk Name Role Phone Dr. Fox Johnston III Primary Care Provider Allergies Allergen (clinical drug ingredient) Drug/Non Drug Allergy documented on EMR Reaction Allergy Type Onset Date Status No Known Drug Allergy Unknown Drug Allergy Active No Known Food Allergy Unknown Drug Allergy Active REASON FOR VISIT Epigastric abdominal pain, Diabetes, Headaches, Iron deficiency anemia, Hypothyroidism, Tobacco dependence, condylomas Medications Medication SIG (Take, Route, Frequency, Duration) Notes Start Date End Date Status Hydrocortisone 1 % 1 application Warehouse Operator ally Twice a day 11/19/2023 Active Omeprazole 20 MG TAKE 1 CAPSULE BY MO UT EVERY DAY FOR 30 DAYS Active Ferrous Gluconate 324 (38 Fe) MG orally once a day once a day 11/19/2023 Active metFORMIN HCl 500 MG TAKE 1 TABLET BY MO UTH EVERY DAY WITH A MEAL FOR 90 DAYS Active Aldara Active lamoTRIgine ER 25 MG [...] Problem Status W/U Status Risk Notes Problem [id number] Lesion of endometrium (N85.9) Active confirmed Her pelvic ultrasound shows a 7 mm abnormality. Atrium. She has been referred back to CONFLICTS ANALYST to deal with this. Vital Signs Temperature 97.9 degrees Fahrenheit 12/16/19 25 Blood pressure systolic 129 mm Hg 12/16/19 25 Blood pressure diastolic 74 mm Hg 025 Heart Rate 90 /min 12/15/2024 Height 63 in 12/15/2024 Weight 189 lbs 12/15/2024 BMI 33.48 kg/m2 12/15/2024 Encounters Encounter Location Date Provider Diagnosis Fox Johnston III, MD [address] [place] [address] [place] [address] 12/15/2024 Fox Johnston Iron deficiency anem ia, unspecified iron deficiency anemia type D50.9 ; Diabetes mellitus due to underlying condition without complication, without long-term current use of insulin E08.9 ; Lesion of endometrium N85.9 ; Obesity (BMI 30.0-34.9) E66.9 ; Chronic cluster headache, not intractable G44.029 ; Hypothyroidism E03.9 ; Low back pain, unspecified M54.50 and Tobacco dependence F17.200 Assessments Encounter Date Diagnosis (ICD Code) Assessment Notes Treat ment Notes Treatment Clinical Notes 12/15/2024 Iron deficiency anemia, unspecified iron deficiency anemia type (ICD-10 - D50.9) She continues to have a mild microcytic, probably multifactorial anemia. Her iron therapy was continued.She was continued on iron today. In February 2004 of therapy was 15 which is in the normal range 12/15/2024 Diabetes mellitus due to underlying condition without complication, without long-term current use of insulin (ICD-10 - E08.9) Her diabetes seems stable and she is compliant with her medications. No change in his therapy was neededHer hemoglobin A1c in June 2024 was 6.0. It is unlikely that trulicity will improve this further but I will discuss with her ongoing. 12/15/2024 Lesion of endometrium (ICD-10 - N85.9) Her pelvic ultrasound shows a 7 mm abnormality. Atrium. She has been referred back to CONFLICTS ANALYST to deal with this. 12/15/2024 Obesity (BMI 30.0-34.9) (ICD-10 - E66.9) She has lost 1 pound. Her body mass index is 34.7. Once again, we reviewed her weight loss strategy at length. 12/15/2024 Chronic cluster headache, not intractable (ICD-10 - G44.029) Headaches have worsened in one daily. I have added Fioricet. 12/15/2024 Hypothyroidism (ICD-10 - E03.9) , Negative thyroid functions will be done prior to her next visit. She appears to be euthyroid. 12/15/2024 Low back pain, unspecified (ICD-10 - M54.50) She has had an intermittent and mild to moderate low back pain for several weeks without an antecedent. X-rays of the spine were ordered. She was encouraged to take Tylenol and use heat and rest as much as possible. 12/15/2024 Tobacco dependence (ICD-10 - F17.200) We discussed smoking cessation at length today. Plan Of Treatment Medication Medication Name Sig Start Date Stop Date Notes Hydrocortisone 1 % 1 application Warehouse Operator ally Twice a day 11/19/2023 Omeprazole 20 MG TAKE 1 CAPSULE BY [facility] EVERY DAY FOR 30 DAYS Ferrous Gluconate 324 (38 Fe ) MG orally once a day once a day 11/19/2023 metFORMIN HCl 500 MG TAKE 1 TABLET BY [facility] EVERY DAY WITH A MEAL FOR 90 DAYS Aldara lamoTRIgine ER 25 MG 1 tablet Orally Once a day 07/13/2022 Ketoconazole 2 % 1 application to aff ected area Externally Twice a day 03/11/2019 Propranolol HCl 10 MG 1 tablet on an emp ty stomach Orally Once a day 03/11/2019 Next Appt Details Follow Up: As Scheduled, Nilam son: OV Provider Name:Fox Johnston , 06/08/2025 03:45:00 PM, [address] [place] [address] [place] [address], [address], Provider Name:Fox Johnston , 11/26/2025 04:00:00 PM, [address], [address], Progress Notes * WILSONPEDRO BAKERNkechiDOB: (44 yo F)Acc No.[id number]:12/15/2024 Progress Notes Patient: Nkechi BOYER Provider: Mariusz Johnston MD :1980 A ge:44 Y S ex:Female Date:12/15/2024 Address:[address] [place], [place] [id number] Subjective: * Chief Complaints: * E pigastric abdominal painDiabetesHeadachesIron deficiency anemiaHypothyroidismTobacco dependenceCondylomas * HPI: C OVID-19 Screening: She returns in follow-up of the abdominal pain diabetes and other medical issues.Her blood work from November 16 was reviewed in detail with her. The results of the CT scan of the abdomen that she had on December 08, 2024 were reviewed as well as the ultrasound of November 25, 2024. We also reviewed the ultrasound of the pelvis with transvaginal views that was done November 24, 2024. We reviewed the results of her recent appointment with gynecology. She is concerned that a Pap smear was not done. He wanted to know if we would do that and we agreed we would be happy to. The CAT scan showed a 4 mm nonobstructing left renal calculus and a small hiatal hernia. On physical examination pressure over the upper abdomen relieves the pain exactly. We discussed whether this was the hiatal hernia causing this. She asked many questions about the treatment of a hiatal hernia. I offered to get her a surgical consultation to discuss it in detail. After many questions she agreed to do this. I explained that the stone in her urinary collecting system presented no current threat to her well being.The ultrasound of her abdomen was interpreted as showing only hepatic steatosis. The pelvic ultrasound which was ordered by the doubler helper showed a questionable 7 mm endometrial lesion. We have referred her back to CONFLICTS ANALYST to do this. At the end of the vision the patient left the examining room and rejoined her in the waiting room the office. When I went out to wish some goodbye to him we can she asked me if I would start her on trulicity. I told her I would review the record and get back in touch with her about this. Questions H ave you had any new onset fever, chills, cough, congestion, sore throat, shortness of breath, muscle aches? N o * ROS: G eneral/Constitutional: pain M idline upper abdominal pain elicited with pressure in the epigastrium. C hills d enies. F atigue a [...] (1-9 cigs/day) S he was born in [facility] and came to this country at the age of 36. She speaks Lithuanian and is learning Irish but is not [...] Objective: * Vitals: H t: 63, Wt: 189, BMI:33.48, BP: 129/74, HR: 90, Temp: 97.9, Wt-k.73. * P ast Orders: Imaging:US abdomen complete * Performed Date 11/25/2024 03/24/2024 11/09/2022 10:28 AM 08:30 AM 09:45 AM Order Date 11/25/2024 03/24/2024 11/04/2022 * Lab:URINE DIP STICK * Collection Date [...] ++ +++ Menstrating NR NR no * Lab:Complete Blood Count no Diff * [...] X10*3/uL) 0.000 (Ref Range: 0.0-0.012 X10*3/uL) * Lab:CT NG by PCR * Collection [...] mIU/mL) < 2 (Ref Range: mIU/mL) * Lab:TSH reflex Free T4 * Collection Date 11/16/2024 03/16/2024 Collection Time 04:11 PM 08:28 AM Order Date 11/16/2024 03/16/2024 TSH reflex Free T4 1.72 (Ref Range: 0.32-4.0 uIU/mL) 1.27 (Ref Range: 0.32-4.0 uIU/mL) * Imaging:US pelvic and transv aginal * Performed Date 11/24/2024 03/20/2024 09:15 AM 04:07 PM Order Date 11/24/2024 03/20/2024 * Examination: G eneral Examination: GENERAL APPEARANCE: [...] no ascites, no organomegaly, no mass, centripital obesity, Abdominal pain complaint is reproduced by pressure over the epigastric area below the xiphoid, it is mild and relieved immediately. RECTAL EXAM: n ot examined. MUSCULOSKELETAL: e [...] medications. No change in his therapy was neededHer hemoglobin A1c in June 2024 was 6.0. It is unlikely that [facility] will improve this further but I will discuss with her ongoing. 2 . I tom deficiency anemia, unspecified iron deficiency anemia type - D50.9? Notes :She continues to have a mild microcytic, probably multifactorial anemia. Her iron therapy was continued.She was continued on iron today. In February 2004 of therapy was 15 which is in the normal range 3 . L esion of endometrium - N85.9 N otes :Her pelvic ultrasound shows a 7 mm abnormality. Atrium. She has been referred back to CONFLICTS ANALYST to deal with this. 4 . O besity (BMI 30.0-34.9) - E66.9 N otes :She has lost 1 pound. Her body mass index is 34.7. Once again, we reviewed her weight loss strategy at length. 5 . C hronic cluster headache, not intractable - G44.029 N otes :Headaches have worsened in one daily. I have added Fioricet. 6 . H ypothyroidism - E03.9 N otes :, Negative thyroid functions will be done prior to her next visit. She appears to be euthyroid. 7 . L ow back pain, unspecified - M54.50 N otes :She has had an intermittent and mild to moderate low back pain for several weeks without an antecedent. X-rays of the spine were ordered. She was encouraged to take Tylenol and use heat and rest as much as possible. 8 . T obacco dependence - F17.200 N otes :We discussed smoking cessation at length today. Plan: * Treatment: 2. O thers Continue Omeprazole Capsule Delayed Release, 20 MG, TAKE 1 CAPSULE BY MOUTH EVERY DAY FOR 30 DAYS;?Continue Aldara. * Procedure Codes: * Preventive Medicine: Counseling: C are goal follow-up plan: Counseling for abnormal BMI given Y es Above Normal BMI Follow-up D ietary management education, guidance, and counseling, Dietary needs education S moking/Tobacco Use Patient counseled on the dangers of tobacco use and urged to quit. 0 12/15/2024 Patient Lifestyle Goals P atient wants to [...] without too much effort. T reatment Goals H bA1C < 7.0, Blood Sugars less than < 115. B arriers n o barriers. S elf-Managment Goals W ork on weight loss, with a goal of losing 1 lb per week. * Follow Up: A s Scheduled (Reason: OV) * Images: * Sign off status: Completed true * Provider: Mariusz Johnston MD Date: 0 12/15/2024 Generated for Dexter gomes/Grabiel/Leslyitting on: 1 08/05/2024 06:59 AM EST History [...] no ascites, no organomegaly, no mass, centripital obesity, Abdominal pain complaint is reproduced by pressure over the epigastric area below the xiphoid, it is mild and relieved immediately NEUROLOGIC: alert and oriented, cranial nerves 2-12 [...]
--- OUTSIDE RECORDS SUMMARY | 2025-02-12 05:30 | XMS_ITS ---
Author Organization Fox Johnston III, MD Address [address] [place] [address] Care Team Providers Care Maintenance Mechanic Elevators Name Role Phone Dr. Fox Johnston III Primary Care Provider [phone] Allergies Allergen (clinical drug ingredient) Drug/Non Drug Allergy documented on EMR Reaction Allergy Type Onset Date Status No Known Drug Allergy Unknown Drug Allergy Active No Known Food Allergy Unknown Drug Allergy Active REASON FOR VISIT Condylomata, [facility]. 12[facility], [facility] 12/28/[facility], Cervical Cytology done in [facility]: Cervical vaginal smear without significant cytological alterations. 12/28/2024, [facility] Dx: Submucous uterine fibroid. 12/27/2024, Uterine fibroid, [...] Aldara Active Hydrocortisone 1 % 1 application Water Attendant ally Twice a day 11/19/2023 Active Ozempic (0.25 or 0.5 MG/DOSE) 2 MG/3ML 0.25 mg Subcutaneous weekly for 28 days 02/12/2025 01/14/2026 Active metFORMIN HCl 500 MG TAKE 1 TABLET BY [facility] EVERY DAY WITH A MEAL [...] Problem Status W/U Status Risk Notes Problem [id number] Intramural uterine fibroid (D25.1) Active confirmed Vital Signs Temperature 99.0 degrees Fahrenheit 02/13/20 25 Blood pressure systolic 136 mm Hg 02/13/20 25 Blood pressure diastolic 80 mm Hg 025 Heart Rate 94 /min 02/12/2025 Height 63 in 02/12/2025 Weight 191 lbs 02/12/2025 BMI 33.83 kg/m2 02/12/2025 Encounters Encounter Location Date Provider Diagnosis Fox Johnston III, MD [address] [place] [address] [place] [address] 02/12/2025 Fox Johnston Iron deficiency anemia, unspecified [...] removed during a recent visit to her cabin supervisor at home and [facility]. Plan Of Treatment Medication Medication [...] 07/13/2022 Aldara Hydrocortisone 1 % 1 application Water Attendant ally Twice a day 11/19/2023 Ozempic (0.25 or 0.5 MG/DOSE ) 2 MG/3ML 0.25 mg Subcutaneous weekly for 28 days 02/12/2025 01/14/2026 metFORMIN HCl 500 MG TAKE 1 TABLET BY [facility] EVERY DAY WITH A MEAL FOR 90 DAYS Pending Test Test Name Order Date PROFILE, FASTING (COMPREHENSIVE METABOLI C) 02/12/2025 CBC w DIFF 02/12/2025 Lipid Panel 02/12/2025 Hemoglobin A1c 02/12/2025 Next Appt Details Follow Up: 4 Weeks, Reason: Follow up Anemia Provider Name:Fox Johnston , 06/08/2025 03:45:00 PM, [address] [place] [address] [address], [place], [phone], Provider Name:Fox Johnston , 11/26/2025 04:00:00 PM, [address] [place] [address] [address], [place], [phone], Progress Notes * Nkechi UPDOB: (44 yo F)Acc No.[id number]:02/12/2025 Progress Notes Patient: Mariza MUNIZNkechi SPENCER Provider: Mariusz Johnston MD :1980 A ge:44 Y S ex:Female Date:02/12/2025 Address:[address] [place], [place] [id number] Subjective: * Chief Complaints: * C ondylomataP[facility]. 12/28/2024aut[facility] 12/28/2024ervical Cytology done in [facility]: Cervical vaginal smear without significant cytological alterations. 12/28/2024Pelvic ultrasound done in [facility]: Dx: Submucous uterine fibroid. 12/27/2024Uterine [...] (1-9 cigs/day) S he was born in [facility] and came [place] this country at the age of 36. She speaks Lao and is learning Albanian but is not yet fluent. She has [...] removed during a recent visit to her cabin supervisor at home and [facility]. Plan: * Treatment: 2. I [...] MD Date: 0 02/12/2025 Generated for Dexter gomes/Grabiel/Justinosmitting on: 08/05/2024 06:59 AM EST History and Physical [...]
--- OUTSIDE RECORDS SUMMARY | 2025-02-15 11:00 | XMS_ITS ---
Author Organization Fox Johnston III, MD Address [address] [place] [address] Care Team Providers Care Animal Husbandry Professor Name Role Phone Dr. Fox Johnston III Primary Care Provider REASON FOR VISIT wants another weight loss injectable med ordered Social History Sex Assigned At : Social History Observation Description Sex Assigned At Female Encounters Encounter Location Date Provider Diagnosis Fox Johnston III, MD [address] [place] [address] [place] [address] 02/15/2025 Fox Johnston Plan Of Treatment Next Appt Details Provider Name:Fox Johnston , 06/08/2025 03:45:00 PM, [address] [facility], [address], Provider Name:Fox Johnston , 11/26/2025 04:00:00 PM, [address] [facility], [address], Progress Notes * Nkechi UPDOB: (44 yo F)Acc No.[id number]:02/15/2025 Patient: Nkechi BOYER :1980 A ge:44 Y S ex:Female Address:[address] [place] [address] * true * Date: Generated for Dexter gomes/Grabiel/Justinosmitting on: 08/05/2024 06:58 AM EST
--- OUTSIDE RECORDS SUMMARY | 2025-02-27 09:20 | XMS_ITS ---
Author Organization [facility] Address [address] [place] [address] Care Team Providers Care Baseball Glove Shaper Name Role Phone Fox Johnston MD Primary Care Provider UnavailFox Santillan [phone] REASON FOR VISIT Patient presents today for LEFT UPPER QUADRANT PAIN Encounters Encounter Location Date Provider Diagnosis [facility] [address] [facility] [address] [place] [address] 02/27/2025 Fox Singletary Plan Of Treatment Next Appt Details Provider Name:Fox Singletary , 07/12/2025 09:00:00 AM, [address] [facility], [address], [place], [address], Progress Notes * RONAL SALAZARDOB: (44 yo F)Acc No.[id number]:02/27/2025 Progress Notes Patient: RONAL BOYER Provider: Mariusz Singletary MD :1980 A ge:44 Y S ex:Female Date:02/27/2025 Address:[address] [place], [place] [phone] Pcp:Fox Johnston MD Subjective: * Chief Complaints: * P atient presents today for LEFT UPPER QUADRANT PAIN * The named appointment provid er may or may not be the originator of this progress note, and it is not deemed complete until electronically signed by the appointment provider. Sign off status: Pending * Provider: Mariusz Singletary MD Date: 0 02/27/2025 Generated for Dexter gomes/Grabiel/eTransmitting on: 1 08/05/2024 06:58 AM EST
--- OUTSIDE RECORDS SUMMARY | 2025-02-28 04:16 | XMS_ITS ---
Author Organization Fox Johnston III, MD Address [address] [place] [address] Care Team Providers Care Security Administrator Name Role Phone Dr. Fox Johnston III Primary Care Provider REASON FOR VISIT FYI Social History Sex Assigned At : Social History Observation Description Sex Assigned At Female Encounters Encounter Location Date Provider Diagnosis Fox Johnston III, MD [address] [place] [address] [place] [address] 02/28/2025 Fox Johnston Plan Of Treatment Next Appt Details Provider Name:Fox Johnston , 06/08/2025 03:45:00 PM, [address] [place] [address] [place], [address], Provider Name:Fox Johnston , 11/26/2025 04:00:00 PM, [address] [place] [address] [place], [address], Progress Notes * Nkechi UPDOB: (44 yo F)Acc No.[id number]:02/28/2025 Patient: Nkechi BOYER :1980 A ge:44 Y S ex:Female Address:[address] [place] [address], [address] * true * Date: Generated for Dexter goems/Grabiel/Justinosmitting on: 08/05/2024 06:58 AM EST
--- OUTSIDE RECORDS SUMMARY | 2025-03-05 08:57 | XMS_ITS ---
Author Organization Fox Johnston III, MD Address [address] [facility] [place] [address] Care Team Providers Care Classified Advertising Clerk Name Role Phone Dr. Fox Johnston III Primary Care Provider [phone] Medications Medication SIG (Take, Route, Fr equency, Duration) Notes Start Date End Date Status Zepbound 2.5 MG/0.5ML 0.5 mL Subcutaneou s weekly for 28 days 03/05/2025 02/04/2026 Active Social History Sex Assigned At : Social History Observation Description Sex Assigned At Female Encounters Encounter Location Date Provider Diagnosis Fox Johnston III, MD [address] [place] [address] [place] [address] 03/05/2025 Fox Johnston Plan Of Treatment Medication Medication Name Sig Start Date Stop Date Notes Zepbound 2.5 MG/0.5ML 0.5 mL Subcutaneou s weekly for 28 days 03/05/2025 02/04/2026 Next Appt Details Provider Name:Fox Johnston , 06/08/2025 03:45:00 PM, [address] [place] [address] [place], [address], Provider Name:Fox Johnston , 11/26/2025 04:00:00 PM, [address] [place] [address] [address], [place], [address], Progress Notes * Nkechi UPDOB: (44 yo F)Acc No.[id number]:03/05/2025 Patient: Mariza Nkechi [place] :1980 A ge:44 Y S ex:Female Address:[address] [place] [address], [address] * Refills Start Zepbound Solution Auto-injector, 2.5 MG/0.5ML, Subcutaneous, 1 Pre-filled Pen Syringe, 0.5 mL, weekly, 28 days, Refills=11 * true * Date: Generated for Dexter gomes/Grabiel/eTjohnsmitting on: 1 08/05/2024 06:59 AM EST
--- OUTSIDE RECORDS SUMMARY | 2025-03-06 06:21 | XMS_ITS ---
Author Organization Fox Johnston III, MD Address [address] [facility] [place] [place] [address] Care Team Providers Care Acid Tester Name Role Phone Dr. Fox Johnston III Primary Care Provider [phone] REASON FOR VISIT Zepbound changed to Wegovy Medications Medication SIG (Take, Route, Frequency, Duration) Notes Start Date End Date Status Wegovy 0.25 MG/0.5ML 0.5 mL Subcutaneous once a week for 30 days cancelled the Zepbound RX would like to process this one instead 03/06/2025 05/04/2025 Active Social History Sex Assigned At : Social History Observation Description Sex Assigned At Female Encounters Encounter Location Date Provider Diagnosis Fox Johnston III, MD [address] [place] [address] [place] [address] 03/06/2025 Fox Johnston Plan Of Treatment Medication Medication Name Sig Start Date Stop Date Notes Wegovy 0.25 MG/0.5ML 0.5 mL Subcutaneous once a week for 30 days 03/06/2025 05/04/2025 cancelled the Zepbound RX would like to process this one instead Next Appt Details Provider Name:Fox [place] , 06/08/2025 03:45:00 PM, [address] [facility] [address], [place], [address], Provider Name:Fox Johnston , 11/26/2025 04:00:00 PM, [address] [place] [address] [address], [place], [address], Progress Notes * Nkechi UPDOB: (44 yo F)Acc No.[id number]:03/06/2025 Patient: Mariza Nkechi HILL :1980 A ge:44 Y S ex:Female Address:[address] [place] [address], [address] * Refills Start Wegovy Solution Auto-injector, 0.25 MG/0.5ML, Subcutaneous, 2 Milliliter, 0.5 mL, once a week, 30 days, Refills=1 * true * Date: Generated for Dexter gomes/Grabeil/eTransmitting on: 1 08/05/2024 06:59 AM EST
--- OUTSIDE RECORDS SUMMARY | 2025-05-15 12:00 | XMS_ITS ---
Author Organization Fox Johnston III, MD Address [address] [place] [address] Care Team Providers Care Acute Care Certified Nursing Assistant Name Role Phone Dr. Fox Johnston III Primary Care Provider Allergies Allergen (clinical drug ingredient) Drug/Non Drug Allergy documented on EMR Reaction Allergy Type Onset Date Status No Known Drug Allergy Unknown Drug Allergy Active No Known Food Allergy Unknown Drug Allergy Active REASON FOR VISIT Follow-up Medications Medication SIG (Take, Route, Frequency, Duration) Notes Start Date End Date Status Hydrocortisone 1 % 1 application Personal Lines Insurance Agent ally Twice a day 11/19/2023 Active Ferrous Gluconate 324 (38 Fe) MG orally once a day once a day 11/19/2023 Active Ozempic (0.25 or 0.5 MG/DOSE) 2 MG/3ML 0.25 mg Subcutaneous weekly 02/12/2025 Active Aldara Active metFORMIN HCl 500 MG TAKE 1 TABLET BY [facility] EVERY DAY WITH A MEAL FOR 90 DAYS Active Omeprazole 20 MG TAKE 1 CAPSULE BY [facility] EVERY DAY FOR 30 DAYS Active Propranolol HCl 10 MG 1 tablet on an emp ty stomach Orally Once a day 03/11/2019 Active Ketoconazole 2 % 1 application to aff ected area Externally Twice a day 03/11/2019 Active [...] user Light cigarett e smoker (1-9 cigs/day) Encounters Encounter Location Date Provider Diagnosis Fox Johnston III, MD [address] [place] [address] [address] [place] [id number] 05/15/2025 Fox Johnston Iron deficiency anemia, unspecified iron deficiency anemia type D50.9 Assessments Encounter Date Diagnosis (ICD Code) Assessment Notes Treatment Notes Treatment Clinical Notes 05/15/2025 Iron deficiency anemia, unspecified iron deficiency anemia type (ICD-10 - D50.9) She continues to have a mild microcytic, probably multifactorial anemia. Her iron therapy was continued.She was continued on iron today. In February 2004 of therapy was 15 which is in the normal range Plan Of Treatment Medication Medication Name Sig Start Date Stop Date Notes Hydrocortisone 1 % 1 application Personal Lines Insurance Agent ally Twice a day 11/19/2023 Ferrous Gluconate 324 (38 Fe ) MG orally once a day once a day 11/19/2023 Ozempic (0.25 or 0.5 MG/DOSE ) 2 MG/3ML 0.25 mg Subcutaneous weekly 02/12/2025 Aldara metFORMIN HCl 500 MG TAKE 1 TABLET BY [facility] EVERY DAY WITH A MEAL FOR 90 DAYS Omeprazole 20 MG TAKE 1 CAPSULE BY [facility] EVERY DAY FOR 30 DAYS Propranolol HCl 10 MG 1 tablet on an emp ty stomach Orally Once a day 03/11/2019 Ketoconazole 2 % 1 application to aff ected area Externally Twice a day 03/11/2019 lamoTRIgine ER 25 MG 1 tablet Orally Once a day 07/13/2022 Next Appt Details Provider Name:Fox Johnston , 06/08/2025 03:45:00 PM, [address] [place] [address] [address], [place], [phone], Provider Name:Fox Johnston , 11/26/2025 04:00:00 PM, [address] [place] [address] [address] [place] [address], [phone], Progress Notes * kNechi UPDOB: (44 yo F)Acc No.[id number]:05/15/2025 Progress Notes Patient: Nkechi BOYER Provider: Mariusz Johnston MD :1980 A ge:44 Y S ex:Female Date:05/15/2025 Address:[address] [place], [place] [id number] Subjective: * Chief Complaints: * 1 . Follow-up. * HPI: C OVID-19 Screening: Questions H [...] History: C hronic headaches for 4 monrths, [id number] 7 mos, Former smoker, Overweight, Hypothyroid, Pre-diabetes, {'Condyloma Acuminatum': 'Diagnosed during current visit', 'Muscle Soreness': 'Identified during current visit', 'Gallstones': 'Identified in previous medical tests'}, Anal condyloma acuminata. * Surgical History: C - section 2008, 2016, 2 para 2 , [...] (1-9 cigs/day) S he was [place] [facility] [place] and came [place] the age of 36. She speaks Malagasy and is learning Luxembourgish but is not yet fluent. She has 2 children. She is not working. * Medications: T aking metFORMIN HCl 500 MG Tablet TAKE 1 [...] a day , Taking Aldara , Taking Ozempic (0.25 or 0.5 MG/DOSE) 2 MG/3ML Solution Pen- injector 0.25 mg Subcutaneous weekly , stop date 01/14/2026, Medication List reviewed and reconciled with the patient * Allergies: N o Known Drug Allergy, No Known Food Allergy. Objective: * Vitals: * Examination: G [...] unspecified iron deficiency anemia type - D50.9 N otes :She continues to have a mild microcytic, probably multifactorial anemia. Her iron therapy was continued.She was continued on iron today. In February 2004 of therapy was 15 which is in the normal range Plan: * Treatment: 2. O thers Continue [...] Pending * Provider: Mariusz Johnston MD Date: 07/15/2024 Generated for Dexter gomes/Grabiel/Leslyitting on: 08/05/2024 06:59 AM EST History and [...]
--- OUTSIDE RECORDS SUMMARY | 2025-06-04 06:58 | XMS_ITS | Patient Health Record ---
Author Organization [facility] Address [address] [place] [address] Care Team Providers Care Forensic Specialist Name Role Phone Preston C[place], Fox Primary Care Provider Fox Howard [phone] Reason For Referral No Information Encounters Encounter Location Date Provider Diagnosis [facility] [address] [place] [address] 02/27/2025 Fox Singletary Plan Of Treatment Next Appt Details Provider Name:Fox Singletary , 07/12/2025 09:00:00 AM, [address], [address], [place], [address], Insurance Providers Payer Name Payer Address Payer Phone Subscriber Number Group Number Insured Name Patient Relationship to Insured Coverage Start Date Coverage End Date [facility] [address] [place] [address] [phone] [id number] RONAL SALAZAR Self - patient is the insured
--- OUTSIDE RECORDS SUMMARY | 2025-06-04 06:58 | XMS_ITS | Continuity of Care Document ---
Author Organization [facility] [address] [place] [address] Phone [phone] Care Team Providers Care Freight Coordinator Name Role Phone Fox Johnston M.D. Care Team Information Receive r [phone] Problems Active Problems Provider Date Diabetes mellitus [...] Repeat Cycle as Megan Dean PA Cyclobenzaprine [id number] Tablets Take 1 Tablet By Mouth Three Times A Day AT Bedtime as Needed For 7 Days Fox Johnston M.D. Sulfamethoxazole/Trimeth oprim [id number] Tablets Take 1 Tablet By Mouth Twice A Day For 7 Days Fox Johnston M.D. Ferrous [id number](38Fe) mg Tablets Take 1 Tablet By Mouth Every Day Fox Johnston M.D. Metformin [id number] Tablets Fox Johnston M.D. Vital Signs Date Vital Result Comment 11/01/2024 9:27am BP Systolic 122 mmHg BP Diastolic 80 mmHg Heart Rate 83 /min Height 64 inches 5'4 Weight 192.12 lb BMI (Body Mass Index) 33.0 kg/m2 Results Test Acquired Date Facility Test Result H/L Range N ote Glucose Fingerstick 11/01/2024 Inhouse Glucose Fingerstick 117 Hemoglobin A1c 11/01/2024 Inhouse Hemoglobin A1c 5.9% Procedures Date Code Description Status 05/07/2025 NSHOWOFF No Show Office Visit Complet ed Medical Devices Description No Information Available Encounters Type Date Location Provider Dx Diagnosis Office Visit 11/01/2024 9:30a Main Office WOODY Gong R73.03 Prediabetes Assessments Date Code Description Provider 11/01/2024 R73.03 Prediabetes WOODY Gong Plan of Treatment No Information Available Functional Status Description No Information Available Mental Status Description No Information Available Referrals Description No Information Available
--- OUTSIDE RECORDS SUMMARY | 2025-06-04 06:59 | XMS_ITS | Patient Health Record ---
Author Organization Fox Johnston III, MD Address [address] [place] [address] Care Team Providers Care Store Leader Name Role Phone Dr. Fox Johnston III Primary Care Provider Allergies Allergen (clinical drug ingredient) Drug/Non Drug Allergy documented on EMR Reaction Allergy Type Onset Date Status No Known Drug Allergy Unknown Drug Allergy Active No Known Food Allergy Unknown Drug Allergy Active Results Component Value Reference Range Notes XR lumbar spine 2-3V Reviewed date:07/31/2024 06:14:30 PM Interpretation: Performing Lab: Notes/Report: [address] [address] XRay Report Signed Patient: Nkechi Up MR#: [id number] : 1980 Acct:[id number] Age/Sex: 44 / F ADM Date: 07/25/24 Loc: HO.XRAY Attending Dr: Fox Johnston MD Ordering Physician: Fox Johnston MD Date of Service: 07/25/24 Procedure(s): XR lumbar spine 2-3V Accession Number(s): [id number] cc: Fox Johnston MD CLINICAL HISTORY: LOW [...] in OV> 07/26/241910 DD/ 09 TD/TT: 07/26/241909 Sales Center Manager: [place] [address] XRay Report Signed Patient: Nkechi Up MR#: [id number] : 1980 Acct:[id number] Age/Sex: 44 / F ADM Date: 07/25/24 Loc: HO.XRAY Attending Dr: Fox Johnston MD Ordering Physician: Fox Johnston MD Date of Service: 07/25/24 Procedure(s): XR lum bar spine 2-3V Accession Number(s): [id number] cc: Fox Johnston MD CLINICAL HISTORY: LO [...] in OV> 07/26/241910 DD/ 09 TD/TT: 07/26/241909 Sales Center Manager: URINE DIP STICK Reviewed date:11/23/2024 09:30:31 AM [...] ff Reviewed date:07/23/2024 04:46:48 PM Interpretation: Performing Lab:[facility], [address] [place] [phone] Notes/Report: White Blood Count 9.3 4.8-10.8 X10*3/uL [...] NRBC Abs Auto 0.000 0.0-0.012 X10*3/uL Comprehensive [place]. Panel Fa st Reviewed date:07/23/2024 04:46:48 PM Interpretation: Performing Lab:[facility], [address] [place] [phone] Notes/Report: Sodium 140 135-145 mmol/L Potassium 3.9 [...] Ferritin Reviewed date:07/23/2024 04:46:48 PM Interpretation: Performing Lab:[facility], [address] [place] [phone] Notes/Report: Ferritin 10 10-250 ng/mL Lipid Panel Reviewed date:07/23/2024 04:46:48 PM Interpretation: Performing Lab:[facility], [address] [place] [phone] Notes/Report: Triglycerides 101 <150 mg/dL Desirable Triglyceride: [...] Thyroxine) Reviewed date:07/23/2024 04:46:48 PM Interpretation: Performing Lab:[address] [address] Notes/Report: Free T4 (Free Thyroxine) 0.83 0.71-1.85 ng/dL Thyroid Stimulating Hormone Reviewed date:07/23/2024 04:46:48 PM Interpretation: Performing Lab:[facility], [address] [place] [phone] Notes/Report: Thyroid Stimulating Hormone 1.82 0.32-4.0 uIU/mL TSH 3rd Generation ([facility]) Microalbumin, Random Reviewed date:07/23/2024 04:46:48 PM Interpretation: Performing Lab:[facility], [address] [place] [phone] Notes/Report: Creatinine Urine 211.05 Microalbumin Urine 78.0 Microalbum/Creatinine Ratio Ur 36.9 <30 ug/mg cr Albumin/Creatinine Ratio Reference Ranges: Normal: < 30 ug/mg creatinine Microalbuminuria: 30 - 300 ug/mg creatinine Clinical Albuminuria: > 300 ug/mg creatinine Hemoglobin A1c Reviewed date:07/23/2024 04:46:48 PM Interpretation: Performing Lab:[address] [address] Notes/Report: Hemoglobin A1c % 6.0 <6.0 % [...] average glucose, using the formula of the T3U-Bapstcg Average Glucose study (ADAG), Diabetes Care, Vol.31,#8, Jan. 2007 Urinalysis and Microscopic Reviewed date:07/31/2024 06:14:30 PM Interpretation: Performing Lab:[facility], [address] [place] [phone] Notes/Report: Color Urine Yellow Appearance Urine Cloudy PH 7.5 5.0-9.0 Glucose Urine UA Negative Negative mg/dL Urine Blood Trace Negative Specific Guston - Urine 1.020 1.005-1.025 Urine Protein Trace Neg-Trace mg/dL Urine Ketones Negative Negative mg/dL Nitrite Urine Negative Negative Leukocyte Esterase Urine Negative Negative RBC Urine 11-20 0-2 /HPF WBC Urine 0-5 0-5 /HPF Squamous Epithelial Cell Urine 0-2 0-2 /HPF Bacteria Urine Trace None Seen Hyaline Casts Urine 0-2 0-2 /LPF Urinalysis Reviewed date:07/31/2024 06:14:30 PM Interpretation: Performing Lab:[facility], [address] [place] [phone] Notes/Report: Color Urine Yellow Appearance Urine Cloudy PH 7.5 5.0-9.0 Glucose Urine UA Negative Negative mg/dL Urine Blood Trace Negative Specific Guston - Urine 1.020 1.005-1.025 Urine Protein Trace Neg-Trace mg/dL Urine Ketones Negative Negative mg/dL Nitrite Urine Negative Negative Leukocyte Esterase Urine Negative Negative Urine Culture Reviewed date:07/31/2024 06:14:30 PM Interpretation: Performing Lab:[facility], [address] [place] [phone] Notes/Report: Urine Culture Report Result Urine Culture > 100,000 cfu/ml Urine Culture Mixed bacterial daniel a characteristic of Urine Culture urogenital contamination. Complete Blood Count no Diff Reviewed date:11/21/2024 01:59:43 PM Interpretation: Performing Lab:[facility], [address] [place] [phone] Notes/Report: White Blood Count 8.1 4.8-10.8 X10*3/uL [...] T4 Reviewed date:11/21/2024 01:59:43 PM Interpretation: Performing Lab:[facility], [address] [place] [phone] Notes/Report: TSH reflex Free T4 1.72 0.32-4.0 uIU/mL HCG Quantitative Reviewed date:11/21/2024 01:59:43 PM Interpretation: Performing Lab:[facility], [address] [place] [phone] Notes/Report: HCG Quantitative < 2 Weeks post [...] PCR Reviewed date:11/21/2024 01:59:43 PM Interpretation: Performing Lab:[facility], [address] [place] [phone] Notes/Report: Urine CT PCR NOT DETECTED Not [...] Diff Reviewed date:11/22/2024 12:54:41 PM Interpretation: Performing Lab:[facility], [address] [place] [phone] Notes/Report: White Blood Count 10.1 4.8-10.8 X10*3/uL [...] date:12/03/2024 09:33:54 AM Interpretation: Performing Lab: Notes/Report: [address] [address] Ultrasound Report Signed Patient: Nkechi Up MR#: [id number] : 1980 Acct:[id number] Age/Sex: 44 / F ADM Date: 11/23/24 Loc: HO.US Attending Dr: Baldemar Pineda MD Ordering Physician: Baldemar Pineda MD Date of Service: 11/23/24 Procedure(s): US pelvic and transvaginal Accession Number(s): [id number] cc: Fox Johnston MD; Baldemar Pineda MD [...] in OV> 11/24/24915 DD/ 4 TD/TT: 11/24/24914 Sales Center Manager: [place] [address] Ultrasound Report Signed Patient: Nkechi Up MR#: [id number] : 1980 Acct:[id number] Age/Sex: 44 / F ADM Date: 11/23/24 Loc: .US Attending Dr: Baldemar Pineda MD Ordering Physician: Baldemar Pineda MD Date of Service: 11/23/24 Procedure(s): US pel mic and transvaginal Accession Number(s): [id number] cc: Fox Johnston MD; Baldemar Pineda MD [...] in OV> 11/24/24915 DD/ 4 TD/TT: 11/24/24914 Sales Center Manager: US abdomen complete Reviewed date:12/03/2024 09:33:54 AM Interpretation: Performing Lab: Notes/Report: [place] [address] Ultrasound Report Signed Patient: Nkechi Up MR#: [id number] : 1980 Acct:[id number] Age/Sex: 44 / F ADM Date: 11/24/24 Loc: HO.US Attending Dr: Fox Johnston MD Ordering Physician: Fox Johnston MD Date of Service: 11/24/24 Procedure(s): US abdomen complete Accession Number(s): [id number] cc: Fox Johnston MD CLINICAL HISTORY: ABDOMINAL [...] 11/25/24 1029 DD/ 1028 TD/TT: 11/25/24 1028 Sales Center Manager: [address] [address] Ultrasound Report Signed Patient: Nkechi Up MR#: [id number] : 1980 Acct:[id number] Age/Sex: 44 / F ADM Date: 11/24/24 Loc: HO.US Attending Dr: Fox Johnston MD Ordering Physician: Fox Johnston MD Date of Service: 11/24/24 Procedure(s): US abdomen complete Accession Number(s): [id number] cc: Fox Johnston MD CLINICAL HISTORY: ABDOMINAL [...] 11/25/24 1029 DD/ 1028 TD/TT: 11/25/24 1028 Sales Center Manager: CT abdomen w con Reviewed date:12/17/2024 05:38:36 PM Interpretation: Performing Lab: Notes/Report: [address] [address] [address] Scan Report Signed Patient: Nkechi Up MR#: [id number] : 1980 Acct:[id number] Age/Sex: 44 / F ADM Date: 12/08/24 Loc: HO.CT Attending Dr: Fox Johnston MD Ordering Physician: Fox Johnston MD Date of Service: 12/08/24 Procedure(s): CT abdomen w IV con Accession Number(s): [id number] cc: Fox Johnston MD Report Number: [id number]: Total DLP = 285.00 mGy-cm EXAMINATION: CT [...] 12/08/24 1155 DD/ 1135 TD/TT: 12/08/24 1147 Sales Center Manager: [place] [address] CT Scan Report Signed Patient: Nkechi Up MR#: [id number] : 1980 Acct:[id number] Age/Sex: 44 / F ADM Date: 12/08/24 Loc: HO.CT Attending Dr: Fox Johnston MD Ordering Physician: Fox Johnston MD Date of Service: 12/08/24 Procedure(s): CT abdomen w IV con Accession Number(s): [id number] cc: Fox Johnston MD Report Number: [id number]: Total DLP = 285.00 mGy-cm EXAMINATION: CT [...] 12/08/24 1155 DD/ 1135 TD/TT: 12/08/24 1147 Sales Center Manager: US pelvic and transvaginal Reviewed date:01/31/2025 02:50:50 PM Interpretation: Performing Lab: Notes/Report: [address] [address] Ultrasound Report Signed Patient: Nkechi Up MR#: [id number] : 1980 Acct:[id number] Age/Sex: 44 / F ADM Date: 01/31/25 Loc: HO.US Attending Dr: Baldemar Pineda MD Ordering Physician: Baldemar Pineda MD Date of Service: 01/31/25 Procedure(s): US pelvic and transvaginal Accession Number(s): [id number] cc: Fox Johnston MD; Baldemar Pineda MD [...] 01/31/25 1415 DD/ 1414 TD/TT: 01/31/25 1414 Sales Center Manager: [place] [address] Ultrasound Report Signed Patient: Nkechi Up MR#: [id number] : 1980 Acct:[id number] Age/Sex: 44 / F ADM Date: 01/31/25 Loc: HO.US Attending Dr: Baldemar Pineda MD Ordering Physician: Baldemar Pineda MD Date of Service: 01/31/25 Procedure(s): US pel mic and transvaginal Accession Number(s): [id number] cc: Fox Johnston MD; Baldemar Pineda MD [...] 01/31/25 1415 DD/ 1414 TD/TT: 01/31/25 1414 Sales Center Manager: Complete Blood Count Auto Di ff Reviewed date:02/05/2025 03:38:01 PM Interpretation: Performing Lab:[facility], [address] [place] [phone] Notes/Report: White Blood Count 9.7 4.8-10.8 X10*3/uL [...] NRBC Abs Auto 0.000 0.0-0.012 X10*3/uL Comprehensive [place]. Panel Fa st Reviewed date:02/05/2025 03:38:01 PM Interpretation: Performing Lab:[facility], [address] [place] [phone] Notes/Report: Sodium 139 135-145 mmol/L Potassium 3.6 [...] Panel Reviewed date:02/05/2025 03:38:01 PM Interpretation: Performing Lab:[address] [address] Notes/Report: Triglycerides 125 <150 mg/dL Desirable Triglyceride: [...] Hormone Reviewed date:04/16/2025 05:50:20 AM Interpretation: Performing Lab:[facility], [address] [place] [phone] Notes/Report: Follicle Stimulating Hormone 3.1 Reference Range Follicular Phase 2.5-10.2 Mid-cycle Peak 3.1-17.7 Luteal Phase 1.5- 9.1 Postmenopausal 23.0-116.3 THIS TEST WAS PERFORMED AT: [facility] [address] [place] [phone] ROSALINDA CUEVA MD Lutenizing Hormone Reviewed date:04/16/2025 05:50:20 AM Interpretation: Performing Lab:[address] [address] Notes/Report: Lutenizing Hormone 4.6 Reference Range Follicular Phase 1.9-12.5 Mid-Cycle Peak 8.7-76.3 Luteal Phase 0.5-16.9 Postmenopausal 10.0-54.7 THIS TEST WAS PERFORMED AT: [facility] [address] [place] [phone] ROSALINDA CUEVA MD Hemoglobin A1c Reviewed date:02/05/2025 03:38:01 PM Interpretation: Performing Lab:[facility], [address] [place] [phone] Notes/Report: Hemoglobin A1c % 5.9 <6.0 % [...] average glucose, using the formula of the S1B-Jnxxtob Average Glucose study (ADAG), Diabetes Care, Vol.31,#8, Jan. 2007 MM tomosynthesis screening B I Reviewed date:05/16/2025 02:45:29 PM Interpretation: Performing Lab: Notes/Report: [address] [place] [address] Mammography Report Signed Patient: Nkechi Up MR#: [id number] : 1980 Acct:[id number] Age/Sex: 44 / F ADM Date: 05/09/25 Loc: HO.MAMMO Attending Dr: Fox Johnston MD Ordering Physician: Fox Johnston MD Results: 1Negativ e Date of Service: 05/09/25 Follow Up: 1 Year From [facility] Mammogram Procedure(s): MM tomosynthesis screening BI Accession Number(s): [id number] cc: Fox Johnston MD Reason For Exam: SCREENING EXAMINATION: MM SCREENING DIGITAL BREAST TOMOSYNTHESIS, BILATERAL CLINICAL INFORMATION: Screening. Asymptomatic. COMPARISON: Mammography: Comparison is made with available priors TECHNIQUE: Digital breast mammography with tomosynthesis is performed in both the craniocaudal and mediolateral oblique views along with computer-aided detection (CAD). FINDINGS: The breasts are heterogeneously dense, which may obscure small masses. There are no significant masses, abnormal calcifications, or other abnormalities. MM/MM tomosynthesis screening BI IMPRESSION: No mammographic evidence of malignancy. ASSESSMENT: BI-RADS Category 1: Negative RECOMMENDATION: Routine annual mammography screening. 1 year F/U This examination should not preclude the clinical evaluation of a suspicious palpable abnormality. This patient's information was entered into a reminder system with a target due date for their next mammogram. Electronically signed by: Sheri Mcbride DO 05/14/2025 12:59 PM EST Dictated By: Sheri Mcbride DO Signed By: <Electronically signed by Sheri Mcbride DO in OV> 05/14/25 1259 DD/ 1548 TD/TT: 05/09/25 1600 Sales Center Manager: [facility] [place] [address] Mammography Report Signed Patient: Nkechi Up MR#: [id number] : 1980 Acct:[id number] Age/Sex: 44 / F ADM Date: 05/09/25 Loc: HO.MAMMO Attending Dr: Fox Johnston MD Ordering Physician: Fox Johnston MD Results: 1Negativ e Date of Service: 05/09/25 Follow Up: 1 Year From [facility] Mammogram Procedure(s): MM tomosynthesis screening BI Accession Number(s): [id number] cc: Fox Johnston MD Reason For Exam: SCREENING EXAMINATION: MM SCREENING DIGITAL BREAST TOMOSYNTHESIS, BILATERAL CLINICAL INFORMATION: Screening. Asymptomatic. COMPARISON: Mammography: Compari son is made with available priors TECHNIQUE: Digital breast mammography with tomosynthesis is performed in both the craniocaudal and mediolateral oblique views along with computer-aided detection (CAD). FINDINGS: The breasts are heterogeneously dense, which may obscure small masses. There are no significant masses, abnormal calcifications, or other abnormalities. MM/MM tomosynthesis screening BI IMPRESSION: No mammographic evidence of malignancy. ASSESSMENT: BI-RADS Category 1: Negative RECOMMENDATION: Routine annual mammography screening. 1 year F/U This examination parish uld not preclude the clinical evaluation of a suspicious palpable abnormality. This patient's information was entered into a reminder system with a target due date for their next mammogram. Electronically jonh d by: Sheri Mcbride DO 05/14/2025 12:59 PM EST Dictated By: Sheri Mcbride DO Signed By: <Electronically signed by Sheri Mcbride DO in OV> 05/14/25 1259 DD/ 1548 TD/TT: 05/09/25 1603 Sales Center Manager: Reason For Referral Reason Consult and Treat Requesting Audra Long Diagnosis 1 Diabetes mellitus du e to underlying condition without complication, without long-term current use of insulin (E08.9) Referral Organization Fox Johnston III, MD Referring Provider First Name Fox Referring Provider Last Name Preston Referring Provider [facility] Referred Provider Ita Dias Referred Provider Specialty Endocrinolog y General Notes Lorie Devlin 07/27/2024 03:41:02 PM > Referral and attachments faxed., Lorie Devlin 07/31/2024 09:55:10 AM > Provider is not located at [facility]. Resent referral to correct location. Referral Priority [...] Last Name Johnston Referring Provider Speciality Internal edicine Referred Provider Keron Ramos Referred Provider Specialty Gastroentero logy General Notes Megan Valentine CMA 12/11 10:17:02 AM >ref/demo/progress note/labs/ct scan faxed to Dr Ramos office Referral Priority Routine Referral Appointment Date 02/27/2025 Medications Medication SIG (Take, Route, Frequency, Duration) Notes Start Date End Date Status Hydrocortisone 1 % 1 application Gamemaster ally Twice a day 11/19/2023 Active Ferrous Gluconate 324 (38 Fe) MG orally once a day once a day 11/19/2023 Active Omeprazole 20 MG TAKE 1 CAPSULE BY [facility] EVERY DAY FOR 30 DAYS Active Ozempic (0.25 or 0.5 MG/DOSE) 2 MG/3ML 0.25 mg Subcutaneous weekly 02/12/2025 Active Aldara Active Propranolol HCl 10 MG 1 tablet on an emp ty stomach Orally Once a day 03/11/2019 Active Ketoconazole 2 % 1 application to aff ected area Externally Twice a day 03/11/2019 Active lamoTRIgine ER 25 MG 1 tablet Orally Onc e a day 07/13/2022 Active metFORMIN HCl 500 MG TAKE 1 TABLET BY [facility] EVERY DAY WITH A MEAL FOR 90 DAYS Active Immunizations Vaccine Route Administration Date Status [...] Problem Status W/U Status Risk Notes Problem 9954925 Former smoker (Z87.891) Active confirmed She has stopped smoking. Her weight has not increased. We discussed a strategy to relapse in times of stress and illness. Problem Hypothyroidism (74125220) Hypothyroidism (E03.9) Active confirmed , Negative thyroid functions will be done prior to her next visit. She appears to be euthyroid. Problem 494155811201611 Obesity (BMI 30.0-34.9) (E66.9) Active confirmed Her body mass index is 33.8. She has gained 2 pounds since her last visit. I have given her a prescription for Ozempic and we're awaiting prior approval. Problem 509714677 Chronic cluster headache, not intractable (G44.029) Active confirmed Headaches have worsened in one daily. I have added Fioricet. Problem 497584497 Left upper quadrant pain (R10.12) Active confirmed No abnormality has been found. This is likely musculoskeletal discomfort related to inflammation. She will be observed carefully. Problem 80729187 Tobacco dependence (F17.200) Active confirmed We discussed smoking cessation at length today. Problem 33927344 Iron deficiency anemia, unspecified iron deficiency anemia type (D50.9) Active confirmed She continues t o have a mild microcytic, probably multifactorial anemia. Her iron therapy was continued.She was continued on iron today. In February 2004 of therapy was 15 which is in the normal range Problem Barb's thyroiditis (07922930) Barb's thyroiditis (E06.3) Active confirmed Her thyroid disease is stable. She is on thyroid replacement. Her values have been stable. No change in her regimen was necessary today. Problem 0960717 Diabetes mellitus due to underlying condition without [...] and we are awaiting prior approval. 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 Problem 42444265861946 Lesion of endometrium (N85.9) Active confirmed Her pelvic ultrasound shows a 7 mm abnormality. Atrium. She has been referred back to [facility] to deal with this. Problem 39316828 Intramural uterine fibroid (D25.1) Active confirmed Vital Signs Heart Rate 94 /min 02/12/2025 Temperature 99.0 degrees Fahrenheit 02/12/2025 Blood pressure diastolic 80 mm Hg 02/12/2025 Height 63 in 02/12/2025 Blood pressure systolic 136 mm Hg 02/12/2025 Weight 191 lbs 02/12/2025 BMI 33.83 kg/m2 02/12/2025 Encounters Encounter Location Date Provider Diagnosis Fox Johnston III, MD [address] [place] [address] [place] [address] 07/25/2024 Fox Johnston Iron deficiency anem ia, [...] 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 Fox Johnston III, MD [address] [place] [address] [place] [address] 07/31/2024 Fox Johnston Iron deficiency anem ia, [...] 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 Fox Johnston III, MD [address] [place] [address] [place] [address] 11/22/2024 Fox Johnston Iron deficiency anem ia, [...] Barb's thyroiditis E06.3 Fox Johnston III, MD [address] [place] [address] [place] [address] 11/28/2024 Fox Johnston Iron deficiency anem ia, unspecified iron deficiency anemia type D50.9 ; Left upper quadrant pain R10.12 ; Chronic cluster headache, not intractable G44.029 ; Obesity (BMI 30.0-34.9) E66.9 ; Diabetes mellitus due to underlying condition without complication, without long-term current use of insulin E08.9 ; Hypothyroidism E03.9 ; Tobacco dependence F17.200 and 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 Fox Johnston III, MD [address] [place] [address] [place] [address] 12/15/2024 Fox Johnston Iron deficiency anem ia, unspecified iron deficiency anemia type D50.9 ; Diabetes mellitus due to underlying condition without complication, without long-term current use of insulin E08.9 ; Lesion of endometrium N85.9 ; Obesity (BMI 30.0-34.9) E66.9 ; Chronic cluster headache, not intractable G44.029 ; Hypothyroidism E03.9 ; Low back pain, unspecified M54.50 and Tobacco dependence F17.200 Fox Johnston III, MD [address] [place] [address] [place] [address] 02/12/2025 Fox Johnston Iron deficiency anem ia, unspecified iron deficiency anemia type D50.9 ; Diabetes mellitus due to underlying condition without complication, without long-term current use of insulin E08.9 ; Obesity (BMI 30.0-34.9) E66.9 ; Former smoker Z87.891 ; Chronic cluster headache, not intractable G44.029 ; Barb's thyroiditis E06.3 and 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 Fox Johnston III, MD [address] [place] [address] [place] [address] 07/19/2024 Fox Johnston III, MD [address] [place] [address] [place] [address] 08/24/2024 oFx Johnston III, MD [address] [place] [address] [place] [address] 12/04/2024 Fox Johnston III, MD [address] [place] [address] [place] [address] 02/15/2025 Fox Johnston III, MD [address] [place] [address] [place] [address] 02/28/2025 Fox Johnston III, MD [address] [place] [address] [place] [address] 03/05/2025 Fox Johnston III, MD [address] [place] [address] [address] [place] [address] 03/06/2025 Fox Johnston Assessments Encounter Date Diagnosis [...] Atrium. She has been referred back to [facility] to deal with this. 02/12/2025 Obesity (BMI [...] (ICD-10 - A63.0) She recently saw her clockmaker apprentice who is treating this. There has been [...] removed during a recent visit to her clockmaker apprentice at [place] and [facility]. 07/25/2024 Hypothyroidism (ICD-10 - E03.9) , [...] (ICD-10 - A63.0) She recently saw her clockmaker apprentice who is treating this. There has been [...] (ICD-10 - A63.0) She recently saw her clockmaker apprentice who is treating this. There has been marked improvement in her cream has been continued. Plan Of Treatment Pending Test Test Name Order Date PROFILE, FASTING (COMPREHENSIVE METABOLI C) 04/12/2023 PROFILE, FASTING (COMPREHENSIVE METABOLI C) 11/15/2017 PROFILE, FASTING (COMPREHENSIVE METABOLI C) 07/13/2022 PROFILE, FASTING (COMPREHENSIVE METABOLI C) 04/19/2024 PROFILE, FASTING (COMPREHENSIVE METABOLI C) 07/14/2019 PROFILE, FASTING (COMPREHENSIVE METABOLI C) 02/12/2025 PROFILE, FASTING (COMPREHENSIVE METABOLI C) 11/01/2017 PROFILE, FASTING (COMPREHENSIVE METABOLI C) 06/04/2023 PROFILE, FASTING (COMPREHENSIVE METABOLI C) 12/13/2020 PROFILE, FASTING (COMPREHENSIVE METABOLI C) 09/13/2020 PROFILE, FASTING (COMPREHENSIVE METABOLI C) 03/21/2021 PROFILE, FASTING (COMPREHENSIVE METABOLI C) 10/31/2018 PROFILE, FASTING (COMPREHENSIVE METABOLI C) 08/30/2020 PROFILE, FASTING (COMPREHENSIVE METABOLI C) 11/22/2024 PROFILE, FASTING (COMPREHENSIVE METABOLI C) 02/23/2022 PROFILE, FASTING (COMPREHENSIVE METABOLI C) 10/21/2018 PROFILE, RANDOM (COMPREHENSIVE METABOLIC ) 07/21/2021 HEMOGLOBIN A1C (GLYCOHEMOGLOBIN) 019 HEMOGLOBIN A1C (GLYCOHEMOGLOBIN) 021 HEMOGLOBIN A1C (GLYCOHEMOGLOBIN) 022 HEMOGLOBIN A1C (GLYCOHEMOGLOBIN) 021 HEMOGLOBIN A1C (GLYCOHEMOGLOBIN) 020 HEMOGLOBIN A1C (GLYCOHEMOGLOBIN) 019 HEMOGLOBIN A1C (GLYCOHEMOGLOBIN) 021 LIPID PANEL 08/30/2020 LIPID PANEL 04/12/2023 LIPID PANEL 11/15/2017 LIPID PANEL 10/21/2018 LIPID PANEL 07/14/2019 LIPID PANEL 11/01/2017 LIPID PANEL 09/13/2020 LIPID PANEL 12/13/2020 LIPID PANEL 07/21/2021 LIPID PANEL 03/21/2021 FREE T4 (FT4) 09/13/2020 FREE T4 (FT4) 12/13/2020 TSH (THYROID STIMULATING HORMONE) 2020 TSH (THYROID STIMULATING HORMONE) 2020 TSH (THYROID STIMULATING HORMONE) 2023 TSH (THYROID STIMULATING HORMONE) 2022 IRON + IBC (FE) 09/22/2021 FERRITIN 07/21/2021 FERRITIN 02/16/2020 FERRITIN 08/30/2020 FERRITIN 09/22/2021 FERRITIN 02/02/2020 CBC w DIFF 03/21/2021 CBC w DIFF 11/22/2024 CBC w DIFF 02/23/2022 CBC w DIFF 07/21/2021 CBC w DIFF 09/13/2020 CBC w DIFF 07/13/2022 CBC w DIFF 02/16/2020 CBC w DIFF 12/13/2020 CBC w DIFF 02/12/2025 CBC w DIFF 11/15/2017 CBC w DIFF 08/30/2020 CBC w DIFF 10/21/2018 CBC w DIFF 07/14/2019 CBC w DIFF [...] Ferritin 04/19/2024 Lipid Panel 07/13/2022 Lipid Panel 02/12/2025 Lipid Panel 11/22/2024 Lipid Panel 02/23/2022 Lipid Panel 04/19/2024 Lipid Panel with Reflex 06/04/2023 Free T4 (Free Thyroxine) 04/19/2024 Microalbumin, Random 04/19/2024 Microalbumin, Random 03/21/2021 Microalbumin, Random 07/13/2022 Hemoglobin A1c 04/19/2024 Hemoglobin A1c 02/12/2025 Hemoglobin A1c 07/13/2022 Hemoglobin A1c 11/22/2024 Hemoglobin A1c 02/23/2022 Hemoglobin A1c 06/04/2023 Next Appt Details Provider Name:Fox Johnston , 06/08/2025 03:45:00 PM, [address] [place] [address] [address], [place], [address], Provider Name:Fox Johnston , 11/26/2025 04:00:00 PM, [address] [place] [address] [address], [place], [address], Insurance Providers Payer Name Payer Address Payer Phone Subscriber Number Group Number Insured Name Patient Relationship to Insured Coverage Start Date Coverage End Date [facility] [address] [place], [place] [id number] [employer] - patient is the insured 6 Medical (General) History Medical History History ICD Code chronic headaches for 4 [facility] [id number] 7 mos former smoker overweight hypothyroid Pre-diabetes {'Condyloma Acuminatum': 'Di agnosed during current visit', 'Muscle Soreness': 'Identified during current visit', 'Gallstones': 'Identified in previous medical tests'} Anal condyloma acuminata Surgical History Surgery Date(Month/Year) No history 2 para 2 2016 C- section 2008 Hospitalization History Reason Date(Month/Year) No history
[2025-06-04 07:07] LABS: MANUAL DIFF FLAG NO
[2025-06-04 07:16] LABS: Hematocrit 37.4 % (37.0-47.0); Hemoglobin 11.8 g/dl (12.0-16.0); Imm Gran Abs Auto 0.03 X10*3/uL (0.00-0.03); Imm Gran Pct Auto 0.3 % (0.0-0.4); Lymphocytes Absolute Auto 2.1 X10*3/uL (1.2-4.9); Mean Corpuscular HGB Conc 31.6 g/dl (31.0-35.0); Mean Corpuscular Hemoglobin 23.8 pg (27.0-33.0); Mean Corpuscular Volume 75.6 fL (80.0-98.0); NRBC Abs Auto 0.000 X10*3/uL (0.0-0.012); NRBC Pct Auto 0.0 /100WBC (0.0-0.2); Platelet Count 403 X10*3/uL (160-400); Red Blood Count 4.95 X10*6/uL (4.20-5.50); White Blood Count 8.9 X10*3/uL (4.8-10.8)
[2025-06-04 07:32] LABS: Alanine Aminotransferase 30 U/L (0-31); Albumin Level 4.5 g/dL (3.5-5.0); Alkaline Phosphatase 79 U/L (39-117); Anion Gap 11 (12-20); Aspartate Amino Transferase 24 U/L (5-31); Blood Urea Nitrogen 9 mg/dL (9-16); Calcium 9.0 mg/dL (8.4-10.2); Carbon Dioxide 26 mmol/L (22-29); Chloride 106 mmol/L (96-108); Cholesterol 164 mg/dL (<200); Estimated Glomerular Filt Rate > 60; HDL Cholesterol 38 mg/dL (>40); Potassium 3.8 mmol/L (3.3-5.1); Sodium 139 mmol/L (135-145); Total Protein 7.2 g/dL (6.5-8.0); Triglycerides 125 mg/dL (<150)
== END 2025-06-04 06:55 | disposition home or self-care (01) ==
LOC: HO.LAB 06:54
PROVIDERS: PCP Internal Medicine Medical Oncology; Visit Provider Internal Medicine Medical Oncology
DX: D50.9 Iron deficiency anemia, unspecified (principal); E08.9 Diabetes mellitus due to underlying condition without complications; E66.9 Obesity, unspecified
CPT/HCPCS: 36415; 80053; 80061; 83036; 85025